=== PATIENT | male | born 1945 | race Caucasian/White ===

== ENCOUNTER 2017-01-27 12:48 | Observation (INO) | payer MEDICARE, OTHER ==
[~2017-01-27] VITALS: Ht 185.4 cm; Wt 115.1 kg
[~2017-01-27 12:48] MED LIST: AMLO10TA2 PO; ASP81TEC PO; CALC-899 PO; CARB1TAB19 PO; DUTA0.5C14 PO; FISH1CAP15 PO; FNST5T PO; GEMF600T3 PO; HYDR25TA4 PO; LEVO137T2 PO; LISI-552 PO; LVT.112T PO; OMEP20CA12 PO; OMG1KC PO; ONDAN4ODT PO; ORPH100T PO; PNT40TEC PO; POLY17PO23 PO; ROPI0.5T2 PO; SELE5CAP PO; TRM50T PO; ULTIMATE COLON CARE PO; [UNRECOGNIZED DRUG - CODE] PO; [UNRECOGNIZED DRUG - CODE] PO
--- NOTE | 2017-01-27 12:59 | ED Chest Pain ---
General Chief Complaint: Cardiac/General Problems Stated Complaint: ELEV BP/RAPID HEART RATE/CHEST TIGHTNESS Source: patient, RN notes reviewed, spouse Exam Limitations: no limitations History of Present Illness Time seen by provider: 12:50 Initial Comments As above and below. Timing/Duration: 4-6 hours Severity/Quality: mild, aching Location: substernal Radiation: jaw, neck Activities at Onset: none Modifying Factors: improves with other (none) ASA po HUMAN RESOURCE ASSISTANT: No NTG SL HUMAN RESOURCE ASSISTANT: No Associated Symptoms: dizziness, weakness Allergies and Home Medications Allergies Coded Allergies: No Known Drug Allergies (Unverified , 09/05/12) Home Medications Amiodarone HCl 200 Mg Tablet, 100 MG PO BID, #60 Ref 2 Prescribed by: MIRIAM NICOLE on 01/28/17 0748 Apixaban 5 Mg Tablet, 5 MG PO BID, #60 Ref 3 Prescribed by: MIRIAM NICOLE on 01/28/17 0748 Aspirin 81 Mg Tabec, 81 MG PO HS, (Reported) Calcium Carbonate/Simethicone 1 Each Tab.chew, 1 TAB.CHEW PO BID PRN for INDIGESTION, (Reported) Carbidopa/Levodopa 1 Each Tablet, 1 TAB PO 08,11,14,17,20, (Reported) Dutasteride 0.5 Mg Capsule, 0.5 MG PO HS, (Reported) Fish Oil/Dha/Epa 1 Each Capsule, 1,200 MG PO BID, (Reported) Gemfibrozil 600 Mg Tablet, 600 MG PO BID, (Reported) Hydrochlorothiazide 25 Mg Tablet, 25 MG PO DAILY PRN for BLOOD PRESSURE, ( Reported) TAKES WHEN BP DOES NOT COME DOWN WITH LISINOPRIL Levothyroxine Sodium 137 Mcg Tablet, 137 MCG PO DAILY, (Reported) Lisinopril 20 Mg Tablet, 5-10 MG PO DAILY PRN for BLOOD PRESSURE, (Reported) TAKES 1/4 TO 1/2 OF A (20 MG) TABLET Meclizine HCl 25 Mg Tablet, 25 MG PO TID PRN for DIZZINESS, (Reported) Omeprazole 20 Mg Capsule.dr, 20 MG PO DAILY, (Reported) Orphenadrine Citrate 100 Mg Tablet.er, 100 MG PO HS, (Reported) Polyethylene Glycol 17 Gm Pack, 17 GM PO DAILY, (Reported) Ropinirole HCl 0.5 Mg Tablet, 0.5 MG PO BID, (Reported) Selegiline HCl 5 Mg Tablet, 5 MG PO BID@1200,2100, (Reported) Review of Systems Constitutional: see HPI, dizziness Cardiovascular: See HPI, Chest Pain, Lightheadedness, Palpitations All Other Systems Reviewed Negative Unless Noted: Yes (Negative excepted noted.) Past Raywtyp-Yvkqhq-Rhrwrb Hx Patient Social History Recent Hopitalizations: No Immunizations Up To Date Date of Pneumonia Vaccine: Oct 05, 2008 Date of Influenza Vaccine: Jul 05, 2012 Seasonal Allergies Seasonal Allergies: No Surgeries HX Surgeries: Yes (shrapnel left arm) Surgeries: Appendectomy, Tonsillectomy Respiratory Hx Respiratory Disorders: No Cardiovascular Hx Cardiac Disorders: No Neurological Hx Neurological Disorders: Yes (PARKINSON'S) Reproductive System Hx Reproductive Disorders: No Genitourinary Hx Genitourinary Disorders: No Gastrointestinal Hx Gastrointestinal Disorders: No Musculoskeletal Hx Musculoskeletal Disorders: No Endocrine Hx Endocrine Disorders: No HEENT HX ENT Disorders: Yes (ONE BROKEN TEETH) Cancer Hx Cancer: No Psychosocial Hx Psychiatric Problems: No Integumentary HX Skin/Integumentary Disorder: No Blood Transfusions Hx Blood Disorders: No Family Medical History Significant Family History: No Pertinent Family Hx Family Medial History: Alcoholism G8 BROTHER Cervical cancer G8 SISTER Diabetes mellitus 19 FATHER 19 MOTHER G8 BROTHER FH: COPD (chronic obstructive pulmonary disease) 19 MOTHER FH: stroke 19 FATHER Physical Exam Vital Signs Vital Sign - Last 12Hours 01/27/17 12:58 Temp 98.2 Pulse 73 Resp 22 B/P (MAP) 141/98 Pulse Ox 18 Capillary Refill : General Appearance: No Apparent Distress, WD/WN Respiratory: Lungs Clear, No Respiratory Distress, Other ((+) ACW tenderness c / palpation) Cardiovascular: Irregularly Irregular Gastrointestinal: Non Tender Rectal: Deferred Neurologic/Psychiatric: Alert, Oriented x3, No Motor/Sensory Deficits, Normal Mood/Affect Skin: Warm/Dry Progress/Results/Core Measures Results/Orders Lab Results Laboratory Tests Test 01/27/17 13:05 Range/Units White Blood Count 5.0 4.3-11.0 10^3/uL Red Blood Count 4.89 4.35-5.85 10^6/uL Hemoglobin 15.0 13.3-17.7 G/DL Hematocrit 44 40-54 % Mean Corpuscular Volume 90 80-99 FL Mean Corpuscular Hemoglobin 31 25-34 PG Mean Corpuscular Hemoglobin Concent 34 32-36 G/DL Red Cell Distribution Width 13.5 10.0-14.5 % Platelet Count 134 130-400 10^3/uL Mean Platelet Volume 11.7 H 7.4-10.4 FL Neutrophils (%) (Auto) 47 42-75 % Lymphocytes (%) (Auto) 41 12-44 % Monocytes (%) (Auto) 11 0-12 % Eosinophils (%) (Auto) 1 0-10 % Basophils (%) (Auto) 1 0-10 % Neutrophils # (Auto) 2.3 1.8-7.8 X 10^3 Lymphocytes # (Auto) 2.1 1.0-4.0 X 10^3 Monocytes # (Auto) 0.5 0.0-1.0 X 10^3 Eosinophils # (Auto) 0.1 0.0-0.3 10^3/uL Basophils # (Auto) 0.0 0.0-0.1 10^3/uL Prothrombin Time 13.9 12.2-14.7 SEC INR Comment 1.1 0.8-1.4 Activated Partial Thromboplast Time 31 24-35 SEC Sodium Level 139 135-145 MMOL/L Potassium Level 4.2 3.6-5.0 MMOL/L Chloride Level 105 98-107 MMOL/L Carbon Dioxide Level 22 21-32 MMOL/L Anion Gap 12 5-14 MMOL/L Blood Urea Nitrogen 18 7-18 MG/DL Creatinine 1.01 0.60-1.30 MG/DL Estimat Glomerular Filtration Rate > 60 BUN/Creatinine Ratio 18 Glucose Level 107 H 70-105 MG/DL Calcium Level 9.3 8.5-10.1 MG/DL Magnesium Level 2.2 1.8-2.4 MG/DL Total Bilirubin 0.4 0.1-1.0 MG/DL Aspartate Amino Transf (AST/SGOT) 27 5-34 U/L Alanine Aminotransferase (ALT/SGPT) 34 0-55 U/L Alkaline Phosphatase 85 40-136 U/L Troponin I < 0.30 <0.30 NG/ML B-Type Natriuretic Peptide 154.3 H <100.0 PG/ML Total Protein 7.3 6.4-8.2 G/DL Albumin 4.1 3.2-4.5 G/DL Thyroid Stimulating Hormone (TSH) 2.79 0.35-4.94 UIU/ML My Orders Orders - EDDY SEXTON DO Saline Lock/Iv-Start (01/27/17 12:51) Ekg Tracing (01/27/17 12:51) BNP (01/27/17 12:56) Cbc With Automated Diff (01/27/17 12:56) Comprehensive Metabolic Panel (01/27/17 12:56) Magnesium (01/27/17 12:56) Protime With Inr (01/27/17 12:56) Partial Thromboplastin Time (01/27/17 12:56) Thyroid Stimulating Hormone (01/27/17 12:56) Troponin I (01/27/17 12:56) Chest 1 View, Ap/Pa Only (01/27/17 12:56) Vital Signs/I&O Vital Sign - Last 12Hours 01/27/17 12:58 Temp 98.2 Pulse 73 Resp 22 B/P (MAP) 141/98 Pulse Ox 18 ECG Initial ECG Impression Date: Jan 27, 2017 Initial ECG Impression Time: 12:58 Initial ECG Rate: 88 Initial ECG Rhythm: A Fib/Flutter Initial ECG Impression: Nonspecific Changes Diagnostic Imaging Diagonstic Imaging: Xray Plain Films/CT/US/NM/MRI: chest (nothing acute) Departure Communication Time/Spoke to Admitting Phy: 14:06 Impression Impression: Primary Impression: New onset atrial fibrillation Additional Impressions: Non-cardiac chest pain Labile hypertension Disposition: 09 ADMITTED INPATIENT Condition: Stable Decision to Admit Reason: Admit from ER (General) Decision to Admit/Date: Jan 27, 2017 Time/Decision to Admit Time: 14:06 Departure-Patient Inst. Referrals: EDDY ESPINO DO (PCP/Family) Primary Care Physician Scripts Amiodarone HCl (Amiodarone HCl) 200 Mg Tablet 100 MG PO BID, #60 TAB 2 Refills Prov: MIRIAM NICOLE MD 01/28/17 Apixaban (Eliquis) 5 Mg Tablet 5 MG PO BID, #60 TAB 3 Refills Prov: MIRIAM NICOLE MD 01/28/17 EDDY SEXTON DO Jan 27, 2017 12:59
[2017-01-27 13:19] LABS: BASOPHILS % (AUTO) 1 % (0-10); EOSINOPHILS # (AUTO) 0.1 10^3/uL (0.0-0.3); EOSINOPHILS % (AUTO) 1 % (0-10); LYMPHOCYTES # (AUTO) 2.1 X 10^3 (1.0-4.0); LYMPHOCYTES % (AUTO) 41 % (12-44); MEAN CORPUSCULAR HEMOGLOBIN 31 PG (25-34); MEAN CORPUSCULAR HGB CONC 34 G/DL (32-36); MEAN CORPUSCULAR VOLUME 90 FL (80-99); MEAN PLATELET VOLUME 11.7 FL (7.4-10.4); MONOCYTES # (AUTO) 0.5 X 10^3 (0.0-1.0); MONOCYTES % (AUTO) 11 % (0-12); NEUTROPHILS # (AUTO) 2.3 X 10^3 (1.8-7.8); NEUTROPHILS % (AUTO) 47 % (42-75); PLATELET COUNT 134 10^3/uL (130-400); RED BLOOD COUNT 4.89 10^6/uL (4.35-5.85); RED CELL DISTRIBUTION WIDTH 13.5 % (10.0-14.5)
[2017-01-27 13:30] LABS: INR 1.1 (0.8-1.4); PROTHROMBIN TIME PATIENT 13.9 SEC (12.2-14.7)
[2017-01-27 13:38] LABS: ALANINE AMINOTRANSFERASE 34 U/L (0-55); ALBUMIN 4.1 G/DL (3.2-4.5); ANION GAP 12 MMOL/L (5-14); ASPARTATE AMINO TRANSFERASE 27 U/L (5-34); BILIRUBIN,TOTAL 0.4 MG/DL (0.1-1.0); BLOOD UREA NITROGEN 18 MG/DL (7-18); BUN/CREATININE RATIO 18; CALCIUM 9.3 MG/DL (8.5-10.1); CARBON DIOXIDE 22 MMOL/L (21-32); CHLORIDE 105 MMOL/L (98-107); CREATININE SERUM 1.01 MG/DL (0.60-1.30); GFR ESTIMATED > 60; GLUCOSE 107 MG/DL (70-105); MAGNESIUM 2.2 MG/DL (1.8-2.4); SODIUM 139 MMOL/L (135-145); TOTAL PROTEIN 7.3 G/DL (6.4-8.2)
[2017-01-27 13:39] LABS: POTASSIUM 4.2 MMOL/L (3.6-5.0)
[2017-01-27 13:57] LABS: THYROID STIMULATING HORMONE 2.79 UIU/ML (0.35-4.94); TROPONIN I < 0.30 NG/ML (<0.30)
--- NOTE | 2017-01-27 13:57 | Diagnostic Imaging Report ---
Portable upright radiograph of the chest. INDICATION: Irregular heartbeat. FINDINGS: The lungs demonstrate no focal infiltrate. The heart size is normal. No effusion or pneumothorax. The mediastinum and ihsan appear unremarkable. IMPRESSION: Unremarkable exam. Dictated by: Dictated on workstation # [id number]
[2017-01-27 15:30] VITALS: BP 184/94
[2017-01-27] MEDS ORDERED: SELE5TAB2 PO (15:37)
[2017-01-27] MEDS ORDERED: LISI-552 PO (15:37)
[2017-01-27] MEDS ORDERED: MECL-106 PO (15:37)
[2017-01-27] MEDS ORDERED: HYDR25TA4 PO (15:37)
--- NOTE | 2017-01-27 15:45 | Consultation-Cardiology ---
HPI-Cardiology Cardiology Consultation Date of Consultation 01/27/17 Date of Admission Indication: atrial fibrillation, chest pain HPI 71 years old gentleman with history of hypertension, was having difficulties controlling his blood pressure but recently has been under better control, this morning he started having chest pain described it as dull achiness in his chest bilaterally radiating to his neck and jaw, checked his blood pressure and noted that his blood pressure is elevated and his heart rate is 150. Came into the emergency room and noted that his heart rate is under better control but he is in atrial fibrillation. His chest pain has resolved. No further episodes. Denied any previous history of atrial fibrillation or irregular heartbeat. No syncope or near syncopal episodes. Home Medications & Allergies Allergies: Coded Allergies: No Known Drug Allergies (Unverified , 09/05/12) Home Medication List Reviewed: Yes JYT-Aowsnw-Okxewr Hx Patient Social History Marital Status: Employed/Student: retired Alcohol Use: Past History Recreational Drug Use: No Smoking Status: Never a Smoker Type Used: Cigarettes Recent Foreign Travel: No Recent Infectious Disease Expo: No Recent Hopitalizations: No Immunizations Up To Date Date of Pneumonia Vaccine: Oct 05, 2008 Date of Influenza Vaccine: Jul 05, 2012 Past Medical History discussed below Family Medical History Significant Family History: No Pertinent Family Hx Family History: Alcoholism G8 BROTHER Cervical cancer G8 SISTER Diabetes mellitus 19 FATHER 19 MOTHER G8 BROTHER FH: COPD (chronic obstructive pulmonary disease) 19 MOTHER FH: stroke 19 FATHER Constitutional: see HPI, malaise, weakness EENTM: no symptoms reported, see HPI Respiratory: see HPI, No cough, dyspnea on exertion, No hemoptysis, No orthopnea, No phlegm, No short of breath, No stridor, No wheezing, No other Cardiovascular: see HPI, chest pain, No edema, No Hx of Intervention, palpitations, No syncope, No vascular heart diseas, No other Gastrointestinal: no symptoms reported, see HPI Genitourinary: no symptoms reported, see HPI Musculoskeletal: no symptoms reported, see HPI Skin: no symptoms reported, see HPI Psychiatric/Neurological: No Symptoms Reported, See HPI Reviewed Test Results Reviewed Test Results Lab Laboratory Tests Test 01/27/17 13:05 Range/Units White Blood Count 5.0 4.3-11.0 10^3/uL Red Blood Count 4.89 4.35-5.85 10^6/uL Hemoglobin 15.0 13.3-17.7 G/DL Hematocrit 44 40-54 % Mean Corpuscular Volume 90 80-99 FL Mean Corpuscular Hemoglobin 31 25-34 PG Mean Corpuscular Hemoglobin Concent 34 32-36 G/DL Red Cell Distribution Width 13.5 10.0-14.5 % Platelet Count 134 130-400 10^3/uL Mean Platelet Volume 11.7 H 7.4-10.4 FL Neutrophils (%) (Auto) 47 42-75 % Lymphocytes (%) (Auto) 41 12-44 % Monocytes (%) (Auto) 11 0-12 % Eosinophils (%) (Auto) 1 0-10 % Basophils (%) (Auto) 1 0-10 % Neutrophils # (Auto) 2.3 1.8-7.8 X 10^3 Lymphocytes # (Auto) 2.1 1.0-4.0 X 10^3 Monocytes # (Auto) 0.5 0.0-1.0 X 10^3 Eosinophils # (Auto) 0.1 0.0-0.3 10^3/uL Basophils # (Auto) 0.0 0.0-0.1 10^3/uL Prothrombin Time 13.9 12.2-14.7 SEC INR Comment 1.1 0.8-1.4 Activated Partial Thromboplast Time 31 24-35 SEC Sodium Level 139 135-145 MMOL/L Potassium Level 4.2 3.6-5.0 MMOL/L Chloride Level 105 98-107 MMOL/L Carbon Dioxide Level 22 21-32 MMOL/L Anion Gap 12 5-14 MMOL/L Blood Urea Nitrogen 18 7-18 MG/DL Creatinine 1.01 0.60-1.30 MG/DL Estimat Glomerular Filtration Rate > 60 BUN/Creatinine Ratio 18 Glucose Level 107 H 70-105 MG/DL Calcium Level 9.3 8.5-10.1 MG/DL Magnesium Level 2.2 1.8-2.4 MG/DL Total Bilirubin 0.4 0.1-1.0 MG/DL Aspartate Amino Transf (AST/SGOT) 27 5-34 U/L Alanine Aminotransferase (ALT/SGPT) 34 0-55 U/L Alkaline Phosphatase 85 40-136 U/L Troponin I < 0.30 <0.30 NG/ML B-Type Natriuretic Peptide 154.3 H <100.0 PG/ML Total Protein 7.3 6.4-8.2 G/DL Albumin 4.1 3.2-4.5 G/DL Thyroid Stimulating Hormone (TSH) 2.79 0.35-4.94 UIU/ML Physical Exam Vital Signs Vital Sign - Last 12Hours 01/27/17 12:58 Temp 98.2 Pulse 73 Resp 22 B/P (MAP) 141/98 Pulse Ox 18 Capillary Refill : Less Than 3 Seconds General Appearance: No Apparent Distress, WD/WN Eyes: Bilateral Eye EOMI, Bilateral Eye Normal Inspection, Bilateral Eye PERRL HEENT: PERRL/EOMI, TMs Normal, Normal ENT Inspection, Pharynx Normal Neck: Full Range of Motion, Normal Inspection, Non Tender, Supple, Carotid Bruit Respiratory: Chest Non Tender, Lungs Clear, Normal Breath Sounds, No Accessory Muscle Use, No Respiratory Distress Cardiovascular: No Edema, No JVD, No Murmur, Normal Peripheral Pulses, Gallop/ S3, Irregularly Irregular Gastrointestinal: Normal Bowel Sounds, No Organomegaly, No Pulsatile Mass, Non Tender, Soft Back: Normal Inspection, No CVA Tenderness, No Vertebral Tenderness Extremity: Normal Capillary Refill, Normal Inspection, Normal Range of Motion, Non Tender, No Calf Tenderness, No Pedal Edema Neurologic/Psychiatric: Alert, Oriented x3, No Motor/Sensory Deficits, Normal Mood/Affect Skin: Normal Color, Warm/Dry Lymphatic: No Adenopathy A/P-Cardiology Admission Diagnosis anterior chest wall pain Atrial fibrillation Malignant hypertension Hyperlipidemia Assessment/Plan Anterior chest wall pain, no acute EKG changes, cardiac enzymes were normal, questionable chest pain secondary to new-onset atrial fibrillation and tachycardia. Heart rate is better control at this time and his chest pain is better. I will continue monitoring, evaluate echocardiogram, probably stress test as an outpatient if his cardiac enzymes were negative. Atrial fibrillation, new onset, no previous history of atrial fibrillation. I will start him on beta blockers, monitor heart rate and blood pressure closely. [id number] score of 2, yearly risk of stroke without oral anticoagulation is 2.2 percent, patient will be started on Eliquis to reduce the risk of stroke. Malignant hypertension, history of hypertensive encephalopathy with hallucination during episode of elevated blood pressure. currently blood pressure is poorly controlled. Continue to monitor History of borderline bradycardia while at rest. Monitor while on telemetry. Dizziness and lightheadedness, reporting improvement at this time. Continue to monitor. Hypothyroidism, maintained on thyroid replacement, TSH is normal. Managed by primary care physician. Continue to monitor Nausea and vomiting, improved. Continue to monitor Parkinson disease, followed and managed by primary care physician Hyperlipidemia, maintained on fenofibrate, good control, triglyceride 188. Continue on current medications and monitor MIRIAM NICOLE MD Jan 27, 2017 15:45
[2017-01-27] MEDS ORDERED: HYDROCHLOROTHIAZIDE 25 MG (HCTZ) TAB PO PRN (16:00)
[2017-01-27] MEDS ORDERED: RT-ALBUTEROL SULF 2.5 MG/3 ML PRE-MIX VIAL IH PRN (16:45)
[2017-01-27 17:00] VITALS: BP 104/65
[2017-01-27] MEDS: SINEMET 25/100 (CARBIDOPA/LEVODOPA) TAB PO SCH ×2 (17:40→21:56)
[2017-01-27] MEDS ORDERED: PATIENT MAY USE OWN MEDS, ALL MC SCH (17:45)
[2017-01-27 19:56] VITALS: BP 127/77
[2017-01-27] MEDS ORDERED: ASPIRIN E.C. 81 MG (ECOTRIN) TAB PO SCH (21:00)
[2017-01-27] MEDS ORDERED: ORPHENADRINE CITRATE 100 MG PO SCH (21:00)
[2017-01-27] MEDS ORDERED: SELEGILINE 5 MG PO SCH (21:00)
[2017-01-27] MEDS: APIXABAN 5 MG (ELIQUIS) TABLET PO SCH (21:55)
[2017-01-27] MEDS: GEMFIBROZIL 600 MG (LOPID) TAB PO SCH (21:55)
[2017-01-27] MEDS: rOPINIRole 0.25 MG (REQUIP) TAB PO SCH (21:55)
[2017-01-27] MEDS: OMEGA 3 (FISH OIL) 1000 MG CAP PO SCH (21:55)
[2017-01-28] VITALS: BP 111/71
[2017-01-28 03:55] VITALS: BP 137/82
[2017-01-28 04:51] LABS: MEAN PLATELET VOLUME 11.4 FL (7.4-10.4); RED BLOOD COUNT 4.66 10^6/uL (4.35-5.85); RED CELL DISTRIBUTION WIDTH 13.7 % (10.0-14.5); WHITE BLOOD COUNT 5.2 10^3/uL (4.3-11.0)
[2017-01-28 05:13] LABS: ANION GAP 13 MMOL/L (5-14); BLOOD UREA NITROGEN 24 MG/DL (7-18); BUN/CREATININE RATIO 20; CALCIUM 9.1 MG/DL (8.5-10.1); CARBON DIOXIDE 25 MMOL/L (21-32); CHLORIDE 105 MMOL/L (98-107); CHOLESTEROL 137 MG/DL (< 200); DIRECT LDL 84 MG/DL (1-129); GFR ESTIMATED 60; GLUCOSE 102 MG/DL (70-105); POTASSIUM 4.2 MMOL/L (3.6-5.0); SODIUM 143 MMOL/L (135-145)
[2017-01-28 05:21] LABS: TROPONIN I < 0.30 NG/ML (<0.30)
[2017-01-28 05:27] LABS: TRIGLYCERIDES 197 MG/DL (<150); VLDL CHOLESTEROL 39 MG/DL (5-40)
[2017-01-28] MEDS ORDERED: LEVOTHYROXINE 25 MCG (LEVOTHROID) TAB PO SCH (06:30)
[2017-01-28] MEDS ORDERED: LEVOTHYROXINE 112 MCG (LEVOTHROID) TAB PO SCH (06:30)
[2017-01-28 07:00] VITALS: BP 138/83
[2017-01-28] MEDS ORDERED: PANTOPRAZOLE 20 MG TABLET (PROTONIX) PO SCH (07:00)
--- NOTE | 2017-01-28 07:46 | Cardiology Progress Note ---
Subjective Subjective/Events-last exam patient is laying down in bed, feeling better, converted back to sinus rhythm, heart rate is controlled. Review of Systems General: No Chills, No Night Sweats, No Fatigue, No Malaise, No Appetite, No Other HEENT: No Head Aches, No Visual Changes, No Eye Pain, No Ear Pain, No Dysphasia , No Sinus Congestion, No Post Nasal Drip, No Sore Throat, No Other Pulmonary: No Dyspnea, No Cough, No Pleuritic Chest Pain, No Other Cardiovascular: No: Chest Pain, Edema, Lt Headedness, Orthopnea, Other, Palpitations, Paroxysmal Noc. Dyspnea Objective-Cardiology Exam Last Set of Vital Signs Vital Signs 01/28/17 06:53 Pulse Ox 98 Capillary Refill : Less Than 3 Seconds I&O Bad tableGeneral: Alert, Oriented X3, Cooperative HEENT: Atraumatic, PERRLA Neck: Supple, No JVD, No Thyromegaly Lungs: Clear to Auscultation, Normal Air Movement Heart: Regular Rate, Normal S1, Normal S2, No Murmurs Abdomen: Normal Bowel Sounds, Soft, No Tenderness, No Hepatosplenomegaly, No Masses Extremities: No Clubbing, No Cyanosis, No Edema, Normal Pulses, No Tenderness/ Swelling Skin: No Rashes, No Breakdown, No Significant Lesion Neuro: Normal Gait, Normal Speech, Strength at 5/5 X4 Ext, Normal Tone, Sensation Intact Psych/Mental Status: Mental Status NL, Mood NL Results Lab Laboratory Tests 01/27/17 13:05 01/28/17 04:35 A/P-Cardiology Admission Diagnosis anterior chest wall pain Atrial fibrillation Malignant hypertension Hyperlipidemia Assessment/Plan Anterior chest wall pain, no acute EKG changes, cardiac enzymes were normal, better at this time, planning to have a stress test done as an outpatient. Atrial fibrillation, back to sinus rhythm, currently in sinus bradycardia, will be unable to tolerate beta blockers, I will use low-dose amiodarone and evaluate tolerance and response [id number] score of 2, yearly risk of stroke without oral anticoagulation is 2.2 percent, patient will be started on Eliquis to reduce the risk of stroke. Malignant hypertension, history of hypertensive encephalopathy with hallucination during episode of elevated blood pressure, blood pressure is better controlled. Continue to monitor Sick sinus syndrome, bradycardia at this time, continue to monitor heart rate Dizziness and lightheadedness, reporting improvement at this time. Continue to monitor. Hypothyroidism, maintained on thyroid replacement, TSH is normal. Managed by primary care physician. Continue to monitor Nausea and vomiting, improved. Continue to monitor Parkinson disease, followed and managed by primary care physician Hyperlipidemia, maintained on fenofibrate, good control, triglyceride 188. Continue on current medications and monitor Clinical Quality Measures DVT/VTE Risk/Contraindication: Risk Factor Score Per Nursin RFS Level Per Nursing on Admit: 3=High MIRIAM NICOLE MD Jan 28, 2017 07:46
--- NOTE | 2017-01-28 07:47 | Clinic Account Progress/Dx ---
Clinic Account Progress/Dx DIAGNOSIS: Diagnosis Chest pain nonspecific etiology Paroxysmal atrial fibrillation Sick sinus syndrome Malignant hypertension MIRIAM NICOLE MD Jan 28, 2017 07:47
[2017-01-28] MEDS ORDERED: APIX5TAB PO (07:48)
[2017-01-28] MEDS ORDERED: AMIO200T2 PO (07:48)
[2017-01-28] MEDS: OMEGA 3 (FISH OIL) 1000 MG CAP PO SCH (07:52)
[2017-01-28] MEDS: GEMFIBROZIL 600 MG (LOPID) TAB PO SCH (07:52)
[2017-01-28] MEDS: rOPINIRole 0.25 MG (REQUIP) TAB PO SCH (07:52)
[2017-01-28] MEDS: APIXABAN 5 MG (ELIQUIS) TABLET PO SCH (07:53)
[2017-01-28] MEDS ORDERED: SINEMET 25/100 (CARBIDOPA/LEVODOPA) TAB PO SCH (08:00)
[2017-01-28] MEDS ORDERED: FINASTERIDE (PROSCAR) 5 MG TAB PO SCH (09:00)
[2017-01-28] MEDS ORDERED: POLYETHYLENE GLYCOL 17 GM (MIRALAX) PACK PO SCH (09:00)
[2017-01-28] MEDS ORDERED: AMIODARONE 200 MG (CORDARONE) TAB PO SCH (09:00)
--- NOTE | 2017-01-29 13:19 | ECHOCARDIOGRAPHY REPORT ---
DATE OF SERVICE: 01/27/2017 PROCEDURE: 2D Echocardiogram MEASUREMENT: LVID end diastolic 4.3, IVS thickness 1.2, LVPW thickness 1.2, left atrial diameter 5.4, ejection fraction 60%. FINDINGS: 1. Technically difficult study. 2. The left ventricle is normal in size with moderate left ventricular hypertrophy noted diffusely. Systolic function appeared to be normal. Estimated ejection fraction 60%. 3. The left atrium is dilated. No clot or thrombus were seen within the left atrium. 4. The right atrium and right ventricle are normal in size. No clot or thrombus were seen within the right side. 5. 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 No mitral valve prolapse. No mitral valve stenosis. 6. Aortic valve is calcified. There is no significant aortic valve stenosis that was noted. Mild aortic regurgitation noted by color Doppler flow. 7. Tricuspid valve is normal in morphology with mild tricuspid regurgitation by color Doppler flow. Doppler across the tricuspid valve estimated pulmonary artery pressure of 19 plus right atrial pressure. 8. Pulmonic valve is functioning normally. 9. No pericardial effusion. IN CONCLUSION: 1. Moderate left ventricular hypertrophy noted diffusely, endocardium was not well visualized in all segments. Estimated ejection fraction is 60%. 2. Left atrial enlargement. 3. 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 4. Aortic valve sclerosis, no aortic stenosis. Mild aortic regurgitation. 5. Estimated pulmonary artery pressure of 25 mmHg. Job ID: [id number] DocumentID: [id number] Dictated Date: 01/28/2017 07:09:54 Structural Biologist Date: 01/28/2017 13:22:35 Dictated By: MIRIAM NICOLE MD
== END 2017-01-28 07:47 | disposition home or self-care (01) ==
LOC: EDUNIT# 12:48 → ER 12:50 → UNDOADMIN 14:12 → ICU 14:12 → INTOOBSV 15:47 → ICU 18:41 → UNDODISIN 01-28 08:50
PROVIDERS: ADMIT Internal Medicine Cardiovascular Disease; ATTEND Internal Medicine Cardiovascular Disease
DX: I48.0 Paroxysmal atrial fibrillation (principal); I49.5 Sick sinus syndrome; R07.89 Other chest pain; I10 Essential (primary) hypertension; R42 Dizziness and giddiness; E03.9 Hypothyroidism, unspecified; R11.2 Nausea with vomiting, unspecified; G20 Parkinson's disease; E78.5 Hyperlipidemia, unspecified
CPT/HCPCS: 36415; 71010; 80048; 80053; 80061; 83735; 83880; 84443; 84484; 85025; 85027; 85610; 85730; 93005; 93306; 94760; G0378

== ENCOUNTER → 2017-02-23 | Outpatient (CLI) | payer MEDICARE, OTHER ==
[~2017-02-23] VITALS: Ht 185.4 cm; Wt 118.4 kg
[~2017-02-23] MED LIST changes: +AMIO200T2 PO; +APIX5TAB PO; +CATHETER FLUSH 10 ML SYR IV PRN; +MECL-106 PO; +REGADENOSON 0.4 MG/5 ML SYR (LEXISCAN) IV ONE; +SELE5TAB2 PO
[2017-02-23 09:01] VITALS: BP 208/89
--- NOTE | 2017-02-24 07:37 | STRESS TEST ---
DATE OF SERVICE: 02/23/2017 PROCEDURE: Lexiscan Myoview stress test report. REFERRING PHYSICIAN: Dr. Lopez. FINDINGS: Baseline heart rate is 54 baseline blood pressure 109/65. Baseline EKG is sinus rhythm with no ischemic changes SUMMARY: The patient was scheduled for an exercise stress test initially. He received 10.16 mCi of technetium-99 Myoview and the resting images were obtained. Then, he started exercising on a Neto protocol. At minute 4 and 50 seconds he was unable to perform any further. He had nondiagnostic EKG changes. Test was terminated and converted to Lexiscan Myoview stress test. The patient received 0.4 mg of Lexiscan followed by 30.2 mCi of technetium 99 Myoview. Throughout the test, there were no EKG changes. The resting and stress images were reviewed and compared in the short axis, horizontal long axis, and vertical long axis views. Review of the images showed good radiotracer uptake with no ischemia or infarction. SSS is zero, TID value 0.95. On the gated images, the left ventricle appeared to be normal size with normal contractility. Calculated ejection fraction 66%. CONCLUSION: The patient was unable to exercise on Neto protocol; he finished only 4 minutes and 50 seconds achieving 77% of maximum expected heart rate. Test was converted to Lexiscan. The patient tolerated Lexiscan well. 1. No ischemia or infarction on SPECT images. 2. Normal left ventricular size with normal contractility. Calculated ejection fraction 66%. Job ID: [id number] DocumentID: [id number] Dictated Date: 02/23/2017 11:59:10 Senior Computer Specialist Date: 02/24/2017 01:06:26 Dictated By: MIRIAM NICOLE MD
== END ==
LOC: CARD 07:19
PROVIDERS: ATTEND Physician Assistant
DX: I48.0 Paroxysmal atrial fibrillation (principal); R07.89 Other chest pain; I10 Essential (primary) hypertension; G47.33 Obstructive sleep apnea (adult) (pediatric)
CPT/HCPCS: 78452; 93017

== ENCOUNTER 2017-05-12 09:16 | Outpatient (CLI) | payer MEDICARE, OTHER ==
[~2017-05-12] VITALS: Ht 185.4 cm; Wt 118.4 kg
[~2017-05-12 09:16] MED LIST changes: -CATHETER FLUSH 10 ML SYR IV PRN; -REGADENOSON 0.4 MG/5 ML SYR (LEXISCAN) IV ONE
[2017-05-12] MEDS ORDERED: AMIO200T2 PO (14:02)
[2017-05-12] MEDS ORDERED: LISI-556 PO (14:02)
== END 2017-05-12 14:12 ==
LOC: PREOP 09:16
PROVIDERS: ATTEND Surgery
DX: Z01.818 Encounter for other preprocedural examination (principal); Z12.11 Encounter for screening for malignant neoplasm of colon; K21.9 Gastro-esophageal reflux disease without esophagitis

== ENCOUNTER 2017-05-18 09:45 | Day surgery (SDC) | payer MEDICARE, OTHER ==
[~2017-05-18] VITALS: Ht 185.4 cm; Wt 118.4 kg
[~2017-05-18 09:45] MED LIST changes: +LISI-556 PO
--- OUTSIDE RECORDS SUMMARY | 2017-05-18 09:49 | XMS REPORT | Encounter Summary ---
Author Author [facility] Organization [facility] Address Unknown Phone Unavailable Care Team Providers Care Director Voice Name Role Phone PCP Unavailable Reason for Visit * Reason Comments Parkinson's Disease w/ Encounter Details Date Type Department Care Team Description 04/15/2017 [facility] Visit [facility] Bowman MD Parkinson disease (HCC) - Neurology [address] (Primary Dx);Excessive [address] [place] [address] sleepiness;[place] [address] insomnia;[place] [address] depression;Restless legs [phone] syndrome (RLS) Social History Tobacco Use Types Packs/Day Years Used Date Never Smoker Smokeless Tobacco: Never Used Comments: 06.22.12 Alcohol Use Drinks/Week oz/Week Comments No 0 Standard 0.0 drinks or equivalent Sex Assigned at Date Recorded Not on file as of this encounter Last Filed Vital Signs Vital Sign Reading Time Taken Blood Pressure 157/84 04/15/2017 11:31 AM CDT Pulse 50 04/15/2017 11:31 AM CDT Temperature - - Respiratory Rate - - Oxygen Saturation - - Inhaled Oxygen - - Concentration Weight 116.4 kg (256 lb 9.9 oz) 04/15/2017 11:31 AM CDT Height 180.5 cm (5' 11.06") 04/15/2017 11:31 AM CDT Body Mass Index 35.73 04/15/2017 11:31 AM CDT in this encounter Instructions * Patient Instructions - Erlin Bowman MD - 04/15/2017 11:48 AM CDT Increase Sinemet (carbidopa/levodopa) 25/100 2 tab at 8a, 11a, 1 tab at 2p, 5p, 8p Common Side Effects As with all medications, there are potential side effects that may occur. Common side effects include dizziness, nausea, confusion, seeing things and objects that are not there (hallucinations), constipation, and involuntary movements (dyskinesias). Call [phone] if you have any questions or side effects. in this encounter Progress Notes * Erlin Bowman MD - 04/15/2017 11:45 AM CDT Formatting of this note may be different from the original. Subjective: Brooks Gan is a 71 y.o. male. History of Present Illness Parkinson's Disease Follow-Up Visit Since my last visit I am: Slighly worse Symptoms Scale: Memory problems: Mild, bothersome Hallucinations/delusions: Mild, illusions Depression: Slight, not bothersome Anxiety: Mild, can be bothersome Apathy: Slight, some loss of interest Impulsive behavior: None Nighttime sleep: Moderate, wake up multiple times Daytime sleepiness: Moderate, difficulty staying awake Vivid dreams: Mild, frequently not bothersome REM sleep behavior disorder: Mild, frequently talk but not disturbing Restless leg syndrome: Marked, frequently affects sleeping Pain or muscle cramps: Mild, muscle or joint pain need medications Urination: Moderate, occasional accidents Constipation: Moderate, need OTC medication Dizziness or lightheadedness: Mild, often on standing Tiredness/Fatigue: Marked, cannot do majority of activities Falling: I have not fallen Personal care assistance: Moderate, I have some difficulty and need some help daily Total Score: Total Score: 39 Assistive Devices: Assistive devices for getting around: None OFF Time: OFF time: Yes Hours/day of OFF time: 2 Number of episodes/day: 1 OFF time is bothersome: All of the time Muscles spasms or strange posturing: No OFF disability: They are annoying to me Dyskinesia: Dyskinesia while awake: No Employment Status: Employment: Retired - not due to PD Review of Systems HENT: Positive for drooling. Gastrointestinal: Positive for abdominal pain, constipation and abdominal distention. Negative for nausea, vomiting, diarrhea, blood in stool, anal bleeding and rectal pain. Genitourinary: Positive for urgency. Negative for dysuria, frequency, hematuria , flank pain, decreased urine volume, discharge, penile swelling, scrotal swelling, enuresis, difficulty urinating, genital sores, penile pain and testicular pain. Neurological: Positive for speech difficulty. Objective: amiodarone (CORDARONE) 200 mg tablet Take 100 mg by mouth twice daily. Take with food. apixaban (ELIQUIS) 5 mg tablet Take 5 mg by mouth twice daily. carbidopa/levodopa (SINEMET) 25/100 mg tablet 2 tab 8a, 11a, 1 tab at 2p, 5p , 8p dutasteride (AVODART) 0.5 mg capsule TAKE 1 CAPSULE DAILY gemfibrozil (LOPID) 600 mg tablet Take 600 mg by mouth twice daily. Incontinence Pad, Liner, Disp pads Use urinary incontinence pads prn. levothyroxine (SYNTHROID) 112 mcg tablet Take 150 mcg by mouth daily. lisinopril (PRINIVIL; ZESTRIL) 5 mg tablet Take 5 mg by mouth daily. meclizine (ANTIVERT) 25 mg tablet Take 25 mg by mouth as Needed. omeprazole DR(+) (PRILOSEC) 20 mg capsule Take 20 mg by mouth daily. orphenadrine ER(+) (NORFLEX) 100 mg tablet Take 1 Tab by mouth at bedtime daily. rOPINIRole (REQUIP) 1 mg tablet Take 0.5 Tabs by mouth twice daily. selegiline(+) 5 mg tablet Take 1 Tab by mouth twice daily. Filed Vitals: 04/15/17 1131 BP: 157/84 Pulse: 50 Height: 180.5 cm (71.06") Weight: 116.4 kg (256 lb 9.9 oz) Body mass index is 35.73 kg/(m^2). Physical Exam EXAMINATION: ORIENTATION: Alert and Oriented. Cranial Nerves: II-XII Unremarkable Right Left Bradkinesia None Mild Tremor Hands Resting None Mild Postural None None Kinetic None None Tremor Other: None Dyskinesia: None Muscle Strength: Unremarkable Gait: Independent with minor impairment PDQ39 suggest that the symptoms impact the Quality of Life as: PDQ 39 IMPACT Mobility Percent: 57.5 % ADL Percent: 58.33 % Emotional Percent: 20.83 % Social Stigma Percent: 6.25 % Social Support Percent: 0 % Cognition Percent: 50 % Communication Percent: 25 % Body Discomfort Percent: 25 % PDQ Total Percent: 36.54 % Assessment and Plan: Problem Parkinson disease (HCC) Symptoms began in 2010, initial symptoms was left hand tremor. Diagnosed with Parkinson's disease in 2010. Atypical PD Features: None. Symptoms improve with Sinemet (carbidopa/levodopa) 25/100 and has motor fluctuation. 07/23/2015 PDQ8 Total %: 34 03/05/2016 PDQ8 Total %: 50 04/16/2017 PDQ Total Percent: 36.54 % Restless Legs Syndrome (Rls) On Requip (ropinirole) Excessive Sleepiness [place] Sleepiness Scale: 11 09/08/2013 [place] Sleepiness Scale: 11 04/15/2017 H/O of sleep apnea Insomnia 09/08/2013 Tried Remeron (mirtazepine), gives him a "hangover" Depression GDS Score (Calculated: max 30): 11 Did not tolerate Remeron (mirtazepine) On Zoloft (sertraline) 07/23/2015 Geriatric Depression Scale: 11 03/05/2016 Geriatric Depression Scale: 14 04/16/2017 Zoloft (sertraline) discontinued due to ? reason Parkinson disease (HCC) Symptoms are worse since the last visit. I recommended increasing Sinemet ( carbidopa/levodopa) 25/100 2 tab at 8a, 11a, 1 tab at 2p, 5p, 8p. Side effects were discussed with the patient and he was given a list of common side effects. Excessive sleepiness His symptoms are stable. No medication changes were recommended during the current visit. Insomnia His symptoms are stable. No medication changes were recommended during the current visit. Depression His symptoms are stable. No medication changes were recommended during the current visit. Restless legs syndrome (RLS) His symptoms are stable. No medication changes were recommended during the current visit. Patient will follow up in approximately 6 months. in this encounter Plan of Treatment Not on fileas of this encounter Visit Diagnoses Diagnosis Parkinson disease (HCC) - Primary Paralysis agitans Excessive sleepiness Hypersomnia, unspecified Other insomnia Other depression Restless legs syndrome (RLS) in this encounter
--- OUTSIDE RECORDS SUMMARY | 2017-05-18 09:49 | XMS REPORT | Clinical Summary ---
Author Author [facility] Organization [facility] Address Unknown Phone Unavailable Care Team Providers Care Internet Marketer Name Role Phone PCP Unavailable Source Comments Some departments are not documenting in the electronic medical record. If you do not see the information that you expected, contact Release of Information in the Health Information Management department at [phone] for further assistance in locating additional records.[facility] Allergies No Known Allergies Current Medications Prescription Sig. Disp. Refills Start End Date Status Date levothyroxine (SYNTHROID) Take 150 mcg by mouth Active 112 mcg tablet daily. gemfibrozil (LOPID) 600 Take 600 mg by mouth Active mg tablet twice daily. Incontinence Pad, Liner, Use urinary incontinence 60 Each 11 03/28/20 Active Disp padsIndications: pads prn. 14 Urinary incontinence, post-void dribbling dutasteride (AVODART) 0.5 TAKE 1 CAPSULE DAILY 90 Cap 3 03/05/20 Active mg capsule 16 rOPINIRole (REQUIP) 1 mg Take 0.5 Tabs by mouth 180 Tab 3 08/13/20 Active tabletIndications: twice daily. 16 Parkinson disease (HCC) orphenadrine ER(+) Take 1 Tab by mouth at 90 Tab 3 11/26/19 Active (NORFLEX) 100 mg tablet bedtime daily. 17 selegiline(+) 5 mg tablet Take 1 Tab by mouth twice 180 Tab 3 Active daily. 17 apixaban (ELIQUIS) 5 mg Take 5 mg by mouth twice Active tablet daily. amiodarone (CORDARONE) Take 100 mg by mouth Active 200 mg tablet twice daily. Take with food. omeprazole DR(+) Take 20 mg by mouth Active (PRILOSEC) 20 mg capsule daily. meclizine (ANTIVERT) 25 Take 25 mg by mouth as Active mg tablet Needed. lisinopril (PRINIVIL; Take 5 mg by mouth daily. Active ZESTRIL) 5 mg tablet carbidopa/levodopa 2 tab 8a, 11a, 1 tab at 630 Tab 3 04/16/20 Active (SINEMET) 25/100 mg 2p, 5p, 8p 17 tabletIndications: Parkinson disease (HCC) Active Problems Problem Noted Date Light headedness 08/13/2016 Last Assessment & Plan: He has a drop in BP on standing and I recommended reducing lisiniopril to 0.5 tab daily and to follow up with Primary Care Physician. Restless legs syndrome (RLS) 09/07/2013 Overview: On Requip (ropinirole) L ast Assessment & Plan: His symptoms are stable. No medication changes were recommended during the current visit. Erectile dysfunction 03/29/2013 Overview: Mild ED since starting Avodart. L ast Assessment & Plan: 1. Start Viagra 50mg PRN. Script provided. Discussed proper use of medication. Parkinson disease (HCC) 06/22/2012 Overview: Symptoms began in 2010, initial symptoms was left hand tremor. Diagnosed with Parkinson's disease in 2010. Atypical PD Features: None. Symptoms improve with Sinemet (carbidopa/levodopa) 25/100 and has motor fluctuation. 07/23/2015 PDQ8 Total %: 34 03/05/2016 PDQ8 Total %: 50 04/16/2017 PDQ Total Percent: 36.54 % L ast Assessment & Plan: Symptoms are worse since the last visit. I recommended increasing Sinemet (carbidopa/levodopa) 25/100 2 tab at 8a, 11a, 1 tab at 2p, 5p, 8p. Side effects were discussed with the patient and he was given a list of common side effects. Excessive sleepiness 06/22/2012 Overview: [place] Sleepiness Scale: 11 09/08/2013 [place] Sleepiness Scale: 11 04/15/2017 H/O of sleep apnea L ast Assessment & Plan: His symptoms are stable. No medication changes were recommended during the current visit. Insomnia 06/22/2012 Overview: 09/08/2013 Tried Remeron (mirtazepine), gives him a "hangover" L ast Assessment & Plan: His symptoms are stable. No medication changes were recommended during the current visit. Depression 06/22/2012 Overview: GDS Score (Calculated: max 30): 11 Did not tolerate Remeron (mirtazepine) On Zoloft (sertraline) 07/23/2015 Geriatric Depression Scale: 11 03/05/2016 Geriatric Depression Scale: 14 04/16/2017 Zoloft (sertraline) discontinued due to ? reason L ast Assessment & Plan: His symptoms are stable. No medication changes were recommended during the current visit. BPH with obstruction/lower urinary tract symptoms Overview: Prostate TRUS Vol (08/23/2012)=125 mL Currently on Avodart. Failed Flomax due to light headedness. L ast Assessment & Plan: Continue avodart - well managed. Report of rust colored urine - will send UA today. History of hematuria with negative workup in 2011. Elevated PSA Overview: PNBx (06/10/2011) -- Negative for malignancy; Dr. Toth PNBx (08/23/2012) -- Negative for malignancy; Efrain Tinoco PA-C Currently on Avodart. L ast Assessment & Plan: Repeat PSA in 1 year - continue avodart. Urinary incontinence, post-void dribbling Last Assessment & Plan: Urinary incontinence pads prn. Prostate cancer screening Last Assessment & Plan: PSA mildly increased - RTC 1 year with PSA prior. Encounters Date Type Specialty Care Team Description 04/15/2017 Office Visit Neurology Erlin Bowman MD Parkinson disease (HCC) (Primary Dx);Excessive sleepiness;Other insomnia;Other depression;Restless legs syndrome (RLS) 04/06/2017 Refill Neurology Erlin Bowman MD from Last 3 Months Family History Medical History Relation Name Comments Stroke Father Tremor Father Relation Name Status Comments Father Social History Tobacco Use Types Packs/Day Years Used Date Never Smoker Smokeless Tobacco: Never Used Tobacco Cessation: Counseling Given: No Comments: 06.22.12 Alcohol Use Drinks/Week oz/Week Comments No 0 Standard 0.0 drinks or equivalent Sex Assigned at Date Recorded Not on file Last Filed Vital Signs Vital Sign Reading [...] Mass Index 35.73 04/15/2017 11:31 AM CDT Plan of Treatment Health Maintenance Due Date Last Done Comments HEPATITIS C SCREENING 1945 PHYSICAL (COMPREHENSIVE) 1953 EXAM PERTUSSIS VACCINE 1957 TETANUS VACCINE 1963 COLORECTAL CANCER 1996 SCREENING SHINGLES VACCINE 2006 PREVNAR/PNEUMOVAX (#1) 2011 INFLUENZA VACCINE 06/05/2017 Results Not on filefrom Last 3 Months
--- OUTSIDE RECORDS SUMMARY | 2017-05-18 09:49 | XMS REPORT | Encounter Summary ---
Author Author [facility] Organization [facility] Address Unknown Phone Unavailable Care Team Providers Care County Program Technician Name Role Phone PCP Unavailable Reason for Visit * Reason Comments Medication Refill Encounter Details Date Type Department Care Team Description 04/06/2017 Refill [facility] MD - Neurology [address] [place] [address] [place] [address] [place] [address] [phone] Social History Tobacco Use Types Packs/Day Years Used Date Never Smoker Smokeless Tobacco: Never Used Comments: 06.22. Alcohol Use Drinks/Week oz/Week Comments Yes occ Sex Assigned at Date Recorded Not on file as of this encounter Plan of Treatment Not on fileas of this encounter Visit Diagnoses Not on filein this encounter
[2017-05-18] MEDS ORDERED: NS IV 500 ML 500 ML IV PRN (10:00)
[2017-05-18] MEDS ORDERED: HURRICAINE EXT TUBE (BENZOCAINE) XX PRN (10:00)
[2017-05-18 10:20] VITALS: BP 183/95
--- NOTE | 2017-05-18 10:38 | Conscious Sedation/ASA ---
Conscious Sedation Pre-Proced Time Reviewed: 10:38 ASA Class: 2 Airway Mallampati Classification: (ruby appropriate class) I. II. III, IV Lungs Heart ASA score ASA 1: a normal healthy patient ASA 2: a patient with a mild systemic disease (mid diabetes, controlled hypertension, obesity ASA 3: a patient with a severe systemic disease that limits activity (angina , COPD, prior Myocardial infarction) ASA 4: a patient with an incapacitating disease that is a constant threat to life (CHF, renal failure) ASA 5: a moribund patient not expected to survive 24 hrs. (ruptured aneurysm) ASA 6: a declared brain patient whose organs are being harvested. For emergent operations, add the letter E after the classification Grade 1 Sedation Plan: Discussed options with patient/fam Note The patient is an appropriate candidate to undergo the planned procedure, sedation, and anesthesia. The patient immediately re-assessed prior to indication. JORY BACA MD May 18, 2017 10:38 am
--- NOTE | 2017-05-18 10:38 | History & Physicial ---
History of Present Illness History of Present Illness Reason for visit/HPI to undergo an endoscopic assessment of symptoms of reflux and concomitant screening colonoscopy. No family history of colon cancer. Date of Admission Date Seen by Provider: May 18, 2017 Time Seen by Provider: 10:36 I consulted on this patient on 05/18/17 10:35 Attending Physician Jory Baca MD Admitting Physician Jan Lopez DO Consult Allergies and Home Medications Allergies Coded Allergies: No Known Drug Allergies (Unverified , 05/12/17) Home Medications Amiodarone HCl 200 Mg Tablet, 100 MG PO BID, #60 Ref 2 Prescribed by: MIRIAM NICOLE on 01/28/17 0748 Amiodarone HCl 200 Mg Tablet, 100 MG PO 1700, (Reported) Apixaban 5 Mg Tablet, 5 MG PO BID, #60 Ref 3 Prescribed by: MIRIAM NICOLE on 01/28/17 0748 Carbidopa/Levodopa 1 Each Tablet, 1 TAB PO 08,11,14,17,20, (Reported) Dutasteride 0.5 Mg Capsule, 0.5 MG PO HS, (Reported) Gemfibrozil 600 Mg Tablet, 600 MG PO BID, (Reported) Levothyroxine Sodium 137 Mcg Tablet, 137 MCG PO DAILY, (Reported) Lisinopril 5 Mg Tablet, 5 MG PO HS, (Reported) Orphenadrine Citrate 100 Mg Tablet.er, 100 MG PO HS, (Reported) Polyethylene Glycol 17 Gm Pack, 17 GM PO DAILY, (Reported) Ropinirole HCl 0.5 Mg Tablet, 0.5 MG PO BID, (Reported) Selegiline HCl 5 Mg Tablet, 5 MG PO BID@1200,2100, (Reported) Past [id number]-[id number] Hx Patient Social History Marrital Status: Employed/Student: retired Type Used: Cigarettes Recent Foreign Travel: No Contact w/other who traveled: No Recent Hopitalizations: No (MARCH 2017-) Immunizations Up To Date Date of Pneumonia Vaccine: Oct 05, 2008 Date of Influenza Vaccine: Jul 14, 2016 Seasonal Allergies Seasonal Allergies: No Surgeries HX Surgeries: Yes (shrapnel left arm) Surgeries: Appendectomy, Gallbladder, Tonsillectomy Respiratory Hx Respiratory Disorders: No Cardiovascular Hx Cardiovascular Disorders: Yes Cardiac Disorders: Atrial Fibrillation, Hypertension Neurological Hx Neurological Disorders: Yes Neurological Disorders: Parkinson's Disease Reproductive System Hx Reproductive Disorders: No Sexually Transmitted Disease: No HIV/AIDS: No Genitourinary Hx Genitourinary Disorders: Yes Genitourinary Disorders: Prostate Problems Gastrointestinal Hx Gastrointestinal Disorders: Yes Gastrointestinal Disorders: Gastroesophageal Reflux, Chronic Constipation Musculoskeletal Hx Musculoskeletal Disorders: Yes (OSTEOARTHRITIS) Musculoskeletal Disorders: Arthritis, Chronic Back Pain Endocrine Hx Endocrine Disorders: Yes HEENT HX ENT Disorders: No Loss of Vision: Denies Hearing Impairment: Denies Cancer Hx 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 Psychosocial Hx Psychiatric Problems: Yes ([place] VET) Behavioral Health Disorders: PTSD Integumentary HX Skin/Integumentary Disorder: No Blood Transfusions Hx Blood Disorders: No Adverse Reaction to a Blood Tr: No (N/A) Family Medical History Significant Family History: No Pertinent Family Hx Family Hx: Alcoholism G8 BROTHER Cervical cancer G8 SISTER Diabetes mellitus 19 FATHER 19 MOTHER G8 BROTHER FH: COPD (chronic obstructive pulmonary disease) 19 MOTHER FH: stroke 19 FATHER Constitutional: no symptoms reported EENTM: no symptoms reported Respiratory: no symptoms reported Cardiovascular: no symptoms reported Gastrointestinal: abdominal pain (RLQ) Genitourinary: no symptoms reported Musculoskeletal: joint pain Skin: no symptoms reported Psychiatric/Neurological: No Symptoms Reported Physical Exam Vital Signs Capillary Refill : General Appearance: No Apparent Distress HEENT: Normal ENT Inspection Neck: Normal Inspection Respiratory: Lungs Clear Cardiovascular: Regular Rate, Rhythm Gastrointestinal: Non Tender, Soft Rectal: Deferred Back: Normal Inspection Extremity: Normal Inspection Neurologic/Psychiatric: Alert, Oriented x3 Skin: Warm/Dry Comments lower right paramedian scar from an open appendectomy. No incisional or inguinal hernia Assessment/Plan Assessment and Plan gentleman with symptoms of reflux disease. Need for colon cancer screening. Details of the procedure reviewed and he is in agreement to proceed Problems: JORY BACA MD May 18, 2017 10:38 am
[2017-05-18] MEDS ORDERED: MIDAZOLAM 2 MG/2 ML (VERSED) VIAL ONE ×4 (10:49)
[2017-05-18] MEDS ORDERED: fentaNYL INJECTION 100 MCG/2 ML AMP ONE ×2 (10:49)
[2017-05-18] MEDS ORDERED: HURRICAINE EXT TUBE (BENZOCAINE) ONE (10:49)
[2017-05-18] MEDS: fentaNYL INJECTION 100 MCG/2 ML AMP IVP PRN ×2 (11:02→11:12)
[2017-05-18] MEDS: MIDAZOLAM 2 MG/2 ML (VERSED) VIAL IVP PRN ×2 (11:04→11:13)
[2017-05-18 11:55] VITALS: BP 128/81
--- NOTE | 2017-05-18 12:08 | Endo Procedure Record ---
Endo Procedure Report Date of Procedure May 18, 2017 Surgeon (s) JORY BACA MD Post Procedure/Op Diagnosis EGD: Grade 3 esophagitis and hiatal hernia. Distal gastritis Colonoscopy: Poor bowel prep.sigmoid diverticulosis Procedure Performed EGD with antral and GE junction biopsy Colonoscopy to cecum Description of Procedure Anesthesia Type: Conscious Sedation Specimen(s) collected/removed antral mucosa. Mucosa of GE junction Description of the Procedure Indication for the procedures; This gentleman came in for an endoscopic assessment of symptoms of reflux disease and for screening colonoscopy at the same time. He denied any family history of colon cancer. Informed consent was obtained after reviewing the procedures in detail. Description of the procedures; EGD/biopsy: He was placed in left lateral decubitus position and his vital signs were monitored. Conscious sedation was achieved using Versed and fentanyl. The flexible gastroscope was then introduced down the esophagus, past the stomach, into the proximal duodenum. Findings: Esophagus: Grade 3 esophagitis with linear ulcers extending up the esophagus up to 30 cm from the gastroesophageal junction. Photo documentation and biopsy for Lyon's changes were obtained. Stomach: Mild distal gastritis. Biopsy for H. pylori was obtained. Duodenum: Normal He tolerated the procedure well and was turned around in preparation for colonoscopy. Impression: Symptoms several friends disease. Grade 3 esophagitis. Helicobacter status pending. Colonoscopy: Digital rectal examination was unremarkable. The colonoscope was then introduced into the rectum and advanced all the way up to the cecum. The quality of bowel preparation was rather poor. The scope was withdrawn slowly and the mucosa examined in a systematic fashion. Findings:Very few sigmoid diverticula. He tolerated the procedures well and was taken back to the nursing area in a stable condition. Impression: Screening colonoscopy. No polyps. Recommend repeating in 10 years. Copies To: EDDY ESPINO XAVIER M MD May 18, 2017 12:08 pm
[2017-05-18] MEDS ORDERED: PANT40TA2 PO (12:12)
--- NOTE | 2017-05-18 12:12 | Discharge Inst-Simple/Standard ---
Discharge Inst-Standard Discharge Medications New, Converted or Re-Newed RX: RX on Chart Patient Instructions/Follow Up Plan of Care/Instructions/FU: follow up with his primary doctor Activity as Tolerated: Yes Discharge Diet: No Restrictions JORY BACA MD May 18, 2017 12:12 pm
[2017-05-18 12:25] VITALS: BP 149/83
[2017-05-18 13:25] VITALS: BP 149/83
== END 2017-05-18 13:25 | disposition home or self-care (01) ==
LOC: ENDO 09:45
PROVIDERS: ATTEND Surgery
DX: Z12.11 Encounter for screening for malignant neoplasm of colon (principal); K57.30 Diverticulosis of large intestine without perforation or abscess without bleeding; K21.9 Gastro-esophageal reflux disease without esophagitis; K22.10 Ulcer of esophagus without bleeding; K29.70 Gastritis, unspecified, without bleeding; F17.210 Nicotine dependence, cigarettes, uncomplicated; I48.91 Unspecified atrial fibrillation; I10 Essential (primary) hypertension; G20 Parkinson's disease; K59.09 Other constipation; F43.10 Post-traumatic stress disorder, unspecified; M19.91 Primary osteoarthritis, unspecified site; Z79.899 Other long term (current) drug therapy
CPT/HCPCS: 43239; G0121; 88305

== ENCOUNTER → 2018-01-13 | Outpatient (CLI) | payer MEDICARE, OTHER ==
[~2018-01-13] MED LIST changes: +PANT40TA2 PO
--- NOTE | 2018-01-13 11:43 | Diagnostic Imaging Report ---
INDICATION: Low-back pain. TIME OF EXAMINATION: 11:45 a.m. FINDINGS: Curvature and alignment of the lumbar spine is identified. The vertebral body heights are maintained. There is severe multilevel degenerative disc disease. Significant disc space narrowing is seen at all levels. There are large marginal osteophytes at all levels. Flowing anterior osteophytes in the lower thoracic and upper lumbar spine are seen. No spondylolisthesis is seen. Multilevel lumbar facet arthropathy is noted. IMPRESSION: Severe multilevel lumbar spondylosis. No acute fracture is identified. Dictated by: Dictated on workstation # [id number]
== END ==
LOC: RAD 11:13
PROVIDERS: ATTEND Internal Medicine
DX: M47.816 Spondylosis without myelopathy or radiculopathy, lumbar region (principal)
CPT/HCPCS: 72100

== ENCOUNTER 2018-04-12 15:05 | Inpatient (IN) | payer MEDICARE, OTHER ==
[~2018-04-12] VITALS: Ht 185.4 cm; Wt 120.7 kg
[~2018-04-12 15:05] MED LIST changes: -AMIO200T2 PO; +AMIO200T4 PO; -DUTA0.5C14 PO; +DUTA0.5C16 PO
--- OUTSIDE RECORDS SUMMARY | 2018-04-12 15:11 | XMS REPORT | Clinical Summary ---
Author Author [facility] Organization [facility] Address Unknown Phone Unavailable Care Team Providers Care Proposal Lead Writer Name Role Phone Erlin Bowman MD Unavailable Michael Tinoco PA-C Unavailable Alek Toth MD Unavailable Yamilex Patel MD Unavailable Kennedi Garcia MD Unavailable Lexie Broussard MD Unavailable Unavailable Casie Neil MD Unavailable Jan Lopez PCP Unavailable Marita Silva MD Unavailable Jay Hardy MD Unavailable Le White MD Unavailable Unavailable Source Comments Some departments are not documenting in the electronic medical record. If you do not see the information that you expected, contact Release of Information in the Health Information Management department at [phone] for further assistance in locating additional records.[facility] Allergies No Known Allergies Current Medications Prescription Sig. Disp. Refills Start End Date Status Date levothyroxine (SYNTHROID) Take 150 mcg by mouth Active 112 mcg tablet daily. gemfibrozil (LOPID) 600 Take 600 mg by mouth Active mg tablet twice daily. Incontinence Pad, Liner, Use urinary incontinence 60 Each 11 03/28/20 Active Disp padsIndications: pads prn. 14 Urinary incontinence, post-void dribbling selegiline(+) 5 mg tablet Take 1 Tab by mouth twice 180 Tab 3 Active daily. 17 apixaban (ELIQUIS) 5 mg Take 5 mg by mouth twice Active tablet daily. amiodarone (CORDARONE) Take 100 mg by mouth Active 200 mg tablet twice daily. Take with food. meclizine (ANTIVERT) 25 Take 25 mg by mouth as Active mg tablet Needed. lisinopril (PRINIVIL; Take 5 mg by mouth daily. Active ZESTRIL) [address] Take 40 mg by mouth Active (PROTONIX) 40 mg tablet daily. MULTAQ 400 mg tablet 11/23/19 Active 18 rOPINIRole (REQUIP) 1 mg Take 0.5 tablets by mouth 12/01/19 Active tabletIndications: at bedtime daily. 18 Parkinson disease ([facility]) carbidopa/levodopa Take 1 tablet by mouth 450 tablet 3 12/01/19 Active (SINEMET) 25/100 mg five times daily. 18 tabletIndications: Parkinson disease ([facility]) carbidopa/levodopa CR Take 1 tablet by mouth at 90 tablet 3 12/01/19 Active (SINEMET CR) 50/200 mg bedtime daily. 18 tabletIndications: Parkinson disease ([facility]) buPROPion XL (WELLBUTRIN Take 1 tablet by mouth 90 tablet 3 12/01/19 Active XL) 150 mg every morning. Do not 18 tabletIndications: Other crush or chew. depression orphenadrine ER(+) Take 1 tablet by mouth at 90 tablet 3 12/11/19 Active (NORFLEX) 100 mg tablet bedtime daily. 18 dutasteride (AVODART) 0.5 TAKE 1 CAPSULE DAILY 30 capsule 0 03/12/20 Active mg capsule 18 Active Problems Problem Noted Date Light headedness [...] Discussed proper use of medication. Parkinson disease ([facility]) 06/22/2012 Overview: Symptoms began in 2010, initial symptoms was left hand tremor. Diagnosed with Parkinson's disease in 2010. Atypical PD Features: None. Symptoms improve with Sinemet (carbidopa/levodopa) 25/100 and has motor fluctuation. 07/23/2015 PDQ8 Total %: 34 03/05/2016 PDQ8 Total %: 50 04/16/2017 PDQ Total Percent: 36.54 % 12/03/2017 PDQ Total Percent: 55.13 % Hand Breakfast Host Strength: RIGHT: 41.8 KG LEFT: 34.1 KG L ast Assessment & Plan: Symptoms are worse since the last visit. Sinemet (carbidopa/levodopa) CR 50/200 was added at bedtime. Side effects were discussed with the patient and he was given a list of common side effects. Excessive sleepiness 06/22/2012 Overview: [place] Sleepiness Scale: 11 09/08/2013 [place] Sleepiness Scale: 11 04/15/2017 H/O of sleep apnea 12/03/2017 [place] Sleepiness Scale: 13 L ast Assessment & Plan: His symptoms [...] 04/16/2017 Zoloft (sertraline) discontinued due to ? Reason 12/03/2017 Geriatric Depression Scale: 16 L ast Assessment & Plan: Symptoms are worse since the last visit. Patient was started on Wellbutrin XL 150 mg for depression. Side effects of the medication were discussed with the patient and they were given a list of common side effects. I recommended evaluation and treatment by our psychologist, Dr Crane. BPH with obstruction/lower urinary tract symptoms Overview: [...] Encounters Date Type Specialty Care Team Description 03/12/2018 Telephone Urology Alek Toth MD Medication Follow-up 03/12/2018 Refill Urology Alek Toth MD 02/11/2018 Office Visit Psychiatry Aurora Crane, PhD Posttraumatic stress disorder (Primary Dx) from Last 3 Months Family History Medical History Relation Name Comments Stroke Father Tremor Father Dementia Neg Hx Melanoma Neg Hx Parkinson's Neg Hx Relation Name Status Comments Father Social History Tobacco Use Types Packs/Day Years Used Date Never Smoker Smokeless Tobacco: Never Used Tobacco Cessation: Counseling Given: No Comments: 06.22.12 Alcohol Use Drinks/Week oz/Week Comments No 0 Standard 0.0 drinks or equivalent Sex Assigned at Date Recorded Not on file Last Filed Vital Signs Vital Sign Reading Time Taken Blood Pressure 150/87 12/01/2017 11:01 AM [employer] Pulse 53 12/01/2017 11:01 AM [employer] Temperature - - Respiratory Rate - - Oxygen Saturation - - Inhaled Oxygen - - Concentration Weight 118 kg (260 lb 2.3 oz) 12/01/2017 11:01 AM [employer] Height 181.6 cm (5' 11.5") 12/01/2017 11:01 AM [employer] Body Mass Index 35.78 12/01/2017 11:01 AM [employer] Plan of Treatment Health Maintenance Due Date Last Done Comments HEPATITIS C SCREENING 1945 PHYSICAL (COMPREHENSIVE) 1953 EXAM PERTUSSIS VACCINE 1957 TETANUS VACCINE 1963 COLORECTAL CANCER 1996 SCREENING SHINGLES RECOMBINANT 1996 VACCINE (1 of 2) PNEUMONIA (PCV13/PPSV23) 2011 VACCINES (1 of 2 - PCV13) INFLUENZA VACCINE 07/05/2018 08/01/2016, 07/18/2013, 07/23/2010, Additional history exists Results Not on filefrom Last 3 Months
--- OUTSIDE RECORDS SUMMARY | 2018-04-12 15:11 | XMS REPORT | Encounter Summary ---
Author Author [facility] Organization [facility] Address Unknown Phone Unavailable Care Team Providers Care Carbon Cleaner Name Role Phone Erlin Bowman MD Unavailable Michael Tinoco PA-C Unavailable Alek Toth MD Unavailable Yamilex Patel MD Unavailable Kennedi Garcia MD Unavailable Lexie Broussard MD Unavailable Unavailable Casie Neil MD Unavailable Jan Lopez PCP Unavailable Marita Silva MD Unavailable Jay Hardy MD Unavailable Le White MD Unavailable Unavailable Reason for Visit * Reason Comments Medication Follow-up Encounter Details Date Type Department Care Team Description 03/12/2018 Telephone [facility] Alek Toth MD Medication Follow-up Physicians - Urology [address] [facility] [address] FLO[address] [place] [address] [facility] [place] [address] OFFICE BLDG [phone] [place] [address] Social History Tobacco Use Types Packs/Day Years Used Date Never Smoker Smokeless Tobacco: Never Used Comments: 06.22.12 Alcohol Use Drinks/Week oz/Week Comments No 0 Standard 0.0 drinks or equivalent Sex Assigned at Date Recorded Not on file as of this encounter Miscellaneous Notes * Telephone Encounter - Paige Giraldo - 03/12/2018 9:28 AM CDT Pt notified to schedule appointment to continue refills for Dutasteride 0.5mg capsule. Pt not seen in clinic 11/05/16. Last note indicated pt to rtc 1yr for f/u. Approved 30 day supply to allow pt time to schedule. in this encounter Plan of Treatment Not on fileas of this encounter Visit Diagnoses Not on filein this encounter
--- OUTSIDE RECORDS SUMMARY | 2018-04-12 15:11 | XMS REPORT | Encounter Summary ---
Author Author [facility] Organization [facility] Address Unknown Phone Unavailable Care Team Providers Care Steel Floor Pan Placing Supervisor Name Role Phone Erlin Bowman MD Unavailable [...] Date Type Department Care Team Description 03/12/2018 Refill [facility] Alek Toth MD Physicians - Urology [address] [facility] [address] FLO[address]OD [address] [place] [address] [facility] [place] [address] OFFICE BLDG [phone] [place] [address] Social History Tobacco Use Types [...]
--- OUTSIDE RECORDS SUMMARY | 2018-04-12 15:11 | XMS REPORT | Encounter Summary ---
Author Author [facility] Organization [facility] Address Unknown Phone Unavailable Care Team Providers Care Radioisotope Technologist Name Role Phone Erlin Bowman MD Unavailable Michael Tinoco PA-C Unavailable Alek Toth MD Unavailable Yamilex Patel MD Unavailable Kennedi Garcia MD Unavailable Lexie Broussard MD Unavailable Unavailable Casie Neil MD Unavailable Jan Lopez PCP Unavailable Marita Silva MD Unavailable Jay Hardy MD Unavailable Le White MD Unavailable Unavailable Reason for Visit * Reason Comments Mental Health Problem * Consult, Test & Treat Status Reason Specialty Diagnoses / Referred By Referred To Procedures Contact Contact No Auth Needed Specialty Psychology / Diagnoses Erlin Bowman Sewell, Kelsey K, Services Psychiatry Parkinson PhD Required disease (HCC) [address] [place], [place] [address] [address] [place], [place] Phone: [phone] Phone: Encounter Details Date Type Department Care Team Description 02/11/2018 Office Visit [facility] Aurora Crane, PhD Posttraumatic stress Physicians-Psych [address] disorder (Primary Dx) [facility] [address] [place], [place] [id number] [phone] [place] [address] Social History Tobacco Use Types Packs/Day Years Used Date Never Smoker Smokeless Tobacco: Never Used Comments: 06.22.12 Alcohol Use Drinks/Week oz/Week Comments No 0 Standard 0.0 drinks or equivalent Sex Assigned at Date Recorded Not on file as of this encounter Progress Notes * Aurora Crane, PhD - 02/11/2018 9:30 AM CDT [facility] Psychology Initial [facility]ation[facility] PATIENT: Brooks Gan : 1945 DOS: 02/11/2018 TIME: 9:30-10:30am CHIEF COMPLAINT/REFERRAL: Patient referred by Dr. Bowman for evaluation of possible depression. SUMMARY: Patient is a 72 y.o. male diagnosed with Parkinson's Disease. He is under the care of Dr. Bowman and treatment team at [facility], where he was seen for initial consultation. His was present for the session at his request. Pt reported that he was diagnosed with Parkinson's Disease 9 years ago. He is currently treated with oral medications. SOCIAL HISTORY: Educational history includes high school. Patient was in he [employer] [id number], deployed to [place], combat experienced. He currently lives near [place], [place] with his . He has two children and three grandchildren, whom he sees regularly. 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 PSYCHOLOGICAL HISTORY/SYMPTOMS: Patient reported that [facility] 4-5 years ago, but was lost to follow up. He continues to experience symptoms, including hypervigilance, vivid nightmares, anxiety and panic when in crowds, intrusive worry, and low mood. He is prescribed Wellbutrin 150mg since the end of December 2017 and was recommended to increase it by Dr. Bowman, but does not want to at this time due to concerns of being over-medicated in general. He reported that his most distressing symptom is the vivid nightmares about his combat experience. Otherwise, sleep has improved since Dr. Bowman swithced him to extended release Sinemet, and he typically receives 6.5-7 hours of total sleep time. He endorsed illusions that do not cause distress, but no hallucinations. He attends a boxing class three times per week for two hours. He continues to experience low energy, and complains of loss of ability for enjoyable activities due to PD. During the day, he boxes, watches tv, runs errands with his , and spends time with friends and family. He denied current or recent symptoms of AH/VH/HI/SI, plan, or intent. MSE/ASSESSMENT: Pt was alert and Ox3. Appropriately dressed and groomed. Speech fluid. Thoughts lucid and without evidence of psychoses. Memory grossly intact. Patient cooperative and with adequate eye contact. Mood slightly dysphoric with tearful affect. Insight, judgment, and impulse control sufficient. No SI/HI, plans, or intent endorsed at this time. Symptoms include hypervigilance, vivid nightmares, anxiety and panic when in crowds, intrusive worry, low mood, sleep disruption, and low energy. IMPRESSIONS (Based on DSM V) Posttraumatic Stress Disorder Medical Diagnosis: Parkinson's Disease PLAN: Patient encouraged to return to [place] for evidence-based treatment of PTSD and to inquire with his PCP about the appropriateness of prazosin for PTSD- related nightmares. Pt scheduled for follow-up to address coping skills related to PD, and he is aware that this does not replace treatment for PTSD. Patient was provided with a description of Health Psychology services and the limits of confidentiality. Aurora Crane, Ph.D. Licensed Psychologist Clinical Banjo Repairer Department of Psychiatry and Behavioral Sciences Page [phone] in this encounter Plan of Treatment Not on fileas of this encounter Visit Diagnoses Diagnosis Posttraumatic stress disorder - Primary
--- NOTE | 2018-04-12 15:25 | ED Fever ---
History of Present Illness General Stated Complaint: FEVER, BP RISING AND FALLING Source: patient Exam Limitations: no limitations History of Present Illness Date Seen by Provider: Apr 12, 2018 Time Seen by Provider: 15:21 Initial Comments to ER with reports of fever up to a maximum of 100.4 earlier today. he reports chronic trouble urinating. He reports right flank pain. No cough, no chest pain , no constipation or diarrhea. He denies shortness of breath. He does have Parkinson's and recently started CBD oil tegu-ure-ffydyrt to help with this. He was also started on Ultram last week for spinal stenosis prescribed by his pain management physician Dr. Kirkland. Primary care is Dr. Lopez.[facility] blood pressure has been varying at home, yesterday as low as 90/52 today 170/80 with a heart rate variance from 55-70s. these numbers are very concerning to his .he took a Tylenol prior to arrival to ER Timing/Duration: yesterday Fever Quality: low grade Associated Symptoms: abdominal pain (right flank pain); No chest pain, No confusion, No cough, No diaphoresis, No muscle aches, No nausea/vomiting, No rash, No shortness of breath, No sore throat, No stiff neck, No syncope, No weakness Allergies and Home Medications Allergies Coded Allergies: No Known Drug Allergies (Unverified , 05/12/17) Home Medications Amiodarone HCl 200 Mg Tablet, 100 MG PO BID Prescribed by: MIRIAM NICOLE on 01/28/17 0748 Amiodarone HCl 200 Mg Tablet, 100 MG PO 1700, (Reported) Apixaban 5 Mg Tablet, 5 MG PO BID Prescribed by: MIRIAM NICOLE on 01/28/17 0748 Carbidopa/Levodopa 1 Each Tablet, 1 TAB PO 08,11,14,17,20, (Reported) Dutasteride 0.5 Mg Capsule, 0.5 MG PO HS, (Reported) Gemfibrozil 600 Mg Tablet, 600 MG PO BID, (Reported) Levothyroxine Sodium 137 Mcg Tablet, 137 MCG PO DAILY, (Reported) Lisinopril 5 Mg Tablet, 5 MG PO HS, (Reported) Orphenadrine Citrate 100 Mg Tablet.er, 100 MG PO HS, (Reported) Pantoprazole Sodium 40 Mg Tablet.dr, 40 MG PO DAILY Prescribed by: JORY BACA on 05/18/17 1212 Polyethylene Glycol 17 Gm Pack, 17 GM PO DAILY, (Reported) Ropinirole HCl 0.5 Mg Tablet, 0.5 MG PO BID, (Reported) Selegiline HCl 5 Mg Tablet, 5 MG PO BID@1200,2100, (Reported) Patient Home Medication List Home Medication List Reviewed: Yes Review of Systems Constitutional: see HPI, chills, fever EENTM: see HPI Respiratory: no symptoms reported Cardiovascular: no symptoms reported Gastrointestinal: abdominal pain Genitourinary: see HPI, dysuria, pain Musculoskeletal: see HPI Skin: no symptoms reported Psychiatric/Neurological: No Symptoms Reported Hematologic/Lymphatic: No Symptoms Reported Immunological/Allergic: no symptoms reported Past [place]-Zefvrb-Gcadiq Hx Patient Social History Alcohol Beverage of Choice: Beer Type Used: Cigarettes Recent Foreign Travel: No Contact w/Someone Who Travel: No Recent Hopitalizations: No (MARCH 2017-) Immunizations Up To Date Date of Pneumonia Vaccine: Oct 05, 2008 Date of Influenza Vaccine: Jul 14, 2016 Seasonal Allergies Seasonal Allergies: No Past Medical History Surgeries: Yes (shrapnel left arm) Appendectomy, Gallbladder, Tonsillectomy Respiratory: No Sleep Apnea Currently Using CPAP: Yes Currently Using BIPAP: No Cardiac: No Atrial Fibrillation, Hypertension Neurological: Yes (PARKINSON'S) Parkinson's Disease Reproductive Disorders: No Sexually Transmitted Disease: No HIV/AIDS: No Genitourinary: Yes Prostate Problems Gastrointestinal: Yes (CONSTIPATION) Gastroesophageal Reflux, Chronic Constipation Musculoskeletal: No (TREMORS HANDS) Arthritis, Chronic Back Pain Endocrine: No Loss of Vision: Denies Hearing Impairment: Denies Cancer: No Skin Psychosocial: No PTSD Integumentary: No Blood Disorders: No Adverse Reaction/Blood Tranf: No (N/A) Family Medical History Alcoholism G8 BROTHER Cervical cancer G8 SISTER Diabetes mellitus 19 FATHER 19 MOTHER G8 BROTHER FH: COPD (chronic obstructive pulmonary disease) 19 MOTHER FH: stroke 19 FATHER No Pertinent Family Hx Physical Exam Vital Signs Vital Signs - First Documented 04/12/18 15:09 Temp 99.4 Pulse 68 Resp 16 B/P (MAP) 173/87 (115) Pulse Ox 96 O2 Delivery Room Air Capillary Refill : General Appearance: WD/WN, no apparent distress, other (cchronic tremor of the hands noted) Eyes: Bilateral Eye Normal Inspection, Bilateral Eye PERRL, Bilateral Eye EOMI HEENT: PERRL/EOMI, normal ENT inspection Neck: non-tender, full range of motion Respiratory: normal breath sounds, no respiratory distress, no accessory muscle use Cardiovascular: regular rate, rhythm (69 sinus without ectopy), no murmur Gastrointestinal: normal bowel sounds, soft, other (right lateral lower abdominal tenderness to palpation) Extremities: normal range of motion, non-tender Neurologic/Psychiatric: alert, normal mood/affect, oriented x 3 Skin: normal color, warm/dry Focused Exam Lactate Level 04/12/18 15:20: Lactic Acid Level 2.50*H Lactic Acid Level Laboratory Tests Test 04/12/18 15:20 Lactic Acid Level 2.50 MMOL/L (0.50-2.00) *H Progress/Results/Core Measures Suspected Sepsis SIRS Temperature: Pulse: Respiratory Rate: Laboratory Tests 04/12/18 15:20: White Blood Count 11.1H Blood Pressure / Mean: 04/12/18 15:20: Lactic Acid Level 2.50*H Laboratory Tests 04/12/18 15:20: Creatinine 1.36H, Platelet Count 128L, Total Bilirubin 0.7 Results/Orders Lab Results Laboratory Tests Test 04/12/18 15:20 04/12/18 16:04 Range/Units White Blood Count 11.1 H 4.3-11.0 10^3/uL Red Blood Count 4.18 L 4.35-5.85 10^6/uL Hemoglobin 13.2 L 13.3-17.7 G/DL Hematocrit 38 L 40-54 % Mean Corpuscular Volume 90 80-99 FL Mean Corpuscular Hemoglobin 32 25-34 PG Mean Corpuscular Hemoglobin Concent 35 32-36 G/DL Red Cell Distribution Width 13.6 10.0-14.5 % Platelet Count 128 L 130-400 10^3/uL Mean Platelet Volume 11.5 H 7.4-10.4 FL Neutrophils (%) (Auto) 85 H 42-75 % Lymphocytes (%) (Auto) 8 L 12-44 % Monocytes (%) (Auto) 7 0-12 % Eosinophils (%) (Auto) 0 0-10 % Basophils (%) (Auto) 0 0-10 % Neutrophils # (Auto) 9.4 H 1.8-7.8 X 10^3 Lymphocytes # (Auto) 0.9 L 1.0-4.0 X 10^3 Monocytes # (Auto) 0.7 0.0-1.0 X 10^3 Eosinophils # (Auto) 0.0 0.0-0.3 10^3/uL Basophils # (Auto) 0.0 0.0-0.1 10^3/uL Neutrophils % (Manual) 88 % Lymphocytes % (Manual) 6 % Monocytes % (Manual) 6 % Blood Morphology Comment NORMAL Sodium Level 136 135-145 MMOL/L Potassium Level 4.4 3.6-5.0 MMOL/L Chloride Level 103 98-107 MMOL/L Carbon Dioxide Level 21 21-32 MMOL/L Anion Gap 12 5-14 MMOL/L Blood Urea Nitrogen 22 H 7-18 MG/DL Creatinine 1.36 H 0.60-1.30 MG/DL Estimat Glomerular Filtration Rate 52 BUN/Creatinine Ratio 16 Glucose Level 132 H 70-105 MG/DL Lactic Acid Level 2.50 *H 0.50-2.00 MMOL/L Calcium Level 9.4 8.5-10.1 MG/DL Total Bilirubin 0.7 0.1-1.0 MG/DL Aspartate Amino Transf (AST/SGOT) 42 H 5-34 U/L Alanine Aminotransferase (ALT/SGPT) 17 0-55 U/L Alkaline Phosphatase 71 40-136 U/L Total Protein 7.2 6.4-8.2 GM/DL Albumin 4.2 3.2-4.5 GM/DL Urine Color YELLOW Urine Clarity VERY CLOUDY H Urine pH 6.5 5-9 Urine Specific [place] 1.010 L 1.016-1.022 Urine Protein 3+ H NEGATIVE Urine Glucose (UA) NEGATIVE NEGATIVE Urine Ketones NEGATIVE NEGATIVE Urine Nitrite POSITIVE H NEGATIVE Urine Bilirubin NEGATIVE NEGATIVE Urine Urobilinogen 1 NORMAL MG/DL Urine Leukocyte Esterase 3+ H NEGATIVE Urine RBC (Auto) 5+ H NEGATIVE Urine RBC 10-25 H /HPF Urine WBC >100 H /HPF Urine Squamous Epithelial Cells 0-2 /HPF Urine Crystals NONE /LPF Urine Bacteria MODERATE H /HPF Urine Casts NONE /LPF Urine Mucus NEGATIVE /LPF Urine Culture Indicated YES My Orders Orders - NATI BRYANT APRN Iv Heplock-Insert (Order) (04/12/18 15:20) Cbc With Automated Diff (04/12/18 15:20) Comprehensive Metabolic Panel (04/12/18 15:20) Ua Culture If Indicated (04/12/18 15:20) Ct Abd/Pelvis Wo(Kidney Stone) (04/12/18 15:20) Blood Culture (04/12/18 15:20) Lactic Acid Analyzer (04/12/18 15:20) Manual Differential (04/12/18 15:20) Urine Culture (04/12/18 16:04) Ceftriaxone Injection (Rocephin Injectio (04/12/18 16:30) Vital Signs/I&O 04/12/18 15:09 Temp 99.4 Pulse 68 Resp 16 B/P (MAP) 173/87 (115) Pulse Ox 96 O2 Delivery Room Air Capillary Refill : Diagnostic Imaging Diagonstic Imaging: CT Comments NAME: ALLIE SILVA [facility] REC#: [id number] PT STATUS: REG ER : 1945 PHYSICIAN: NATI BRYANT APRN ADMIT DATE: 04/12/18/ER Draft Date of Exam:04/12/18 CT ABD/PELVIS WO(KIDNEY STONE) PROCEDURE: CT urinary tract, rule out kidney stone. TECHNIQUE: Multiple contiguous axial images were obtained through the abdomen and pelvis without the use of intravenous contrast. INDICATION: Right lower quadrant pain. COMPARISON: CTA abdomen and pelvis 07/31/2016. FINDINGS: 0.3 cm pulmonary nodule in the left lung base has been stable since the prior exam and should be benign. Mitral annulus calcifications. Cholecystectomy. Reported appendectomy. The liver, pancreas, spleen, adrenals and collecting systems are negative on this noncontrast exam. Partial fusion of the inferior pole of the kidneys. There are a few punctate 0.2-0.3 cm nonobstructing calyceal tip renal stones in both kidneys. There are a of couple of additional calcifications in the posterior bladder wall near the right ureteropelvic junction. These are in a different location than was seen on the prior exam. No evidence of hydronephrosis. Moderate atherosclerotic calcifications. Markedly enlarged prostate. No free intraperitoneal air or fluid. No evidence of bowel obstruction. No lymphadenopathy. Advanced spondylotic changes in the visualized spine. No acute osseous findings. IMPRESSION: 1. There are a few nonobstructing calyceal tip renal stones in both kidneys. There is also a couple of punctate renal stones layering in the right dependent bladder, near the right ureterovesicular junction. These have changed in location and decreased in number since the prior exam. No hydronephrosis. 2. Markedly enlarged prostate. Dictated on workstation # [id number] Dict: 04/12/18 1606 Trans: 04/12/18 1620 ROSA [id number] Interpreted by: ANURADHA PALACIOS MD Electronically signed by: Departure Communication (Admissions) Time/Spoke to Admitting Phy: 16:[address] Arteaga. We will admit, observation status, Rocephin. ddiscussed the plan with he and his . He states he is a DO NOT RESUSCITATE status. He states "I'm 72 and Mica got Parkinsons". discussed the large prostate with him. He and his state that they've seen Dr. Ang from urology at the [facility]. He monitored the prostate for years and told the patient that something else would kill him before the prostate did so there was no concern unless another issue arose or he developed some symptoms. Impression Primary Impression: Urinary tract infection Additional Impression: Bladder calculi Disposition: ADMITTED INPATIENT Condition: Stable Admissions Decision to Admit Reason: Admit from ER (General) Decision to Admit/Date: Apr 12, 2018 Time/Decision to Admit Time: 16:40 Departure-Patient Inst. Referrals: EDDY LOPEZ DO (PCP/Family) Primary Care Physician NATI BRYANT APRN Apr 12, 2018 15:24
[2018-04-12 15:35] LABS: BASOPHILS % (AUTO) 0 % (0-10); EOSINOPHILS % (AUTO) 0 % (0-10); HEMATOCRIT 38 % (40-54); HEMOGLOBIN 13.2 G/DL (13.3-17.7); LYMPHOCYTES # (AUTO) 0.9 X 10^3 (1.0-4.0); LYMPHOCYTES % (AUTO) 8 % (12-44); MEAN CORPUSCULAR HEMOGLOBIN 32 PG (25-34); MEAN CORPUSCULAR HGB CONC 35 G/DL (32-36); MEAN CORPUSCULAR VOLUME 90 FL (80-99); MEAN PLATELET VOLUME 11.5 FL (7.4-10.4); MONOCYTES # (AUTO) 0.7 X 10^3 (0.0-1.0); MONOCYTES % (AUTO) 7 % (0-12); NEUTROPHILS # (AUTO) 9.4 X 10^3 (1.8-7.8); NEUTROPHILS % (AUTO) 85 % (42-75); PLATELET COUNT 128 10^3/uL (130-400); RED BLOOD COUNT 4.18 10^6/uL (4.35-5.85); RED CELL DISTRIBUTION WIDTH 13.6 % (10.0-14.5); WHITE BLOOD COUNT 11.1 10^3/uL (4.3-11.0)
[2018-04-12 15:54] LABS: ALBUMIN 4.2 GM/DL (3.2-4.5); BILIRUBIN,TOTAL 0.7 MG/DL (0.1-1.0); CALCIUM 9.4 MG/DL (8.5-10.1); CREATININE SERUM 1.36 MG/DL (0.60-1.30); POTASSIUM 4.4 MMOL/L (3.6-5.0); TOTAL PROTEIN 7.2 GM/DL (6.4-8.2)
[2018-04-12 16:17] LABS: BILIRUBIN,URINE NEGATIVE (NEGATIVE); CLARITY,URINE VERY CLOUDY; COLOR,URINE YELLOW; GLUCOSE, URINE (UA) NEGATIVE (NEGATIVE); KETONES,URINE NEGATIVE (NEGATIVE); LEUKOCYTE ESTERASE ,URINE 3+ (NEGATIVE); NITRITE,URINE POSITIVE (NEGATIVE); PH,URINE 6.5 (5-9); PROTEIN,URINE 3+ (NEGATIVE); UROBILINOGEN,URINE 1 MG/DL (NORMAL)
--- NOTE | 2018-04-12 16:20 | Diagnostic Imaging Report ---
PROCEDURE: CT urinary tract, rule out kidney stone. TECHNIQUE: Multiple contiguous axial images were obtained through the abdomen and pelvis without the use of intravenous contrast. INDICATION: Right lower quadrant pain. COMPARISON: CTA abdomen and pelvis 07/31/2016. FINDINGS: 0.3 cm pulmonary nodule in the left lung base has been stable since the prior exam and should be benign. Mitral annulus calcifications. Cholecystectomy. Reported appendectomy. The liver, pancreas, spleen, adrenals and collecting systems are negative on this noncontrast exam. Partial fusion of the inferior pole of the kidneys. There are a few punctate 0.2-0.3 cm nonobstructing calyceal tip renal stones in both kidneys. There are a of couple of additional calcifications in the posterior bladder wall near the right ureteropelvic junction. These are in a different location than was seen on the prior exam. No evidence of hydronephrosis. Moderate atherosclerotic calcifications. Markedly enlarged prostate. No free intraperitoneal air or fluid. No evidence of bowel obstruction. No lymphadenopathy. Advanced spondylotic changes in the visualized spine. No acute osseous findings. IMPRESSION: 1. There are a few nonobstructing calyceal tip renal stones in both kidneys. There is also a couple of punctate renal stones layering in the right dependent bladder, near the right ureterovesicular junction. These have changed in location and decreased in number since the prior exam. No hydronephrosis. 2. Markedly enlarged prostate. Dictated by: Dictated on workstation # [id number]
[2018-04-12 16:24] LABS: BACTERIA,URINE MODERATE /HPF; SQUAMOUS EPITHELIAL CELL,UR 0-2 /HPF; WBC,URINE >100 /HPF
[2018-04-12 16:28] LABS: LYMPHOCYTES % (MANUAL) 6 %; MONOCYTES % (MANUAL) 6 %; NEUTROPHILS % (MANUAL) 88 %; RBC MORPH NORMAL
[2018-04-12] MEDS ORDERED: cefTRIAXone INJECTION 1,000 MG in NS (IVPB) 50 ML IV ONE (16:30)
[2018-04-12] MEDS ORDERED: NS IV 500 ML 500 ML IV SCH (17:30)
--- OUTSIDE RECORDS SUMMARY | 2018-04-12 17:31 | XMS REPORT | Clinical Summary ---
Author Author [facility] Organization [facility] Address Unknown Phone Unavailable Care Team Providers Care Ict Quality Assurance Engineer Name Role Phone Erlin Bowman MD Unavailable [...] in the Health Information Management department at [phone] for further assistance in locating additional records.[facility] Allergies No Known Allergies Current Medications [...] tabletIndications: at bedtime daily. 18 Parkinson disease ([facility]) carbidopa/levodopa Take 1 tablet by mouth 450 tablet 3 12/01/19 Active (SINEMET) 25/100 mg five times daily. 18 tabletIndications: Parkinson disease ([facility]) carbidopa/levodopa CR Take 1 tablet by mouth at 90 tablet 3 12/01/19 Active (SINEMET CR) 50/200 mg bedtime daily. 18 tabletIndications: Parkinson disease ([facility]) buPROPion XL (WELLBUTRIN Take 1 tablet by [...] Discussed proper use of medication. Parkinson disease ([facility]) 06/22/2012 Overview: Symptoms began in 2010, initial symptoms was left hand tremor. Diagnosed with Parkinson's disease in 2010. Atypical PD Features: None. Symptoms improve with Sinemet (carbidopa/levodopa) 25/100 and has motor fluctuation. 07/23/2015 PDQ8 Total %: 34 03/05/2016 PDQ8 Total %: 50 04/16/2017 PDQ Total Percent: 36.54 % 12/03/2017 PDQ Total Percent: 55.13 % Hand Steel Buffer Strength: RIGHT: 41.8 KG LEFT: 34.1 KG L ast Assessment & Plan: Symptoms are worse since the last visit. Sinemet (carbidopa/levodopa) CR 50/200 was added at bedtime. Side effects were discussed with the patient and he was given a list of common side effects. Excessive sleepiness 06/22/2012 Overview: [place] Sleepiness Scale: 11 09/08/2013 [place] Sleepiness Scale: 11 04/15/2017 H/O of sleep apnea 12/03/2017 [place] Sleepiness Scale: 13 L ast Assessment & [...] Taken Blood Pressure 150/87 12/01/2017 11:01 AM BAKERY CHEF Pulse 53 12/01/2017 11:01 AM [facility]AK[facility] CHEF Temperature - - Respiratory Rate - - Oxygen Saturation - - Inhaled Oxygen - - Concentration Weight 118 kg (260 lb 2.3 oz) 12/01/2017 11:01 AM BAKERY CHEF Height 181.6 cm (5' 11.5") 12/01/2017 11:01 AM BAKERY CHEF Body Mass Index 35.78 12/01/2017 11:01 AM BAKERY CHEF Plan of Treatment Health Maintenance Due Date [...]
--- OUTSIDE RECORDS SUMMARY | 2018-04-12 17:31 | XMS REPORT | Encounter Summary ---
Author Author [facility] Organization [facility] Address Unknown Phone Unavailable Care Team Providers Care Consumer Loan Officer Name Role Phone Erlin Bowman MD Unavailable [...] Type Department Care Team Description 03/12/[address] [facility] Alek Toth MD Medication Follow-up Physicians - Urology [address] [facility] 2ND FLOOR POD [place] [address] [facility] [place] [address] OFFICE BLDG [phone] [place] [address] Social History Tobacco Use Types [...]
--- OUTSIDE RECORDS SUMMARY | 2018-04-12 17:32 | XMS REPORT | Encounter Summary ---
Author Author [facility] Organization [facility] Address Unknown Phone Unavailable Care Team Providers Care Assembler And Tester Electronics Name Role Phone Erlin Bowman MD Unavailable [...] PhD Required disease (HCC) [address] [place], [place] [address] [address] [place], [place] Phone: [phone] Phone: Encounter Details Date Type Department Care Team Description 02/11/2018 Office Visit [facility] Aurora Crane, PhD Posttraumatic stress Physicians-Psych [address] disorder (Primary Dx) [facility] [address] [place], [place] [phone] [address] [phone] [place] [address] Social History Tobacco Use Types [...] high school. 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 He currently lives near [place], [place] with his . He has two [...] Disease PLAN: Patient encouraged to return to [place] for evidence-based treatment of PTSD and to [...] confidentiality. Aurora Crane, Ph.D. Licensed Psychologist Clinical Kidney Puller Department of Psychiatry and Behavioral Sciences Page [phone] in this encounter Plan of Treatment Not on fileas of this encounter Visit Diagnoses Diagnosis Posttraumatic stress disorder - Primary
--- OUTSIDE RECORDS SUMMARY | 2018-04-12 17:32 | XMS REPORT | Encounter Summary ---
Author Author [facility] Organization [facility] Address Unknown Phone Unavailable Care Team Providers Care Furniture Restorer Name Role Phone Erlin Bowman MD Unavailable [...] Type Department Care Team Description 03/12/2018 Refill [facility] Alek Toth MD Physicians - Urology [address] [facility] 2ND FLOOR POD [address] [place] [address] [facility] [place] [address] OFFICE BLDG [phone] [place] [address] Social History Tobacco Use Types [...]
[2018-04-12] MEDS ORDERED: KETOROLAC 30 MG/ML VIAL ONE (17:35)
[2018-04-12] MEDS ORDERED: KETOROLAC 30 MG/ML VIAL IVP ONE (17:45)
[2018-04-12 19:30] VITALS: BP 182/74
[2018-04-12] MEDS ORDERED: BUPR150T20 PO (20:09)
[2018-04-12] MEDS ORDERED: CARB1TAB41 PO (20:11)
[2018-04-12] MEDS ORDERED: DRON400T2 PO (20:12)
[2018-04-12] MEDS ORDERED: ONDANSETRON 4 MG/2 ML (SDV) Z0FRAN IV PRN (20:15)
[2018-04-12] MEDS ORDERED: ACETAMINOPHEN 325 MG TABLET PO PRN (20:15)
[2018-04-12] MEDS ORDERED: HYDROcodone/APAP 5 MG/325 MG (LORTAB) TAB PO PRN (20:15)
[2018-04-12] MEDS: NS IV 1000 ML 1,000 ML IV SCH (20:58)
[2018-04-13] MEDS ORDERED: PATIENT MAY USE OWN MEDS, ALL MC SCH
[2018-04-13 00:08] VITALS: BP 142/69
[2018-04-13 04:30] VITALS: BP 147/74
[2018-04-13 06:00] LABS: BASOPHILS % (AUTO) 0 % (0-10); EOSINOPHILS % (AUTO) 0 % (0-10); HEMATOCRIT 36 % (40-54); HEMOGLOBIN 12.7 G/DL (13.3-17.7); LYMPHOCYTES # (AUTO) 1.1 X 10^3 (1.0-4.0); LYMPHOCYTES % (AUTO) 11 % (12-44); MEAN CORPUSCULAR HEMOGLOBIN 32 PG (25-34); MEAN CORPUSCULAR HGB CONC 35 G/DL (32-36); MEAN CORPUSCULAR VOLUME 92 FL (80-99); MEAN PLATELET VOLUME 11.2 FL (7.4-10.4); MONOCYTES # (AUTO) 0.7 X 10^3 (0.0-1.0); MONOCYTES % (AUTO) 7 % (0-12); NEUTROPHILS # (AUTO) 8.3 X 10^3 (1.8-7.8); NEUTROPHILS % (AUTO) 82 % (42-75); PLATELET COUNT 114 10^3/uL (130-400); RED BLOOD COUNT 3.92 10^6/uL (4.35-5.85); RED CELL DISTRIBUTION WIDTH 13.8 % (10.0-14.5); WHITE BLOOD COUNT 10.2 10^3/uL (4.3-11.0)
[2018-04-13] MEDS: NS IV 1000 ML 1,000 ML IV SCH ×2 (06:14→17:02)
[2018-04-13 06:20] LABS: CALCIUM 8.8 MG/DL (8.5-10.1); CREATININE SERUM 1.26 MG/DL (0.60-1.30)
[2018-04-13 08:00] VITALS: BP 186/93
[2018-04-13] MEDS: cefTRIAXone 1 GM/NS 50 ML IVPB IV SCH ×2 (08:21)
--- NOTE | 2018-04-13 08:27 | History & Physical-Hospitalist ---
History of Present Illness HPI/Chief Complaint Pt is a 72yoCM with a PMH of Parkinson's disease, hypothyroidism, A fib, and HTN who presented to the ER with CC of fever. He is unable to give some of his history though. His states that two days ago his symptoms started with him not feeling well and she thought his blood pressure was low. He told me he felt very light headed and laid around most of 04/11 and continued to worsen on 04/12. His wanted to take him to the ER multiple times but he declined. She check his temperature and it read 100.4 so she gave him Tylenol. Despite the Tylenol he still felt poorly and finally agreed to seek evaluation in the ER. He states he still feels confused but that he no longer has dysuria and the color of his urine is improving. He complained of right side flank pain as well. Source: patient Exam Limitations: no limitations Date Seen 04/13/18 Time Seen by Provider: 08:00 Attending Physician James Arteaga MD PCP Jan Lopez DO Referring Physician Date of Admission Apr 12, 2018 at 16:36 Home Medications & Allergies Home Medications Reviewed patient Home Medication Reconciliation performed by pharmacy medication reconciliations pipeline technician and/or nursing. Patients Allergies have been reviewed. Allergies Allergies Coded Allergies No Known Drug Allergies (Unverified05/12/17) Past Pygqkbi-Fvxyux-Ltrxtd Hx Past Med/Social Hx: Reviewed Nursing Past Med/Soc Hx Patient Social History Marrital Status: Alcohol Use: Rarely Uses Number of Drinks Today: 0 Alcohol Beverage of Choice: Beer Recreational Drug Use: No Smoking Status: Never a Smoker Type Used: Cigarettes Physical Abuse Screen: No Sexual Abuse: No Recent Foreign Travel: No Contact w/other who traveled: No Recent Hopitalizations: No (MARCH 2017-) Recent Infectious Disease Expo: No Immunizations Up To Date Date of Pneumonia Vaccine: Oct 05, 2008 Date of Influenza Vaccine: Jul 14, 2016 Seasonal Allergies Seasonal Allergies: No Past Medical History Surgeries: Appendectomy, Gallbladder, Orthopedic, Tonsillectomy Currently Using CPAP: Yes Currently Using BIPAP: No Cardiac: Atrial Fibrillation, Hypertension Neurological: Parkinson's Disease Reproductive: No Sexually Transmitted Disease: No HIV/AIDS: No Genitourinary: Benign Prostatic Hyperpl, Prostate Problems Gastrointestinal: Gastroesophageal Reflux, Chronic Constipation Musculoskeletal: Arthritis, Chronic Back Pain Endocrine: Hypothyroidsim Loss of Vision: Denies Hearing Impairment: Denies Cancer: Skin Psychosocial: PTSD History of Blood Disorders: No Adverse Reaction to Blood Person: No (N/A) Family History Reviewed Nursing Family Hx Alcoholism G8 BROTHER Cervical cancer G8 SISTER Diabetes mellitus 19 FATHER 19 MOTHER G8 BROTHER FH: COPD (chronic obstructive pulmonary disease) 19 MOTHER FH: stroke 19 FATHER No Pertinent Family Hx Review of Systems Constitutional: dizziness, fever EENTM: no symptoms reported Respiratory: No cough, No short of breath Cardiovascular: No chest pain, No palpitations Gastrointestinal: see HPI, constipation; No diarrhea, No melena, No nausea, No vomiting Genitourinary: dysuria, frequency, hematuria Musculoskeletal: no symptoms reported Skin: no symptoms reported Psychiatric/Neurological: No Symptoms Reported Physical Exam Physical Exam Vital Signs Vital Signs - First Documented 04/12/18 04/12/18 15:09 18:14 Temp 99.4 Pulse 68 Resp 16 B/P (MAP) 173/87 (115) Pulse Ox 96 O2 Delivery Room Air O2 Flow Rate 0 Capillary Refill : Less Than 3 Seconds Height, Weight, BMI Height: 6', 1.00" Weight: 266lbs 0.0oz, 120.288987bp Method:Stated ,35.1BMI General Appearance: No Apparent Distress, WD/WN Neck: Normal Inspection, Supple Respiratory: Lungs Clear, No Respiratory Distress Cardiovascular: Regular Rate, Rhythm, No JVD, No Murmur Gastrointestinal: Normal Bowel Sounds, Non Tender, Soft Neurologic/Psychiatric: Alert, Oriented x3 Skin: Normal Color, Warm/Dry Results Results/Procedures Labs Laboratory Tests 04/12/18 15:20 04/13/18 05:32 Patient resulted labs reviewed. Imaging: Reviewed Imaging Films, Reviewed Imaging Report Assessment/Plan Admission Diagnosis UTI with severe sepsis Admission Status: Inpatient Order (span 2 midnights) Reason for Inpatient Admission: IV abx Diagnosis/Problems Diagnosis/Problems (1) Severe sepsis Status: Acute Assessment & Plan: Severe sepsis on admission now resolved BP normal no need for 30cc/kg bolus Continue on Rocephin Blood cultures pending Urine culture pending (2) UTI (urinary tract infection) Assessment & Plan: Continue on Rocephin Await culture Qualifiers: Urinary tract infection type: acute cystitis Hematuria presence: with hematuria Qualified Codes: N30.01 - Acute cystitis with hematuria (3) Parkinson disease Status: Chronic Assessment & Plan: Continue home meds (4) Hypothyroidism Status: Chronic Assessment & Plan: Continue supplement Qualifiers: Hypothyroidism type: acquired Qualified Codes: E03.9 - Hypothyroidism, unspecified (5) Atrial fibrillation Status: Chronic Assessment & Plan: On Eliquis Follows with Dr Avila Qualifiers: Atrial fibrillation type: paroxysmal Qualified Codes: I48.0 - Paroxysmal atrial fibrillation (6) BPH (benign prostatic hyperplasia) Status: Chronic Assessment & Plan: Follows with Dr Toth at [facility] Qualifiers: Lower urinary tract symptom presence: unspecified whether lower urinary tract symptoms present Qualified Codes: N40.0 - Benign prostatic hyperplasia without lower urinary tract symptoms (7) Bladder calculi Status: Acute Assessment & Plan: Follows with urology as above Advised to follow up with them (8) Prophylactic measure Assessment & Plan: Eliquis NS @100ml/hr Reg Diet Clinical Quality Measures DVT/VTE Risk/Contraindication: Risk Factor Score Per Nursin RFS Level Per Nursing on Admit: 3=High JAMES ARTEAGA MD Apr 13, 2018 08:27
[2018-04-13] MEDS ORDERED: LEVOTHYROXINE 112 MCG (LEVOTHROID) TAB PO SCH (08:45)
[2018-04-13] MEDS ORDERED: LEVOTHYROXINE 25 MCG (LEVOTHROID) TAB PO SCH (08:46)
[2018-04-13] MEDS: IBUPROFEN TABLET 200 MG TAB PO PRN ×2 (09:19→20:15)
[2018-04-13] MEDS: SINEMET 25/100 (CARBIDOPA/LEVODOPA) TAB PO SCH ×5 (09:21→20:16)
[2018-04-13] MEDS: GEMFIBROZIL 600 MG (LOPID) TAB PO SCH ×2 (09:21→20:18)
[2018-04-13] MEDS: DRONEDARONE TABLET 400 MG TABLET PO SCH ×2 (09:24→20:20)
[2018-04-13] MEDS: ROPINIROLE 0.5 MG PO SCH ×2 (09:24→20:19)
[2018-04-13] MEDS: buPROPion SR 150 MG (WELLBUTRIN SR) TAB PO SCH (09:25)
[2018-04-13] MEDS: lisINopril 5 MG (PRINIVIL) TABLET PO SCH ×2 (09:26→20:19)
[2018-04-13] MEDS: APIXABAN 5 MG (ELIQUIS) TABLET PO SCH ×2 (09:27→20:22)
[2018-04-13] MEDS: PANTOPRAZOLE 40 MG (PROTONIX) TAB PO SCH (09:27)
[2018-04-13] MEDS ORDERED: CBD OIL SL (11:45)
[2018-04-13] MEDS ORDERED: LEVO150T6 PO (11:45)
[2018-04-13] MEDS ORDERED: PANT40TA3 PO (11:45)
[2018-04-13] MEDS ORDERED: APIX5TAB PO (11:45)
[2018-04-13 12:00] VITALS: BP 117/59
[2018-04-13] MEDS: SELEGILINE 5 MG PO SCH ×2 (13:54→20:17)
[2018-04-13 16:00] VITALS: BP 117/56
[2018-04-13] MEDS ORDERED: TAMSULOSIN 0.4 MG (FLOMAX) CAP PO SCH (18:00)
[2018-04-13 20:00] VITALS: BP 147/68
[2018-04-13] MEDS ORDERED: DUTASTERIDE 0.5 MG PO SCH (21:00)
[2018-04-13] MEDS ORDERED: SINEMET CR 50/200 (CARBIDOPA/LEVODOPA SA) TAB PO SCH (21:00)
[2018-04-13] MEDS ORDERED: ORPHENADRINE 100 MG PO SCH (21:00)
[2018-04-14 00:11] VITALS: BP 130/64
[2018-04-14] MEDS: NS IV 1000 ML 1,000 ML IV SCH (03:16)
[2018-04-14 04:17] VITALS: BP 126/70
[2018-04-14 06:12] LABS: BASOPHILS % (AUTO) 0 % (0-10); EOSINOPHILS % (AUTO) 0 % (0-10); HEMATOCRIT 32 % (40-54); HEMOGLOBIN 10.8 G/DL (13.3-17.7); LYMPHOCYTES # (AUTO) 0.9 X 10^3 (1.0-4.0); LYMPHOCYTES % (AUTO) 11 % (12-44); MEAN CORPUSCULAR HEMOGLOBIN 32 PG (25-34); MEAN CORPUSCULAR HGB CONC 34 G/DL (32-36); MEAN CORPUSCULAR VOLUME 93 FL (80-99); MEAN PLATELET VOLUME 11.2 FL (7.4-10.4); MONOCYTES # (AUTO) 0.6 X 10^3 (0.0-1.0); MONOCYTES % (AUTO) 6 % (0-12); NEUTROPHILS # (AUTO) 7.2 X 10^3 (1.8-7.8); NEUTROPHILS % (AUTO) 83 % (42-75); PLATELET COUNT 101 10^3/uL (130-400); RED BLOOD COUNT 3.38 10^6/uL (4.35-5.85); RED CELL DISTRIBUTION WIDTH 14.3 % (10.0-14.5); WHITE BLOOD COUNT 8.7 10^3/uL (4.3-11.0)
[2018-04-14] MEDS ORDERED: LEVOTHYROXINE 150 MCG (LEVOTHROID) TAB PO SCH (06:30)
[2018-04-14 06:37] LABS: CALCIUM 8.7 MG/DL (8.5-10.1); CREATININE SERUM 1.2 MG/DL (0.60-1.30); POTASSIUM 3.9 MMOL/L (3.6-5.0)
[2018-04-14 08:00] VITALS: BP 91/52
[2018-04-14] MEDS: SINEMET 25/100 (CARBIDOPA/LEVODOPA) TAB PO SCH ×2 (08:19→12:05)
[2018-04-14] MEDS: APIXABAN 5 MG (ELIQUIS) TABLET PO SCH (08:19)
[2018-04-14] MEDS: GEMFIBROZIL 600 MG (LOPID) TAB PO SCH (08:20)
[2018-04-14] MEDS: DRONEDARONE TABLET 400 MG TABLET PO SCH (08:21)
[2018-04-14] MEDS: ROPINIROLE 0.5 MG PO SCH (08:21)
[2018-04-14] MEDS: PANTOPRAZOLE 40 MG (PROTONIX) TAB PO SCH (08:22)
[2018-04-14] MEDS: buPROPion SR 150 MG (WELLBUTRIN SR) TAB PO SCH (08:23)
[2018-04-14] MEDS: lisINopril 5 MG (PRINIVIL) TABLET PO SCH (08:23)
[2018-04-14] MEDS: cefTRIAXone 1 GM/NS 50 ML IVPB IV SCH ×2 (08:24)
[2018-04-14] MEDS ORDERED: CEFD300C3 PO (11:05)
--- NOTE | 2018-04-14 11:06 | Discharge Inst-Simple/Standard ---
Discharge Inst-Standard Discharge Medications New, Converted or Re-Newed RX: Transmitted to Pharmacy Patient Instructions/Follow Up Plan of Care/Instructions/FU: Please continue to take your medications as written. Please keep your apointment with Dr Lopez and schedule with your Urologist. Activity as Tolerated: Yes Discharge Diet: No Restrictions Return to The Hospital For: Worsening pain, fever unresponsive to tylenol, inability to urinate, if you feel you are getting worse. Planned Outpatient Orders/Ref. Pneu Vac Indicated: Yes JAMES SANDERS MD Apr 14, 2018 11:06
--- NOTE | 2018-04-14 11:08 | Discharge Summary-Hospitalist ---
Diagnosis/Chief Complaint Date of Admission Apr 13, 2018 at 8:10 am Date of Discharge Discharge Date: Apr 14, 2018 Admission Diagnosis UTI with severe sepsis Discharge Diagnosis (1) Severe sepsis Status: Acute Assessment & Plan: Severe sepsis on admission now resolved BP normal no need for 30cc/kg bolus Continue on Rocephin Blood cultures pending Urine culture pending (2) UTI (urinary tract infection) Assessment & Plan: Continue on Rocephin Await culture (3) Parkinson disease Status: Chronic Assessment & Plan: Continue home meds (4) Hypothyroidism Status: Chronic Assessment & Plan: Continue supplement (5) Atrial fibrillation Status: Chronic Assessment & Plan: On Eliquis Follows with Dr Avila (6) BPH (benign prostatic hyperplasia) Status: Chronic Assessment & Plan: Follows with Dr Toth at [facility] (7) Bladder calculi Status: Acute Assessment & Plan: Follows with urology as above Advised to follow up with them (8) Prophylactic measure Assessment & Plan: Eliquis NS @100ml/hr Reg Diet Discharge Summary Discharge Physical Exam Allergies: Coded Allergies: No Known Drug Allergies (Unverified , 05/12/17) Vitals & I&Os Vital Signs Date Time Temp Pulse Resp B/P (MAP) Pulse Ox O2 Delivery O2 Flow Rate FiO2 04/14/18 12:20 62 18 91/52 93 Room Air 0.00 04/14/18 08:00 97.7 General Appearance: Alert, Oriented X3 Respiratory: Clear to Auscultation Cardiovascular: Regular Rate Abdominal: Normal Bowel Sounds, Soft Hospital Course Pt was admitted for severe sepsis due to a UTI. He responded well to antibiotics and recovered quickly and was able to DC home in stable condition. He is to follow up with his PCP Dr Lopez in the next week to follow up this hospital stay. He is to complete Amoxil at home. I called and discussed this stay with Dr Lopez in regards to his hematuria and bladder stones and his need for urology evaluation to ensure hematuria resolves. Labs (last 24 hrs) Microbiology 04/12/18 Blood Culture - Preliminary, Resulted No growth 04/12/18 Urine Culture - Final, Complete Escherichia coli Patient resulted labs reviewed. Pending Labs Imaging: Reviewed Imaging Films, Reviewed Imaging Report Discussion & Recommendations Discharge Planning: >30 minutes discharge planning Discharge Home Medications: Active Scripts Active Amoxicillin 500 Mg Tablet 500 Mg PO BID Reported Levothyroxine Sodium 150 Mcg Tablet 150 Mcg PO DAILY [Cbd Oil] SL HS Eliquis (Apixaban) 5 Mg Tablet 5 Mg PO BID Pantoprazole Sodium 40 Mg Tablet.dr 40 Mg PO 1200 Multaq (Dronedarone HCl) 400 Mg Tablet 400 Mg PO 0800,1730 Carbidopa-Levo ER 50-200 Tab (Carbidopa/Levodopa) 1 Each Tablet.er 1 Tab PO HS Bupropion HCl Sr (Bupropion HCl) 150 Mg Tablet.er 150 Mg PO DAILY Lisinopril 5 Mg Tablet 5 Mg PO BID Selegiline HCl 5 Mg Tablet 5 Mg PO 1200,1930 Carbidopa-Levodopa 25-100 Tab (Carbidopa/Levodopa) 1 Each Tablet 1 Tab PO 0800, 1200,1700,1830 Gemfibrozil 600 Mg Tablet 600 Mg PO 0800,1700 Orphenadrine Citrate 100 Mg Tablet.er 100 Mg PO HS Ropinirole HCl 0.5 Mg Tablet 0.5 Mg PO BID Dutasteride 0.5 Mg Capsule 0.5 Mg PO HS Instructions to patient/family Please see electronic discharge instructions given to patient. Clinical Quality Measures DVT/VTE Risk/Contraindication: Risk Factor Score Per Nursin RFS Level Per Nursing on Admit: 3=High Copy Copies To 1: EDDY LOPEZ DO Problem Qualifiers (1) UTI (urinary tract infection): Urinary tract infection type: acute cystitis Hematuria presence: with hematuria Qualified Codes: N30.01 - Acute cystitis with hematuria (2) Hypothyroidism: Hypothyroidism type: acquired Qualified Codes: E03.9 - Hypothyroidism, unspecified (3) Atrial fibrillation: Atrial fibrillation type: paroxysmal Qualified Codes: I48.0 - Paroxysmal atrial fibrillation (4) BPH (benign prostatic hyperplasia): Lower urinary tract symptom presence: unspecified whether lower urinary tract symptoms present Qualified Codes: N40.0 - Benign prostatic hyperplasia without lower urinary tract symptoms JAMES SANDERS MD Apr 14, 2018 11:08
[2018-04-14] MEDS ORDERED: AMOX500T2 PO (11:28)
[2018-04-14] MEDS: SELEGILINE 5 MG PO SCH (12:07)
[2018-04-14 12:20] VITALS: BP 91/52
--- NOTE | 2018-04-16 11:11 | Physician Query Clarification ---
PQ-Intro New Diagnosis Admission/Discharge Admission Date: Apr 13, 2018 at 08:10 Discharge Date: Apr 14, 2018 at 12:22 The medical record reflects the following clinical scenario: History/Risk Factors: Acute cystitis with hematuria Calculus of bladder Clinical Findings: T 99.4, Pulse 68, Resp 16, BP 173/87, Blood culture-no growth, WBC 11.1. Urine culture > 100 CFU/ML Escherichia coli Treatment: IV Ceftriaxone Sodium Question: What condition best reflects the above clinical scenario? Please document below. After study, what final diagnosis was indicated? 1. Acute cystitis with hematuria due to Esch coli. 2. Sepsis with acute cystitis due to Esch coli. 3. Severe sepsis with acute cystitis due to Esch coli. 4. Other, with explanation of the clinical findings. 5. Clinically undetermined, no explanation for the clinical findings. PHYSICIAN RESPONSE What condition reflects above: Other, explanation/clinical finding Explanation of clincal finding Option 3 In responding to this query, please exercise your independent professional judgment. The purpose of this communication is to more accurately reflect the complexity of your patients condition. The fact that a question is asked does not imply that any particular answer is desired or expected. Thank you for your timely response to this clarification. Requestors name: Viviane Leigh [facility] Phone # ext [phone] or [phone] THIS PHYSICIAN QUERY FORM IS A PERMANENT PART OF THE MEDICAL RECORD VIVIANE LEIGH Apr 16, 2018 11:11 JAMES SANDERS MD Apr 16, 2018 15:18
== END 2018-04-14 12:22 | disposition home or self-care (01) | DRG 872 ==
LOC: EDUNIT# 15:05 → ER 15:07 → 4TH 16:36 → UNDOADMOB 16:36 → 4TH 19:45 → INTOOBSV 04-13 08:10 → OBSVTOIN 04-13 08:10 → UNDODISIN 04-14 12:20
PROVIDERS: ADMIT Family Medicine; ATTEND Family Medicine
DX: A41.51 Sepsis due to Escherichia coli [E. coli] (principal); R65.20 Severe sepsis without septic shock; N30.01 Acute cystitis with hematuria; N21.0 Calculus in bladder; G20 Parkinson's disease; F17.210 Nicotine dependence, cigarettes, uncomplicated; I48.0 Paroxysmal atrial fibrillation; E03.9 Hypothyroidism, unspecified; Z66 Do not resuscitate; I10 Essential (primary) hypertension; G47.30 Sleep apnea, unspecified; N40.0 Benign prostatic hyperplasia without lower urinary tract symptoms; K21.9 Gastro-esophageal reflux disease without esophagitis; K59.09 Other constipation; F43.10 Post-traumatic stress disorder, unspecified; M48.00 Spinal stenosis, site unspecified; M19.91 Primary osteoarthritis, unspecified site; C44.90 Unspecified malignant neoplasm of skin, unspecified; M54.9 Dorsalgia, unspecified; Z79.01 Long term (current) use of anticoagulants
CPT/HCPCS: 36415; 74176; 80048; 80053; 81000; 83605; 85007; 85025; 85027; 87040; 87088; 87186; 96361; 96365; 96375; G0378

== ENCOUNTER 2018-09-27 22:10 | Emergency (ER) | payer MEDICARE, OTHER ==
[~2018-09-27] VITALS: Ht 185.4 cm; Wt 113.4 kg
[~2018-09-27 22:10] MED LIST changes: -AMLO10TA2 PO; +AMLO10TA6 PO; +AMOX500T2 PO; +BUPR150T20 PO; +CARB1TAB41 PO; +CBD OIL SL; +CEFD300C3 PO; +DRON400T2 PO; -GEMF600T3 PO; +GEMF600T4 PO; +LEVO150T6 PO; +PANT40TA3 PO
[2018-09-27] MEDS ORDERED: ORPHENADRINE 60 MG/2 ML (NORFLEX) AMP IM STA (22:39)
[2018-09-27] MEDS ORDERED: KETOROLAC 60 MG/2 ML VIAL IM STA (22:39)
[2018-09-27 22:46] LABS: BILIRUBIN,URINE NEGATIVE (NEGATIVE); CLARITY,URINE SLIGHTLY CLOUDY; COLOR,URINE YELLOW; GLUCOSE, URINE (UA) NEGATIVE (NEGATIVE); KETONES,URINE 1+ (NEGATIVE); LEUKOCYTE ESTERASE ,URINE 1+ (NEGATIVE); NITRITE,URINE NEGATIVE (NEGATIVE); PH,URINE 5 (5-9); PROTEIN,URINE 1+ (NEGATIVE); UROBILINOGEN,URINE 1 MG/DL (NORMAL)
[2018-09-28] MEDS ORDERED: RX-NITROFURANTOIN 100 MG (MACROBID) CAP PPK#2 PO STA (00:43)
[2018-09-28] MEDS ORDERED: RX-CYCLOBENZAPRINE 10 MG (FLEXERIL) TAB PPK#3 PO STA (00:43)
[2018-09-28] MEDS ORDERED: NITROFURANTOIN 100 MG (MACROBID) CAPSULE PO ONE (00:45)
[2018-09-28] MEDS ORDERED: HYDROcodone/APAP 7.5 MG/325 MG (LORTAB, LORCET PLUS) TABLET PO ONE (00:45)
[2018-09-28] MEDS ORDERED: RX-HYDROCODONE/APAP 5/325 MG #4 TAB PK PO PRN (00:45)
[2018-09-28] MEDS ORDERED: CYCL10TA9 PO (00:48)
[2018-09-28] MEDS ORDERED: ACHD5005 PO (00:48)
[2018-09-28] MEDS ORDERED: NITR-65 PO (00:48)
--- NOTE | 2018-09-28 00:48 | ED Back Pain ---
General Chief Complaint: Back Problems Stated Complaint: BACK PAIN Nursing Triage Note: left lower back pain x2 hrs, no known injury Nursing Sepsis Screen: No Definite Risk Allergies and Home Medications Allergies Coded Allergies: No Known Drug Allergies (Unverified , 05/12/17) Home Medications Apixaban 5 Mg Tablet, 5 MG PO BID, (Reported) Bupropion HCl 150 Mg Tablet.er, 150 MG PO DAILY, (Reported) Carbidopa/Levodopa 1 Each Tablet, 1 TAB PO 0800,1200,1700,1830, (Reported) Carbidopa/Levodopa 1 Each Tablet.er, 1 TAB PO HS, (Reported) Dronedarone HCl 400 Mg Tablet, 400 MG PO 0800,1730, (Reported) Dutasteride 0.5 Mg Capsule, 0.5 MG PO HS, (Reported) Gemfibrozil 600 Mg Tablet, 600 MG PO 0800,1700, (Reported) Levothyroxine Sodium 150 Mcg Tablet, 150 MCG PO DAILY, (Reported) Orphenadrine Citrate 100 Mg Tablet.er, 100 MG PO HS, (Reported) Pantoprazole Sodium 40 Mg Tablet.dr, 40 MG PO 1200, (Reported) Ropinirole HCl 0.5 Mg Tablet, 0.5 MG PO BID, (Reported) Selegiline HCl 5 Mg Tablet, 5 MG PO 1200,1930, (Reported) [Cbd Oil] , SL HS, (Reported) Past Hzizabr-Ubrelz-Ysolyx Hx Patient Social History Alcohol Use: Rarely Uses Number of Drinks Today: AA Alcohol Beverage of Choice: Beer Recreational Drug Use: No Smoking Status: Former Smoker Type Used: Cigarettes 2nd Hand Smoke Exposure: No Recent Foreign Travel: No Contact w/Someone Who Travel: No Recent Infectious Disease Expo: No Recent Hopitalizations: No Immunizations Up To Date Date of Pneumonia Vaccine: Oct 05, 2008 Date of Influenza Vaccine: Jul 14, 2016 Seasonal Allergies Seasonal Allergies: No Past Medical History Surgeries: Yes (shrapnel left arm) Appendectomy, Gallbladder, Orthopedic, Tonsillectomy Respiratory: No Sleep Apnea Currently Using CPAP: Yes Currently Using BIPAP: No Cardiac: Yes Atrial Fibrillation, Hypertension Neurological: Yes Parkinson's Disease Reproductive Disorders: No Sexually Transmitted Disease: No HIV/AIDS: No Genitourinary: Yes Benign Prostatic Hyperpl, Prostate Problems Gastrointestinal: Yes Gastroesophageal Reflux, Chronic Constipation Musculoskeletal: Yes Arthritis, Chronic Back Pain Endocrine: Yes Hypothyroidsim HEENT: No Loss of Vision: Denies Hearing Impairment: Denies Cancer: Yes (SQUAMOUS CELL-EAR) Skin Psychosocial: Yes PTSD Integumentary: No Blood Disorders: No Adverse Reaction/Blood Tranf: No (N/A) Family Medical History Alcoholism G8 BROTHER Cervical cancer G8 SISTER Diabetes mellitus 19 FATHER 19 MOTHER G8 BROTHER FH: COPD (chronic obstructive pulmonary disease) 19 MOTHER FH: stroke 19 FATHER No Pertinent Family Hx Physical Exam Vital Signs Vital Signs - First Documented 09/27/18 22:25 Temp 97.9 Pulse 59 Resp 16 B/P (MAP) 128/69 (88) Pulse Ox 98 O2 Delivery Room Air Capillary Refill : Less Than 3 Seconds Height, Weight, BMI Height: 6'1.00" Weight: 250lbs. 0.0oz. 113.057266br; 35.1 BMI Method:Stated Progress/Results/Core Measures Results/Orders Lab Results Laboratory Tests Test 09/27/18 22:40 Range/Units Urine Color YELLOW Urine Clarity SLIGHTLY CLOUDY Urine pH 5 5-9 Urine Specific [place] 1.020 1.016-1.022 Urine Protein 1+ H NEGATIVE Urine Glucose (UA) NEGATIVE NEGATIVE Urine Ketones 1+ H NEGATIVE Urine Nitrite NEGATIVE NEGATIVE Urine Bilirubin NEGATIVE NEGATIVE Urine Urobilinogen 1 NORMAL MG/DL Urine Leukocyte Esterase 1+ H NEGATIVE Urine RBC (Auto) NEGATIVE NEGATIVE Urine RBC NONE /HPF Urine WBC 2-5 /HPF Urine Crystals NONE /LPF Urine Bacteria NONE /HPF Urine Casts NONE /LPF Urine Mucus SMALL H /LPF Urine Culture Indicated NO My Orders Orders - ASPEN MAYNARD DO Ua Culture If Indicated (09/27/18 22:29) Ketorolac Injection (Toradol Injection) (09/27/18 22:39) Orphenadrine Injection (Norflex Injectio (09/27/18 22:39) Ct Abd/Pelvis Wo(Kidney Stone) (09/27/18 23:33) Abdomen/Kub 1view (09/28/18 00:01) Rx-Cyclobenzaprine Tablet (Rx-Flexeril T (09/28/18 00:43) Rx-Hydrocodone/Apap 5-325 Mg (Rx-Vicodin (09/28/18 00:45) Rx-Nitrofurantoin [place] (Rx-Macrobid) (09/28/18 00:43) Hydrocodone/Apap 7.5/325 Tab (Lortab 7. (09/28/18 00:45) Nitrofurantoin Capsule,Macro (Macrobid C (09/28/18 00:45) Vital Signs/I&O 09/27/18 09/27/18 09/27/18 22:25 22:48 22:48 Temp 97.9 97.9 97.9 Pulse 59 Resp 16 B/P (MAP) 128/69 (88) Pulse Ox 98 O2 Delivery Room Air Blood Pressure Mean: 88 Departure Impression Primary Impression: Back pain Additional Impression: Right ureteral calculus Disposition: HOME, SELF-CARE Condition: Improved Departure-Patient Inst. Referrals: EDDY ESPINO DO (PCP/Family) Primary Care Physician Patient Instructions: Kidney Stones (DC), Low Back Pain (DC) Add. Discharge Instructions: LOTS OF CLEAR LIQUIDS STRAIN ALL URINE--RETURN ANY STONES TO YOUR DR'S OFFICE CONTINUE YOUR REGULAR MEDICATIONS PRESCRIBED KEEP YOUR APPOINTMENT WITH DR. ESPINO ON THURSDAY RETURN TO ER IF WORSE All discharge instructions reviewed with patient and/or family. Voiced understanding. Scripts Hydrocodone Bit/Acetaminophen (Hydrocodone/Acetaminophen 5/325mg Tablet) 1 Tab Tab 1-2 EACH PO Q6H PRN for PAIN-MODERATE MDD 10, #20 TAB Prov: ASPEN MAYNARD DO 09/28/18 Cyclobenzaprine HCl (Cyclobenzaprine HCl) 10 Mg Tablet 10 MG PO Q8H, #15 TAB Prov: ASPEN MAYNARD DO 09/28/18 Nitrofurantoin Monohyd/M-Cryst (Macrobid 100 mg Capsule) 100 Mg Capsule 100 MG PO BID, #20 CAP Prov: ASPEN MAYNARD DO 09/28/18 ASPEN MAYNARD DO Sep 28, 2018 00:48
[2018-09-28 01:10] VITALS: BP 154/75
--- NOTE | 2018-09-28 06:43 | Diagnostic Imaging Report ---
CLINICAL INDICATION: Patient with left flank pain x2 hours. Patient has history of cholecystectomy and appendectomy and kidney stones. EXAM: KUB x-ray. COMPARISON: X-ray of the chest and abdomen dated 09/05/2012. FINDINGS: There are no focal calcifications overlying the expected regions/ pathways of both kidneys, ureters, and bladder regions. There is a nonobstructed bowel gas pattern. There is no evidence of abdominal free air. There is a small to moderate amount of stool seen throughout the colon. There are hypertrophic spurs seen throughout the thoracolumbar spine. IMPRESSION: There is no radiographic evidence for acute abdominal/ pelvic process or urinary tract stones. Dictated by: Dictated on workstation # [id number]
--- NOTE | 2018-09-28 07:19 | Diagnostic Imaging Report ---
CLINICAL INDICATION: Patient with left flank pain x2 hours. Patient has history of cholecystectomy and appendectomy and stones. EXAM: CT scan of the abdomen and pelvis performed without IV or enteric contrast. Coronal and sagittal reformatted images were created. COMPARISON: CT scan of the abdomen and pelvis performed without IV contrast or enteric contrast dated 04/12/2018. FINDINGS: There is stable mild scarring involving the posterior left lung base is suspected minimal right lung base atelectasis. There are degenerative spurs involving the visualized portion of the lower thoracic spine and lumbar spine. The liver, spleen, pancreas, and adrenal glands are unremarkable. The gallbladder is surgically resected. Small hiatal hernia seen. There is debris within the mildly distended stomach. The small bowel and large bowel show no evidence of intestinal obstruction or acute finding. There is a [id number] amount of stool seen throughout the colon. The appendix is surgically resected. There is a roughly 2 mm stone within the right UVJ region. There is no hydronephrosis. There are other punctate nonobstructing calcifications within both kidneys seen. Partial horseshoe kidney noted. Both kidneys show no evidence of hydronephrosis or renal mass. There is no intra-abdominal lymphadenopathy, free fluid, or free air. The prostate gland is enlarged measuring 6.2 cm in transverse dimension. There is exophytic protrusion into the base of the bladder. Otherwise, the bladder is partially fluid-filled with no other gross abnormality. Extra-abdominal and extra-pelvic soft tissue structures are unremarkable. IMPRESSION: 1: Interval development of a 2 mm nonobstructive stone within the right UVJ region. There is no hydronephrosis. 2: Again seen partial horseshoe kidney other nonobstructive renal stones. 3: Enlarged prostate gland. 4: The remainder of this exam shows no significant interval change compared to the prior study of comparison. I agree with [employer] report. Dictated by: Dictated on workstation # [id number]
== END 2018-09-28 01:09 | disposition home or self-care (01) ==
LOC: EDUNIT# 22:10 → ER 22:12
DX: N20.2 Calculus of kidney with calculus of ureter (principal); M54.5 Low back pain; G47.30 Sleep apnea, unspecified; I48.91 Unspecified atrial fibrillation; I10 Essential (primary) hypertension; G20 Parkinson's disease; K21.9 Gastro-esophageal reflux disease without esophagitis; E03.9 Hypothyroidism, unspecified; F43.10 Post-traumatic stress disorder, unspecified; Z80.49 Family history of malignant neoplasm of other genital organs; Z85.828 Personal history of other malignant neoplasm of skin; Z87.19 Personal history of other diseases of the digestive system; Z87.448 Personal history of other diseases of urinary system; Z79.01 Long term (current) use of anticoagulants; Z87.891 Personal history of nicotine dependence; Z90.89 Acquired absence of other organs; Z90.49 Acquired absence of other specified parts of digestive tract
CPT/HCPCS: 74018; 74176; 81000

== ENCOUNTER → 2018-10-07 | Outpatient (CLI) | payer MEDICARE, OTHER ==
[~2018-10-07] MED LIST changes: +ACHD5005 PO; +CYCL10TA9 PO; +NITR-65 PO
--- NOTE | 2018-10-07 13:10 | Diagnostic Imaging Report ---
PROCEDURE: MRI lumbar spine. TECHNIQUE: Multiplanar, multisequence MRI of the lumbar spine was performed without contrast. INDICATION: Groin pain. FINDINGS: There are no prior MRI examinations available for comparison. The recent CT abdomen/pelvis exam performed on 09/27/2018 noted a 2 mm nonobstructive calculus within the uterovesical junction on the right. In reviewing the CT exam, there did appear to be severe degenerative disc and bony disease involving the lumbar spine, particularly at the L1-2 level. On this study, there is abnormal signal along the opposing endplates of L1 and L2, and there is slight irregularity of the opposing endplates of these vertebral bodies. There is no clear evidence for a soft tissue mass to suggest osteomyelitis/discitis. However, if clinical concern regarding osteomyelitis/discitis persists, then a followup MRI exam with intravenous contrast would be recommended. There is a focal disc protrusion eccentric to the left at this level. The disc indents the ventral aspect of the thecal sac and narrows the AP diameter to 5 mm. There is also narrowing of the neural foramen bilaterally at this level, particularly on the left. At the L2-3 level, there is a broad-based disc bulge which flattens the ventral aspect of the thecal sac and narrows the AP diameter to 7.6 mm. There is also narrowing of the neural foramen bilaterally at this level. At the L3-4 level, there is also severe spinal stenosis due to degenerative disc, ligamentous, and bony disease. The AP diameter of the thecal sac is narrowed to 5.4 mm, and there is narrowing of the neural foramen bilaterally, again more so on the left. At L4-5, there is trefoil stenosis with narrowing of the AP diameter of the thecal sac to 9.5 mm. There is also neural foraminal narrowing bilaterally at this level, particularly on the right. At the L5-S1 level, there is a disc bulge centrally. The AP diameter of the thecal sac is narrowed to approximately 12.3 mm. There is mild narrowing of the neural foramen bilaterally at this level. There is no abnormal signal arising from the vertebral bodies other than the abnormal signal along the opposing endplates of L1 and L2. There is no signal abnormality arising from the cord. There is no paraspinal mass visualized. IMPRESSION: 1. There is degenerative disc, ligamentous, and bony disease throughout the lumbar spine with spinal stenosis at multiple levels. The L1-2 and L3-4 levels appear to be the most significantly involved. There is also neural foraminal narrowing at every level. 2. The altered signal within the vertebral bodies of L1 and L2 could be related to degenerative disease alone. The possibility that there is an indolent inflammatory process such as discitis/osteomyelitis should also be considered. Recommendations as above. 3. There is no acute bony abnormality noted otherwise. Dictated by: Dictated on workstation # [id number]
== END ==
LOC: RAD 10:16
PROVIDERS: ATTEND Internal Medicine
DX: M51.27 Other intervertebral disc displacement, lumbosacral region (principal); M48.07 Spinal stenosis, lumbosacral region; M89.9 Disorder of bone, unspecified; M51.36 Other intervertebral disc degeneration, lumbar region
CPT/HCPCS: 72148

== ENCOUNTER 2019-01-31 04:52 | Emergency (ER) | payer MEDICARE, OTHER ==
[~2019-01-31] VITALS: Ht 182.9 cm; Wt 117.9 kg
[~2019-01-31 04:52] MED LIST changes: -AMLO10TA6 PO; +AMLO10TA7 PO; -GEMF600T4 PO; +GEMF600T8 PO
[2019-01-31 05:55] LABS: BASOPHILS % (AUTO) 0 % (0-10); EOSINOPHILS # (AUTO) 0.1 10^3/uL (0.0-0.3); EOSINOPHILS % (AUTO) 2 % (0-10); HEMATOCRIT 38 % (40-54); HEMOGLOBIN 12.8 G/DL (13.3-17.7); LYMPHOCYTES # (AUTO) 1.3 X 10^3 (1.0-4.0); LYMPHOCYTES % (AUTO) 23 % (12-44); MEAN CORPUSCULAR HEMOGLOBIN 31 PG (25-34); MEAN CORPUSCULAR HGB CONC 34 G/DL (32-36); MEAN CORPUSCULAR VOLUME 93 FL (80-99); MEAN PLATELET VOLUME 10.7 FL (7.4-10.4); MONOCYTES # (AUTO) 0.7 X 10^3 (0.0-1.0); MONOCYTES % (AUTO) 11 % (0-12); NEUTROPHILS # (AUTO) 3.7 X 10^3 (1.8-7.8); NEUTROPHILS % (AUTO) 64 % (42-75); PLATELET COUNT 142 10^3/uL (130-400); RED CELL DISTRIBUTION WIDTH 13.7 % (10.0-14.5); WHITE BLOOD COUNT 5.9 10^3/uL (4.3-11.0)
[2019-01-31 06:15] LABS: ALBUMIN 4.1 GM/DL (3.2-4.5); BILIRUBIN,TOTAL 0.4 MG/DL (0.1-1.0); CALCIUM 9.8 MG/DL (8.5-10.1); CREATININE SERUM 1.23 MG/DL (0.60-1.30); ERYTHROCYTE SEDIMENTATION RATE 31 MM/HR (0-30); POTASSIUM 4.4 MMOL/L (3.6-5.0); TOTAL PROTEIN 7.2 GM/DL (6.4-8.2); URIC ACID 7.7 MG/DL (2.6-7.2)
[2019-01-31] MEDS ORDERED: cefTRIAXone FOR IV USE 1,000 MG in WATER (STERILE) FOR INJECTION 10 ML IV ONE (06:15)
[2019-01-31] MEDS ORDERED: KETOROLAC 30 MG/ML VIAL IVP ONE (06:15)
[2019-01-31] MEDS ORDERED: hydrALAZINE (APESOLINE) 20 MG/ML VIAL IV ONE ×2 (06:15→07:00)
--- NOTE | 2019-01-31 06:36 | ED Lower Extremity ---
General Chief Complaint: Lower Extremity Stated Complaint: LEFT FOOT PAIN Nursing Triage Note: PATIENT C/O LEFT FOOT PAIN Nursing Sepsis Screen: No Definite Risk Allergies and Home Medications Allergies Coded Allergies: No Known Drug Allergies (Unverified , 05/12/17) Home Medications Apixaban 5 Mg Tablet, 5 MG PO BID, (Reported) Bupropion HCl 150 Mg Tablet.er, 150 MG PO DAILY, (Reported) Carbidopa/Levodopa 1 Each Tablet, 1 TAB PO 0800,1200,1700,1830, (Reported) Carbidopa/Levodopa 1 Each Tablet.er, 1 TAB PO HS, (Reported) Colchicine 0.6 Mg Capsule, 0.6 MG PO UD Prescribed by: ASPEN MAYNARD on 01/31/19637 Cyclobenzaprine HCl 10 Mg Tablet, 10 MG PO Q8H Prescribed by: ASPEN MAYNARD on 09/28/1847 Dronedarone HCl 400 Mg Tablet, 400 MG PO 0800,1730, (Reported) Dutasteride 0.5 Mg Capsule, 0.5 MG PO HS, (Reported) Gemfibrozil 600 Mg Tablet, 600 MG PO 0800,1700, (Reported) Hydrocodone Bit/Acetaminophen 1 Tab Tab, 1-2 EACH PO Q6H PRN for PAIN-MODERATE Prescribed by: ASPEN MAYNARD on 09/28/1847 Ketoconazole 15 Gm Cream..g., 15 GM TP BID Prescribed by: ASPEN MAYNARD on 01/31/19637 Levothyroxine Sodium 150 Mcg Tablet, 150 MCG PO DAILY, (Reported) Nitrofurantoin Monohyd/M-Cryst 100 Mg Capsule, 100 MG PO BID Prescribed by: ASPEN MAYNARD on 09/28/1847 Orphenadrine Citrate 100 Mg Tablet.er, 100 MG PO HS, (Reported) Pantoprazole Sodium 40 Mg Tablet.dr, 40 MG PO 1200, (Reported) Prednisone 10 Mg Tab, 40 MG PO DAILY Prescribed by: ASPEN MAYNARD on 01/31/19637 Ropinirole HCl 0.5 Mg Tablet, 0.5 MG PO BID, (Reported) Selegiline HCl 5 Mg Tablet, 5 MG PO 1200,1930, (Reported) Sulfamethoxazole/Trimethoprim 1 Each Tablet, 1 EACH PO BID Prescribed by: ASPEN MAYNARD on 01/31/19637 [Cbd Oil] , SL HS, (Reported) Past Gwwpkri-Erjnrn-Yavolv Hx Patient Social History Alcohol Use: Denies Use Alcohol Beverage of Choice: Beer Recreational Drug Use: No Smoking Status: Never a Smoker Type Used: Cigarettes 2nd Hand Smoke Exposure: No Recent Foreign Travel: No Contact w/Someone Who Travel: No Recent Infectious Disease Expo: No Recent Hopitalizations: No Physical Abuse: No Sexual Abuse: No Mistreated: No Fear: No Immunizations Up To Date Date of Pneumonia Vaccine: Jan 03, 2017 Date of Influenza Vaccine: Jul 05, 2018 Seasonal Allergies Seasonal Allergies: No Past Medical History Surgeries: Yes (SCHRAPNEL REMOVED FROM LEFT ARM; LEFT LEG I&D CHILD FOR OSTEOMYELITIS; ) Appendectomy, Gallbladder, Orthopedic, Tonsillectomy Respiratory: No Sleep Apnea Currently Using CPAP: Yes Currently Using BIPAP: No Cardiac: Yes Atrial Fibrillation, Hypertension Neurological: Yes Parkinson's Disease Reproductive Disorders: No Sexually Transmitted Disease: No HIV/AIDS: No Genitourinary: Yes Benign Prostatic Hyperpl, Prostate Problems, Kidney Stones Gastrointestinal: Yes Gastroesophageal Reflux, Chronic Constipation Musculoskeletal: Yes (LEFT LEG SCIATICA; OSTEOMYELITIS CHILD IN LEFT LEG- CAUSED BY INJECTION AND NEEDLE BROKE OFF--HAD I&D AND WOUND LEFT OPEN AND TREATED FOR LONG PERIOD OF TIME; SCHRAPNEL IN LEFT SHOULDER) Arthritis, Chronic Back Pain Endocrine: Yes Hypothyroidsim HEENT: No Loss of Vision: Denies Hearing Impairment: Denies Cancer: Yes (SQUAMOUS CELL-EAR) Skin Psychosocial: Yes PTSD Integumentary: No Blood Disorders: No Adverse Reaction/Blood Tranf: No (N/A) Family Medical History Alcoholism G8 BROTHER Cervical cancer G8 SISTER Diabetes mellitus 19 FATHER 19 MOTHER G8 BROTHER FH: COPD (chronic obstructive pulmonary disease) 19 MOTHER FH: stroke 19 FATHER No Pertinent Family Hx Physical Exam Vital Signs Vital Signs - First Documented 01/31/19 01/31/19 05:02 07:26 Temp 97.5 Pulse 55 Resp 16 B/P (MAP) 180/98 (125) Pulse Ox 99 O2 Delivery Room Air Capillary Refill : Less Than 3 Seconds Height, Weight, BMI Height: 6'0" Weight: 260lbs. 0.0oz. 117.889001xm; 35.1 BMI Method:Stated Progress/Results/Core Measures Results/Orders Lab Results Laboratory Tests Test 01/31/19 05:48 Range/Units White Blood Count 5.9 4.3-11.0 10^3/uL Red Blood Count 4.08 L 4.35-5.85 10^6/uL Hemoglobin 12.8 L 13.3-17.7 G/DL Hematocrit 38 L 40-54 % Mean Corpuscular Volume 93 80-99 FL Mean Corpuscular Hemoglobin 31 25-34 PG Mean Corpuscular Hemoglobin Concent 34 32-36 G/DL Red Cell Distribution Width 13.7 10.0-14.5 % Platelet Count 142 130-400 10^3/uL Mean Platelet Volume 10.7 H 7.4-10.4 FL Neutrophils (%) (Auto) 64 42-75 % Lymphocytes (%) (Auto) 23 12-44 % Monocytes (%) (Auto) 11 0-12 % Eosinophils (%) (Auto) 2 0-10 % Basophils (%) (Auto) 0 0-10 % Neutrophils # (Auto) 3.7 1.8-7.8 X 10^3 Lymphocytes # (Auto) 1.3 1.0-4.0 X 10^3 Monocytes # (Auto) 0.7 0.0-1.0 X 10^3 Eosinophils # (Auto) 0.1 0.0-0.3 10^3/uL Basophils # (Auto) 0.0 0.0-0.1 10^3/uL Erythrocyte Sedimentation Rate 31 H 0-30 MM/HR Sodium Level 140 135-145 MMOL/L Potassium Level 4.4 3.6-5.0 MMOL/L Chloride Level 105 98-107 MMOL/L Carbon Dioxide Level 24 21-32 MMOL/L Anion Gap 11 5-14 MMOL/L Blood Urea Nitrogen 20 H 7-18 MG/DL Creatinine 1.23 0.60-1.30 MG/DL Estimat Glomerular Filtration Rate 58 BUN/Creatinine Ratio 16 Glucose Level 117 H 70-105 MG/DL Uric Acid 7.7 H 2.6-7.2 MG/DL Calcium Level 9.8 8.5-10.1 MG/DL Corrected Calcium 9.7 8.5-10.1 MG/DL Magnesium Level 2.0 1.8-2.4 MG/DL Total Bilirubin 0.4 0.1-1.0 MG/DL Aspartate Amino Transf (AST/SGOT) 15 5-34 U/L Alanine Aminotransferase (ALT/SGPT) 6 0-55 U/L Alkaline Phosphatase 95 40-136 U/L C-Reactive Protein High Sensitivity 1.03 H 0.00-0.50 MG/DL Total Protein 7.2 6.4-8.2 GM/DL Albumin 4.1 3.2-4.5 GM/DL My Orders Orders - ASPEN MAYNARD DO Ed Iv/Invasive Line Start (01/31/19 05:14) Foot, Left, 3 Views (01/31/19 05:14) Cbc With Automated Diff (01/31/19 05:14) Comprehensive Metabolic Panel (01/31/19 05:14) Hs C Reactive Protein (01/31/19 05:14) Erythrocyte Sedimentation Rate (01/31/19 05:14) Magnesium (01/31/19 05:14) Uric Acid (01/31/19 05:14) Ketorolac Injection (Toradol Injection) (01/31/19 06:15) Hydralazine Injection (Apresoline Inject (01/31/19 06:15) Ceftriaxone For Iv Use (Rocephin For I (01/31/19 06:15) Hydralazine Injection (Apresoline Inject (01/31/19 07:00) Medications Given in ED Current Medications Medications Dose Ordered Sig/Mariah Route Start Time Stop Time Status Last Admin Dose Admin Ceftriaxone Sodium 1000 mg/ Sterile Water 10 ml @ 200 mls/hr ONCE ONCE IV 01/31/19 06:15 01/31/19 06:17 DC 01/31/19 06:23 200 MLS/HR Hydralazine HCl 10 mg ONCE ONCE IV 01/31/19 06:15 01/31/19 06:16 DC 01/31/19 06:23 10 MG Hydralazine HCl 10 mg ONCE ONCE IV 01/31/19 07:00 01/31/19 07:01 DC 01/31/19 07:09 10 MG Ketorolac Tromethamine 30 mg ONCE ONCE IVP 01/31/19 06:15 01/31/19 06:16 DC 01/31/19 06:24 30 MG Vital Signs/I&O 01/31/19 01/31/19 05:02 07:26 Temp 97.5 97.2 Pulse 55 64 Resp 16 18 B/P (MAP) 180/98 (125) 150/72 (98) Pulse Ox 99 O2 Delivery Room Air Blood Pressure Mean: 125 Progress Progress Note : Progress Note PAIN IMPROVED AND REDNESS AND SWELLING MILDLY IMPROVED WITH MEDICATIONS BP DOWN WITH MEDICATIONS--PT ADMITS TO NOT TAKING BP MEDICATION ON REGULAR BASIS --THINKS IT MAKES HIS BP GO TOO LOW SOMETIMES, SO HE DOESN'T ALWAYS TAKE IT. BP DOWN TO 150/72 AT DISMISSAL PT FEELS MUCH BETTER PT STATES HE HAS A VERY NICE WALKER FROM THE [place]--SEATED WALKER WITH BASKET, BRAKES, ETC. --HE DOESN'T LIKE TO USE IT DUE TO "STIGMA" OF "OLD PEOPLE" LENGTHY DISCUSSION WITH PT ABOUT MULTIPLE ISSUES, INCLUDING RISKS OF FALLS AND POTENTIAL INJURIES DUE TO UNSTEADY NATURE OF CRUTCHES, WITH HIS UNDERLYING PARKINSON'S, HE IS UNSTEADY ON HIS FEET FROM THAT. ADDITIONAL RISK DUE TO CHRONIC LOWER BACK PAIN AND CHRONIC LEFT LEG PAIN/SCIATICA, AND NEW ISSUE OF VERY PAINFUL LEFT FOOT. ALSO LENGTHY DISCUSSION ABOUT GOUT, CAUSES, TREATMENTS, ETC. ALSO DISCUSSED POSSIBILITY OF CELLULITIS, AND UNDERLYING TINEA PEDIS AND TREATMENTS Diagnostic Imaging Comments XRAYS LEFT FOOT--NO ACUTE PROCESS, CHRONIC APPEARING CHANGES TO FIRST MTP JOINT AREA. PENDING RADIOLOGIST REVIEW Reviewed: Reviewed by Me Departure Impression Primary Impression: SUSPECTED GOUT LEFT FIRST MTP JOINT (VS CELLULITIS) Additional Impressions: Hyperuricemia Uncontrolled hypertension Tinea pedis Disposition: 01 HOME, SELF-CARE Condition: Improved Departure-Patient Inst. Referrals: EDDY ESPINO DO (PCP/Family) Primary Care Physician Patient Instructions: Cellulitis (Skin Infection), Adult (DC), Controlling Your Blood Pressure Through Lifestyle, DASH Diet, Gout (DC), High Blood Pressure (DC), Low Purine Diet, Athlete's Foot (DC) Add. Discharge Instructions: LOTS OF WATER ELEVATE LEFT FOOT MUCH POSSIBLE TAKE YOUR HOME HYDROCODONE NEEDED FOR PAIN CONTINUE YOUR HOME MEDICATIONS PRESCRIBED USE YOUR WALKER AT ALL TIMES FOLLOW UP WITH DR. ESPINO THIS WEEK FOR FOLLOW UP All discharge instructions reviewed with patient and/or family. Voiced understanding. Scripts Sulfamethoxazole/Trimethoprim (Bactrim Ds Tablet) 1 Each Tablet 1 EACH PO BID, #20 TAB Prov: ASPEN MAYNARD DO 01/31/19 Colchicine (Colchicine) 0.6 Mg Capsule 0.6 MG PO UD, #10 CAP Prov: ASPEN MAYNARD DO 01/31/19 Prednisone (Prednisone) 10 Mg Tab 40 MG PO DAILY, #12 TAB Prov: ASPEN MAYNARD DO 01/31/19 Ketoconazole (Ketoconazole) 15 Gm Cream..g. 15 GM TP BID, #1 TUBE Prov: ASPEN MAYNARD DO 01/31/19 ASPEN MAYNARD DO Jan 31, 2019 06:35
[2019-01-31] MEDS ORDERED: COLC0.6C3 PO (06:38)
[2019-01-31] MEDS ORDERED: SULF1TAB35 PO (06:38)
[2019-01-31] MEDS ORDERED: KETO15CR2 TP (06:38)
[2019-01-31] MEDS ORDERED: PRD10T PO (06:38)
--- NOTE | 2019-01-31 07:18 | Diagnostic Imaging Report ---
INDICATION: Left foot pain. COMPARISON: None available. TECHNIQUE: 3 nonweightbearing views of the left foot were obtained. FINDINGS: No acute fracture or traumatic malalignment. Moderate degenerative changes are present at the first MTP. Broadening of the first metatarsal head may relate to old healed fracture. Tiny plantar calcaneal spur. Calcification are present within the Achilles. IMPRESSION: 1. No acute fracture. 2. Old fracture of the first metatarsal head with secondary osteoarthritis of the first MTP. Dictated by: Dictated on workstation # [id number]
[2019-01-31 07:26] VITALS: BP 150/72
== END 2019-01-31 07:24 | disposition home or self-care (01) ==
LOC: EDUNIT# 04:52 → ER 04:55
DX: E79.0 Hyperuricemia without signs of inflammatory arthritis and tophaceous disease (principal); I10 Essential (primary) hypertension; B35.3 Tinea pedis; G47.30 Sleep apnea, unspecified; I48.91 Unspecified atrial fibrillation; G20 Parkinson's disease; K21.9 Gastro-esophageal reflux disease without esophagitis; E03.9 Hypothyroidism, unspecified; F43.10 Post-traumatic stress disorder, unspecified; Z85.828 Personal history of other malignant neoplasm of skin; Z87.19 Personal history of other diseases of the digestive system; Z87.442 Personal history of urinary calculi; Z87.448 Personal history of other diseases of urinary system; Z79.01 Long term (current) use of anticoagulants; Z79.52 Long term (current) use of systemic steroids; Z90.49 Acquired absence of other specified parts of digestive tract; Z98.890 Other specified postprocedural states; Z90.89 Acquired absence of other organs
CPT/HCPCS: 36415; 73630; 80053; 83735; 84550; 85025; 85652; 86141; 96374; 96375; 96376

== ENCOUNTER 2019-05-25 09:52 | Day surgery (SDC) | payer MEDICARE, OTHER ==
[~2019-05-25] VITALS: Ht 182.9 cm; Wt 117.9 kg
[~2019-05-25 09:52] MED LIST changes: +COLC0.6C3 PO; +KETO15CR2 TP; -OMEP20CA12 PO; +OMEP20CA13 PO; +PRD10T PO; +SULF1TAB35 PO
[2019-05-25] MEDS ORDERED: LIDOCAINE 1% INJ 20 ML 20 ML VIAL ONE (09:53)
[2019-05-25 10:59] VITALS: BP 134/86
--- NOTE | 2019-05-25 12:33 | Implantation of Loop Monitor ---
Implant of Loop Monitior IMPLANTATION OF LOOP MONITOR REPORT DATE OF PROCEDURE: 05/25/19 PREOP DIAGNOSIS: paroxysmal atrial fibrillation POSTOP DIAGNOSIS: paroxysmal atrial fibrillation PROCEDURE DETAILS: The patient is a 73 male with history of paroxysmal atrial fibrillation requiring long-term surveillance. Therefore implantable loop recorder was discussed and agreed with the patient. Informed consent was taken. All risks and complications were discussed at length. The patient was draped and prepped in the usual sterile fashion. Local anesthesia was lidocaine, which was given in the substernal area close to the 4th intercostal space. Loop monitor [employer] with serial number [id number] implanted according to the protocol. Steri- Strips were placed at the end of the procedure. There were no complications and the patient tolerated the procedure well. The device was interrogated with a voltage of. ANESTHESIA: Local anesthesia with lidocaine. COMPLICATIONS: None CONTRAST/FLUOROSCOPY: None CONCLUSION: successful implantation of loop recorder with no complications FINAL DIAGNOSIS: paroxysmal atrial fibrillation Hypertension Palpitation Hyperlipidemia MIRIAM NICOLE MD May 25, 2019 12:33
[2019-05-25] MEDS ORDERED: LIDOCAINE 1% INJ 20 ML 20 ML VIAL INJ ONE (15:15)
== END 2019-05-25 12:08 | disposition home or self-care (01) ==
LOC: CATH 09:52
PROVIDERS: ATTEND Internal Medicine Cardiovascular Disease
DX: I48.0 Paroxysmal atrial fibrillation (principal); I11.9 Hypertensive heart disease without heart failure; I08.3 Combined rheumatic disorders of mitral, aortic and tricuspid valves; I65.23 Occlusion and stenosis of bilateral carotid arteries; E03.9 Hypothyroidism, unspecified; G20 Parkinson's disease; E78.5 Hyperlipidemia, unspecified; Z79.01 Long term (current) use of anticoagulants; Z79.899 Other long term (current) drug therapy; Z83.3 Family history of diabetes mellitus; Z83.6 Family history of other diseases of the respiratory system; Z82.3 Family history of stroke
CPT/HCPCS: 33285

== ENCOUNTER → 2019-06-09 | Day surgery (SDC) | payer MEDICARE, OTHER ==
[~2019-06-09] VITALS: Ht 182.9 cm; Wt 117.9 kg
[~2019-06-09] MED LIST changes: +LORA-404 PO; +NS IV 1000 ML 1,000 ML ONE; +proPOfol 200 MG/20 ML (DIPRIVAN) VIAL IV ONE
[2019-06-09 10:38] VITALS: BP 151/88
[2019-06-09 10:52] VITALS: BP 151/88
--- NOTE | 2019-06-09 11:30 | Anesthesia-Procedure Note ---
Procedures/Interventions Procedure Start/Stop/Diagnosis Date of Procedure: Jun 09, 2019 Start Time: 11:13 Stop Time: 11:17 CHETAN/Cardioversion Anesthesia Type: MAC ASA Class: 3 Medications Propofol 50mg Monitors and Equipment: BP Cuff - Right, Continuous EKG, End Tidal CO2, IV, Pulse Oximeter READING,AVTAR Truong CRNA Jun 09, 2019 11:30
[2019-06-09 11:49] VITALS: BP 142/83
[2019-06-09 11:51] VITALS: BP 133/79
--- NOTE | 2019-06-09 15:01 | NUR ---
Anesthesia gave 50 of Diprivan.
--- NOTE | 2019-06-09 15:05 | Cardioversion ---
Cardioversion PROCEDURE PHYSICIAN: Olu Hightower MD DATE OF PROCEDURE: 06/09/19 DIRECT EXTERNAL ELECTRICAL CARDIOVERSION: Indications: Atrial Fibrillation Preoperative diagnoses: Atrial Fibrillation Postoperative diagnosis: Sinus rhythm, Successful Electrical Cardioversion History: Persistent AF Anesthesia: By Anesthesia services Complications: None Specimen: None Contrast: 0 Flouroscopy: none Procedure Details: The patient was brought the slab polisher after informed consent was taken, all the risks and complications were explained including the risk of stroke. Electrical cardioversion was carried out with anesthesia support with propofol. 200 joules of synchronized shock was delivered through external patches which promptly restored sinus rhythm. The patient tolerated the procedure well. Conclusions: 1.Successful Cardioversion. 2.Continue oral anticoagulation and rate controlling agent. 3.Follow up in office in 7 days for EKG. Olu Hightower MD, RS, CCDS Cardiac Electrophysiology Douglas HIGHTOWER MD Jun 09, 2019 15:05
== END ==
LOC: CATH 09:49
PROVIDERS: ATTEND Internal Medicine Interventional Cardiology
DX: I48.91 Unspecified atrial fibrillation (principal); I10 Essential (primary) hypertension; G47.30 Sleep apnea, unspecified; I49.5 Sick sinus syndrome; Z79.01 Long term (current) use of anticoagulants; Z79.899 Other long term (current) drug therapy
CPT/HCPCS: 92960; 93005

== ENCOUNTER → 2019-06-27 | Outpatient (CLI) | payer MEDICARE, OTHER ==
[~2019-06-27] MED LIST changes: -NS IV 1000 ML 1,000 ML ONE; -proPOfol 200 MG/20 ML (DIPRIVAN) VIAL IV ONE
== END ==
LOC: CARD 13:38
PROVIDERS: ATTEND Internal Medicine Interventional Cardiology
DX: I35.1 Nonrheumatic aortic (valve) insufficiency (principal); I51.7 Cardiomegaly; I48.1 Persistent atrial fibrillation
CPT/HCPCS: 93306

== ENCOUNTER 2019-08-15 12:34 | Outpatient (CLI) | payer MEDICARE, OTHER | END 2019-08-15 13:30 | disposition home or self-care (01) | LOC: SLEEP 12:34 | PROVIDERS: ATTEND Nurse Practitioner | DX: G47.33 Obstructive sleep apnea (adult) (pediatric) (principal); G20 Parkinson's disease; F40.240 Claustrophobia; I48.91 Unspecified atrial fibrillation; F43.10 Post-traumatic stress disorder, unspecified ==

== ENCOUNTER → 2020-08-16 | Outpatient (CLI) | payer MEDICARE, OTHER ==
[~2020-08-16] MED LIST changes: -AMIO200T4 PO; +AMIO200T6 PO; +AMLO-251 PO; -AMLO10TA7 PO; -BUPR150T20 PO; +BUPR150T28 PO; -DUTA0.5C16 PO; +DUTA0.5C17 PO; -MECL-106 PO; +MECL-149 PO; -OMEP20CA13 PO; +OMEP20CA18 PO; -PANT40TA3 PO; +PANT40TA52 PO; -ROPI0.5T2 PO; +ROPI0.5T4 PO; -SELE5CAP PO; +SELE5CAP7 PO; -SELE5TAB2 PO; +SELE5TAB4 PO
== END ==
LOC: LABNPT 09:46
PROVIDERS: ATTEND Nurse Practitioner Family
DX: Z20.828 Contact with and (suspected) exposure to other viral communicable diseases (principal)
CPT/HCPCS: 87635

== ENCOUNTER 2020-12-29 08:58 | Inpatient (IN) | payer MEDICARE, OTHER ==
[~2020-12-29] VITALS: Ht 182 cm; Wt 121.7 kg
[~2020-12-29 08:58] MED LIST changes: -DUTA0.5C17 PO; +DUTA0.5C36 PO; -GEMF600T8 PO; +GEMF600T88 PO; -LISI-552 PO; -LISI-556 PO; +LISI-729 PO; +LISI20TA26 PO
[2020-12-29 09:27] VITALS: BP_SYST 107; BP_SYST 133; BP_SYST 160; BP_DIAS 57; BP_DIAS 74; BP_DIAS 95
--- NOTE | 2020-12-29 09:29 | ED Syncope ---
General Chief Complaint: Dizziness/Syncope Stated Complaint: PARKINSON History of Present Illness Date Seen by Provider: Dec 29, 2020 Time Seen by Provider: 09:25 Initial Comments Mr. Silva is a 75-year-old male who presented to the [facility] ED via EMS for syncopal events. Today, he was walking from the bathroom to the living room and had "tunnel vision". Once he sat down, states his "eyes rolled back" and he lost consciousness. When he awoke, he told his he feels like he is going to pass out. Patient had a previous episode of syncope yesterday as well. Denied hitting his head. He recently started cefdinir 300mg BID for otitis media on 12/28. He denies any blurred vision, difficulty swallowing, chest pain, shortness of breath, nausea/vomiting, difficulty urinating. He does admit to a dry mouth. On arrival, patient had IV fluids started by EMS. He has a history of Parkinson's and a fib. Timing/Prior Episodes: Recent History Symptoms Prior to Episode: Blurred Vision Precipitating Factors: Activity Loss of Consciousness: No Loss of Consciousness, Prolonged (Minutes) Current Symptoms: Back to Normal (HANG WARREN,) Allergies and Home Medications Allergies Coded Allergies: No Known Drug Allergies (Unverified , 05/12/17) Home Medications Apixaban 5 Mg Tablet, 5 MG PO BID, (Reported) Bupropion HCl 150 Mg Tablet.er, 150 MG PO DAILY, (Reported) Carbidopa/Levodopa 1 Each Tablet, 1 TAB PO 0800,1200,1700,1830, (Reported) Carbidopa/Levodopa 1 Each Tablet.er, 1 TAB PO HS, (Reported) Colchicine 0.6 Mg Capsule, 0.6 MG PO UD Prescribed by: ASPEN MAYNARD on 01/31/19637 Dronedarone HCl 400 Mg Tablet, 400 MG PO 0800,1730, (Reported) Dutasteride 0.5 Mg Capsule, 0.5 MG PO HS, (Reported) Gemfibrozil 600 Mg Tablet, 600 MG PO 0800,1700, (Reported) Ketoconazole 15 Gm Cream..g., 15 GM TP BID Prescribed by: ASPEN MAYNARD on 01/31/19637 Levothyroxine Sodium 150 Mcg Tablet, 150 MCG PO DAILY, (Reported) Lisinopril 5 Mg Tablet, 5 MG PO BID, (Reported) Lorazepam 0.5 Mg Tablet, 0.5 MG PO TID PRN for ANXIETY, (Reported) Pantoprazole Sodium 40 Mg Tablet.dr, 40 MG PO 1200, (Reported) Patient Home Medication List Home Medication List Reviewed: Yes (HANG WARREN,) Home Medication List Reviewed: Yes (MARIEL TAN MD) Review of Systems Constitutional: No chills, No fever EENTM: ear pain, blurred vision (prior to syncopal event, resolved now), nose congestion Respiratory: No cough, No short of breath Cardiovascular: No chest pain, No palpitations Gastrointestinal: No nausea, No vomiting Genitourinary: No dysuria, No hesitancy Musculoskeletal: No joint swelling, No muscle pain Skin: No lesions, No rash Psychiatric/Neurological: Denies Headache (HANG WARREN,) EENTM: ear pain, nose congestion Respiratory: No cough, No short of breath Cardiovascular: No palpitations; syncope Gastrointestinal: No abdominal pain, No nausea, No vomiting Skin: No change in color, No lesions Psychiatric/Neurological: Denies Headache; Pre-Existing Deficit, Weakness (MARIEL TAN MD) All Other Systems Reviewed Negative Unless Noted: Yes (MARIEL TAN MD) Past Uebktxm-Vqbknj-Hzpndp Hx Past Med/Social Hx: Reviewed Nursing Past Med/Soc Hx (MARIEL TAN MD) Patient Social History Alcohol Use: Denies Use Number of Drinks Today: AA Smoking Status: Former Smoker Type Used: Cigarettes 2nd Hand Smoke Exposure: No Recent Hopitalizations: No (HANG WARREN,) Immunizations Up To Date Date of Pneumonia Vaccine: Jan 03, 2017 Date of Influenza Vaccine: Jul 05, 2018 (HANG WARREN,) Seasonal Allergies Seasonal Allergies: No (HANG WARREN,) Past Medical History Surgeries: Yes (SCHRAPNEL REMOVED FROM LEFT ARM; LEFT LEG I&D CHILD FOR OSTEOMYELITIS; ) Appendectomy, Gallbladder, Orthopedic, Tonsillectomy Respiratory: Yes Sleep Apnea Currently Using CPAP: Yes Currently Using BIPAP: No Cardiac: Yes Atrial Fibrillation, Hypertension Neurological: Yes Dementia, Parkinson's Disease Reproductive Disorders: No Sexually Transmitted Disease: No HIV/AIDS: No Genitourinary: Yes (HORSESHOE KIDNEY; KIDNEY STONES NOTED ON CT SCAN 09/27/18) Benign Prostatic Hyperpl, Prostate Problems, Kidney Stones Gastrointestinal: Yes Gastroesophageal Reflux, Chronic Constipation Musculoskeletal: Yes Arthritis, Chronic Back Pain Endocrine: Yes Hypothyroidsim HEENT: No Loss of Vision: Denies Hearing Impairment: Denies Cancer: Yes (SQUAMOUS CELL-EAR) Skin Did You Recieve Any Treatments: Yes What Type of Treatment Did You: Surgical Intervention Psychosocial: Yes PTSD Integumentary: No Blood Disorders: No Adverse Reaction/Blood Tranf: No (N/A) (HANG WARREN,) Family Medical History Reviewed Nursing Family Hx (MARIEL TAN MD) Alcoholism G8 BROTHER Cervical cancer G8 SISTER Diabetes mellitus 19 FATHER 19 MOTHER G8 BROTHER FH: COPD (chronic obstructive pulmonary disease) 19 MOTHER FH: stroke 19 FATHER No Pertinent Family Hx (HANG WARREN,) Physical Exam Vital Signs Vital Signs - First Documented 12/29/20 09:00 Temp 35.9 Pulse 53 Resp 20 B/P (MAP) 15/79 (58) Pulse Ox 98 (MARIEL TAN MD) Vital Signs Capillary Refill : (HANG WARREN,) Height, Weight, BMI Height: 6'0.00" Weight: 260lbs. 0.0oz. 117.629107bi; 35.3 BMI Method:Stated General Appearance: No Apparent Distress, WD/WN HEENT: PERRL/EOMI; No Moist Mucous Membranes Neck: Non Tender, Supple Cardiovascular: No Murmur, Irregularly Irregular Respiratory: Lungs Clear, Normal Breath Sounds Gastrointestinal: Normal Bowel Sounds, Soft Extremities: Normal Capillary Refill, No Pedal Edema Neurologic/Psychiatric: Alert, Normal Mood/Affect Cranial Nerves: Normal Hearing, Normal Speech, PERRL Skin: Normal Color, Warm/Dry (HANG WARREN,) General Appearance: No Apparent Distress, WD/WN HEENT: PERRL/EOMI; No TM Abnormal (L); TM Abnormal (R) (Mild bulging but no significant erythema, drainage or loss of landmarks.) Neck: Normal Inspection, Non Tender, Supple; No Carotid Bruit Cardiovascular: No Murmur, Irregularly Irregular Respiratory: No Accessory Muscle Use, No Respiratory Distress, Crackles (Left face) Gastrointestinal: Normal Bowel Sounds, Non Tender, Soft Back: Normal Inspection, No CVA Tenderness, No Vertebral Tenderness Extremities: Non Tender, No Calf Tenderness, No Pedal Edema Neurologic/Psychiatric: Alert, Oriented x3, Normal Mood/Affect Cranial Nerves: Normal Hearing, Normal Speech, PERRL Motor/Sensory: No Sensory Deficit, Other (Globally weak but able to move all 4 extremities) Skin: Normal Color, Warm/Dry (MARIEL TAN MD) Focused Exam Lactate Level 12/29/20 09:45: Lactic Acid Level 1.77 (MARIEL TAN MD) Lactic Acid Level Laboratory Tests Test 12/29/20 09:45 Lactic Acid Level 1.77 MMOL/L (0.50-2.00) (MARIEL TAN MD) Progress/Results/Core Measures Results/Orders Lab Results Laboratory Tests Test 12/29/20 09:01 12/29/20 09:45 12/29/20 11:12 Range/Units White Blood Count 3.7 L 4.3-11.0 10^3/uL Red Blood Count 4.26 L 4.30-5.52 10^6/uL Hemoglobin 13.5 13.3-17.7 g/dL Hematocrit 41 40-54 % Mean Corpuscular Volume 96 80-99 fL Mean Corpuscular Hemoglobin 32 25-34 pg Mean Corpuscular Hemoglobin Concent 33 32-36 g/dL Red Cell Distribution Width 14.4 10.0-14.5 % Platelet Count 116 L 130-400 10^3/uL Mean Platelet Volume 12.0 9.0-12.2 fL Immature Granulocyte % (Auto) 1 % Neutrophils (%) (Auto) 52 42-75 % Lymphocytes (%) (Auto) 33 12-44 % Monocytes (%) (Auto) 10 0-12 % Eosinophils (%) (Auto) 4 0-10 % Basophils (%) (Auto) 0 0-10 % Neutrophils # (Auto) 1.9 1.8-7.8 10^3/uL Lymphocytes # (Auto) 1.3 1.0-4.0 10^3/uL Monocytes # (Auto) 0.4 0.0-1.0 10^3/uL Eosinophils # (Auto) 0.2 0.0-0.3 10^3/uL Basophils # (Auto) 0.0 0.0-0.1 10^3/uL Immature Granulocyte # (Auto) 0.0 0.0-0.1 10^3/uL D-Dimer 0.56 H 0.00-0.49 UG/ML Sodium Level 139 135-145 MMOL/L Potassium Level 4.6 3.6-5.0 MMOL/L Chloride Level 108 H 98-107 MMOL/L Carbon Dioxide Level 22 21-32 MMOL/L Anion Gap 9 5-14 MMOL/L Blood Urea Nitrogen 17 7-18 MG/DL Creatinine 0.91 0.60-1.30 MG/DL Estimat Glomerular Filtration Rate > 60 BUN/Creatinine Ratio 19 Glucose Level 118 H 70-105 MG/DL Calcium Level 8.8 8.5-10.1 MG/DL Corrected Calcium 9.0 8.5-10.1 MG/DL Magnesium Level 1.8 1.6-2.4 MG/DL Total Bilirubin 0.4 0.1-1.0 MG/DL Aspartate Amino Transf (AST/SGOT) 42 H 5-34 U/L Alanine Aminotransferase (ALT/SGPT) 20 0-55 U/L Alkaline Phosphatase 99 40-136 U/L Troponin I < 0.028 <0.028 NG/ML C-Reactive Protein High Sensitivity 6.56 H 0.00-0.50 MG/DL Total Protein 6.9 6.4-8.2 GM/DL Albumin 3.7 3.2-4.5 GM/DL TSH [place] Testing 3.90 0.35-4.94 UIU/ML Lactic Acid Level 1.77 0.50-2.00 MMOL/L Urine Color YELLOW Urine Clarity CLEAR Urine pH 6.5 5-9 Urine Specific [place] 1.020 1.016-1.022 Urine Protein NEGATIVE NEGATIVE Urine Glucose (UA) NEGATIVE NEGATIVE Urine Ketones TRACE H NEGATIVE Urine Nitrite NEGATIVE NEGATIVE Urine Bilirubin NEGATIVE NEGATIVE Urine Urobilinogen 4.0 < = 1.0 MG/DL Urine Leukocyte Esterase NEGATIVE NEGATIVE Urine RBC (Auto) NEGATIVE NEGATIVE Urine RBC NONE /HPF Urine WBC NONE /HPF Urine Crystals NONE /LPF Urine Bacteria TRACE /HPF Urine Casts NONE /LPF Urine Mucus NEGATIVE /LPF Urine Culture Indicated NO (MARIEL TAN MD) My Orders Orders - MARIEL TAN MD Cbc With Automated Diff (12/29/20 09:16) Comprehensive Metabolic Panel (12/29/20 09:16) Hs C Reactive Protein (12/29/20 09:16) Fibrin Degradation Products (12/29/20 09:16) Magnesium (12/29/20 09:16) Troponin I (12/29/20 09:16) Ua Culture If Indicated (12/29/20 09:16) Ekg Tracing (12/29/20 09:16) Orthostatic Vital Signs (Adult (12/29/20 09:25) Ct Head Wo (12/29/20 09:45) Chest 1 View, Ap/Pa Only (12/29/20 09:45) Ns Iv 500 Ml (Sodium Chloride 0.9%) (12/29/20 09:45) Lactic Acid Analyzer (12/29/20 09:45) Thyroid Analyzer (12/29/20 09:45) Blood Culture (12/29/20 09:45) (MARIEL TAN MD) Medications Given in ED Current Medications Medications Dose Ordered Sig/Mariah Route Start Time Stop Time Status Last Admin Dose Admin Sodium Chloride 500 ml @ 0 mls/hr Q0M ONCE IV 12/29/20 09:45 12/29/20 09:48 DC 12/29/20 10:01 500 MLS/HR (MARIEL TAN MD) Vital Signs/I&O 12/29/20 12/29/20 09:00 09:27 Temp 35.9 Pulse 53 60 63 60 Resp 20 B/P (MAP) 15/79 (58) 160/95 (116) 133/74 (93) 107/57 (74) Pulse Ox 98 (MARIEL TAN MD) Progress Progress Note : Time: 09:31 Progress Note On arrival, EMS started IVF. Glucose 121. Orthostats obtained: supine 160/95, HR 60; sitting 133/74, HR 63; standing 107/57, HR 60. Will order CBC, CMP, troponin, d-dimer, UA for further work up. EKG revealed rate-controlled atrial fibrillation with overall low voltage. (HANG WARREN,) Progress Note : Progress Note I have seen and evaluated the patient and agree with above except as indicated. I have directed the plan of care. Patient is here with syncopal episode yesterday and today. This occurs after standing or walking. No injury as both occurred after sitting down. Denies chest pain. reports he has not been drinking well and did have quite concentrated urine over the last few days although a little better this morning after drinking a little bit more last night. He has not had to get up to use the urinal during the night though when this is not common for him. No reported fever. Currently on antibiotic for an ear infection possibly. He is vaccinated for COVID-19 and has had both doses greater than 2 weeks ago[address] Follow[address] with Dr. Lopez. Has been taking medications as directed including Eliquis twice daily. He has not had his Eliquis this morning. Evaluation as above. Plan as above but we will add CT of the head as well as chest x-ray. Repeat bolus of fluid with normal saline 500 mL bolus. We will check blood cultures and lactic acid. All of this was discussed with the patient and family who agree with plan. Monitor patient. 1150: I discussed the case with Dr. Arteaga. Patient still is quite orthostatic with blood pressure dropping to 80s over 50s when standing. Takes several minutes to recover in the sitting position. This may be sequela of his Parkinson's disease and or persistent dehydration. She accepts patient for admission, observation status. We will continue gentle hydration. Patient would benefit from inpatient rehab and this was discussed with the patient and family and he believes he could do the therapy timeframe if he met the appropriate criteria and would be interested in pursuing that if possible. This was discussed with Dr. Arteaga as well and she will add that to consideration. CODE STATUS discussed with patient and family and he requests and has paperwork for DO NOT RESUSCITATE. (MARIEL TAN MD) Initial ECG Impression Date: Dec 29, 2020 Initial ECG Impression Time: 09:11 Initial ECG Rate: 54 Initial ECG Rhythm: A Fib/Flutter Initial ECG Impression: Atrial Fibrillation Comment Atrial fibrillation with leftward axis. PVC noted. Low voltage throughout. No evidence of ST elevation MT. Similar to previous of 06/09/2019. Interpreted by me. (MARIEL TAN MD) Diagnostic Imaging Diagonstic Imaging: CT Plain Films/CT/US/NM/MRI: head Comments NAME: ALLIE SILVA [facility] REC#: [id number] PT STATUS: REG ER : 1945 PHYSICIAN: MARIEL TAN MD ADMIT DATE: 12/29/20/ER Draft Date of Exam:12/29/20 CT HEAD WO Clinical indication: Patient feels lightheaded x2 days. Exam: Axial CT scan of the brain without IV contrast with coronal and sagittal reformatted images. Auto Exposure Controls were utilized during the CT exam to meet ALARA standards for radiation dose reduction. Comparison: Head CT without contrast dated 08/21/2011.. Findings: There is no evidence of acute cerebral infarct, intracranial hemorrhage, or gross mass effect. The brain parenchymal volume appears appropriate for patient's age. There is normal jones-white matter distinction. There is no significant midline shift or herniation. There is no evidence of hydrocephalus. The basal cisterns are unremarkable. The skull, extracranial soft tissue, and orbits are unremarkable. The paranasal sinuses are unremarkable. Temporal bones show no significant abnormality. Impression: Unremarkable CT scan of the brain for age. Dictated on workstation # [id number] Dict: 12/29/20 1126 Trans: 12/29/20 1136 [facility] [id number] Interpreted by: TERRA AZAR MD Electronically signed by: [facility]: Xray Plain Films/CT/US/NM/MRI: chest Comments NAME: ALLIE SILVA [facility] REC#: [id number] PT STATUS: REG ER : 1945 PHYSICIAN: MARIEL TAN MD ADMIT DATE: 12/29/20/ER Draft Date of Exam:12/29/20 CHEST 1 VIEW, AP/PA ONLY Clinical indications: Patient with syncope. Exam: Portable chest x-ray upright view. Comparisons: Chest x-ray dated 01/27/2017. Findings: Lungs/pleura: There is no significant change to the slight increased lung markings of both lung bases which may represent atelectasis versus scarring. There is no interval lung infiltrate. There is no pneumothorax. There is no pleural effusion. Mediastinum: Unremarkable. Pulmonary vasculature: Unremarkable. Heart: Cardiac silhouette is within normal limits for portable projection. Interval placement loop recorder overlying left chest.. Bones/extrathoracic soft tissue: There are degenerative spurs involving the thoracic spine.. Impression: There is again noted mild bibasilar atelectasis and/or scarring. There is no definite interval lung infiltrate. Dictated on workstation # [id number] Dict: 12/29/20 1146 Trans: 12/29/20 1157 [facility] [id number] Interpreted by: TERRA AZAR MD Electronically signed by: (HANG WARREN,) Reviewed: Reviewed by Me Reviewed: Reviewed by Me (MARIEL TAN MD) Departure Communication (Admissions) Time/Spoke to Admitting Phy: 11:50 (MARIEL TAN MD) Impression Primary Impression: Orthostatic hypotension Additional Impression: Parkinsons disease Disposition: ADMITTED INPATIENT Condition: Stable Admissions Decision to Admit Reason: Admit from ER (General) Decision to Admit/Date: Dec 29, 2020 Time/Decision to Admit Time: 11:50 (MARIEL TAN MD) Departure-Patient Inst. Referrals: EDDY LOPEZ DO (PCP/Family) Primary Care Physician HANG WARREN, Dec 29, 2020 09:29 MARIEL TAN MD Dec 29, 2020 10:01
[2020-12-29 09:35] LABS: ALBUMIN 3.7 GM/DL (3.2-4.5); CHLORIDE 108 MMOL/L (98-107); POTASSIUM 4.6 MMOL/L (3.6-5.0); SODIUM 139 MMOL/L (135-145)
[2020-12-29 09:36] LABS: CALCIUM 8.8 MG/DL (8.5-10.1)
[2020-12-29 09:37] LABS: GLUCOSE 118 MG/DL (70-105); TOTAL PROTEIN 6.9 GM/DL (6.4-8.2)
[2020-12-29 09:38] LABS: CARBON DIOXIDE 22 MMOL/L (21-32)
[2020-12-29 09:39] LABS: BASOPHILS % (AUTO) 0 % (0-10); BILIRUBIN,TOTAL 0.4 MG/DL (0.1-1.0); EOSINOPHILS # (AUTO) 0.2 10^3/uL (0.0-0.3); EOSINOPHILS % (AUTO) 4 % (0-10); HEMATOCRIT 41 % (40-54); HEMOGLOBIN 13.5 g/dL (13.3-17.7); LYMPHOCYTES # (AUTO) 1.3 10^3/uL (1.0-4.0); LYMPHOCYTES % (AUTO) 33 % (12-44); MEAN CORPUSCULAR HEMOGLOBIN 32 pg (25-34); MEAN CORPUSCULAR HGB CONC 33 g/dL (32-36); MEAN CORPUSCULAR VOLUME 96 fL (80-99); MONOCYTES # (AUTO) 0.4 10^3/uL (0.0-1.0); MONOCYTES % (AUTO) 10 % (0-12); NEUTROPHILS # (AUTO) 1.9 10^3/uL (1.8-7.8); NEUTROPHILS % (AUTO) 52 % (42-75); WHITE BLOOD COUNT 3.7 10^3/uL (4.3-11.0)
[2020-12-29 09:41] LABS: ALKALINE PHOSPHATASE 99 U/L (40-136); CREATININE SERUM 0.91 MG/DL (0.60-1.30); GFR ESTIMATED > 60
[2020-12-29 09:42] LABS: BUN/CREATININE RATIO 19
[2020-12-29 09:44] LABS: ALANINE AMINOTRANSFERASE 20 U/L (0-55)
[2020-12-29 09:45] LABS: MAGNESIUM 1.8 MG/DL (1.6-2.4)
[2020-12-29] MEDS ORDERED: NS IV 500 ML 500 ML IV ONE (09:45)
[2020-12-29 09:54] LABS: PLATELET COUNT 116 10^3/uL (130-400)
[2020-12-29 11:19] LABS: BILIRUBIN,URINE NEGATIVE (NEGATIVE); CLARITY,URINE CLEAR; COLOR,URINE YELLOW; GLUCOSE, URINE (UA) NEGATIVE (NEGATIVE); KETONES,URINE TRACE (NEGATIVE); LEUKOCYTE ESTERASE ,URINE NEGATIVE (NEGATIVE); NITRITE,URINE NEGATIVE (NEGATIVE); PH,URINE 6.5 (5-9); PROTEIN,URINE NEGATIVE (NEGATIVE)
[2020-12-29 11:30] LABS: BACTERIA,URINE TRACE /HPF
--- NOTE | 2020-12-29 11:37 | Diagnostic Imaging Report ---
Clinical indication: Patient feels lightheaded x2 days. Exam: Axial CT scan of the brain without IV contrast with coronal and sagittal reformatted images. Auto Exposure Controls were utilized during the CT exam to meet ALARA standards for radiation dose reduction. Comparison: Head CT without contrast dated 08/21/2011.. Findings: There is no evidence of acute cerebral infarct, intracranial hemorrhage, or gross mass effect. The brain parenchymal volume appears appropriate for patient's age. There is normal jones-white matter distinction. There is no significant midline shift or herniation. There is no evidence of hydrocephalus. The basal cisterns are unremarkable. The skull, extracranial soft tissue, and orbits are unremarkable. The paranasal sinuses are unremarkable. Temporal bones show no significant abnormality. Impression: Unremarkable CT scan of the brain for age. Dictated by: Dictated on workstation # [id number]
--- NOTE | 2020-12-29 11:58 | Diagnostic Imaging Report ---
Clinical indications: Patient with syncope. Exam: Portable chest x-ray upright view. Comparisons: Chest x-ray dated 01/27/2017. Findings: Lungs/pleura: There is no significant change to the slight increased lung markings of both lung bases which may represent atelectasis versus scarring. There is no interval lung infiltrate. There is no pneumothorax. There is no pleural effusion. Mediastinum: Unremarkable. Pulmonary vasculature: Unremarkable. Heart: Cardiac silhouette is within normal limits for portable projection. Interval placement loop recorder overlying left chest.. Bones/extrathoracic soft tissue: There are degenerative spurs involving the thoracic spine.. Impression: There is again noted mild bibasilar atelectasis and/or scarring. There is no definite interval lung infiltrate. Dictated by: Dictated on workstation # [id number]
[2020-12-29] MEDS: NS IV 1000 ML 1,000 ML IV SCH (14:49)
--- NOTE | 2020-12-29 15:01 | History & Physical-Hospitalist ---
History of Present Illness HPI/Chief Complaint Pt is a 75yoCM with a PMH of HTN, parkinson's disease, HLD who presented to the Er due to syncope. states he hasn't felt well for a few days abut he normally has good days and bad days with his parkinson's. his blood pressure had been very high a couple of weeks ago and he wwent to see his primary care doctor but by then his BP was low. His PCP thought that it was due to his parkinson's. His continued to monitor his blood pressure at home and noticed it had been erractic dropping in to the 90s and up to the 170s. He was prescribed an antibiotic for an ear infection by his PCP this week as well. He had a syncopal episode yesterday and his called 911 but patient refused their services. He passed out again this morning and his called 911 again for evaluation. Source: patient Date Seen 12/29/20 Time Seen by a Provider: 14:57 Attending Physician James Arteaga MD PCP Jan Lopez DO Referring Physician Date of Admission Dec 29, 2020 at 12:10 Home Medications & Allergies Home Medications Reviewed patient Home Medication Reconciliation performed by pharmacy medication reconciliations highway traffic control technician and/or nursing. Patients Allergies have been reviewed. Allergies Allergies Coded Allergies No Known Drug Allergies (Unverified05/12/17) Past Ssplebv-Bmlacr-Zxcrqi Hx Past Med/Social Hx: Reviewed Nursing Past Med/Soc Hx Patient Social History Alcohol Use: Denies Use Recreational Drug Use: No Smoking Status: Never a Smoker Type Used: Cigarettes 2nd Hand Smoke Exposure: No Recent Foreign Travel: No Contact w/other who traveled: No Recent Hopitalizations: No Recent Infectious Disease Expo: No Immunizations Up To Date Date of Pneumonia Vaccine: Jan 03, 2017 Date of Influenza Vaccine: Jul 05, 2018 Seasonal Allergies Seasonal Allergies: No Past Medical History Surgeries: Appendectomy, Gallbladder, Orthopedic, Tonsillectomy Currently Using CPAP: Yes Currently Using BIPAP: No Cardiac: Atrial Fibrillation, Hypertension Neurological: Dementia, Parkinson's Disease Reproductive: No Sexually Transmitted Disease: No HIV/AIDS: No Genitourinary: Benign Prostatic Hyperpl, Prostate Problems, Kidney Stones Gastrointestinal: Gastroesophageal Reflux, Chronic Constipation Musculoskeletal: Arthritis, Chronic Back Pain Endocrine: Hypothyroidsim Loss of Vision: Denies Hearing Impairment: Denies Cancer: Skin Did You Recieve Any Treatments: Yes What Type of Treatment Did You: Surgical Intervention Psychosocial: PTSD History of Blood Disorders: No Adverse Reaction to Blood Person: No (N/A) Family History Reviewed Nursing Family Hx Alcoholism G8 BROTHER Cervical cancer G8 SISTER Diabetes mellitus 19 FATHER 19 MOTHER G8 BROTHER FH: COPD (chronic obstructive pulmonary disease) 19 MOTHER FH: stroke 19 FATHER No Pertinent Family Hx Review of Systems Constitutional: No chills, No fever EENTM: no symptoms reported Respiratory: No cough, No short of breath Cardiovascular: see HPI; No edema; syncope Gastrointestinal: No abdominal pain, No constipation, No diarrhea, No nausea, No vomiting Genitourinary: no symptoms reported Musculoskeletal: no symptoms reported Skin: no symptoms reported Psychiatric/Neurological: No Symptoms Reported Physical Exam Physical Exam Vital Signs Vital Signs - First Documented 12/29/20 12/29/20 09:00 14:05 Temp 35.9 Pulse 53 Resp 20 B/P (MAP) 15/79 (58) Pulse Ox 98 O2 Delivery Room Air Capillary Refill : Less Than 3 Seconds Height, Weight, BMI Height: 6'0.00" Weight: 260lbs. 0.0oz. 117.026159mf; 35.92 BMI Method:Stated General Appearance: No Apparent Distress, WD/WN HEENT: PERRL/EOMI, Moist Mucous Membranes; No Scleral Icterus (L), No Scleral Icterus (R) Neck: Normal Inspection, Supple Respiratory: Lungs Clear, No Accessory Muscle Use, No Respiratory Distress Cardiovascular: Regular Rate, Rhythm, No Murmur Gastrointestinal: Normal Bowel Sounds, Non Tender, Soft Extremity: No Calf Tenderness, No Pedal Edema Neurologic/Psychiatric: Alert, Oriented x3, Normal Mood/Affect Skin: Normal Color, Warm/Dry Results Results/Procedures Labs Laboratory Tests 12/29/20 09:01 12/30/20 04:52 Patient resulted labs reviewed. Imaging: Reviewed Imaging Report Assessment/Plan Admission Diagnosis Orthostatic hypotension Admission Status: Observation Assessment and Plan Orthostatic hypotension HTN Likely due to progressing Parkinson's Hold home BP meds Add telemetry Regular diet (has been on salt restricted diet) Consider florinef if needed Parkinson's Dementia Weakness PT/OT IRU consult Consider Bridge program for palliative care given progressive disease Continue home Sinemet HLD Atrial fibrillation Continue home meds Continue OAC DVT ppx: Already on Eliquis MARILYN,JAMES M MD Dec 29, 2020 15:01
[2020-12-29] MEDS ORDERED: BENZONATATE 100 MG (TESSALON) CAPSULE PO PRN (15:15)
[2020-12-29] MEDS ORDERED: MILK OF MAGNESIA 400 MG/5 ML 30 ML UDC PO PRN (15:15)
[2020-12-29] MEDS ORDERED: ONDANSETRON 4 MG/2 ML (SDV) Z0FRAN IV PRN (15:15)
[2020-12-29] MEDS ORDERED: MELATONIN 3 MG TABLET PO PRN (15:15)
[2020-12-29] MEDS ORDERED: ANTACID SUSP 30 ML UDC (MYLANTA) PO PRN (15:15)
[2020-12-29 16:00] VITALS: BP 143/91
[2020-12-29] MEDS: SINEMET 25/100 (CARBIDOPA/LEVODOPA) TAB PO SCH ×2 (17:36→19:51)
[2020-12-29] MEDS: APIXABAN 5 MG (ELIQUIS) TABLET PO SCH (19:52)
[2020-12-29 20:19] VITALS: BP 144/85
[2020-12-29 23:22] VITALS: BP 111/68
[2020-12-30] VITALS (8 sets, daily range): BP systolic 104–195; BP diastolic 61–103
[2020-12-30] MEDS: NS IV 1000 ML 1,000 ML IV SCH ×2 (02:56→17:03)
[2020-12-30 05:12] LABS: MEAN PLATELET VOLUME 11.6 fL (9.0-12.2)
[2020-12-30 05:14] LABS: BASOPHILS % (AUTO) 1 % (0-10); EOSINOPHILS # (AUTO) 0.2 10^3/uL (0.0-0.3); EOSINOPHILS % (AUTO) 5 % (0-10); HEMATOCRIT 39 % (40-54); HEMOGLOBIN 12.8 g/dL (13.3-17.7); LYMPHOCYTES # (AUTO) 1.2 10^3/uL (1.0-4.0); LYMPHOCYTES % (AUTO) 30 % (12-44); MEAN CORPUSCULAR HEMOGLOBIN 32 pg (25-34); MEAN CORPUSCULAR HGB CONC 33 g/dL (32-36); MEAN CORPUSCULAR VOLUME 97 fL (80-99); MONOCYTES # (AUTO) 0.4 10^3/uL (0.0-1.0); MONOCYTES % (AUTO) 9 % (0-12); NEUTROPHILS # (AUTO) 2.3 10^3/uL (1.8-7.8); NEUTROPHILS % (AUTO) 56 % (42-75); PLATELET COUNT 115 10^3/uL (130-400); WHITE BLOOD COUNT 4.1 10^3/uL (4.3-11.0)
[2020-12-30 05:21] LABS: CHLORIDE 109 MMOL/L (98-107); POTASSIUM 3.8 MMOL/L (3.6-5.0); SODIUM 140 MMOL/L (135-145)
[2020-12-30 05:22] LABS: CALCIUM 8.6 MG/DL (8.5-10.1)
[2020-12-30 05:23] LABS: GLUCOSE 100 MG/DL (70-105)
[2020-12-30 05:24] LABS: CARBON DIOXIDE 21 MMOL/L (21-32)
[2020-12-30 05:27] LABS: CREATININE SERUM 0.79 MG/DL (0.60-1.30); GFR ESTIMATED > 60
[2020-12-30 05:28] LABS: BUN/CREATININE RATIO 22
[2020-12-30] MEDS: APIXABAN 5 MG (ELIQUIS) TABLET PO SCH ×2 (08:41→20:20)
[2020-12-30] MEDS: SINEMET 25/100 (CARBIDOPA/LEVODOPA) TAB PO SCH ×3 (08:41→17:43)
--- NOTE | 2020-12-30 12:11 | Progress Note - Hospitalist ---
Subjective HPI/CC On Admission Date Seen by Provider: Dec 30, 2020 Time Seen by Provider: 12:08 Pt is a 75yoCM with a PMH of HTN, parkinson's disease, HLD who presented to the Er due to syncope. states he hasn't felt well for a few days abut he normally has good days and bad days with his parkinson's. his blood pressure had been very high a couple of weeks ago and he wwent to see his primary care doctor but by then his BP was low. His PCP thought that it was due to his parkinson's. His continued to monitor his blood pressure at home and noticed it had been erractic dropping in to the 90s and up to the 170s. He was prescribed an antibiotic for an ear infection by his PCP this week as well. He had a syncopal episode yesterday and his called 911 but patient refused their services. He passed out again this morning and his called 911 again for evaluation. Subjective/Events-last exam Pt reports feeling better. No complaints. orthostatics done today and still positive but he was asymptomatic. Focused Exam Lactate Level 12/29/20 09:45: Lactic Acid Level 1.77 Objective Exam Vital Signs Vital Signs Date Time Temp Pulse Resp B/P (MAP) Pulse Ox O2 Delivery O2 Flow Rate FiO2 12/30/20 11:29 36.5 67 8 149/72 (97) 95 Room Air Capillary Refill : Less Than 3 Seconds General Appearance: No Apparent Distress, WD/WN Respiratory: Lungs Clear, No Respiratory Distress Cardiovascular: Regular Rate, Rhythm, No Murmur Neurologic/Psychiatric: Alert, Oriented x3 Results/Procedures Lab Laboratory Tests 12/30/20 04:52 Patient resulted labs reviewed. Assessment/Plan Assessment and Plan Assess & Plan/Chief Complaint Orthostatic hypotension HTN Likely due to progressing Parkinson's Hold home BP meds, BP elevated this AM but no longer orthostatic and now asymptomatic so will tolerate higher BPs to prevent recurrent syncopal episodes Regular diet (has been on salt restricted diet) Consider florinef if needed Parkinson's Dementia Weakness Pt/OT IRU consult [facility] program for palliative care given progressive disease Continue home Sinemet Atrial fibrillation, chronic HTN HLD Continue home meds, minsu BP meds Continue OAC DVT ppx: JAMES Lucero MD Dec 30, 2020 12:11
[2020-12-30] MEDS ORDERED: LACTULOSE SYRUP 10GM/15ML (ENULOSE) 30ML UDC PO PRN (12:15)
[2020-12-30] MEDS ORDERED: LACT10SO64 PO (13:00)
[2020-12-30] MEDS ORDERED: CARB1TAB40 PO (13:00)
[2020-12-30] MEDS ORDERED: PIMA34CA PO (13:12)
[2020-12-30] MEDS ORDERED: CEFD300C3 PO (13:12)
[2020-12-30] MEDS ORDERED: LEVO150T6 PO (13:12)
[2020-12-30] MEDS ORDERED: ALLO300T2 PO (13:12)
[2020-12-30] MEDS ORDERED: VENL75CA93 PO (13:12)
[2020-12-30] MEDS ORDERED: QUET25TA34 PO (13:12)
[2020-12-30] MEDS ORDERED: PATIENT MAY USE OWN MED,SINGLE MED PO SCH ×3 (13:30→21:00)
[2020-12-30] MEDS ORDERED: GEMFIBROZIL 600 MG (LOPID) TAB PO SCH ×2 (16:00→17:00)
[2020-12-30] MEDS ORDERED: QUEtiapine 25 MG (SEROquel) TAB IMMEDIATE RELEASE PO SCH ×3 (16:00→21:00)
[2020-12-30] MEDS ORDERED: ALLOPURINOL 300 MG (ZYLOPRIM) TAB PO SCH (17:00)
[2020-12-30] MEDS: QUEtiapine 25 MG (SEROquel) TAB IMMEDIATE RELEASE PO SCH ×2 (17:38→20:21)
[2020-12-30] MEDS: [UNRECOGNIZED DRUG - REMARK] PO SCH (17:40)
[2020-12-30] MEDS: ALLOPURINOL 300 MG (ZYLOPRIM) TAB PO SCH (17:40)
[2020-12-30] MEDS: GEMFIBROZIL 600 MG (LOPID) TAB PO SCH (17:41)
[2020-12-30] MEDS: [UNRECOGNIZED DRUG - REMARK] PO SCH (20:20)
[2020-12-31] VITALS (7 sets, daily range): BP systolic 143–211; BP diastolic 76–118
[2020-12-31] MEDS ORDERED: lisINopril 5 MG (PRINIVIL) TABLET PO ONE (01:00)
[2020-12-31] MEDS: GEMFIBROZIL 600 MG (LOPID) TAB PO SCH ×2 (05:35→16:52)
[2020-12-31] MEDS: NS IV 1000 ML 1,000 ML IV SCH ×2 (05:38→20:18)
[2020-12-31] MEDS ORDERED: LEVOTHYROXINE 25 MCG (LEVOTHROID) TAB PO SCH (06:30)
[2020-12-31] MEDS ORDERED: LEVOTHYROXINE 150 MCG (LEVOTHROID) TAB PO SCH (06:30)
[2020-12-31] MEDS ORDERED: VENlafaxine XR 75 MG (EFFEXOR XR) CAP PO SCH (07:00)
[2020-12-31] MEDS: SINEMET 25/100 (CARBIDOPA/LEVODOPA) TAB PO SCH ×4 (07:50→20:20)
[2020-12-31] MEDS: APIXABAN 5 MG (ELIQUIS) TABLET PO SCH (07:51)
[2020-12-31] MEDS ORDERED: ALLOPURINOL 300 MG (ZYLOPRIM) TAB PO SCH (09:00)
[2020-12-31] MEDS ORDERED: PANTOPRAZOLE 40 MG (PROTONIX) TAB PO SCH (09:00)
[2020-12-31] MEDS ORDERED: hydrALAZINE (APESOLINE) 20 MG/ML VIAL IV PRN ×2 (09:45→14:30)
[2020-12-31] MEDS: hydrALAZINE (APRESOLINE) 25 MG TAB PO SCH ×2 (09:59→20:18)
[2020-12-31] MEDS ORDERED: PATIENT MAY USE OWN MEDS, ALL MC SCH (10:45)
--- NOTE | 2020-12-31 11:00 | Consultation-Cardiology ---
HPI-Cardiology Cardiology Consultation Date of Consultation 12/31/20 Date of Admission Time Seen by Provider: 12:08 Indication: Syncope HPI Patient is a 75 y/o male with history of atrial fibrillation, labile HTN, HELEN, Parkinson's. Presented to the ER with complaints of syncope. Reports syncopal episode on 12/28/20 and 12/29/20, reports was walking across room and began to feel dizzy lightheaded. quickly put patient in wheelchair and reports had syncopal episode while sitting. Denies any chest pain or dyspnea. Reports occasional episode of dizziness at home. Home Medications & Allergies Allergies: Coded Allergies: No Known Drug Allergies (Unverified , 05/12/17) Home Medication List Reviewed: Yes KVG-Xdlner-Uormoo Hx Patient Social History Marital Status: Employed/Student: retired Recreational Drug Use: No Smoking Status: Never a Smoker Type Used: Cigarettes 2nd Hand Smoke Exposure: No Recent Hopitalizations: No Have you traveled recently?: No Alcohol Use?: No Immunizations Up To Date Date of Pneumonia Vaccine: Jan 03, 2017 Date of Influenza Vaccine: Jul 05, 2018 Family Medical History Significant Family History: No Pertinent Family Hx Family History: Alcoholism G8 BROTHER Cervical cancer G8 SISTER Diabetes mellitus 19 FATHER 19 MOTHER G8 BROTHER FH: COPD (chronic obstructive pulmonary disease) 19 MOTHER FH: stroke 19 FATHER Review of Systems-General Review of Systems Constitutional: No chills, No fever EENTM: no symptoms reported Respiratory: No cough, No short of breath Cardiovascular: see HPI; No edema; syncope Gastrointestinal: No abdominal pain, No constipation, No diarrhea, No nausea, No vomiting Genitourinary: no symptoms reported Musculoskeletal: no symptoms reported Skin: no symptoms reported Psychiatric/Neurological: No Symptoms Reported All Other Systems Reviewed Negative Unless Noted: Yes Reviewed Test Results Reviewed Test Results Lab Microbiology 12/29/20 Blood Culture - Preliminary, Resulted No growth ECG Impression ECG Initial ECG Impression: Atrial Fibrillation Physical Exam Physical Exam Vital Signs Vital Signs - First Documented 12/29/20 12/29/20 09:00 14:05 Temp 35.9 Pulse 53 Resp 20 B/P (MAP) 15/79 (58) Pulse Ox 98 O2 Delivery Room Air Capillary Refill : Less Than 3 Seconds Height, Weight, BMI Height: 6'0.00" Weight: 260lbs. 0.0oz. 117.594917cm; 35.92 BMI Method:Stated General Appearance: No Apparent Distress, WD/WN HEENT: PERRL/EOMI, Moist Mucous Membranes; No Scleral Icterus (L), No Scleral Icterus (R) Neck: Normal Inspection, Supple Respiratory: Lungs Clear, No Accessory Muscle Use, No Respiratory Distress Cardiovascular: Regular Rate, Rhythm, No Murmur Gastrointestinal: Normal Bowel Sounds, Non Tender, Soft Back: Normal Inspection, No CVA Tenderness, No Vertebral Tenderness Extremity: No Calf Tenderness, No Pedal Edema Neurologic/Psychiatric: Alert, Oriented x3, Normal Mood/Affect Skin: Normal Color, Warm/Dry A/P-Cardiology Admission Diagnosis Syncope Persistent atrial fibrillation Bradycardia Hypertension Assessment/Plan Syncope- had syncopal episode x 2. LINq interrogation showing persistent A Fib, had episode of severe bradycardia on 12/29/20 at approx 8 am, lasting 50 secs, which correlates with timing of syncopal episode. Also noted to have multiple pauses mainly while asleep. Chest pain, nonspecific etiology, improved. could be secondary to his new onset A. fib and tachycardia, Denies any recent chest pain. Stress test done February 2017 was negative for ischemia or infarct. Continue to monitor. Persistent atrial fibrillation-unable to tolerate beta enoc secondary to underlying bradycardia, unable to tolerate amiodarone due to dizziness, s/p LINq implanation. [id number] score of 2, yearly risk of stroke without oral anticoagulation is 2.2 percent. Maintained on Eliquis. Malignant hypertension, history of hypertensive encephalopathy with hallucinations during episode of elevated blood pressure. Has been having labile hypertension recently. HELEN, intolerant to CPAP Hypothyroidism, managed by primary care physician Parkinson's disease, followed by primary care physician Hyperlipidemia, maintained on fenofibrate, good control. Continue on current medications and continue to monitor. Next Mild bilateral carotid stenosis, ultrasound was done May 2019, continue to monitor. Patient was seen and evaluated with [place], examination performed, management plan was discussed, agree with the current scribed note, I made few changes to the note using Italic font Patient was seen at bedside, laying down comfortably, complaining of fatigue loss of energy, noted to have persistent severe bradycardia, discussed the management plan I recommended single-chamber pacemaker due to the persistent atrial fibrillation. Currently maintained on oral anticoagulation and he received oral Eliquis this morning, I will hold Eliquis and planning to proceed with pacemaker implantation tomorrow ALMA DEE Dec 31, 2020 11:00 MIRIAM NICOLE MD Dec 31, 2020 14:25
[2020-12-31] MEDS ORDERED: LACTULOSE SYRUP 10GM/15ML (ENULOSE) 30ML UDC PO PRN (11:30)
--- NOTE | 2020-12-31 11:45 | Physical Therapy Evaluation ---
PT Evaluation-General Medical Diagnosis Admission Date Dec 29, 2020 at 12:10 Medical Diagnosis: orthostatic hypotension/Parkinson's Onset Date: Dec 29, 2020 Therapy Diagnosis Therapy Diagnosis: debility/weakness Height/Weight Height (Feet): 6 Height (Inches): 0.00 Weight (Pounds): 260 Weight (Ounces): 0.0 Precautions Precautions/Isolations: Fall Prevention, Standard Precautions Referral Physician: Jenni Reason for Referral: Evaluation/Treatment Medical History Pertinent Medical History: Atrial Fib, Dementia, HTN, Parkinson's Current History EMS secondary to syncope/LOC Reviewed History: Yes Social History Home: Single Level Current Living Status: Spouse Entry Into Home: Ramp Prior Prior Level of Function SCALE: Activities may be completed with or without assistive devices. 3-Kvsgsujuyj-nmujkef completes the activity by him/herself with no assistance from a helper. 5-Set-up or Clean-up Assistance-helper sets up or cleans up; patient completes activity. [place] assists only prior to or following the activity. 4-Supervision or Touching Assistance-helper provides verbal cues and/or touching/steadying and/or contact guard assistance as patient completes activity. Assistance may be provided throughout the activity or intermittently. 3-Partial/Moderate Assistance-helper does LESS THAN HALF the effort. [place] lifts, holds or supports trunk or limbs, but provides less than half the effort. 2-Substantial/Maximal Assistance-helper does MORE THAN HALF the effort. [place] lifts or holds trunk or limbs and provides more than half the effort. 9-Igeocuwlf-adgmfp does ALL the effort. Patient does none of the effort to complete the activity. Or, the assistance of 2 or more helpers is required for the patient to complete the activity. If activity was not attempted, code reason: 7-Patient Refused. 9-Not Applicable-not attempted and the patient did not perform the activity before the current illness, exacerbation or injury. 10-Not Attempted due to Environmental Limitations-(lack of equipment, weather restraints, etc.). 88-Not Attempted due to Medical Conditions or Safety Concerns. Bed Mobility: 3 Transfers (B,C,W/C): 3 Gait: 3 Stairs: 9 Indoor Mobility (Ambulation): Needed Some Help Stairs: Not Applicalbe Prior Devices Use: Walker Per spouse, patient requires minimal to mod assist PLOF with all mobility. Spouse assist with bed mobility and sit to stand transfers and with ambulation FWW. Per spouse, they have paid help in mornings 5-7/wk to assist patient with all ADL' (bathing, dressing, etc) Patient does assist with paid help is unavailable. PT Evaluation-Current Subjective Patient and spouse agree to PT. Objective Patient Orientation: Person, Time, Situation Attachments: IV ROM/Strength ROM Lower Extremities bilateral LE WFL Strength Lower Extremities 4-/5 grossly bilateral LE Integumentary/Posture Integumentary refer to nursing notes Bowel Incontinence: No Bladder Incontinence: Yes Posture trunk and bilateral knee flexed posture Neuromuscular (Tone, Coordination, Reflexes) Parkinson's gait Sensory Vision: Functional Hearing: Impaired Transfers Roll Left to Right (QC): 3 Sit to Lying (QC): 3 Lying to Sitting/Side of Bed(Q: 3 Sit to Stand (QC): 3 Chair/Kax-eb-Cxjae Xfer(QC): 3 Gait Does the Patient Walk?: Yes Mode of Locomotion: Walk Anticipated Mode of Locomotion: Walk Walk 10 feet (QC): 3 Walk 50 ft with 2 Turns(QC): 3 Walk 150 ft (QC): 3 Distance: 275' Gait Assistive Device: FWW Comments/Gait Description Parkinson's gait with VC's for body placement in FWW and for gait sequence Balance Sitting Static: Normal Sitting Dynamic: Normal Standing Static: Fair Standing Dynamic: Fair Picking up an Object (QC): 9 Assessment/Needs 75 y.o. male, will benefit from skilled PT to address functional strength and mobility to improve current LOF. Per spouse, patient requires minimal to moderate assist PLOF with all mobility and ADL's. Rehab Potential: Fair PT Alf Goals Crutch Maker Goals PT Alf Goals Time Frame: Jan 12, 2021 Roll Left & Right (QC): 4 Sit to Lying (QC): 4 Lying-Sitting on Side/Bed(QC): 4 Sit to Stand (QC): 3 Chair/Dag-yp-Beqqs Xfer(QC): 3 Toilet Transfer (QC): 3 Does the Patient Walk: Yes Walk 10 feet (QC): 3 Walk 50ft with 2 Turns (QC): 3 Walk 150 ft (QC): 3 PT Plan Problem List Problem List: Activity Tolerance, Safety, Balance, Gait, Transfer, Bed Mobility Treatment/Plan Treatment Plan: Continue Plan of Care Treatment Plan: Bed Mobility, Education, Functional Activity [place], Functional Strength, Gait, Safety, Therapeutic Exercise, Transfers Treatment Duration: Jan 12, 2021 Frequency: 6 times per week Estimated Hrs Per Day: .25 hour per day Patient and/or Family Agrees t: Yes Time/GCodes Time In: 1040 Time Out: 1057 Total Billed Treatment Time: 17 Total Billed Treatment 1 visit EVModC 17 min CRISPIN LOCO PT Dec 31, 2020 11:45
--- NOTE | 2020-12-31 12:33 | Progress Note - Hospitalist ---
Subjective HPI/CC On Admission Date Seen by Provider: Dec 31, 2020 Time Seen by Provider: 09:45 Pt is a 75yoCM with a PMH of HTN, parkinson's disease, HLD who presented to the Er due to syncope. states he hasn't felt well for a few days abut he normally has good days and bad days with his parkinson's. his blood pressure had been very high a couple of weeks ago and he wwent to see his primary care doctor but by then his BP was low. His PCP thought that it was due to his parkinson's. His continued to monitor his blood pressure at home and noticed it had been erractic dropping in to the 90s and up to the 170s. He was prescribed an antibiotic for an ear infection by his PCP this week as well. He had a syncopal episode yesterday and his called 911 but patient refused their services. He passed out again this morning and his called 911 again for evaluation. Subjective/Events-last exam He is not having any lightheadedness or dizziness. He has been eating and drinking well. He has no other complaints or concerns. Focused Exam Lactate Level 12/29/20 09:45: Lactic Acid Level 1.77 Objective Exam Vital Signs Vital Signs Date Time Temp Pulse Resp B/P (MAP) Pulse Ox O2 Delivery O2 Flow Rate FiO2 12/31/20 08:19 35.7 61 20 211/118 (149) 97 Room Air Capillary Refill : Less Than 3 Seconds General Appearance: No Apparent Distress, Obese Respiratory: Lungs Clear, Normal Breath Sounds, No Respiratory Distress Cardiovascular: Regular Rate, Rhythm, No Edema, No Murmur Gastrointestinal: Normal Bowel Sounds, Non Tender, Soft Extremity: Normal Inspection, Non Tender, No Pedal Edema Neurologic/Psychiatric: Alert, Oriented x3, Other (Masklike facies) Skin: Normal Color, Warm/Dry Results/Procedures Lab Patient resulted labs reviewed. Imaging: Reviewed Imaging Report Assessment/Plan Assessment and Plan Assess & Plan/Chief Complaint Orthostatic hypotension HTN Likely due to progressing Parkinson's Hold Lisinopril Begin Hydralazine with hold parameters IV Hydralazine as needed Parkinson's Dementia Weakness PT/OT IRU consult [facility] program for palliative care given progressive disease Continue home Sinemet Atrial fibrillation, chronic HLD Continue home meds Continue OAC DVT prophylaxis: already receiving therapeutic anticoagulation Diagnosis/Problems Diagnosis/Problems (1) Orthostatic hypotension Status: Acute (2) Parkinsons disease Status: Acute ERIBERTO BOWMAN MD Dec 31, 2020 12:32
[2020-12-31] MEDS ORDERED: ceFAZolin INJECTION 1,000 MG VIAL IV ONE (14:00)
[2020-12-31] MEDS ORDERED: BACITRACIN INJECTION 50,000 UNIT, SODIUM CHLORIDE 0.9% IRRIGATIO 500 ML IR ONE ×2 (14:00)
[2020-12-31] MEDS ORDERED: QUET25TA34 PO (14:28)
[2020-12-31] MEDS ORDERED: MULT-1136 PO (14:28)
[2020-12-31] MEDS ORDERED: CARB1TAB19 PO (14:28)
[2020-12-31] MEDS ORDERED: APIX5TAB PO (14:28)
[2020-12-31] MEDS ORDERED: ACET-2267 PO (14:28)
[2020-12-31] MEDS ORDERED: THERAWORX TOP (14:28)
[2020-12-31] MEDS ORDERED: CYAN250010 PO (14:28)
[2020-12-31] MEDS ORDERED: LEVO175T5 PO (14:28)
[2020-12-31] MEDS ORDERED: CALC-823 PO (14:28)
[2020-12-31] MEDS ORDERED: CALC-250 PO (14:28)
[2020-12-31] MEDS ORDERED: SODI1TAB48 PO (14:28)
--- NOTE | 2020-12-31 14:30 | Occupational Therapy Eval ---
OT Evaluation-General/PLF Medical Diagnosis Admission Date Dec 29, 2020 at 12:10 Medical Diagnosis: orthostatic hypotension/Parkinson's Onset Date: Dec 29, 2020 Therapy Diagnosis Therapy Diagnosis: Decreased ADL status Height/Weight Height (Feet): 6 Height (Inches): 0.00 Weight (Pounds): 260 Weight (Ounces): 0.0 Precautions Precautions/Isolations: Fall Prevention, Standard Precautions Referral Physician: Jenni Referral Reason: Activity Tolerance, Self Care, Evaluation/Treatment, Strengthening/ROM Medical History Pertinent Medical History: Atrial Fib, Dementia, HTN, Parkinson's Additional Medical History HTN, Parkinson's Disease, a fib, arthritis, CBP, PTSD, skin Ca. Current History Brought to ER by EMS due to syncope (2 episodes, though pt denied tx 1st e pisode). Reviewed History: Yes Social History Home: Single Level Current Living Status: Spouse Entry Into Home: Ramp ADL-Prior Level of Function SCALE: Activities may be completed with or without assistive devices. 1-Jezpyrvfzj-atmqcju completes the activity by him/herself with no assistance from a helper. 5-Set-up or Clean-up Assistance-helper sets up or cleans up; patient completes activity. [place] assists only prior to or following the activity. 4-Supervision or Touching Assistance-helper provides verbal cues and/or touching/steadying and/or contact guard assistance as patient completes activity. Assistance may be provided throughout the activity or intermittently. 3-Partial/Moderate Assistance-helper does LESS THAN HALF the effort. [place] lifts, holds or supports trunk or limbs, but provides less than half the effort. 2-Substantial/Maximal Assistance-helper does MORE THAN HALF the effort. [place] lifts or holds trunk or limbs and provides more than half the effort. 6-Kiaspzotw-ffymcw does ALL the effort. Patient does none of the effort to complete the activity. Or, the assistance of 2 or more helpers is required for the patient to complete the activity. If activity was not attempted, code reason: 7-Patient Refused. 9-Not Applicable-not attempted and the patient did not perform the activity before the current illness, exacerbation or injury. 10-Not Attempted due to Environmental Limitations-(lack of equipment, weather restraints, etc.). 88-Not Attempted due to Medical Conditions or Safety Concerns. ADL PLOF Comments Pt expresses he has 3 hours a day/ 5 days a week assist from caregiver. On weekends, assists with these tasks. Pt's CG assists with "all ADLs" per pt, though with increased conversation, CG assists with showering/ dressing, assists to bathroom. Pt is able to eat with s/u and built up handles. Self Care: Needed Some Help Functional Cognition: Needed Some Help DME/Equipment Comments walker Occupation: retired. Drive Self: No OT Current Status Subjective Pt AxO, upright in chair. Denies pain. present through session, agrees to tx. Mental Status/Objective Patient Orientation: Person, Place, Situation Attachments: IV Current Glasses/Contacts: No Hearing Aids: No Dentures/Partials: Yes Hand Dominance: Left Upper Extremity ROM WFL BUE Upper Extremity Coordination WFL BUE, noted tremors L>R Upper Extremity Sensation WFL BUE Upper Extremity Strength WFL BUE (4+/5) ADL-Treatment Eating (QC): 5 ( assists with cutting/ prepping food.) Oral Hygiene (QC): 5 (per clinical judgment, likely requires s/u for this task ) Shower/Bathe Self (QC): 2 (Pt's caregivers assist with this task. Will not work towards increasing this goal. ) Upper Body Dressing (QC): 2 (Pt's caregivers assist with this task. Will not work towards increasing this goal. ) Lower Body Dressing (QC): 2 (Pt's caregivers assist with this task. Will not work towards increasing this goal. ) On/Off Footwear (QC): 2 (Pt's caregivers assist with this task. Will not work towards increasing this goal. ) Other Treatments Pt and provide hx. Pt is educated on use of [facility] program/ online videos due to ceasing OP therapy services during COVID pandemic. Pt expresses he has gone through this program and an additional kick boxing program which he enjoyed very well. When discussing ALDs, pt expresses his adaptive utensils "Don't work that well." OT educates pt on weighted/ curved utensils, will bring to pt post- evaluation to educate on differences. Pt does not desire to go to bathroom at this time, will not address any showering/ dressing tasks during treatment as these are completed by caregivers at home. Pt stands with mod A to complete functional balance/ standing endurance task. pt completes ~4 minutes of stance with BUE alternating shoulder flexion/ abduction/ adduction. Pt requires rest. Returns to sit with moderate control. Pt to continue skilled OT services while in acute care to address functional activity tolerance needed for assist in care skills at home and use of adaptive tools/ techniques. Pt left in recliner with all needs met, call light in reach, present. Based on clinical findings, pt is at PLOF with ADLs. Though, pt will benefit from skilled OT for reasons outlined above within the acute care setting. Education OT Patient Education: Correct positioning, Exercise program, Home exercise program, Purpose of tx/functional activities, Safety issues, Use of adapted equipment Teaching Recipient: Patient Teaching Methods: Demonstration, Discussion Response to Teaching: Verbalize Understanding, Return Demonstration OT Supervisor Detasseling Crew Goals Supervisor Detasseling Crew Goals Time Frame: Jan 07, 2021 Eating (QC): 6 Oral Hygiene (QC): 6 showering/ toileting/ dressing tasks will not be addressed due to at PLOF and receives assist with these tasks at home. Additional Goals: 1-Demonstrate ADL Tasks, 2-Verbalize Understanding, 3- ImproveStrength/[place] 1=Demonstrate adherence to instructed precautions during ADL tasks. 2=Patient will verbalize/demonstrate understanding of assistive devices/modifications for ADL. 3=Patient will improve strength/tolerance for activity to enable patient to perform ADL's. OT Education/Plan Problem List/Assessment Assessment: Decreased Activ Tolerance, Dependent Transfers, Impaired Bed Mobility, Impaired Coordination, Impaired Funct Balance, Impaired I ADL's, Impaired Self-Care Skills Discharge Recommendations Plan/Recommendations: Continue POC Therapy Discharge Recommendati: Scheduled Assistance, Bath Aide, Home & Family Treatment Plan/Plan of Care Treatment,Training & Education: Yes Patient would benefit from OT for education, treatment and training to promote independence in ADL's, mobility, safety and/or upper extremity function for ADL's. Plan of Care: ADL Retraining, Caregiver Training, Functional Mobility, UE Funct Exercise/Act, OTHER (adaptive tool training) Treatment Duration: Jan 07, 2021 Frequency: 5 times per week Estimated Hrs Per Day: .25 hour per day Agreement: Yes Rehab Potential: Fair Time/GCodes Start Time: 13:11 Stop Time: 13:34 Total Time Billed (hr/min): 23 Billed Treatment Time 1, EVM, EX (23) ARIANNA ACEVEDO OTR Dec 31, 2020 14:30
[2020-12-31] MEDS: QUEtiapine 25 MG (SEROquel) TAB IMMEDIATE RELEASE PO SCH ×2 (16:54→20:19)
[2020-12-31] MEDS: ALLOPURINOL 300 MG (ZYLOPRIM) TAB PO SCH (16:55)
[2020-12-31] MEDS: [UNRECOGNIZED DRUG - REMARK] PO SCH (20:21)
[2020-12-31] MEDS: [UNRECOGNIZED DRUG - REMARK] PO SCH (20:22)
[2020-12-31] MEDS: ACETAMINOPHEN 325 MG TABLET PO PRN (23:27)
[2021-01-01] VITALS (13 sets, daily range): BP systolic 108–214; BP diastolic 66–104
[2021-01-01] MEDS: VENlafaxine XR 75 MG (EFFEXOR XR) CAP PO SCH (05:14)
[2021-01-01] MEDS: LEVOTHYROXINE 175 MG PO SCH (05:14)
[2021-01-01] MEDS: GEMFIBROZIL 600 MG (LOPID) TAB PO SCH ×2 (05:15→16:15)
[2021-01-01] MEDS ORDERED: HEParin (CATH LAB) 1,000 ML IV ONE (07:49)
[2021-01-01] MEDS ORDERED: NS (IVPB) 0 ML ONE (07:49)
[2021-01-01] MEDS ORDERED: ceFAZolin INJECTION 1,000 MG ONE (07:49)
[2021-01-01] MEDS ORDERED: LIDOCAINE 1% INJ 20 ML 20 ML VIAL ONE (07:49)
[2021-01-01] MEDS ORDERED: BACITRACIN INJECTION 50,000 UNIT, SODIUM CHLORIDE 0.9% IRRIGATIO 500 ML IR ONE ×2 (08:00)
[2021-01-01] MEDS ORDERED: ceFAZolin INJECTION 1,000 MG VIAL IV ONE (08:00)
[2021-01-01] MEDS: SINEMET 25/100 (CARBIDOPA/LEVODOPA) TAB PO SCH ×4 (08:29→20:39)
[2021-01-01] MEDS: PANTOPRAZOLE 40 MG (PROTONIX) TAB PO SCH (08:30)
[2021-01-01] MEDS: hydrALAZINE (APRESOLINE) 25 MG TAB PO SCH ×3 (08:31→20:39)
[2021-01-01] MEDS: NS IV 1000 ML 1,000 ML IV SCH ×2 (09:37→22:04)
--- NOTE | 2021-01-01 10:53 | Cardiology Progress Note ---
Subjective Date Seen by Provider: Jan 01, 2021 Time Seen by Provider: 10:52 Subjective/Events-last exam Patient was seen at bedside, sitting comfortably, denies any active chest pain or shortness of breath. No dizziness Review of Systems General: No Chills, No Night Sweats; Fatigue; No Malaise, No Appetite, No Other HEENT: No Head Aches, No Visual Changes, No Eye Pain, No Ear Pain, No Dysphasia, No Sinus Congestion, No Post Nasal Drip, No Sore Throat, No Other Pulmonary: No Dyspnea, No Cough, No Pleuritic Chest Pain, No Other Cardiovascular: No: Chest Pain, Palpitations, Orthopnea, Paroxysmal Noc. Dyspnea, Edema, Lt Headedness, Other Objective-Cardiology Exam Last Set of Vital Signs Vital Signs 01/01/21 01/01/21 07:59 08:00 Temp 36.7 Pulse 45 Resp 16 B/P (MAP) 117/75 (89) Pulse Ox 98 O2 Delivery Room Air Capillary Refill : Less Than 3 Seconds I&O Intake and Output 01/01/21 00:00 Intake Total 2320 ml Balance 2320 ml Intake Oral 1920 ml IV Total 400 ml # Voids 9 General: Alert, Oriented X3, Cooperative HEENT: Atraumatic, PERRLA Neck: Supple, No JVD, No Thyromegaly Lungs: Clear to Auscultation, Normal Air Movement Heart: Normal S1, Normal S2, No Murmurs, Other (Atrial fibrillation) Abdomen: Normal Bowel Sounds, Soft, No Tenderness, No Hepatosplenomegaly, No Masses Extremities: No Clubbing, No Cyanosis, No Edema, Normal Pulses, No Tenderness/Swelling Skin: No Rashes, No Breakdown, No Significant Lesion Neuro: Normal Gait, Normal Speech, Strength at 5/5 X4 Ext, Normal Tone, Sensation Intact Psych/Mental Status: Mental Status NL, Mood NL A/P-Cardiology Admission Diagnosis Syncope Persistent atrial fibrillation Bradycardia Hypertension Assessment/Plan Syncope- had syncopal episode x 2. LINq interrogation showing persistent A Fib, had episode of severe bradycardia on 12/29/20 at approx 8 am, lasting 50 secs, which correlates with timing of syncopal episode. Also noted to have multiple pauses mainly while asleep. Discussed the management plan recommended cardiac pacemaker implant Chest pain, nonspecific etiology, improved. could be secondary to his new onset A. fib and tachycardia, Denies any recent chest pain. Stress test done February 2017 was negative for ischemia or infarct. Continue to monitor. Persistent atrial fibrillation-unable to tolerate beta enoc secondary to underlying bradycardia, unable to tolerate amiodarone due to dizziness, s/p LINq implanation. [id number] score of 2, yearly risk of stroke without oral anticoagulation is 2.2 percent. Maintained on Eliquis. Malignant hypertension, history of hypertensive encephalopathy with hallucinations during episode of elevated blood pressure. Has been having labile hypertension recently. HELEN, intolerant to CPAP Hypothyroidism, managed by primary care physician Parkinson's disease, followed by primary care physician Hyperlipidemia, maintained on fenofibrate, good control. Continue on current medications and continue to monitor. Next Mild bilateral carotid stenosis, ultrasound was done May 2019, continue to monitor. MIRIAM NICOLE MD Jan 01, 2021 10:53
--- NOTE | 2021-01-01 11:47 | Physical Therapy Daily Note ---
PT Daily Note-Current Subjective Patient agrees to PT. Mental Status Patient Orientation: Normal For Age Attachments: IV Transfers SCALE: Activities may be completed with or without assistive devices. 1-Loynmgnrnp-vdzucci completes the activity by him/herself with no assistance from a helper. 5-Set-up or Clean-up Assistance-helper sets up or cleans up; patient completes activity. [place] assists only prior to or following the activity. 4-Supervision or Touching Assistance-helper provides verbal cues and/or touching/steadying and/or contact guard assistance as patient completes activity. Assistance may be provided throughout the activity or intermittently. 3-Partial/Moderate Assistance-helper does LESS THAN HALF the effort. [place] lifts, holds or supports trunk or limbs, but provides less than half the effort. 2-Substantial/Maximal Assistance-helper does MORE THAN HALF the effort. [place] lifts or holds trunk or limbs and provides more than half the effort. 7-Fnzfywtwd-dzdqmq does ALL the effort. Patient does none of the effort to complete the activity. Or, the assistance of 2 or more helpers is required for the patient to complete the activity. If activity was not attempted, code reason: 7-Patient Refused. 9-Not Applicable-not attempted and the patient did not perform the activity before the current illness, exacerbation or injury. 10-Not Attempted due to Environmental Limitations-(lack of equipment, weather restraints, etc.). 88-Not Attempted due to Medical Conditions or Safety Concerns. Roll Left & Right (QC): 4 Lying to Sitting/Side of Bed(Q: 4 Sit to Stand (QC): 3 Chair/Mff-dw-Pnasq Xfer(QC): 4 Gait Training Does the Patient Walk?: Yes Distance: 225' Walk 10 feet (QC): 4 Walk 50 ft with 2 Turns(QC): 4 Walk 150 ft (QC): 4 Gait Assistive Device: FWW CGA for safety/Parkinson's gait Exercises Seated Therapy Exercises: Ankle pumps, Long arc quads Seated Reps: 15 Assessment Patient is up in recliner with needs met. Patient requires minimal VC's for body placement in FWW due to Parkinson's gait sequence. Patient to have pacemaker placement on this date per RN report. PT Director Motion Picture Goals Shelter Goals PT Shelter Goals Time Frame: Jan 12, 2021 Roll Left & Right (QC): 4 Sit to Lying (QC): 4 Lying-Sitting on Side/Bed(QC): 4 Sit to Stand (QC): 3 Chair/Ljy-gt-Prueb Xfer(QC): 3 Toilet Transfer (QC): 3 Does the Patient Walk: Yes Walk 10 feet (QC): 3 Walk 50ft with 2 Turns (QC): 3 Walk 150 ft (QC): 3 PT Plan Treatment/Plan Treatment Plan: Continue Plan of Care Treatment Plan: Bed Mobility, Education, Functional Activity [place], Functional Strength, Gait, Safety, Therapeutic Exercise, Transfers Treatment Duration: Jan 12, 2021 Frequency: 6 times per week Estimated Hrs Per Day: .25 hour per day Patient and/or Family Agrees t: Yes Time/GCodes Time In: 1120 Time Out: 1130 Total Billed Treatment Time: 10 Total Billed Treatment 1 visit GT 10 min CRISPIN LOCO PT Jan 01, 2021 11:47
--- NOTE | 2021-01-01 14:26 | Occupational Ther Daily Note ---
OT Current Status-Daily Note Subjective No pain reported. Mental Status/Objective Patient Orientation: Person, Place Attachments: IV ADL-Treatment Therapy Code Descriptions/Definitions Functional [place] Measure: 0=Not Assessed/NA 4=Minimal Assistance 1=Total Assistance 5=Supervision or Setup 2=Maximal Assistance 6=Modified [place] 3=Moderate Assistance 7=Complete IndependenceSCALE: Activities may be completed with or without assistive devices. 4-Drrkrqdvyw-iebance completes the activity by him/herself with no assistance from a helper. 5-Set-up or Clean-up Assistance-helper sets up or cleans up; patient completes activity. [place] assists only prior to or following the activity. 4-Supervision or Touching Assistance-helper provides verbal cues and/or touching/steadying and/or contact guard assistance as patient completes activity. Assistance may be provided throughout the activity or intermittently. 3-Partial/Moderate Assistance-helper does LESS THAN HALF the effort. [place] lifts, holds or supports trunk or limbs, but provides less than half the effort. 2-Substantial/Maximal Assistance-helper does MORE THAN HALF the effort. [place] lifts or holds trunk or limbs and provides more than half the effort. 4-Fkflcmndb-zumdoe does ALL the effort. Patient does none of the effort to complete the activity. Or, the assistance of 2 or more helpers is required for the patient to complete the activity. If activity was not attempted, code reason: 7-Patient Refused. 9-Not Applicable-not attempted and the patient did not perform the activity before the current illness, exacerbation or injury. 10-Not Attempted due to Environmental Limitations-(lack of equipment, weather restraints, etc.). 88-Not Attempted due to Medical Conditions or Safety Concerns. On/Off Footwear: 2 Toileting Hygiene (QC): 2 Other Treatment Pt's spouse assisting pt. with urination, (placing urinal and cleansing), when OT walks in room. OT talks with pt. and spouse about adaptive equipment for feeding that was issued yesterday. Pt. was given weighted utensils to try, as well as curved spoon to use. Pt. verbalizes that he really likes his curved spo on, and that this worked well for him. Spouse reports that if she knows the exact name of the spoon and fork, that the [place] will likely pay for some for pt. OT looked up this and gave information to spouse. PT came in room at this time and assisted with co-treatment due to need of skilled assistance x 2. Pt. transferred supine-sit with min assist. Noted that pt. had difficulty sitting upright for duration, and required min assist from OT for positioning and balance. PT assisted with sit-stand, and OT reminded pt. of hand placement on walker. OT also assisted with facilitation of using foot marker/visual marker to initiate steps taken. Please see PT note for distance ambulated. Pt. ambulated with walker with min assist from PT. Pt. transferred to chair in room at end of session. All needs met. Education OT Patient Education: Correct positioning, Modified ADL techniques, Progress toward Goal/Update tx plan, Purpose of tx/functional activities, Reviewed precautions, Rehab process, Transfer techniques Teaching Recipient: Patient, Family Teaching Methods: Demonstration, Discussion Response to Teaching: Verbalize Understanding, Return Demonstration OT Rack Puncher Goals Detention Goals Time Frame: Jan 07, 2021 Eating (QC): 6 Oral Hygiene (QC): 6 showering/ toileting/ dressing tasks will not be addressed due to at PLOF and receives assist with these tasks at home. Additional Goals: 1-Demonstrate ADL Tasks, 2-Verbalize Understanding, 3- ImproveStrength/[place] 1=Demonstrate adherence to instructed precautions during ADL tasks. 2=Patient will verbalize/demonstrate understanding of assistive devices/modifications for ADL. 3=Patient will improve strength/tolerance for activity to enable patient to perform ADL's. OT Education/Plan Problem List/Assessment Assessment: Decreased Activ Tolerance, Decreased UE Strength, Dependent Transfers, Impaired Bed Mobility, Impaired Funct Balance, Impaired I ADL's, Impaired Self-Care Skills Discharge Recommendations Plan/Recommendations: Continue POC Therapy Discharge Recommendati: 24 Hour Supervision Treatment Plan/Plan of Care Treatment,Training & Education: Yes Patient would benefit from OT for education, treatment and training to promote independence in ADL's, mobility, safety and/or upper extremity function for ADL's. Plan of Care: ADL Retraining, Caregiver Training, Functional Mobility, UE Funct Exercise/Act, OTHER (adaptive tool training) Treatment Duration: Jan 07, 2021 Frequency: 5 times per week Estimated Hrs Per Day: .25 hour per day Agreement: Yes Rehab Potential: Fair Time/GCodes Start Time: 11:15 Stop Time: 11:30 Total Time Billed (hr/min): 15 Billed Treatment Time 1, FA x 15minutes PT in room from [id number] for co-treatment. Please see above note for designated roles. JEAN CORREIA OT Jan 01, 2021 14:26
--- NOTE | 2021-01-01 15:00 | Progress Note - Hospitalist ---
Subjective HPI/CC On Admission Date Seen by Provider: Jan 01, 2021 Time Seen by Provider: 10:50 Pt is a 75yoCM with a PMH of HTN, parkinson's disease, HLD who presented to the Er due to syncope. states he hasn't felt well for a few days abut he normally has good days and bad days with his parkinson's. his blood pressure had been very high a couple of weeks ago and he wwent to see his primary care doctor but by then his BP was low. His PCP thought that it was due to his parkinson's. His continued to monitor his blood pressure at home and noticed it had been erractic dropping in to the 90s and up to the 170s. He was prescribed an antibiotic for an ear infection by his PCP this week as well. He had a syncopal episode yesterday and his called 911 but patient refused their services. He passed out again this morning and his called 911 again for evaluation. Subjective/Events-last exam He didn't sleep well last night. He is taking a nap now. He denies lightheadedness and dizziness. Objective Exam Vital Signs Vital Signs Date Time Temp Pulse Resp B/P (MAP) Pulse Ox O2 Delivery O2 Flow Rate FiO2 01/01/21 12:40 47 01/01/21 11:36 36.0 16 182/89 (120) 98 Room Air Capillary Refill : Less Than 3 Seconds General Appearance: No Apparent Distress, Obese Respiratory: Lungs Clear, Normal Breath Sounds, No Respiratory Distress Cardiovascular: Regular Rate, Rhythm, No Edema, No Murmur Gastrointestinal: Normal Bowel Sounds, Non Tender, Soft Extremity: Normal Inspection, Non Tender, No Pedal Edema Neurologic/Psychiatric: Alert, Oriented x3, No Motor/Sensory Deficits, Normal Mood/Affect Skin: Normal Color, Warm/Dry Results/Procedures Lab Patient resulted labs reviewed. Imaging: Reviewed Imaging Report Assessment/Plan Assessment and Plan Assess & Plan/Chief Complaint Bradycardia Syncope Cardology planning for pacemaker placement today Orthostatic hypotension HTN Likely due to progressing Parkinson's Lisinopril stopped Continue Hydralazine with hold parameters IV Hydralazine as needed Parkinson's Dementia Weakness Continue home Sinemet PT/OT Likely HH on discharge Atrial fibrillation, chronic HLD Continue home meds Eliquis held DVT prophylaxis: already receiving therapeutic anticoagulation Diagnosis/Problems Diagnosis/Problems (1) Orthostatic hypotension Status: Acute (2) Parkinsons disease Status: Acute (3) Syncope Status: Acute (4) Bradycardia Status: Acute ERIBERTO BOWMAN MD Jan 01, 2021 15:00
[2021-01-01] MEDS ORDERED: fentaNYL INJ 100 MCG/2 ML AMP ONE (16:14)
[2021-01-01] MEDS ORDERED: MIDAZOLAM 5 MG/5 ML (VERSED) VIAL ONE ×2 (16:14→17:24)
[2021-01-01] MEDS: QUEtiapine 25 MG (SEROquel) TAB IMMEDIATE RELEASE PO SCH ×2 (16:15→20:39)
[2021-01-01] MEDS ORDERED: NS (IVPB) 50 ML ONE (16:15)
[2021-01-01] MEDS ORDERED: NS IV 1000 ML 1,000 ML ONE (16:30)
[2021-01-01] MEDS: ALLOPURINOL 300 MG (ZYLOPRIM) TAB PO SCH (17:00)
--- NOTE | 2021-01-01 17:10 | Cardiac Procedure Note-CS/ASA ---
Pre-Procedure Note Pre-Op Procedure Note H&P Reviewed The H&P was reviewed, patient examined and no changes noted. Date H&P Reviewed: Jan 01, 2021 Time H&P Reviewed: 17:10 Conscious Sedation Pre-Proced Time 17:10 ASA Score 3 For ASA 3 and 4: Consider anesthesia and medical clearance. Also, for patients with a history of failed moderate sedation consider anesthesia. Airway Lungs Heart ASA score ASA 1: a normal healthy patient ASA 2: a patient with a mild systemic disease (mid diabetes, controlled hypertension, obesity x ASA 3: a patient with a severe systemic disease that limits activity (angina, COPD, prior Myocardial infarction) ASA 4: a patient with an incapacitating disease that is a constant threat to life (CHF, renal failure) ASA 5: a moribund patient not expected to survive 24 hrs. (ruptured aneurysm) ASA 6: a declared brain- patient whose organs are being harvested. For emergent operations, add the letter E after the classification Mallampati Classification Grade 3 Sedation Plan Analgesia, Amnesia, Plan communicated to team members, Discussed options with patient/fam, Discussed risks with patient/fam The patient is an appropriate candidate to undergo the planned procedure, sedation, and anesthesia. The patient immediately re-assessed prior to indication. MIRIAM NICOLE MD Jan 01, 2021 17:10
--- NOTE | 2021-01-01 18:11 | Permanent Pacemaker Implant ---
Dual Chamber Pacemaker Implant PROCEDURE PHYSICIAN: Miriam Avila DUAL CHAMBER PACEMAKER IMPLANTATION: DATE OF PROCEDURE: 01/01/21 INDICATION: Complete heart block PREOPERATIVE DIAGNOSIS: Complete heart block, severe bradycardia POSTOPERATIVE DIAGNOSIS: Complete heart block, severe bradycardia HISTORY: Dual-chamber permanent pacemaker was recommended. PROCEDURE PERFORMED: 1. Dual-chamber permanent pacemaker implantation. 2. Fluoroscopy. 3. Central venous access. ANESTHESIA: Local anesthesia, conscious sedation. COMPLICATIONS: None. ESTIMATED BLOOD LOSS:20 mL. SPECIMENS: None. ORAL ANTICOAGULATION: None. FLUOROSCOPY TIME: FLUOROSCOPY DOSE: CONTRAST DOSE: PROCEDURE DETAILS: The patient is a 75 male with history of persistent atrial fibrillation, having multiple episode of severe bradycardia alternating with tachycardia, episode of long pauses and heart rate in the 50s, symptomatic. Decided to proceed with single-chamber pacemaker implantation. And after all of the patients questions were answered, the patient was brought to the EP Lab. The patient's left chest was prepped and draped in sterile fashion. A 2 inch horizontal incision was made 1 cm below the clavicle and dissection carried down to the pectoralis fascia. Using the modified Seldinger technique and under fluoroscopy guidance, the anterior aspect of the left axillary vein was accessed . The J wires were secured to the drapes with a mosquito clamp. A 7-[place] sheath was introduced o miguel one of the J-wires. The RV lead was then inserted. The RV lead was directed across the tricuspid valve to the apical septal portion of the right ventricle. The position was checked in ROMANIAN and AL[place]A views. The screw was deployed and the lead connected to the as400 programmer analyst. Close sensing and pacing thresholds were obtained. Diaphragmatic pacing was ruled out. The lead was secured with 2-0 silk ties to the underlying muscle and fascia. The lead was connected to the device in a hermetic fashion. The device and leads were placed in the pocket. Aggressive irrigation with saline solution was done. The device was secured to the underlying muscle and fascia with a 2-0 silk tie. interrogation of the device revealed good integrity of all the leads and good connections. The wound was then closed using 2 layers. The first layer was interrupted 2-0 absorbable Vicryl suture. The last layer was a single subcuticular layer with 4- 0 Vicryl suture. Half inch Steri-Strips and a small dressing were then applied to the wound. The patient tolerated the procedure well and was returned to the recovery room in stable condition with stable vital signs. DEVICE INFORMATION: Medtronic TYRESE XT SR MRI Serial number [id number] RV LEAD: [id number] IMMEDIATE POSTOPERATIVE DEVICE INTERROGATION: Bipolar lead pulse width 0.4 ms and 0.5 V threshold. Impedance 418, R wave measured at 10.1 mV PLAN: The patient transferred to the ICU. We will continue with two more doses of IV antibiotics. We will check a chest x-ray and interrogate the device in the morning. The patient will continue on oral antibiotics for 5 days. CONCLUSION: Successful implantation of single-chamber pacemaker with good sensing and capture activity with no complication MIRIAM AVILA MD Jan 01, 2021 6:11 pm
[2021-01-01] MEDS ORDERED: NS IV 1000 ML 1,000 ML IV SCH (18:15)
[2021-01-01] MEDS ORDERED: PATIENT MAY USE OWN MEDS, ALL PO SCH (18:15)
--- NOTE | 2021-01-01 18:30 | Diagnostic Imaging Report ---
EXAMINATION: Chest 1 view HISTORY: Pacemaker placement. COMPARISON: Chest radiograph 12/29/2020. FINDINGS: Stable enlargement of the cardiac silhouette. Slightly increased prominence of the pulmonary vasculature which can be seen with pulmonary vascular congestion. There has been interval placement of a left-sided pacemaker with a single intracardiac lead. A loop recorder overlies the left chest. There is decreased lung volumes with increased bibasilar and bilateral upper lobe airspace opacities. No pneumothorax. The osseous structures are intact. IMPRESSION: 1. Surgical changes from pacemaker placement. No pneumothorax. 2. Decreased lung volumes with increased bibasilar and bilateral upper lobe airspace opacities, likely atelectasis. Dictated by: Dictated on workstation # [id number]
[2021-01-01] MEDS: [UNRECOGNIZED DRUG - REMARK] PO SCH (20:40)
[2021-01-01] MEDS: [UNRECOGNIZED DRUG - REMARK] PO SCH (20:40)
[2021-01-01] MEDS: ceFAZolin INJECTION 1,000 MG in WATER (STERILE) FOR INJECTION 10 ML IV SCH (20:51)
[2021-01-01] MEDS: ACETAMINOPHEN 325 MG TABLET PO PRN (23:07)
[2021-01-02] VITALS (7 sets, daily range): BP systolic 137–183; BP diastolic 67–107
[2021-01-02] MEDS: NS IV 1000 ML 1,000 ML IV SCH ×2 (02:29→14:55)
[2021-01-02] MEDS: ceFAZolin INJECTION 1,000 MG in WATER (STERILE) FOR INJECTION 10 ML IV SCH ×2 (05:21→13:44)
[2021-01-02] MEDS: VENlafaxine XR 75 MG (EFFEXOR XR) CAP PO SCH (05:22)
[2021-01-02] MEDS: LEVOTHYROXINE 175 MG PO SCH (05:22)
[2021-01-02] MEDS: GEMFIBROZIL 600 MG (LOPID) TAB PO SCH ×2 (05:23→17:12)
--- NOTE | 2021-01-02 09:44 | Physical Therapy Daily Note ---
PT Daily Note-Current Subjective Patient seated EOB pre tx, with OT. Patient consented to PT, and noted no pain but needed help adjusting to using walker while L arm in sling and decreased balance due to Parkinson's. Appearance Patient was seated upright in chair, with call button nearby and in room. Mental Status Patient Orientation: Person, Place, Time, Normal For Age Attachments: Other-See Comments, IV L arm sling Transfers SCALE: Activities may be completed with or without assistive devices. 1-Xavdgyqfrh-zaalbxp completes the activity by him/herself with no assistance from a helper. 5-Set-up or Clean-up Assistance-helper sets up or cleans up; patient completes activity. [place] assists only prior to or following the activity. 4-Supervision or Touching Assistance-helper provides verbal cues and/or touching/steadying and/or contact guard assistance as patient completes activity. Assistance may be provided throughout the activity or intermittently. 3-Partial/Moderate Assistance-helper does LESS THAN HALF the effort. [place] lifts, holds or supports trunk or limbs, but provides less than half the effort. 2-Substantial/Maximal Assistance-helper does MORE THAN HALF the effort. [place] lifts or holds trunk or limbs and provides more than half the effort. 8-Vtrtblbhz-spmyfw does ALL the effort. Patient does none of the effort to complete the activity. Or, the assistance of 2 or more helpers is required for the patient to complete the activity. If activity was not attempted, code reason: 7-Patient Refused. 9-Not Applicable-not attempted and the patient did not perform the activity before the current illness, exacerbation or injury. 10-Not Attempted due to Environmental Limitations-(lack of equipment, weather restraints, etc.). 88-Not Attempted due to Medical Conditions or Safety Concerns. Sit to Stand (QC): 3 Chair/Cdg-hx-Ratfs Xfer(QC): 3 Gait Training Does the Patient Walk?: Yes Distance: 150' Walk 10 feet (QC): 3 Walk 50 ft with 2 Turns(QC): 3 Walk 150 ft (QC): 3 Gait Persons Needed: 1 Gait Assistive Device: FWW Patient required increased assistance with managing walker and maintaining balance, and required increased cueing to take large steps and to stand upright with ambulation. Exercises Seated Therapy Exercises: Ankle pumps, Long arc quads Seated Reps: 15 Treatments ambulation, transfers, LE exercise Assessment Current Status: Fair Progress Patient will benefit from increased repetitions with walking while navigating FWW with current diagnosis of parkinsons and L UE in sling, to promote safety with return home with . PT Machine Tool Technician Instructor Goals Senior Care Goals PT Senior Care Goals Time Frame: Jan 12, 2021 Roll Left & Right (QC): 4 Sit to Lying (QC): 4 Lying-Sitting on Side/Bed(QC): 4 Sit to Stand (QC): 3 Chair/Bwm-sf-Lzays Xfer(QC): 3 Toilet Transfer (QC): 3 Does the Patient Walk: Yes Walk 10 feet (QC): 3 Walk 50ft with 2 Turns (QC): 3 Walk 150 ft (QC): 3 PT Plan Problem List Problem List: Activity Tolerance, Functional Strength, Safety, Balance, Gait, Transfer, Bed Mobility, ROM Treatment/Plan Treatment Plan: Continue Plan of Care Treatment Plan: Bed Mobility, Education, Functional Activity [place], Functional Strength, Gait, Safety, Therapeutic Exercise, Transfers Treatment Duration: Jan 12, 2021 Frequency: 6 times per week Estimated Hrs Per Day: .25 hour per day Patient and/or Family Agrees t: Yes Safety Risks/Education Patient Education: Gait Training, Transfer Techniques, Correct Positioning, Safety Issues Teaching Recipient: Patient Teaching Methods: Demonstration, Discussion Response to Teaching: Verbalize Understanding, Return Demonstration Time/GCodes Time In: 909 Time Out: 926 Total Billed Treatment Time: 17 Total Billed Treatment 1 visit: FA: LESLYE MCGOWAN PT Jan 02, 2021 09:44
--- NOTE | 2021-01-02 09:55 | Cardiology Progress Note ---
Subjective Date Seen by Provider: Jan 02, 2021 Time Seen by Provider: 08:40 Subjective/Events-last exam Sitting up in chair, denies any dizziness or lightheadedness. Review of Systems General: No Chills, No Night Sweats; Fatigue, Malaise; No Appetite, No Other HEENT: No Head Aches, No Visual Changes, No Eye Pain, No Ear Pain, No Dysphasia, No Sinus Congestion, No Post Nasal Drip, No Sore Throat, No Other Pulmonary: No Dyspnea, No Cough, No Pleuritic Chest Pain, No Other Cardiovascular: No: Chest Pain, Palpitations, Orthopnea, Paroxysmal Noc. Dyspnea, Edema, Lt Headedness, Other Objective-Cardiology Exam Last Set of Vital Signs Vital Signs 01/02/21 07:04 Temp 35.8 Pulse 65 Resp 20 B/P (MAP) 178/84 (115) Pulse Ox 97 O2 Delivery Room Air Capillary Refill : Less Than 3 Seconds I&O Intake and Output 01/02/21 00:00 Intake Total 2165 ml Balance 2165 ml Intake Oral 1565 ml IV Total 600 ml # Voids 8 # Bowel Movements 2 General: Alert, Oriented X3, Cooperative HEENT: Atraumatic, PERRLA Neck: Supple, No JVD, No Thyromegaly Lungs: Clear to Auscultation, Normal Air Movement Heart: Normal S1, Normal S2, No Murmurs, Other (Atrial fibrillation) Abdomen: Normal Bowel Sounds, Soft, No Tenderness, No Hepatosplenomegaly, No Masses Extremities: No Clubbing, No Cyanosis, No Edema, Normal Pulses, No Tenderness/Swelling Skin: No Rashes, No Breakdown, No Significant Lesion Neuro: Normal Gait, Normal Speech, Strength at 5/5 X4 Ext, Normal Tone, Sensation Intact Psych/Mental Status: Mental Status NL, Mood NL A/P-Cardiology Admission Diagnosis Syncope Persistent atrial fibrillation Bradycardia Hypertension Assessment/Plan Syncope- had syncopal episode x 2. Sinus node dysfunction alternating with paroxysmal atrial fibrillation with severe bradycardia, status post single- chamber pacemaker implantation with no complication. Site is healing well. Continue to monitor Debility, patient is unable to take care of himself, after the pacemaker implant was concerned that she will not be able to support him to get up and get out of bed due to the fact that he cannot use his left arm. We had a long discussion about the management plan, starting physical therapy, will consider a cute rehab. History of loop monitor implanted, I am planning to extracted. Chest pain, nonspecific etiology, improved. Denies any recent chest pain. Stress test done February 2017 was negative for ischemia or infarct. Continue to monitor. Persistent atrial fibrillation-unable to tolerate beta enoc secondary to underlying bradycardia, unable to tolerate amiodarone due to dizziness, rate well controlled. S/p LINq implantation, planning for extraction. [id number] score of 2, yearly risk of stroke without oral anticoagulation is 2.2 percent. Maintained on Eliquis. Malignant hypertension, history of hypertensive encephalopathy with hallucinations during episode of elevated blood pressure. Has been having labile hypertension recently. HELEN, intolerant to CPAP Hypothyroidism, managed by primary care physician Parkinson's disease, followed by primary care physician Hyperlipidemia, maintained on fenofibrate, good control. Continue on current medications and continue to monitor. Next Mild bilateral carotid stenosis, ultrasound was done May 2019, continue to monitor. Supervisory-Addendum Brief Supervisory Addendum Participated in pt care: history, MDM, physical Personally performed: exam, history, MDM Care discussed with: STEW Notes: Patient was seen and evaluated with Alma, examination performed, management plan was discussed, agree with the current scribed note, I made few changes to the note using Italic font Patient is laying down in bed, seen and evaluated, comfortable Having generalized weakness, unable to get out of bed, concern about his situation after the pacemaker implant during the recovery. We will start physical therapy, discussed the management plan with the and had a long discussion about long-term planning. ALMA DEE Jan 02, 2021 09:55 MIRIAM NICOLE MD Jan 02, 2021 12:25
[2021-01-02] MEDS: SINEMET 25/100 (CARBIDOPA/LEVODOPA) TAB PO SCH ×4 (10:11→20:07)
[2021-01-02] MEDS: PANTOPRAZOLE 40 MG (PROTONIX) TAB PO SCH (10:11)
[2021-01-02] MEDS: hydrALAZINE (APRESOLINE) 25 MG TAB PO SCH ×3 (10:12→20:06)
--- NOTE | 2021-01-02 14:12 | Occupational Ther Daily Note ---
OT Current Status-Daily Note Subjective No pain reported. Mental Status/Objective Patient Orientation: Person, Place ADL-Treatment Therapy Code Descriptions/Definitions Functional [place] Measure: 0=Not Assessed/NA 4=Minimal Assistance 1=Total Assistance 5=Supervision or Setup 2=Maximal Assistance 6=Modified [place] 3=Moderate Assistance 7=Complete IndependenceSCALE: Activities may be completed with or without assistive devices. 1-Yfosfxmmox-llgeurt completes the activity by him/herself with no assistance from a helper. 5-Set-up or Clean-up Assistance-helper sets up or cleans up; patient completes activity. [place] assists only prior to or following the activity. 4-Supervision or Touching Assistance-helper provides verbal cues and/or touching/steadying and/or contact guard assistance as patient completes activity. Assistance may be provided throughout the activity or intermittently. 3-Partial/Moderate Assistance-helper does LESS THAN HALF the effort. [place] lifts, holds or supports trunk or limbs, but provides less than half the effort. 2-Substantial/Maximal Assistance-helper does MORE THAN HALF the effort. [place] lifts or holds trunk or limbs and provides more than half the effort. 3-Mhprezdfr-hercqr does ALL the effort. Patient does none of the effort to complete the activity. Or, the assistance of 2 or more helpers is required for the patient to complete the activity. If activity was not attempted, code reason: 7-Patient Refused. 9-Not Applicable-not attempted and the patient did not perform the activity before the current illness, exacerbation or injury. 10-Not Attempted due to Environmental Limitations-(lack of equipment, weather restraints, etc.). 88-Not Attempted due to Medical Conditions or Safety Concerns. On/Off Footwear: 2 Toileting Hygiene (QC): 1 Other Treatment Pt. in bed. OT goes over new pacemaker precautions with pt. and spouse. Spouse concerned with pt's transfers, as she has to "pull" on his left arm to assist him out of bed, and assistance with using walker. Pt. transfers supine-sit with mod assistance. OT demonstrates ability to spouse on how to assist pt. by putting arm behind pt's back with transfer, and using pull sheet to assist him to side. Pt. is able to stand from higher surface using right arm on walker, and with min assist for sit-stand. Pt. and spouse educated about using walker with right UE only, with guidance from spouse. PT came in at this time and took over treatment to ambulate with walker and pt. Education OT Patient Education: Correct positioning, Modified ADL techniques, Progress toward Goal/Update tx plan, Purpose of tx/functional activities, Reviewed precautions, Rehab process, Transfer techniques Teaching Recipient: Patient Teaching Methods: Demonstration, Discussion Response to Teaching: Verbalize Understanding, Return Demonstration OT Legal Administrator Goals Detention Goals Time Frame: Jan 07, 2021 Eating (QC): 6 Oral Hygiene (QC): 6 showering/ toileting/ dressing tasks will not be addressed due to at PLOF and receives assist with these tasks at home. Additional Goals: 1-Demonstrate ADL Tasks, 2-Verbalize Understanding, 3- ImproveStrength/Darling 1=Demonstrate adherence to instructed precautions during ADL tasks. 2=Patient will verbalize/demonstrate understanding of assistive devices/modifications for ADL. 3=Patient will improve strength/tolerance for activity to enable patient to perform ADL's. OT Education/Plan Problem List/Assessment Assessment: Decreased Activ Tolerance, Decreased UE Strength, Dependent Transfers, Impaired Bed Mobility, Impaired Funct Balance, Impaired I ADL's, Impaired Self-Care Skills, Restricted Funct UE ROM Discharge Recommendations Plan/Recommendations: Continue POC Therapy Discharge Recommendati: 24 Hour Supervision Treatment Plan/Plan of Care Treatment,Training & Education: Yes Patient would benefit from OT for education, treatment and training to promote independence in ADL's, mobility, safety and/or upper extremity function for ADL's. Plan of Care: ADL Retraining, Caregiver Training, Functional Mobility, UE Funct Exercise/Act, OTHER (adaptive tool training) Treatment Duration: Jan 07, 2021 Frequency: 5 times per week Estimated Hrs Per Day: .25 hour per day Agreement: Yes Rehab Potential: Fair Time/GCodes Start Time: 08:50 Stop Time: 09:15 Total Time Billed (hr/min): 25 Billed Treatment Time 1, FA x 2 JEAN CORREIA OT Jan 02, 2021 14:12
[2021-01-02] MEDS: ACETAMINOPHEN 325 MG TABLET PO PRN (17:12)
[2021-01-02] MEDS: ALLOPURINOL 300 MG (ZYLOPRIM) TAB PO SCH (17:13)
[2021-01-02] MEDS: QUEtiapine 25 MG (SEROquel) TAB IMMEDIATE RELEASE PO SCH ×2 (17:13→20:09)
[2021-01-02] MEDS: [UNRECOGNIZED DRUG - REMARK] PO SCH (20:06)
[2021-01-02] MEDS: [UNRECOGNIZED DRUG - REMARK] PO SCH (20:06)
--- NOTE | 2021-01-02 21:32 | Progress Note - Hospitalist ---
Subjective HPI/CC On Admission Date Seen by Provider: Jan 02, 2021 Time Seen by Provider: 11:00 Pt is a 75yoCM with a PMH of HTN, parkinson's disease, HLD who presented to the Er due to syncope. states he hasn't felt well for a few days abut he normally has good days and bad days with his parkinson's. his blood pressure had been very high a couple of weeks ago and he wwent to see his primary care doctor but by then his BP was low. His PCP thought that it was due to his parkinson's. His continued to monitor his blood pressure at home and noticed it had been erractic dropping in to the 90s and up to the 170s. He was prescribed an antibiotic for an ear infection by his PCP this week as well. He had a syncopal episode yesterday and his called 911 but patient refused their services. He passed out again this morning and his called 911 again for evaluation. Subjective/Events-last exam He is feeling well. He is having a little discomfort where his pacemaker was placed. He is having some trouble doing activities since his dominant arm is in a sling now. Objective Exam Vital Signs Vital Signs Date Time Temp Pulse Resp B/P (MAP) Pulse Ox O2 Delivery O2 Flow Rate FiO2 01/02/21 19:43 36.0 62 20 183/107 (132) 98 Room Air Capillary Refill : Less Than 3 Seconds General Appearance: No Apparent Distress, Obese Respiratory: Lungs Clear, Normal Breath Sounds, No Respiratory Distress Cardiovascular: Regular Rate, Rhythm, No Murmur Gastrointestinal: Normal Bowel Sounds, Non Tender, Soft Extremity: Normal Inspection, Non Tender, Pedal Edema Neurologic/Psychiatric: Alert, Oriented x3, Normal Mood/Affect, Motor Weakness Skin: Normal Color, Warm/Dry Results/Procedures Lab Patient resulted labs reviewed. Imaging: Reviewed Imaging Report Assessment/Plan Assessment and Plan Assess & Plan/Chief Complaint Bradycardia Syncope s/p Pacemaker s/p pacemaker placement 01/01 Orthostatic hypotension HTN Likely due to progressing Parkinson's Continue Hydralazine with hold parameters Restart low dose Lisinopril IV Hydralazine as needed Parkinson's Dementia Weakness Acute on chronic debility Continue home Sinemet PT/OT Inpatient rehab denied Considering swing bed Atrial fibrillation, chronic HLD Continue home meds Eliquis held DVT prophylaxis: already receiving therapeutic anticoagulation Diagnosis/Problems Diagnosis/Problems (1) Orthostatic hypotension Status: Acute (2) Syncope Status: Acute (3) Bradycardia Status: Acute (4) Parkinson's disease (tremor, stiffness, slow motion, unstable posture) Status: Acute (5) HTN (hypertension) Status: Acute Qualifiers: Hypertension type: essential hypertension Qualified Codes: I10 - Essential (primary) hypertension ERIBERTO BOWMAN MD Jan 02, 2021 21:32
[2021-01-02] MEDS ORDERED: lisINopril 40 MG (PRINIVIL) TABLET PO ONE (21:47)
[2021-01-02] MEDS ORDERED: lisINopril 5 MG (PRINIVIL) TABLET PO ONE (22:03)
[2021-01-03] VITALS (10 sets, daily range): BP systolic 84–189; BP diastolic 49–99
[2021-01-03] MEDS: NS IV 1000 ML 1,000 ML IV SCH (06:18)
[2021-01-03] MEDS: VENlafaxine XR 75 MG (EFFEXOR XR) CAP PO SCH (06:19)
[2021-01-03] MEDS: GEMFIBROZIL 600 MG (LOPID) TAB PO SCH ×2 (06:19→17:01)
[2021-01-03] MEDS: LEVOTHYROXINE 175 MG PO SCH (06:21)
[2021-01-03] MEDS ORDERED: FUROSEMIDE 40 MG/4 ML INJ (LASIX) IVP ONE (06:30)
[2021-01-03] MEDS: SINEMET 25/100 (CARBIDOPA/LEVODOPA) TAB PO SCH ×4 (07:56→20:14)
[2021-01-03] MEDS: PANTOPRAZOLE 40 MG (PROTONIX) TAB PO SCH (07:57)
[2021-01-03] MEDS ORDERED: hydrALAZINE (APRESOLINE) 25 MG TAB PO SCH (09:00)
--- NOTE | 2021-01-03 10:36 | Physical Therapy Daily Note ---
PT Daily Note-Current Subjective Patient agrees to PT. Sling in place left UE due to pacemaker placement (NWB). Patient incontinent urine. Mental Status Patient Orientation: Normal For Age Attachments: IV Transfers SCALE: Activities may be completed with or without assistive devices. 5-Dnvkhanhul-jpqissg completes the activity by him/herself with no assistance from a helper. 5-Set-up or Clean-up Assistance-helper sets up or cleans up; patient completes activity. [place] assists only prior to or following the activity. 4-Supervision or Touching Assistance-helper provides verbal cues and/or touching/steadying and/or contact guard assistance as patient completes activity. Assistance may be provided throughout the activity or intermittently. 3-Partial/Moderate Assistance-helper does LESS THAN HALF the effort. [place] lifts, holds or supports trunk or limbs, but provides less than half the effort. 2-Substantial/Maximal Assistance-helper does MORE THAN HALF the effort. [place] lifts or holds trunk or limbs and provides more than half the effort. 4-Tekkrqled-plcddx does ALL the effort. Patient does none of the effort to complete the activity. Or, the assistance of 2 or more helpers is required for the patient to complete the activity. If activity was not attempted, code reason: 7-Patient Refused. 9-Not Applicable-not attempted and the patient did not perform the activity before the current illness, exacerbation or injury. 10-Not Attempted due to Environmental Limitations-(lack of equipment, weather restraints, etc.). 88-Not Attempted due to Medical Conditions or Safety Concerns. Sit to Lying (QC): 2 Lying to Sitting/Side of Bed(Q: 3 Sit to Stand (QC): 3 lift chair placed in room Gait Training Does the Patient Walk?: Yes Distance: 200' Walk 10 feet (QC): 3 Walk 50 ft with 2 Turns(QC): 3 Walk 150 ft (QC): 3 Gait Assistive Device: FWW PT assist to advance FWW due to left UE NWB. Parkinson's gait sequence. Exercises Seated Therapy Exercises: Ankle pumps, Long arc quads Seated Reps: 12 (AAROM) Treatments During gait training, patient began to "melt". Patient transferred to chair with BP taken reading 84/49. RN present. Patient transferred to bed with assist of PT. Assessment Patient had episode of low BP requiring assist to return to bed for safety. RN present to assess patient. Education with spouse on bed mobility and utilizing patient's rigidity to perform more efficiently. Spouse voices understanding. Patient to utilize lift chair in room and at home to assist with transfers due to NWB left UE (pacemaker). PT [facility] Goals Manager [employer] Goals PT Manager Consumer Insights Goals Time Frame: Jan 12, 2021 Roll Left & Right (QC): 4 Sit to Lying (QC): 4 Lying-Sitting on Side/Bed(QC): 4 Sit to Stand (QC): 3 Chair/Laq-yo-Wmdui Xfer(QC): 3 Toilet Transfer (QC): 3 Does the Patient Walk: Yes Walk 10 feet (QC): 3 Walk 50ft with 2 Turns (QC): 3 Walk 150 ft (QC): 3 PT Plan Treatment/Plan Treatment Plan: Continue Plan of Care Treatment Plan: Bed Mobility, Education, Functional Activity Darling, Functional Strength, Gait, Safety, Therapeutic Exercise, Transfers Treatment Duration: Jan 12, 2021 Frequency: 6 times per week Estimated Hrs Per Day: .25 hour per day Patient and/or Family Agrees t: Yes Time/GCodes Time In: 905 Time Out: 935 Total Billed Treatment Time: 30 Total Billed Treatment 1 visit GT 10 min FA 20 min CRISPIN LOCO PT Jan 03, 2021 10:36
--- NOTE | 2021-01-03 11:21 | Progress Note - Hospitalist ---
Subjective HPI/CC On Admission Date Seen by Provider: Jan 03, 2021 Time Seen by Provider: 09:55 Pt is a 75yoCM with a PMH of HTN, parkinson's disease, HLD who presented to the Er due to syncope. states he hasn't felt well for a few days abut he normally has good days and bad days with his parkinson's. his blood pressure had been very high a couple of weeks ago and he wwent to see his primary care doctor but by then his BP was low. His PCP thought that it was due to his parkinson's. His continued to monitor his blood pressure at home and noticed it had been erractic dropping in to the 90s and up to the 170s. He was prescribed an antibiotic for an ear infection by his PCP this week as well. He had a syncopal episode yesterday and his called 911 but patient refused their services. He passed out again this morning and his called 911 again for evaluation. Subjective/Events-last exam He is doing pretty well this morning. He got lightheaded while walking with PT and his blood pressure was found to be low. He is not having any pain. He is not having any other complaints or concerns other than his inability to use his left arm. Objective Exam Vital Signs Vital Signs Date Time Temp Pulse Resp B/P (MAP) Pulse Ox O2 Delivery O2 Flow Rate FiO2 01/03/21 09:41 60 84/49 (61) 01/03/21 07:18 35.8 20 95 Room Air Capillary Refill : Less Than 3 Seconds General Appearance: No Apparent Distress, Obese Respiratory: Lungs Clear, Normal Breath Sounds, No Respiratory Distress Cardiovascular: Regular Rate, Rhythm, No Edema, No Murmur Gastrointestinal: Normal Bowel Sounds, Non Tender, Soft Extremity: Normal Inspection, Non Tender, No Pedal Edema Neurologic/Psychiatric: Alert, Oriented x3 Skin: Normal Color, Warm/Dry Results/Procedures Lab Patient resulted labs reviewed. Imaging: Reviewed Imaging Report Assessment/Plan Assessment and Plan Assess & Plan/Chief Complaint Bradycardia Syncope s/p Pacemaker s/p pacemaker placement 01/01 Orthostatic hypotension HTN Likely due to progressing Parkinson's Continue Hydralazine with hold parameters Continue Lisinopril Started on Metoprolol IV Hydralazine as needed Parkinson's Dementia Weakness Acute on chronic debility Continue home Sinemet PT/OT Inpatient rehab denied Considering swing bed Atrial fibrillation, chronic HLD Continue home meds Eliquis held DVT prophylaxis: already receiving therapeutic anticoagulation Diagnosis/Problems Diagnosis/Problems (1) Orthostatic hypotension Status: Acute (2) Syncope Status: Acute (3) Bradycardia Status: Acute (4) Parkinson's disease (tremor, stiffness, slow motion, unstable posture) Status: Acute (5) HTN (hypertension) Status: Acute Qualifiers: Hypertension type: essential hypertension Qualified Codes: I10 - Essential (primary) hypertension ERIBERTO BOWMAN MD Jan 03, 2021 11:21
[2021-01-03] MEDS: hydrALAZINE (APRESOLINE) 25 MG TAB PO SCH ×2 (12:14→20:14)
--- NOTE | 2021-01-03 13:16 | Cardiology Progress Note ---
Subjective Date Seen by Provider: Jan 03, 2021 Time Seen by Provider: 13:15 Subjective/Events-last exam Patient was seen at bedside, feeling better. No new complaint, still having generalized weakness and peripheral edema Review of Systems General: No Chills, No Night Sweats; Fatigue, Malaise; No Appetite, No Other HEENT: No Head Aches, No Visual Changes, No Eye Pain, No Ear Pain, No Dysphasia, No Sinus Congestion, No Post Nasal Drip, No Sore Throat, No Other Pulmonary: No Dyspnea, No Cough, No Pleuritic Chest Pain, No Other Cardiovascular: Edema; No: Chest Pain, Palpitations, Orthopnea, Paroxysmal Noc. Dyspnea, Lt Headedness, Other Objective-Cardiology Exam Last Set of Vital Signs Vital Signs 01/03/21 01/03/21 10:35 12:31 Temp 36.0 Pulse 60 Resp 20 B/P (MAP) 116/68 (84) Pulse Ox 96 O2 Delivery Room Air Capillary Refill : Less Than 3 Seconds I&O Intake and Output 01/03/21 00:00 Intake Total 1470 ml Output Total 1200 ml Balance 270 ml Intake Oral 1460 ml IV Total 10 ml Output Urine Total 1200 ml # Voids 5 General: Alert, Oriented X3, Cooperative HEENT: Atraumatic, PERRLA Neck: Supple, No JVD, No Thyromegaly Lungs: Clear to Auscultation, Normal Air Movement Heart: Normal S1, Normal S2, No Murmurs, Other (Atrial fibrillation) Abdomen: Normal Bowel Sounds, Soft, No Tenderness, No Hepatosplenomegaly, No Masses Extremities: No Clubbing, No Cyanosis, No Edema, Normal Pulses, No Tenderness/Swelling Skin: No Rashes, No Breakdown, No Significant Lesion Neuro: Normal Gait, Normal Speech, Strength at 5/5 X4 Ext, Normal Tone, Sensation Intact Psych/Mental Status: Mental Status NL, Mood NL A/P-Cardiology Admission Diagnosis Syncope Persistent atrial fibrillation Bradycardia Hypertension Assessment/Plan Syncope- had syncopal episode x 2. Sinus node dysfunction alternating with paroxysmal atrial fibrillation with severe bradycardia, status post single- chamber pacemaker implantation with no complication. Site is healing well. Continue to monitor Debility, patient is unable to take care of himself, after the pacemaker implant was concerned that she will not be able to support him to get up and get out of bed due to the fact that he cannot use his left arm. We had a long discussion about the management plan, starting physical therapy, will consider acute rehab versus swing bed Peripheral edema, started on Lasix, monitor tolerance and response History of loop monitor implanted, I am planning to extracted. Chest pain, nonspecific etiology, improved. Denies any recent chest pain. Stress test done February 2017 was negative for ischemia or infarct. Continue to monitor. Persistent atrial fibrillation-unable to tolerate beta enoc secondary to underlying bradycardia, unable to tolerate amiodarone due to dizziness, rate well controlled. S/p LINq implantation, planning for extraction. [id number] score of 2, yearly risk of stroke without oral anticoagulation is 2.2 percent. Maintained on Eliquis. Malignant hypertension, history of hypertensive encephalopathy with hallucinations during episode of elevated blood pressure. Has been having labil e hypertension recently. HELEN, intolerant to CPAP Hypothyroidism, managed by primary care physician Parkinson's disease, followed by primary care physician Hyperlipidemia, maintained on fenofibrate, good control. Continue on current medications and continue to monitor. Next Mild bilateral carotid stenosis, ultrasound was done May 2019, continue to monitor. MIRIAM NICOLE MD Jan 03, 2021 13:16
--- NOTE | 2021-01-03 14:32 | Occupational Ther Daily Note ---
OT Current Status-Daily Note Subjective Pt agreeable to OT tx, at bedside. ADL-Treatment Therapy Code Descriptions/Definitions Functional [place] Measure: 0=Not Assessed/NA 4=Minimal Assistance 1=Total Assistance 5=Supervision or Setup 2=Maximal Assistance 6=Modified [place] 3=Moderate Assistance 7=Complete IndependenceSCALE: Activities may be completed with or without assistive devices. 7-Jbpvetmjta-fpgrcpw completes the activity by him/herself with no assistance from a helper. 5-Set-up or Clean-up Assistance-helper sets up or cleans up; patient completes activity. [place] assists only prior to or following the activity. 4-Supervision or Touching Assistance-helper provides verbal cues and/or touching/steadying and/or contact guard assistance as patient completes activity. Assistance may be provided throughout the activity or intermittently. 3-Partial/Moderate Assistance-helper does LESS THAN HALF the effort. [place] lifts, holds or supports trunk or limbs, but provides less than half the effort. 2-Substantial/Maximal Assistance-helper does MORE THAN HALF the effort. [place] lifts or holds trunk or limbs and provides more than half the effort. 0-Uyletejpz-gehpet does ALL the effort. Patient does none of the effort to c omplete the activity. Or, the assistance of 2 or more helpers is required for the patient to complete the activity. If activity was not attempted, code reason: 7-Patient Refused. 9-Not Applicable-not attempted and the patient did not perform the activity before the current illness, exacerbation or injury. 10-Not Attempted due to Environmental Limitations-(lack of equipment, weather restraints, etc.). 88-Not Attempted due to Medical Conditions or Safety Concerns. Other Treatment Pt laying in bed, aide present changing pt's brief. Assist x2 to roll side to side in bed to manage brief up. Assist x2 to boost towrads HOB. OT tx focused on increasing BUE strength and functional activity tolerance. Pt completed x15 reps RUE shoulder flexion, elbow flexion/extension, and BUE finger flexion/extension. OT encouraged pt to complete throughout the day, he verbalized understanding. Post tx, pt laying in bed, call light in reach and all needs met. Education OT Patient Education: Correct positioning, Modified ADL techniques, Progress toward Goal/Update tx plan, Purpose of tx/functional activities Teaching Recipient: Patient Teaching Methods: Discussion Response to Teaching: Verbalize Understanding OT Detention Goals Detention Goals Time Frame: Jan 07, 2021 Eating (QC): 6 Oral Hygiene (QC): 6 showering/ toileting/ dressing tasks will not be addressed due to at PLOF and receives assist with these tasks at home. Additional Goals: 1-Demonstrate ADL Tasks, 2-Verbalize Understanding, 3- ImproveStrength/Darling 1=Demonstrate adherence to instructed precautions during ADL tasks. 2=Patient will verbalize/demonstrate understanding of assistive devices/modifications for ADL. 3=Patient will improve strength/tolerance for activity to enable patient to perform ADL's. OT Education/Plan Problem List/Assessment Assessment: Decreased Activ Tolerance, Decreased UE Strength, Impaired Bed Mobility, Impaired I ADL's, Impaired Self-Care Skills Discharge Recommendations Plan/Recommendations: Continue POC Treatment Plan/Plan of Care Patient would benefit from OT for education, treatment and training to promote independence in ADL's, mobility, safety and/or upper extremity function for ADL's. Plan of Care: ADL Retraining, Caregiver Training, Functional Mobility, UE Funct Exercise/Act, OTHER (adaptive tool training) Treatment Duration: Jan 07, 2021 Frequency: 5 times per week Estimated Hrs Per Day: .25 hour per day Agreement: Yes Rehab Potential: Fair Time/GCodes Start Time: 14:00 Stop Time: 14:13 Total Time Billed (hr/min): 13 Billed Treatment Time 1, EX JENNIFER LLOYD OT Jan 03, 2021 14:32
[2021-01-03] MEDS: QUEtiapine 25 MG (SEROquel) TAB IMMEDIATE RELEASE PO SCH ×2 (17:02→20:16)
[2021-01-03] MEDS: ALLOPURINOL 300 MG (ZYLOPRIM) TAB PO SCH (17:02)
[2021-01-03] MEDS: lisINopril 5 MG (PRINIVIL) TABLET PO SCH (20:14)
[2021-01-03] MEDS: [UNRECOGNIZED DRUG - REMARK] PO SCH (20:15)
[2021-01-03] MEDS: [UNRECOGNIZED DRUG - REMARK] PO SCH (20:16)
[2021-01-04 03:17] VITALS: BP 157/79
[2021-01-04] MEDS: NS IV 1000 ML 1,000 ML IV SCH (04:53)
[2021-01-04] MEDS: VENlafaxine XR 75 MG (EFFEXOR XR) CAP PO SCH (06:05)
[2021-01-04] MEDS: LEVOTHYROXINE 175 MG PO SCH (06:06)
[2021-01-04] MEDS: GEMFIBROZIL 600 MG (LOPID) TAB PO SCH ×2 (06:07→17:01)
[2021-01-04 08:00] VITALS: BP 170/95
[2021-01-04] MEDS: SINEMET 25/100 (CARBIDOPA/LEVODOPA) TAB PO SCH ×4 (08:42→20:47)
[2021-01-04] MEDS: hydrALAZINE (APRESOLINE) 25 MG TAB PO SCH ×3 (08:42→20:48)
[2021-01-04] MEDS: PANTOPRAZOLE 40 MG (PROTONIX) TAB PO SCH (08:43)
--- NOTE | 2021-01-04 09:35 | Physical Therapy Daily Note ---
PT Daily Note-Current Subjective Patient reports fatigue on this date. Declined ambulation but agrees to exercises. Mental Status Patient Orientation: Normal For Age Attachments: IV Transfers SCALE: Activities may be completed with or without assistive devices. 5-Xmvvlzsyzh-ivgavup completes the activity by him/herself with no assistance from a helper. 5-Set-up or Clean-up Assistance-helper sets up or cleans up; patient completes activity. [place] assists only prior to or following the activity. 4-Supervision or Touching Assistance-helper provides verbal cues and/or touching/steadying and/or contact guard assistance as patient completes activity. Assistance may be provided throughout the activity or intermittently. 3-Partial/Moderate Assistance-helper does LESS THAN HALF the effort. [place] lifts, holds or supports trunk or limbs, but provides less than half the effort. 2-Substantial/Maximal Assistance-helper does MORE THAN HALF the effort. [place] lifts or holds trunk or limbs and provides more than half the effort. 8-Wmzjjaziq-wscqiz does ALL the effort. Patient does none of the effort to complete the activity. Or, the assistance of 2 or more helpers is required for the patient to complete the activity. If activity was not attempted, code reason: 7-Patient Refused. 9-Not Applicable-not attempted and the patient did not perform the activity before the current illness, exacerbation or injury. 10-Not Attempted due to Environmental Limitations-(lack of equipment, weather restraints, etc.). 88-Not Attempted due to Medical Conditions or Safety Concerns. Roll Left & Right (QC): 3 Lying to Sitting/Side of Bed(Q: 3 Sit to Stand (QC): 3 Chair/Kzd-qf-Ggtgy Xfer(QC): 3 Exercises Supine Ex: Ankle pumps, Heel Slides, Straight leg raise, Hip abd/add Supine Reps: 12 (AAROM (rigidity due to Parkinson's)) Seated Therapy Exercises: Ankle pumps, Long arc quads, Hip flexion Seated Reps: 15 Assessment Patient tolerates minimal activity on this date due to fatigue/lethargy. PT to increase activity as tolerated by patient. PT Fdc Goals Fdc Goals PT Statistical Machine Mechanic Goals Time Frame: Jan 12, 2021 Roll Left & Right (QC): 4 Sit to Lying (QC): 4 Lying-Sitting on Side/Bed(QC): 4 Sit to Stand (QC): 3 Chair/Epg-vz-Slfir Xfer(QC): 3 Toilet Transfer (QC): 3 Does the Patient Walk: Yes Walk 10 feet (QC): 3 Walk 50ft with 2 Turns (QC): 3 Walk 150 ft (QC): 3 PT Plan Treatment/Plan Treatment Plan: Continue Plan of Care Treatment Plan: Bed Mobility, Education, Functional Activity [place], Functional Strength, Gait, Safety, Therapeutic Exercise, Transfers Treatment Duration: Jan 12, 2021 Frequency: 6 times per week Estimated Hrs Per Day: .25 hour per day Patient and/or Family Agrees t: Yes Time/GCodes Time In: 901 Time Out: 913 Total Billed Treatment Time: 12 Total Billed Treatment 1 visit EX 12 min CRISPIN LOCO PT Jan 04, 2021 09:35
[2021-01-04 12:00] VITALS: BP_SYST 125; BP_SYST 151; BP_DIAS 65; BP_DIAS 68
--- NOTE | 2021-01-04 14:22 | Occupational Ther Daily Note ---
OT Current Status-Daily Note Subjective Pt AxO. present in room through session. Pt agrees to tx. States min pain in bottom and arthritic pain in L elbow due to decreased ROM/ sling placement. Mental Status/Objective Patient Orientation: Person, Place, Situation ADL-Treatment Therapy Code Descriptions/Definitions Functional [place] Measure: 0=Not Assessed/NA 4=Minimal Assistance 1=Total Assistance 5=Supervision or Setup 2=Maximal Assistance 6=Modified [place] 3=Moderate Assistance 7=Complete IndependenceSCALE: Activities may be completed with or without assistive devices. 5-Iuqxuqmsex-zbthikn completes the activity by him/herself with no assistance from a helper. 5-Set-up or Clean-up Assistance-helper sets up or cleans up; patient completes activity. [place] assists only prior to or following the activity. 4-Supervision or Touching Assistance-helper provides verbal cues and/or touching/steadying and/or contact guard assistance as patient completes activity. Assistance may be provided throughout the activity or intermittently. 3-Partial/Moderate Assistance-helper does LESS THAN HALF the effort. [place] lifts, holds or supports trunk or limbs, but provides less than half the effort. 2-Substantial/Maximal Assistance-helper does MORE THAN HALF the effort. [place] lifts or holds trunk or limbs and provides more than half the effort. 3-Olkvzzxgl-jhdaaf does ALL the effort. Patient does none of the effort to complete the activity. Or, the assistance of 2 or more helpers is required for the patient to complete the activity. If activity was not attempted, code reason: 7-Patient Refused. 9-Not Applicable-not attempted and the patient did not perform the activity before the current illness, exacerbation or injury. 10-Not Attempted due to Environmental Limitations-(lack of equipment, weather restraints, etc.). 88-Not Attempted due to Medical Conditions or Safety Concerns. Other Treatment Pt to swing tomorrow. Pt AxO. LUE precautions reviewed; with 's assist, pt able to state all precautions due to pacemaker placement. Agrees to tx. Back kyphotic due to hip placement near edge of chair. Pt is encouraged to reposition. Pt sit to stand 2x (mod A each time, min cues for R hand placement and no pressure through LUE). Pt stands for ~2 min each time. Cushion placed under top sheet in chair to decrease bottom pain/ wound risk. Pt returns to sit, pt c/o arthritic pain in L elbow. Pt is educated on ability to complete AROM of elbow/ hand/ wrist at this time. Pt's LUE propped under elbow to encourage soulder support and pt complete repetitions of elbow flexion/ partial extension to pillow (~45*). Pt is educated that during feeding tasks, as pt expresses DO has prescribed sling and pt "not to take it off", pt is able to utilize RUE to scoop food/ place in L and, when LUE propped, bring to mouth to increase LUE use and functional feeding with dominant L hand. Pt and nod in understanding. All needs met, call light in reach, pt in chair end of session. Education OT Patient Education: Correct positioning, Exercise program, Home exercise program, Modified ADL techniques, Reviewed precautions, Safety issues, Transfer techniques Teaching Recipient: Patient, Significant Other Teaching Methods: Demonstration, Discussion Response to Teaching: Verbalize Understanding, Return Demonstration OT Agricultural Equipment Test Engineer Goals Residential Goals Time Frame: Jan 07, 2021 Eating (QC): 6 Oral Hygiene (QC): 6 showering/ toileting/ dressing tasks will not be addressed due to at PLOF and receives assist with these tasks at home. Additional Goals: 1-Demonstrate ADL Tasks, 2-Verbalize Understanding, 3- ImproveStrength/Darling 1=Demonstrate adherence to instructed precautions during ADL tasks. 2=Patient will verbalize/demonstrate understanding of assistive devices/modifi cations for ADL. 3=Patient will improve strength/tolerance for activity to enable patient to perform ADL's. OT Education/Plan Problem List/Assessment Assessment: Decreased Activ Tolerance, Impaired Coordination, Impaired I ADL's, Impaired Self-Care Skills, Restricted Funct UE ROM Discharge Recommendations Plan/Recommendations: Continue POC Therapy Discharge Recommendati: Home & Family, Post Acute OT Treatment Plan/Plan of Care Treatment,Training & Education: Yes Patient would benefit from OT for education, treatment and training to promote independence in ADL's, mobility, safety and/or upper extremity function for ADL's. Plan of Care: ADL Retraining, Caregiver Training, Functional Mobility, UE Funct Exercise/Act, OTHER (adaptive tool training) Treatment Duration: Jan 07, 2021 Frequency: 5 times per week Estimated Hrs Per Day: .25 hour per day Agreement: Yes Rehab Potential: Fair Time/GCodes Start Time: 14:05 Stop Time: 14:20 Total Time Billed (hr/min): 15 Billed Treatment Time 1, EX (15) ARIANNA ACEVEDO OTR Jan 04, 2021 14:21
[2021-01-04] MEDS ORDERED: LACTULOSE SYRUP 10GM/15ML (ENULOSE) 30ML UDC PO PRN (15:00)
--- NOTE | 2021-01-04 15:26 | Cardiology Progress Note ---
Cardiology SOAP Progress Note Subjective: No cardiac complaints. Objective: I&O/Vital Signs 01/04/21 01/04/21 01/04/21 01/04/21 07:00 08:00 08:00 12:00 Temp 35.6 35.4 Pulse 60 59 61 Resp 18 18 B/P (MAP) 170/95 (120) 125/68 (87) Pulse Ox 95 95 O2 Delivery Room Air Room Air Room Air 01/04/21 12:42 Pulse 60 01/04/21 00:00 Intake Total 950 ml Output Total 1325 ml Balance -375 ml Weight (Pounds): 260 Weight (Ounces): 0.0 Weight (Calculated Kilograms): 117.515474 Constitutional: AAO x 3 Respiratory: chest is bilaterally symmetric, lungs clear to auscultation Cardiovascular: S1 and S2; No diastolic murmur, No systolic murmur Gastrointestional: soft, audible bowel sounds Extremities: no lower extremity edema bilateral Neurologic/Psychiatric: no motor/sensory deficits, alert, normal mood/affect, oriented x 3 Skin: normal color Results/Procedures: Labs Microbiology 12/29/20 Blood Culture - Final, Complete No growth A/P: Assessment/Dx: Syncope Persistent atrial fibrillation Bradycardia Hypertension Plan: Syncope- had syncopal episode x 2. Sinus node dysfunction alternating with paroxysmal atrial fibrillation with severe bradycardia, status post single- chamber pacemaker implantation with no complication. Site is healing well. Continue to monitor Debility, patient is unable to take care of himself, after the pacemaker implant was concerned that she will not be able to support him to get up and get out of bed due to the fact that he cannot use his left arm. We had a long discussion about the management plan, starting physical therapy, will consider acute rehab versus swing bed Peripheral edema, started on Lasix, monitor tolerance and response History of loop monitor implanted, I am planning to extracted. Chest pain, nonspecific etiology, improved. Denies any recent chest pain. Stress test done February 2017 was negative for ischemia or infarct. Continue to monitor. Persistent atrial fibrillation-unable to tolerate beta enoc secondary to un derlying bradycardia, unable to tolerate amiodarone due to dizziness, rate well controlled. S/p LINq implantation, planning for extraction. [id number] score of 2, yearly risk of stroke without oral anticoagulation is 2.2 percent. Maintained on Eliquis. Malignant hypertension, history of hypertensive encephalopathy with hallucinations during episode of elevated blood pressure. Has been having labile hypertension recently. HELEN, intolerant to CPAP Hypothyroidism, managed by primary care physician Parkinson's disease, followed by primary care physician Hyperlipidemia, maintained on fenofibrate, good control. Continue on current medications and continue to monitor. Next Mild bilateral carotid stenosis, ultrasound was done May 2019, continue to mo nitor. Thank you for your consultation. Please call me if you have any questions. Olu Hightower MD, FACP, FACC, FSCAI, FHRS, CCDS Interventional Cardiology Cardiac Electrophysiology Vascular Medicine and Endovascular Interventions Douglas HIGHTOWER MD Jan 04, 2021 15:26
[2021-01-04 15:30] VITALS: BP 169/90
[2021-01-04] MEDS ORDERED: QUEtiapine 25 MG (SEROquel) TAB IMMEDIATE RELEASE PO SCH ×2 (16:00→21:00)
[2021-01-04] MEDS ORDERED: ALLOPURINOL 300 MG (ZYLOPRIM) TAB PO SCH (17:00)
[2021-01-04 19:35] VITALS: BP 186/100
[2021-01-04] MEDS: lisINopril 5 MG (PRINIVIL) TABLET PO SCH (20:48)
[2021-01-04] MEDS: [UNRECOGNIZED DRUG - REMARK] PO SCH (20:48)
[2021-01-04] MEDS ORDERED: FINASTERIDE (PROSCAR) 5 MG TAB PO SCH (21:00)
[2021-01-04 23:53] VITALS: BP 165/98
[2021-01-05 04:00] VITALS: BP 143/84
[2021-01-05] MEDS ORDERED: LEVOTHYROXINE 100 MCG (LEVOTHROID) TAB PO SCH (06:30)
[2021-01-05] MEDS ORDERED: LEVOTHYROXINE 75 MCG (LEVOTHROID) TABLET PO SCH (06:30)
[2021-01-05] MEDS: GEMFIBROZIL 600 MG (LOPID) TAB PO SCH (06:39)
[2021-01-05] MEDS ORDERED: VENlafaxine XR 75 MG (EFFEXOR XR) CAP PO SCH (07:00)
[2021-01-05] MEDS: hydrALAZINE (APRESOLINE) 25 MG TAB PO SCH (08:42)
[2021-01-05] MEDS: SINEMET 25/100 (CARBIDOPA/LEVODOPA) TAB PO SCH (08:44)
[2021-01-05 08:47] VITALS: BP 129/77
[2021-01-05] MEDS ORDERED: PANTOPRAZOLE 40 MG (PROTONIX) TAB PO SCH (09:00)
[2021-01-05] MEDS ORDERED: KCL 10 MEQ TAB (MICRO K) PO SCH (09:00)
[2021-01-05] MEDS ORDERED: FUROSEMIDE 40 MG (LASIX) TAB PO SCH (09:00)
--- NOTE | 2021-01-05 10:34 | Progress Note - Hospitalist ---
Subjective HPI/CC On Admission Date Seen by Provider: Jan 04, 2021 Time Seen by Provider: 12:10 Pt is a 75yoCM with a PMH of HTN, parkinson's disease, HLD who presented to the Er due to syncope. states he hasn't felt well for a few days abut he normally has good days and bad days with his parkinson's. his blood pressure had been very high a couple of weeks ago and he wwent to see his primary care doctor but by then his BP was low. His PCP thought that it was due to his parkinson's. His continued to monitor his blood pressure at home and noticed it had been erractic dropping in to the 90s and up to the 170s. He was prescribed an antibiotic for an ear infection by his PCP this week as well. He had a syncopal episode yesterday and his called 911 but patient refused their services. He passed out again this morning and his called 911 again for evaluation. Subjective/Events-last exam He is feeling well this morning. He is not having any lightheadedness or dizziness at this time. He denies any pain. He has been working with therapy. Objective Exam Vital Signs Vital Signs Date Time Temp Pulse Resp B/P (MAP) Pulse Ox O2 Delivery O2 Flow Rate FiO2 01/05/21 08:47 36.1 61 18 129/77 (94) 95 Room Air Capillary Refill : Less Than 3 Seconds General Appearance: No Apparent Distress, Chronically ill, Obese Respiratory: Lungs Clear, Normal Breath Sounds, No Respiratory Distress Cardiovascular: Regular Rate, Rhythm, No Murmur Gastrointestinal: Normal Bowel Sounds, Non Tender, Soft Extremity: Normal Inspection, Non Tender, Pedal Edema Neurologic/Psychiatric: Alert, Oriented x3, Other (Flat affect) Skin: Normal Color, Warm/Dry Results/Procedures Lab Patient resulted labs reviewed. Imaging: Reviewed Imaging Report Assessment/Plan Assessment and Plan Assess & Plan/Chief Complaint Bradycardia Syncope s/p Pacemaker s/p pacemaker placement 01/01 Orthostatic hypotension HTN Likely due to progressing Parkinson's Continue Hydralazine with hold parameters Continue Lisinopril and Metoprolol IV Hydralazine as needed Parkinson's Dementia Weakness Acute on chronic debility Continue home Sinemet PT/OT Inpatient rehab denied Transition to swing bed tomorrow Atrial fibrillation, chronic HLD Continue home meds Eliquis held DVT prophylaxis: already receiving therapeutic anticoagulation Diagnosis/Problems Diagnosis/Problems (1) Orthostatic hypotension Status: Acute (2) Syncope Status: Acute (3) Bradycardia Status: Acute (4) Parkinson's disease (tremor, stiffness, slow motion, unstable posture) Status: Acute (5) HTN (hypertension) Status: Acute Qualifiers: Hypertension type: essential hypertension Qualified Codes: I10 - Essential (primary) hypertension ERIBERTO BOWMAN MD Jan 05, 2021 10:34
--- NOTE | 2021-01-05 10:40 | Discharge Summary ---
Discharge Summary Hospital Course Was the Problem List Reviewed?: Yes Problems/Dx: (1) Orthostatic hypotension Status: Acute (2) Syncope Status: Acute (3) Bradycardia Status: Acute (4) Parkinson's disease (tremor, stiffness, slow motion, unstable posture) Status: Acute (5) HTN (hypertension) Status: Acute Qualifiers: Qualified Codes: I10 - Essential (primary) hypertension Hospital Course Date of Admission: Jan 02, 2021 at 13:59 Admission Diagnosis : Syncope Family Physician/Provider: Jan Lopez DO Date of Discharge: 01/05/21 Discharge Diagnosis: Syncope due to orthostatic hypotension, symptomatic bradycardia s/p pacemaker placement Hospital Course: Brooks Gan is a 75-year-old male with past medical history of Parkinson's disease who presented with syncope. He had issues with orthostatic hypotension as well as bradycardia. Cardiology was consulted and assisted with his care. He underwent a pacemaker placement for his symptomatic bradycardia. His blood pressure medications were adjusted due to labile blood pressures. He had acute on chronic debility related to his Parkinson's disease and pacemaker placement. His left arm was placed in a sling following the procedure exacerbating his debility. He was evaluated by the inpatient rehabilitation unit but was denied admission because they believed he was at his baseline level of function. He was ultimately discharged to swing bed for ongoing therapy needs. Labs and Pending Lab Test: Laboratory Tests 01/04/21 19:41: Glucometer 106 Microbiology 12/29/20 Blood Culture - Final, Complete No growth Home Meds Active Reported Vitamin B12 (Cyanocobalamin (Vitamin B-12)) 2,500 Mcg Tablet 2,500 Mcg PO DAILY Vitamin D3 (Cholecalciferol (Vitamin D3)) 125 Mcg Tablet 125 Mcg PO DAILY Calcium (Calcium Carbonate) 500 Mg Tablet 500 Mg PO DAILY Multivitamin 1 Each Tablet 1 Each PO DAILY Jossie-Tifton Heartburn Tab Eff (Sodium Bicarbonate/Sodium Cit) 1 Each Tablet.eff 1 Each PO DAILY PRN [Theraworx] 1 Applic TOP DAILY PRN Tylenol Extra Strength (Acetaminophen) 500 Mg Tablet 1,000 Mg PO HS PRN TAKES 2 (500MG) TABLETS Levothyroxine Sodium 175 Mcg Tablet 175 Mcg PO DAILY Carbidopa-Levodopa 25-100 Tab (Carbidopa/Levodopa) 1 Each Tablet 1.5 Tab PO QIDACHS TAKES 1 TABLETS Quetiapine Fumarate 25 Mg Tablet 50 Mg PO 2030 TAKES 2 (25MG) TABLETS Cefdinir 300 Mg Capsule 300 Mg PO BID Nuplazid (Pimavanserin Tartrate) 34 Mg Capsule 34 Mg PO 1700 Venlafaxine HCl ER (Venlafaxine HCl) 75 Mg Cap.er.24h 75 Mg PO DAILY Allopurinol 300 Mg Tablet 300 Mg PO 1700 Quetiapine Fumarate 25 Mg Tablet 25 Mg PO 1400 Constulose (Lactulose) 10 Gm/15 Ml Solution 15 Ml PO Q48H Eliquis (Apixaban) 5 Mg Tablet 5 Mg PO BID Pantoprazole Sodium 40 Mg Tablet.dr 40 Mg PO 1200 Gemfibrozil 600 Mg Tablet 600 Mg PO BID Dutasteride 0.5 Mg Capsule 0.5 Mg PO HS Assessment/Pt Instructions Patient discharged to swing bed. Follow up with your primary care doctor. Return with worsening symptoms. Discharge Planning: >30 minutes discharge planning Discharge Instructions Discharge Diet: Low Sodium Diet Activity as Tolerated: Yes Discharge Physical Examination Vital Signs Vital Signs Date Time Temp Pulse Resp B/P (MAP) Pulse Ox O2 Delivery O2 Flow Rate FiO2 01/05/21 08:47 36.1 61 18 129/77 (94) 95 Room Air General Appearance: No Apparent Distress, Chronically ill Respiratory: Lungs Clear, Normal Breath Sounds, No Respiratory Distress Cardiovascular: Regular Rate, Rhythm, No Murmur Gastrointestinal: Normal Bowel Sounds, Non Tender, Soft Extremity: Normal Inspection, No Pedal Edema Skin: Normal Color, Warm/Dry Neurologic/Psychiatric: Alert, Oriented x3, Motor Weakness, Other (Flat affect) Allergies: Coded Allergies: No Known Drug Allergies (Unverified , 05/12/17) Copy Copies To 1: JAN LOPEZ DO Discharge Summary Date of Admission Jan 02, 2021 at 13:59 Date of Discharge Jan 05, 2021 at 09:09 Discharge Date: Jan 05, 2021 Discharge Time: 09:09 Admission Diagnosis Orthostatic hypotension Consults/Procedures Consulations Cardiology Discharge Diagnosis Bradycardia Syncope s/p Pacemaker Orthostatic hypotension HTN Parkinson's Dementia Acute on chronic debility (1) Orthostatic hypotension Status: Acute (2) Syncope Status: Acute (3) Bradycardia Status: Acute (4) Parkinson's disease (tremor, stiffness, slow motion, unstable posture) Status: Acute (5) HTN (hypertension) Status: Acute Qualifiers: Qualified Codes: I10 - Essential (primary) hypertension ERIBERTO BOWMAN MD Jan 05, 2021 10:40
== END 2021-01-05 09:09 | disposition swing bed (61) | DRG 243 ==
LOC: EDUNIT# 08:58 → ER 08:59 → 4TH 12:10 → OBSVTOIN 01-02 13:59
PROVIDERS: ADMIT Family Medicine; ATTEND Internal Medicine
PROC: 0JH606Z Insertion of Pacemaker, Dual Chamber into Chest Subcutaneous Tissue and Fascia, Open Approach (ICD-10-PCS; principal; 2021-01-01)
PROC: 02HK3JZ Insertion of Pacemaker Lead into Right Ventricle, Percutaneous Approach (ICD-10-PCS; 2021-01-01)
DX: I95.1 Orthostatic hypotension (principal); I44.2 Atrioventricular block, complete; I48.19 Other persistent atrial fibrillation; Z87.891 Personal history of nicotine dependence; Z90.49 Acquired absence of other specified parts of digestive tract; I10 Essential (primary) hypertension; G31.83 Neurocognitive disorder with Lewy bodies; F02.80 Dementia in other diseases classified elsewhere, unspecified severity, without behavioral disturbance, psychotic disturbance, mood disturbance, and anxiety; N40.0 Benign prostatic hyperplasia without lower urinary tract symptoms; K21.9 Gastro-esophageal reflux disease without esophagitis; G89.29 Other chronic pain; M54.9 Dorsalgia, unspecified; E03.9 Hypothyroidism, unspecified; F43.10 Post-traumatic stress disorder, unspecified; E78.5 Hyperlipidemia, unspecified; R00.1 Bradycardia, unspecified; R53.81 Other malaise; G47.33 Obstructive sleep apnea (adult) (pediatric); I65.23 Occlusion and stenosis of bilateral carotid arteries
CPT/HCPCS: 33207; 36415; 70450; 71045; 80048; 80053; 81000; 82962; 83605; 83735; 84443; 84484; 85025; 85379; 86141; 87040; 93005; G0378

== ENCOUNTER 2021-01-05 09:11 | Inpatient (IN) | payer MEDICARE, OTHER ==
[~2021-01-05] VITALS: Ht 182 cm; Wt 114.3 kg
[~2021-01-05 09:11] MED LIST changes: +ACET-2267 PO; +ALLO300T2 PO; +CALC-250 PO; +CALC-823 PO; +CARB1TAB40 PO; +CYAN250010 PO; +LACT10SO64 PO; +LEVO175T5 PO; +MULT-1136 PO; +PIMA34CA PO; +QUET25TA34 PO; +SODI1TAB48 PO; +THERAWORX TOP; +VENL75CA93 PO
[2021-01-05] MEDS ORDERED: MELATONIN 3 MG TABLET PO PRN (09:15)
[2021-01-05] MEDS ORDERED: ANTACID SUSP 30 ML UDC (MYLANTA) PO PRN (09:15)
[2021-01-05] MEDS ORDERED: BENZONATATE 100 MG (TESSALON) CAPSULE PO PRN (09:15)
[2021-01-05] MEDS ORDERED: PATIENT MAY USE OWN MED,SINGLE MED PO SCH (09:15)
[2021-01-05] MEDS ORDERED: ONDANSETRON 4 MG/2 ML (SDV) Z0FRAN IV PRN (09:15)
[2021-01-05] MEDS ORDERED: MILK OF MAGNESIA 400 MG/5 ML 30 ML UDC PO PRN (09:15)
[2021-01-05] MEDS ORDERED: hydrALAZINE (APESOLINE) 20 MG/ML VIAL IV PRN (09:15)
--- NOTE | 2021-01-05 10:33 | Occupational Therapy Eval ---
OT Evaluation-General/PLF Medical Diagnosis Admission Date Jan 05, 2021 at 09:11 Medical Diagnosis: Syncope with pacemaker placement Onset Date: Jan 01, 2021 Therapy Diagnosis Therapy Diagnosis: Weakness, Decreased ADL skills Height/Weight Height (Feet): 6 Height (Inches): 0.00 Weight (Pounds): 260 Weight (Ounces): 0.0 Weight Bear Status Pacemaker precautions left UE. No pushing/pulling or weightbearing until cleared by physician. Sling on for comfort and positioning. Referral Physician: Dr. Dias Referral Reason: Activity Tolerance, Self Care, Evaluation/Treatment, Strengthening/ROM Medical History Pertinent Medical History: Atrial Fib, Dementia, HTN, Parkinson's Additional Medical History PTSD Current History Pt. began "passing out" at home. Brought to ER by EMS. Found to be in a-fib. Pacemaker placed. Reviewed History: Yes Social History Home: Single Level Current Living Status: Spouse Entry Into Home: Ramp ADL-Prior Level of Function SCALE: Activities may be completed with or without assistive devices. 9-Tjbmvyysoi-xulniap completes the activity by him/herself with no assistance from a helper. 5-Set-up or Clean-up Assistance-helper sets up or cleans up; patient completes activity. [place] assists only prior to or following the activity. 4-Supervision or Touching Assistance-helper provides verbal cues and/or touching/steadying and/or contact guard assistance as patient completes activity. Assistance may be provided throughout the activity or intermittently. 3-Partial/Moderate Assistance-helper does LESS THAN HALF the effort. [place] lifts, holds or supports trunk or limbs, but provides less than half the effort. 2-Substantial/Maximal Assistance-helper does MORE THAN HALF the effort. [place] lifts or holds trunk or limbs and provides more than half the effort. 1-Bqhpbjzml-mtheod does ALL the effort. Patient does none of the effort to complete the activity. Or, the assistance of 2 or more helpers is required for the patient to complete the activity. If activity was not attempted, code reason: 7-Patient Refused. 9-Not Applicable-not attempted and the patient did not perform the activity before the current illness, exacerbation or injury. 10-Not Attempted due to Environmental Limitations-(lack of equipment, weather restraints, etc.). 88-Not Attempted due to Medical Conditions or Safety Concerns. ADL PLOF Comments Pt. has 3 hours/caregiving assistance per day, and spouse assists with all other times. Caregiver assists with showering and dressing, toileting, and all other ADLs. Pt. requires assistance for ambulation with walker, and has specific technique typically, in which someone stands in front of walker and slowly pulls it out. Once he is able to take a step, his momentum begins and he can ambulate with guidance of walker and someone saying, "big steps." Pt. is able to eat with set up, and with use of built up handles on utensils. Pt. only ambulates very short distances in home, and has increasingly become fatigued during ambulation. He states that his BP has dropped and he has passed out at home. That is what prompted him to come to ER via EMS. Pacemaker has been placed and now pt. has precautions with left UE. Pt. was receiving outpt PT services for gait, strengthening, and mobility right before COVID hit. Self Care: Dependent Functional Cognition: Unknown DME/Equipment: Bath Chair, Shower DME/Equipment Comments Lift chair, walker, wheelchair, built up utensils OT Current Status Subjective No pain reported. Appearance Pt. sitting on EOB with PT when OT entered room. Mental Status/Objective Patient Orientation: Person, Place Current Upper Extremity ROM Limited due to tremors and processing. Upper Extremity Coordination Pt. has difficulty holding regular utensils and uses built up ones at home. Pt. has been using a built up, curved spork in hospital, and states that he really likes it. Spouse has been given information on getting one purchased for home use. ADL-Treatment Eating (QC): 4 (Set up and SBA as needed.) Oral Hygiene (QC): 3 (Spouse assists with this per conversation.) Shower/Bathe Self (QC): 2 (Per pt./spouse report, and with clinical judgement, pt. requires max assist.) Upper Body Dressing (QC): 2 (Per clinical judgement, and with adjustment of arm brace.) Lower Body Dressing (QC): 2 (Pt. requires max assist for new brief to be donned over feet, and then over hips in stance.) On/Off Footwear (QC): 1 Toileting Hygiene (QC): 2 (Pt. incontinent of urine at times. Is able to indicate when he needs a urinal at times, but urinal has to be fully placed by someone else.) Other Treatments PT/OT completed co-treatment due to poor endurance, increased weakness, and need of skilled assistance x 2. Pt. stood from bed with bed elevated, min assist x 2, and technique of pulling walker out in front of him to draw him into upright posture. Pt. wearing sling on left UE, and uses walker with right. Pt. able to ambulate into [place] with walker, min x 2, and cues of "big steps." Pt. often "froze" in stance. Pt. also required guidance of walker during ambulation. Please see PT note for distance ambulated. During ambulation, pt. began to "melt" in which his knees began to bend and therapy held him up. A chair was retrieved immediately. BP taken and was 93/56. Nursing aware of BPs as spouse states that this has been happening. Pt. rested and then felt he could attempt again. This time pt. required max assist x 2 for sit-stand due to low chair. Pt. able to ambulate in same fashion to reclining chair. All needs met. Education OT Patient Education: Correct positioning, Modified ADL techniques, Progress toward Goal/Update tx plan, Purpose of tx/functional activities, Reviewed precautions, Rehab process, Transfer techniques Teaching Recipient: Patient, Family Teaching Methods: Demonstration, Discussion Response to Teaching: Verbalize Understanding, Return Demonstration, Reinforcement Needed OT Short Term Goals Short Term Goals Time Frame: Jan 12, 2021 Eatin Oral hygiene: 4 Toileting hygiene: 3 Upper body dressin Lower body dressin Putting on/taking off footwear: 3 OT Care Home Goals Care Home Goals Time Frame: Jan 26, 2021 Eating (QC): 5 Oral Hygiene (QC): 5 Toileting Hygiene (QC): 4 Shower/Bathe Self (QC): 3 Upper Body Dressing (QC): 4 Lower Body Dressing (QC): 3 On/Off Footwear (QC): 3 Additional Goals: 1-Demonstrate ADL Tasks, 2-Verbalize Understanding, 3- ImproveStrength/[place] 1=Demonstrate adherence to instructed precautions during ADL tasks. 2=Patient will verbalize/demonstrate understanding of assistive devices/modifications for ADL. 3=Patient will improve strength/tolerance for activity to enable patient to perform ADL's. OT Education/Plan Problem List/Assessment Assessment: Decreased Activ Tolerance, Decreased UE Strength, Dependent Transfers, Impaired Bed Mobility, Impaired Funct Balance, Impaired I ADL's, Impaired Self-Care Skills, Restricted Funct UE ROM Discharge Recommendations Plan/Recommendations: Continue POC Therapy Discharge Recommendati: 24 Hour Supervision, Post Acute OT Treatment Plan/Plan of Care Treatment,Training & Education: Yes Patient would benefit from OT for education, treatment and training to promote independence in ADL's, mobility, safety and/or upper extremity function for ADL's. Plan of Care: ADL Retraining, Functional Mobility, UE Funct Exercise/Act Treatment Duration: Jan 26, 2021 Frequency: At least 5 of 7 days/Wk (IRF) Estimated Hrs Per Day: 1.5 hours per day Agreement: Yes Rehab Potential: Fair Time/GCodes Start Time: 09:53 Stop Time: 10:18 Total Time Billed (hr/min): 25 Billed Treatment Time 5610-1001 1, EVH x 10minutes [id number] ADL x 20trejvos-Dp-tylqiukzm with PT. Please see above note for designated roles. JEAN CORREIA OT Jan 05, 2021 10:33
--- NOTE | 2021-01-05 10:50 | Physical Therapy Evaluation ---
PT Evaluation-General Medical Diagnosis Admission Date Jan 05, 2021 at 09:11 Medical Diagnosis: hypotension/low na Onset Date: Jan 05, 2021 Therapy Diagnosis Therapy Diagnosis: weakness; abn gait Height/Weight Height (Feet): 6 Height (Inches): 0.00 Weight (Pounds): 260 Weight (Ounces): 0.0 Precautions Precautions/Isolations: Standard Precautions Weight Bear Status R UE in sling post pacemaker; no wB through R UE Referral Physician: Arun Reason for Referral: Evaluation/Treatment Medical History Pertinent Medical History: Atrial Fib, Dementia, HTN, Parkinson's Current History Pt admitted to acute care originally with reports of progressive weakness at home and hypotension. Pacemaker placed during the course of the stay. Pt has transitioned to B status for continued medical management and skilled therapy services. Reviewed History: Yes Social History Home: Single Level Current Living Status: Spouse Entry Into Home: Level Entry single level home with level entry Prior Prior Level of Function SCALE: Activities may be completed with or without assistive devices. 6-Xegeasxfqp-xpdkaqi completes the activity by him/herself with no assistance from a helper. 5-Set-up or Clean-up Assistance-helper sets up or cleans up; patient completes activity. [place] assists only prior to or following the activity. 4-Supervision or Touching Assistance-helper provides verbal cues and/or touching/steadying and/or contact guard assistance as patient completes activity. Assistance may be provided throughout the activity or intermittently. 3-Partial/Moderate Assistance-helper does LESS THAN HALF the effort. [place] lifts, holds or supports trunk or limbs, but provides less than half the effort. 2-Substantial/Maximal Assistance-helper does MORE THAN HALF the effort. [place] lifts or holds trunk or limbs and provides more than half the effort. 5-Maxighvgc-plehxg does ALL the effort. Patient does none of the effort to complete the activity. Or, the assistance of 2 or more helpers is required for the patient to complete the activity. If activity was not attempted, code reason: 7-Patient Refused. 9-Not Applicable-not attempted and the patient did not perform the activity before the current illness, exacerbation or injury. 10-Not Attempted due to Environmental Limitations-(lack of equipment, weather restraints, etc.). 88-Not Attempted due to Medical Conditions or Safety Concerns. Bed Mobility: 3 (uses a bed rail and assists to get him up) Transfers (B,C,W/C): 3 ( assists with supporting the walker as the pt pulls himself up; occas assist to come to a stand; he has a lift recliner at home) Gait: 4 (CGA, assists with the walker to propel it forward; cues "big step") Stairs: 9 Indoor Mobility (Ambulation): Needed Some Help Stairs: Not Applicalbe Prior Devices Use: Walker Prior function is per pt and report; amount of assist varies day to day but generally min to CGA with all functional mobility. PT Evaluation-Current Subjective Pt agreeable to PT. present. During treatment session, pt reports not feeling well and reports feeling weak. Agrees to sit up in the chair post treatment. Pain Numeric Pain Scale: 0-No Pain Location: No Pain Reported Objective Patient Orientation: Person, Place, Time, Situation ROM/Strength ROM Lower Extremities WFL with AAROM. Slow to move through range. Strength Lower Extremities grossly 3/5 throughout Integumentary/Posture Integumentary refer to nursing notes for full assessment. Bowel Incontinence: No Bladder Incontinence: Yes Posture rounded shoulders and forward head; lacks full hip and knee extension in standing, likely due to PD as well as functional LE weakness. Neuromuscular (Tone, Coordination, Reflexes) Reflexes delayed but intact; coordination intact; no noted tone Sensory Vision: Functional Hearing: Functional Hand Dominance: Left Sensation Right Lower Extremit: Intact Sensation Left Lower Extremity: Intact Transfers Roll Left & Right (QC): 2 Sit to Lying (QC): 2 (assist to get legs in bed and assist to lower trunk) Lying to Sitting/Side of Bed(Q: 2 (assist to move legs and to raise trunk; pt uses bedrail) Sit to Stand (QC): 2 (mod assist from standard surface; min assist from elevated surface. ) Chair/Leh-pm-Jdiwz Xfer(QC): 3 (assist to propel walker) Toilet Transfer (QC): 3 Car Transfer (QC): 88 Gait Does the Patient Walk?: Yes Mode of Locomotion: Walk Anticipated Mode of Locomotion: Walk Walk 10 feet (QC): 3 Walk 50 ft with 2 Turns(QC): 3 Walk 150 ft (QC): 88 Walking 10ft/uneven surface-QC: 88 Gait Assistive Device: FWW Comments/Gait Description Pt walked out of room with FWW with min assist at gait belt and assist to propel the walker, Left UE in sling; pt needed to sit after 50 ft of gait. BP taken and found to be 93/56. Rested. Pt then walked an additional 50 ft with same assist. Pt up in chair post treatment with needs met. Wheelchair Training Wheel 50 ft with 2 turns (QC): 9 Wheel 150 ft (QC): 9 Stairs 1 Step (curb) (QC): 9 4 Steps (QC): 9 12 Steps (QC): 9 Balance Sitting Static: Fair Sitting Dynamic: Fair (tends to fall backward slowly) Standing Static: Fair Standing Dynamic: Normal Picking up an Object (QC): 9 Treatment PT eval complete with initiation of treatment; OT completed initial evaluation, then PT resumed treatment with co treat. Skill of 2 clinicians indicated as pt requires heavy verbal and tactile cues to complete tasks and requires assist with all mobility. OT address use of UE and placment of hands as PT addressed gross transfers and gait pattern. OT guided the protection of left UE. Assessment/Needs Pt presents with B LE funcitonal weakness, impaired functional balance and decreased functional activity tolerance that limits bed mobility, transfers and gait. He is requiring more assist than he required previously and would benefit from skilled PT services to address his mobility deficits to return to his PLOF. He takes extra time to complete all tasks. Gait is slow with impaired hip and knee extension with narrow ALEXIS and shortened step length. He does respond well to cuing and assist to propel his walker. Mobility today limited by low BP in standing. He does have potential to make functional gains. He is motivated and his is very supportive. Rehab Potential: Good PT Short Term Goals Short Term Goals Time Frame: Jan 11, 2021 Sit to lyin Lying to sitting on side of be: 4 Walk 150 feet: 3 PT Block Greaser Goals Block Greaser Goals PT Jail Goals Time Frame: Jan 19, 2021 Roll Left & Right (QC): 4 Sit to Lying (QC): 4 Lying-Sitting on Side/Bed(QC): 4 Sit to Stand (QC): 4 Chair/Hxq-ip-Suglt Xfer(QC): 4 Toilet Transfer (QC): 4 Car Transfer (QC): 4 Does the Patient Walk: Yes Walk 10 feet (QC): 4 Walk 50ft with 2 Turns (QC): 4 Walk 150 ft (QC): 4 Walking 10ft on Uneven Surface: 9 1 Step (curb) (QC): 9 4 Steps (QC): 9 12 Steps (QC): 9 Picking up an Object (QC): 9 Wheel 50 feet with 2 turns (QC: 9 Wheel 150 feet: 9 PT Plan Problem List Problem List: Activity Tolerance, Functional Strength, Safety, Balance, Gait, Transfer, Bed Mobility Treatment/Plan Treatment Plan: Continue Plan of Care Treatment Plan: Bed Mobility, Education, Functional Activity Darling, Functional Strength, Gait, Safety, Therapeutic Exercise, Transfers Treatment Duration: Jan 19, 2021 Frequency: 6 times per week Estimated Hrs Per Day: .5 hour per day Patient and/or Family Agrees t: Yes Safety Risks/Education Patient Education: Gait Training, Transfer Techniques, Safety Issues Teaching Recipient: Patient, Primary Caregiver Teaching Methods: Demonstration, Discussion Response to Teaching: Verbalize Understanding, Reinforcement Needed Discharge Recommendations Therapy Discharge Recommendati: Post Acute PT Time/GCodes Time In: 930 Time Out: 953 ([id number] (co treat)) Total Billed Treatment Time: 38 Total Billed Treatment visit EVM 13 FA 10 visit FA 15 (co treat with OT) LIYA GRANT PT Jan 05, 2021 10:50
[2021-01-05] MEDS: LACTULOSE SYRUP 10GM/15ML (ENULOSE) 30ML UDC PO PRN (13:02)
[2021-01-05] MEDS: SINEMET 25/100 (CARBIDOPA/LEVODOPA) TAB PO SCH ×3 (13:02→20:38)
[2021-01-05] MEDS: hydrALAZINE (APRESOLINE) 25 MG TAB PO SCH ×2 (14:00→20:36)
[2021-01-05] MEDS: QUEtiapine 25 MG (SEROquel) TAB IMMEDIATE RELEASE PO SCH ×2 (16:44→20:38)
[2021-01-05] MEDS: ALLOPURINOL 300 MG (ZYLOPRIM) TAB PO SCH (16:44)
[2021-01-05] MEDS: GEMFIBROZIL 600 MG (LOPID) TAB PO SCH (16:44)
[2021-01-05 18:01] VITALS: BP 114/76
[2021-01-05] MEDS: FINASTERIDE (PROSCAR) 5 MG TAB PO SCH (20:37)
[2021-01-05] MEDS: lisINopril 5 MG (PRINIVIL) TABLET PO SCH (20:37)
[2021-01-05] MEDS: PIMAVANSERIN PO SCH (20:40)
[2021-01-05] MEDS: DOCUSATE SODIUM 100 MG (COLACE) CAP PO SCH (20:41)
[2021-01-05] MEDS: SENNA W/DOCUSATE (SENOKOT S) TABLET PO SCH (20:42)
[2021-01-06 05:53] LABS: BUN/CREATININE RATIO 23; CALCIUM 8.8 MG/DL (8.5-10.1); CARBON DIOXIDE 24 MMOL/L (21-32); CHLORIDE 105 MMOL/L (98-107); CREATININE SERUM 0.91 MG/DL (0.60-1.30); GFR ESTIMATED > 60; GLUCOSE 119 MG/DL (70-105); POTASSIUM 3.9 MMOL/L (3.6-5.0); SODIUM 140 MMOL/L (135-145)
[2021-01-06 06:34] VITALS: BP 158/99
[2021-01-06] MEDS: GEMFIBROZIL 600 MG (LOPID) TAB PO SCH ×2 (06:39→16:22)
[2021-01-06] MEDS: LEVOTHYROXINE 75 MCG (LEVOTHROID) TABLET PO SCH (06:39)
[2021-01-06] MEDS: VENlafaxine XR 75 MG (EFFEXOR XR) CAP PO SCH (06:39)
[2021-01-06] MEDS: LEVOTHYROXINE 100 MCG (LEVOTHROID) TAB PO SCH (06:39)
[2021-01-06] MEDS: FUROSEMIDE 40 MG (LASIX) TAB PO SCH (08:51)
[2021-01-06] MEDS: SINEMET 25/100 (CARBIDOPA/LEVODOPA) TAB PO SCH ×4 (08:51→20:21)
[2021-01-06] MEDS: hydrALAZINE (APRESOLINE) 25 MG TAB PO SCH ×3 (08:52→20:23)
[2021-01-06] MEDS: KCL 10 MEQ TAB (MICRO K) PO SCH (08:52)
[2021-01-06] MEDS: DOCUSATE SODIUM 100 MG (COLACE) CAP PO SCH ×2 (08:52→20:22)
[2021-01-06] MEDS: SENNA W/DOCUSATE (SENOKOT S) TABLET PO SCH ×2 (08:52→20:22)
[2021-01-06] MEDS: PANTOPRAZOLE 40 MG (PROTONIX) TAB PO SCH (08:52)
[2021-01-06] MEDS: QUEtiapine 25 MG (SEROquel) TAB IMMEDIATE RELEASE PO SCH ×2 (16:22→20:22)
[2021-01-06] MEDS: ALLOPURINOL 300 MG (ZYLOPRIM) TAB PO SCH (16:22)
[2021-01-06 17:23] VITALS: BP 113/71
[2021-01-06 20:19] VITALS: BP 90/60
[2021-01-06] MEDS: FINASTERIDE (PROSCAR) 5 MG TAB PO SCH (20:22)
[2021-01-06] MEDS: lisINopril 5 MG (PRINIVIL) TABLET PO SCH ×2 (20:23→21:32)
[2021-01-06] MEDS: PIMAVANSERIN PO SCH (20:24)
[2021-01-07 05:33] VITALS: BP 139/85
[2021-01-07] MEDS: VENlafaxine XR 75 MG (EFFEXOR XR) CAP PO SCH (05:41)
[2021-01-07] MEDS: GEMFIBROZIL 600 MG (LOPID) TAB PO SCH ×2 (05:41→16:34)
[2021-01-07] MEDS: LEVOTHYROXINE 100 MCG (LEVOTHROID) TAB PO SCH (05:41)
[2021-01-07] MEDS: LEVOTHYROXINE 75 MCG (LEVOTHROID) TABLET PO SCH (05:41)
[2021-01-07] MEDS: hydrALAZINE (APRESOLINE) 25 MG TAB PO SCH ×3 (08:38→19:36)
[2021-01-07] MEDS: KCL 10 MEQ TAB (MICRO K) PO SCH (08:38)
[2021-01-07] MEDS: PANTOPRAZOLE 40 MG (PROTONIX) TAB PO SCH (08:38)
[2021-01-07] MEDS: DOCUSATE SODIUM 100 MG (COLACE) CAP PO SCH ×2 (08:38→19:37)
[2021-01-07] MEDS: FUROSEMIDE 40 MG (LASIX) TAB PO SCH (08:38)
[2021-01-07] MEDS: SENNA W/DOCUSATE (SENOKOT S) TABLET PO SCH ×2 (08:38→19:36)
[2021-01-07] MEDS: SINEMET 25/100 (CARBIDOPA/LEVODOPA) TAB PO SCH ×4 (08:38→19:37)
--- NOTE | 2021-01-07 09:51 | Occupational Ther Daily Note ---
OT Current Status-Daily Note Subjective Pt AxO. PT working with pt upon entry. See PT times for specific co-treat times. Pt agrees to showering post PT/ OT tx/activity. Mental Status/Objective Patient Orientation: Person, Place, Situation ADL-Treatment Therapy Code Descriptions/Definitions Functional Esmeralda Measure: 0=Not Assessed/NA 4=Minimal Assistance 1=Total Assistance 5=Supervision or Setup 2=Maximal Assistance 6=Modified Esmeralda 3=Moderate Assistance 7=Complete IndependenceSCALE: Activities may be completed with or without assistive devices. 8-Whpapengnm-becanzg completes the activity by him/herself with no assistance from a helper. 5-Set-up or Clean-up Assistance-helper sets up or cleans up; patient completes activity. [place] assists only prior to or following the activity. 4-Supervision or Touching Assistance-helper provides verbal cues and/or touching/steadying and/or contact guard assistance as patient completes activity. Assistance may be provided throughout the activity or intermittently. 3-Partial/Moderate Assistance-helper does LESS THAN HALF the effort. [place] lifts, holds or supports trunk or limbs, but provides less than half the effort. 2-Substantial/Maximal Assistance-helper does MORE THAN HALF the effort. [place] lifts or holds trunk or limbs and provides more than half the effort. 2-Ckzihvsiu-dhiiik does ALL the effort. Patient does none of the effort to complete the activity. Or, the assistance of 2 or more helpers is required for the patient to complete the activity. If activity was not attempted, code reason: 7-Patient Refused. 9-Not Applicable-not attempted and the patient did not perform the activity before the current illness, exacerbation or injury. 10-Not Attempted due to Environmental Limitations-(lack of equipment, weather restraints, etc.). 88-Not Attempted due to Medical Conditions or Safety Concerns. Bathing Location: L Arm, R Arm, L Upper Leg, R Upper Leg, Chest, Abdomen, Perineal Area Shower/Bathe Self (QC): 3 (mod A (BLE and bottom care), min A for hair thoroughness.) Upper Body Dressing (QC): 3 (Wendy doffing/ donning gown. ) Lower Body Dressing (QC): 2 (max A doffing, education on use of AE for doffing ease. Max A threading BLE, pt pulls from shins proximal to knees, then sit to stand mod A, pulls over hips with max A.) On/Off Footwear: 2 (Pt able to kick LEs out to knee extension (L requires mod A for this task) and max A footwear.) Toileting Hygiene (QC): 1 (Pt completes stance with mod A, TD bottom care.) Toilet Transfer (QC): 3 (mod A sit to stand, use of grab bar to R side. ) Other Treatment Pt sit to stand from raised lift chair with mod Ax2. Ambulates through [place] with PT/ OT assist. Denies dizziness. Pt ambulates to bathroom. Sits with control/ use of R UE for gb use. Pt completes BM. Hard BM, requires multiple flushes and continues to remain in toilet as a solid. Shower completed on toilet due to decreased coordination/ balance. Pt completes showering/ dressing as outlined above (cues for decreased active use of L shoulder flexion during tasks). Pt ambulates to chair with CGA, mod cues for "large steps" and continuing turning for safe position on chair. Sling re-donned with mod A to maintain precautions LUE. Pt is s/u with food tray in front of pt. Denies needs, call light in reach. Education OT Patient Education: Correct positioning, Modified ADL techniques, Purpose of tx/functional activities, Safety issues, Transfer techniques, Use of adapted equipment Teaching Recipient: Patient Teaching Methods: Demonstration, Discussion Response to Teaching: Verbalize Understanding, Return Demonstration OT Short Term Goals Short Term Goals Time Frame: Jan 12, 2021 Eatin Oral hygiene: 4 Toileting hygiene: 3 Upper body dressin Lower body dressin Putting on/taking off footwear: 3 OT Metal Tube Cutter Goals Care Home Goals Time Frame: Jan 26, 2021 Eating (QC): 5 Oral Hygiene (QC): 5 Toileting Hygiene (QC): 4 Shower/Bathe Self (QC): 3 Upper Body Dressing (QC): 4 Lower Body Dressing (QC): 3 On/Off Footwear (QC): 3 Additional Goals: 1-Demonstrate ADL Tasks, 2-Verbalize Understanding, 3-ImproveStrength/Darling 1=Demonstrate adherence to instructed precautions during ADL tasks. 2=Patient will verbalize/demonstrate understanding of assistive devices/modifications for ADL. 3=Patient will improve strength/tolerance for activity to enable patient to perform ADL's. OT Education/Plan Problem List/Assessment Assessment: Decreased Activ Tolerance, Decreased UE Strength, Dependent Transfers, Impaired Coordination, Impaired Funct Balance, Impaired I ADL's, Impaired Self-Care Skills Discharge Recommendations Plan/Recommendations: Continue POC Therapy Discharge Recommendati: Scheduled Assistance, Bath Aide, Home & Family, Post Acute OT Treatment Plan/Plan of Care Treatment,Training & Education: Yes Patient would benefit from OT for education, treatment and training to promote independence in ADL's, mobility, safety and/or upper extremity function for ADL's. Plan of Care: ADL Retraining, Functional Mobility, UE Funct Exercise/Act Treatment Duration: Jan 26, 2021 Frequency: At least 5 of 7 days/Wk (IRF) Estimated Hrs Per Day: 1.5 hours per day Agreement: Yes Rehab Potential: Good Time/GCodes Start Time: 08:40 Stop Time: 09:40 Total Time Billed (hr/min): 60 Billed Treatment Time 1, EX, ADL 3 (60) ARIANNA ACEVEDO OTR Jan 07, 2021 09:51
--- NOTE | 2021-01-07 10:07 | Physical Therapy Daily Note ---
PT Daily Note-Current Subjective Patient is more alert and agrees to PT. Mental Status Patient Orientation: Normal For Age Transfers SCALE: Activities may be completed with or without assistive devices. 2-Jeglcnbjce-ppmksxl completes the activity by him/herself with no assistance fr om a helper. 5-Set-up or Clean-up Assistance-helper sets up or cleans up; patient completes activity. [place] assists only prior to or following the activity. 4-Supervision or Touching Assistance-helper provides verbal cues and/or touching/steadying and/or contact guard assistance as patient completes activity. Assistance may be provided throughout the activity or intermittently. 3-Partial/Moderate Assistance-helper does LESS THAN HALF the effort. [place] lifts, holds or supports trunk or limbs, but provides less than half the effort. 2-Substantial/Maximal Assistance-helper does MORE THAN HALF the effort. [place] lifts or holds trunk or limbs and provides more than half the effort. 6-Bchofrhaj-pkcwtr does ALL the effort. Patient does none of the effort to complete the activity. Or, the assistance of 2 or more helpers is required for the patient to complete the activity. If activity was not attempted, code reason: 7-Patient Refused. 9-Not Applicable-not attempted and the patient did not perform the activity before the current illness, exacerbation or injury. 10-Not Attempted due to Environmental Limitations-(lack of equipment, weather restraints, etc.). 88-Not Attempted due to Medical Conditions or Safety Concerns. Sit to Stand (QC): 3 (with assist of lift chair) Weight Bearing R UE in sling post pacemaker; no wB through R UE Gait Training Does the Patient Walk?: Yes Distance: 200' Walk 10 feet (QC): 2 Walk 50 ft with 2 Turns(QC): 2 Walk 150 ft (QC): 2 Gait Assistive Device: FWW VC's for step length due to PD. Mod assist x 2 for gait training with cotreat with OT Exercises Supine Ex: Ankle pumps, Quad Set, Straight leg raise Supine Reps: 12 (in recliner with bilateral LE elevated) Seated Therapy Exercises: Long arc quads Seated Reps: 15 Assessment Patient requires time to complete all tasks due to Parkinson's. PT/OT cotreat due to complexity of patient's status. PT Short Term Goals Short Term Goals Time Frame: Jan 11, 2021 Sit to lyin Lying to sitting on side of be: 4 Walk 150 feet: 3 PT Half-Way Goals Mica Laminating Machine Feeder Goals PT Half-Way Goals Time Frame: Jan 19, 2021 Roll Left & Right (QC): 4 Sit to Lying (QC): 4 Lying-Sitting on Side/Bed(QC): 4 Sit to Stand (QC): 4 Chair/Zpl-gz-Gvhrk Xfer(QC): 4 Toilet Transfer (QC): 4 Car Transfer (QC): 4 Does the Patient Walk: Yes Walk 10 feet (QC): 4 Walk 50ft with 2 Turns (QC): 4 Walk 150 ft (QC): 4 Walking 10ft on Uneven Surface: 9 1 Step (curb) (QC): 9 4 Steps (QC): 9 12 Steps (QC): 9 Picking up an Object (QC): 9 Wheel 50 feet with 2 turns (QC: 9 Wheel 150 feet: 9 PT Plan Treatment/Plan Treatment Plan: Continue Plan of Care Treatment Plan: Bed Mobility, Education, Functional Activity Darling, Functional Strength, Gait, Safety, Therapeutic Exercise, Transfers Treatment Duration: Jan 19, 2021 Frequency: 6 times per week Estimated Hrs Per Day: .5 hour per day Patient and/or Family Agrees t: Yes Time/GCodes Time In: 830 Time Out: 855 Total Billed Treatment Time: 25 Total Billed Treatment 1 visit EX 10 min GT 15 min (cotreat with OT) CRISPIN LOCO PT Jan 07, 2021 10:07
--- NOTE | 2021-01-07 11:44 | Progress Note - Hospitalist ---
Subjective HPI/CC On Admission Date Seen by Provider: Jan 07, 2021 Time Seen by Provider: 11:40 Subjective/Events-last exam Pt reports doing well. Was up walking with PT today and doing well. Complains of some mild pain at his incision site still. Objective Exam Vital Signs Vital Signs Date Time Temp Pulse Resp B/P (MAP) Pulse Ox O2 Delivery O2 Flow Rate FiO2 01/07/21 05:33 36.0 60 18 139/85 (103) 96 Room Air Capillary Refill : General Appearance: No Apparent Distress, Chronically ill Respiratory: Lungs Clear, No Respiratory Distress Cardiovascular: Regular Rate, Rhythm, No Murmur Gastrointestinal: Normal Bowel Sounds, Soft Neurologic/Psychiatric: Alert, Oriented x3 Results/Procedures Lab Patient resulted labs reviewed. Assessment/Plan Assessment and Plan Assess & Plan/Chief Complaint Bradycardia Syncope s/p Pacemaker s/p pacemaker placement 01/01 Cardiology consulted, appreciate recs Orthostatic hypotension HTN Likely due to progressing Parkinson's Continue Hydralazine with hold parameters Continue Lisinopril and Metoprolol IV Hydralazine as needed Parkinson's Dementia Weakness Acute on chronic debility Continue home Sinemet PT/OT Inpatient rehab denied May need NH placement upon discharge Atrial fibrillation, chronic HLD Continue home meds Eliquis DVT prophylaxis: already receiving therapeutic anticoagulation JAMES SANDERS MD Jan 07, 2021 11:44
--- NOTE | 2021-01-07 14:57 | ST Cognitive Linguistic Eval ---
Speech Evaluation-General Medical Diagnosis hypotension/low na Onset Date: Jan 05, 2021 Therapy Diagnosis Therapy Diagnosis: Cognitive-communication Referral Referring Physician: Dr. Dias Medical History Pertinent Medical History: Atrial Fib, Dementia, HTN, Parkinson's Reviewed History: Yes Social History Current Living Status: Spouse Speech PLF-Current Status Prior Level of Function Patient lives in the home with his where he received assistance as needed. Subjective Patient was pleasant and cooperative with the speech assessment. Patient also completed current dysphagia information. was present with education provided for safety of oral intake. Follow up with [facility] may be necessary as his Parkinson's progresses. Language Eval: Auditory Comprehends Simple Yes/No Ques: Functional Indent/Objects [place]: Functional Ident/Pics in [place]: Functional Follows 1-Step Commands: Functional Follows Complex Directions: Functional Follows General Conversations: Functional Language Eval: Verbal Language Completes Spontaneous Greeting: Functional Produces Auto, Serial Info: Functional Imitates Simple Words/Phrases: Functional Word Finding: Functional Requests Basic Needs: Functional States Basic Personal Info: Functional Expresses Complex Ideas: Functional Objective Cognitive Domain Attention: WNL Memory: WNL Problem Solving: Functional Executive Functions: WNL Visuospatial Skills: WNL Composite Severity Rating: WNL Objective Formal/Standardized Tests Informal speech tasks, review of medical history Results Patient's speech is currently within normal limits for effective communication. Swallow function is reported to be within normal limits with regular texture. reports she does chop his meats and sets his meals up for easier intake. Oral Motor/Speech Production Within normal limits Impression Patient is a pleasant 75 y/o male who was admitted to the hospital due to weakness from Parkinson's. Patient reports he has previously participated in [facility] for [facility] and [facility]. Patient also states he has participated in a local boxing program specifically for Parkinson's patients. Patient was referred for an ST evaluation which was completed with informal ST tasks as well as patient interview. Patient's vocal output at this time is considered within normal range of function and does not indicate further need for skilled ST services. Speech Patient Assess Expression of Ideas/Wants: Expression (4) Understanding Verbal Content: Understands (4) Brief Interview-Mental Status: Yes Repetition of Three Words: Three (3) Temporal Orientation: Year: Correct (3) Temporal Orientation: Month: Accurate within 5 days(2) Temporal Orientation: Day: Correct (1) Recall : Wear to say "Sock": Yes, no cue required (2) Recall : Color: Yes, after cueing (1) Recall : Bed: Yes,after cueing (1) Memory/Recall Ability: Current season, Location of own room, That he or she is in a hsp/hsp unit Speech-Plan Patient/Family Goals Patient/Family Goals: Patient plans on returning to his home where he lives with his . Treatment Plan Speech Therapy Treatment Plan: Discontinue ST Treatment Duration: Jan 07, 2021 Frequency: 1 time per week Estimated Hrs Per Day: .25 hour per day Rehab Potential: Good Barriers to Learning: None identified Pt/Family Agrees to Plan: Yes Safety Risks/Education Teaching Recipient: Patient, Significant Other Teaching Methods: Discussion Response to Teaching: Verbalize Understanding Education Topics Provided: Safety within his room, communication of wants/needs, safety of oral intake Time Speech Therapy Time In: 13:00 Speech Therapy Time Out: 13:20 Total Billed Time: 20 Billed Treatment Time 1, FERDINAND JOSHUA BETHAN[facility] ST Jan 07, 2021 14:57
[2021-01-07] MEDS: QUEtiapine 25 MG (SEROquel) TAB IMMEDIATE RELEASE PO SCH ×2 (16:33→19:38)
[2021-01-07] MEDS: ALLOPURINOL 300 MG (ZYLOPRIM) TAB PO SCH (16:34)
[2021-01-07 17:47] VITALS: BP 105/64
[2021-01-07] MEDS: PIMAVANSERIN PO SCH (19:36)
[2021-01-07] MEDS: FINASTERIDE (PROSCAR) 5 MG TAB PO SCH (19:37)
[2021-01-07] MEDS: lisINopril 5 MG (PRINIVIL) TABLET PO SCH (19:37)
[2021-01-07] MEDS: APIXABAN 5 MG (ELIQUIS) TABLET PO SCH (19:37)
[2021-01-07 20:58] VITALS: BP 137/74
[2021-01-08 05:18] VITALS: BP 138/75
[2021-01-08] MEDS: GEMFIBROZIL 600 MG (LOPID) TAB PO SCH ×2 (05:35→18:04)
[2021-01-08] MEDS: VENlafaxine XR 75 MG (EFFEXOR XR) CAP PO SCH (05:35)
[2021-01-08] MEDS: LEVOTHYROXINE 100 MCG (LEVOTHROID) TAB PO SCH (05:35)
[2021-01-08] MEDS: LEVOTHYROXINE 75 MCG (LEVOTHROID) TABLET PO SCH (05:35)
[2021-01-08] MEDS: hydrALAZINE (APRESOLINE) 25 MG TAB PO SCH ×3 (08:00→20:02)
[2021-01-08] MEDS: FUROSEMIDE 40 MG (LASIX) TAB PO SCH (09:10)
[2021-01-08] MEDS: SENNA W/DOCUSATE (SENOKOT S) TABLET PO SCH ×2 (09:11→20:02)
[2021-01-08] MEDS: KCL 10 MEQ TAB (MICRO K) PO SCH (09:11)
[2021-01-08] MEDS: DOCUSATE SODIUM 100 MG (COLACE) CAP PO SCH ×2 (09:11→20:02)
[2021-01-08] MEDS: SINEMET 25/100 (CARBIDOPA/LEVODOPA) TAB PO SCH ×4 (09:12→20:02)
[2021-01-08] MEDS: PANTOPRAZOLE 40 MG (PROTONIX) TAB PO SCH (09:13)
[2021-01-08] MEDS: APIXABAN 5 MG (ELIQUIS) TABLET PO SCH ×2 (09:14→20:01)
--- NOTE | 2021-01-08 10:18 | Physical Therapy Daily Note ---
PT Daily Note-Current Subjective Patient and spouse agree to PT. Mental Status Patient Orientation: Normal For Age Transfers SCALE: Activities may be completed with or without assistive devices. 4-Durfvgmlwx-ameirpv completes the activity by him/herself with no assistance from a helper. 5-Set-up or Clean-up Assistance-helper sets up or cleans up; patient completes activity. [place] assists only prior to or following the activity. 4-Supervision or Touching Assistance-helper provides verbal cues and/or touching/steadying and/or contact guard assistance as patient completes activity. Assistance may be provided throughout the activity or intermittently. 3-Partial/Moderate Assistance-helper does LESS THAN HALF the effort. [place] lifts, holds or supports trunk or limbs, but provides less than half the effort. 2-Substantial/Maximal Assistance-helper does MORE THAN HALF the effort. [place] lifts or holds trunk or limbs and provides more than half the effort. 7-Stmbltcyn-srytdk does ALL the effort. Patient does none of the effort to complete the activity. Or, the assistance of 2 or more helpers is required for the patient to complete the activity. If activity was not attempted, code reason: 7-Patient Refused. 9-Not Applicable-not attempted and the patient did not perform the activity before the current illness, exacerbation or injury. 10-Not Attempted due to Environmental Limitations-(lack of equipment, weather restraints, etc.). 88-Not Attempted due to Medical Conditions or Safety Concerns. Sit to Stand (QC): 4 (CGA from lift chair use) Weight Bearing R UE in sling post pacemaker; no wB through R UE Gait Training Does the Patient Walk?: Yes Distance: 225' Walk 10 feet (QC): 2 Walk 50 ft with 2 Turns(QC): 2 Walk 150 ft (QC): 2 Gait Persons Needed: 2 Gait Assistive Device: FWW PT advanced left side of FWW due to NWB left UE. Noted severe Parkinson's gait sequence with flexed knees and trunk flexed posture. (Parkinson's meds had not been issued prior to PT) Exercises Supine Ex: Ankle pumps, Quad Set Supine Reps: 15 (in recliner with bilaterl LE elevated) Seated Therapy Exercises: Ankle pumps, Long arc quads Seated Reps: 15 Assessment Patient tolerated treatment and remains up in recliner. Will try to sequence Parkinson's meds and therapy. PT Short Term Goals Short Term Goals Time Frame: Jan 11, 2021 Sit to lyin Lying to sitting on side of be: 4 Walk 150 feet: 3 PT Half-Way Goals Half-Way Goals PT Musical String Maker Goals Time Frame: Jan 19, 2021 Roll Left & Right (QC): 4 Sit to Lying (QC): 4 Lying-Sitting on Side/Bed(QC): 4 Sit to Stand (QC): 4 Chair/Uix-cn-Mmfka Xfer(QC): 4 Toilet Transfer (QC): 4 Car Transfer (QC): 4 Does the Patient Walk: Yes Walk 10 feet (QC): 4 Walk 50ft with 2 Turns (QC): 4 Walk 150 ft (QC): 4 Walking 10ft on Uneven Surface: 9 1 Step (curb) (QC): 9 4 Steps (QC): 9 12 Steps (QC): 9 Picking up an Object (QC): 9 Wheel 50 feet with 2 turns (QC: 9 Wheel 150 feet: 9 PT Plan Treatment/Plan Treatment Plan: Continue Plan of Care Treatment Plan: Bed Mobility, Education, Functional Activity [place], Functional Strength, Gait, Safety, Therapeutic Exercise, Transfers Treatment Duration: Jan 19, 2021 Frequency: 6 times per week Estimated Hrs Per Day: .5 hour per day Patient and/or Family Agrees t: Yes Time/GCodes Time In: 854 Time Out: 926 Total Billed Treatment Time: 32 Total Billed Treatment 1 visit GT 20 min EX 12 min CRISPIN LOCO PT Jan 08, 2021 10:18
--- NOTE | 2021-01-08 11:49 | Occupational Ther Daily Note ---
OT Current Status-Daily Note Subjective Pt AxO, upright in chair. Pt finished with breakfast, agrees to tx. Denies pain. Pt denies ADLs at this time, agrees to UE ex. Mental Status/Objective Patient Orientation: Normal For Age ADL-Treatment Therapy Code Descriptions/Definitions Functional [place] Measure: 0=Not Assessed/NA 4=Minimal Assistance 1=Total Assistance 5=Supervision or Setup 2=Maximal Assistance 6=Modified [place] 3=Moderate Assistance 7=Complete IndependenceSCALE: Activities may be completed with or without assistive devices. 3-Jmgxrzpzkp-wskqeif completes the activity by him/herself with no assistance from a helper. 5-Set-up or Clean-up Assistance-helper sets up or cleans up; patient completes activity. [place] assists only prior to or following the activity. 4-Supervision or Touching Assistance-helper provides verbal cues and/or touching/steadying and/or contact guard assistance as patient completes activity. Assistance may be provided throughout the activity or intermittently. 3-Partial/Moderate Assistance-helper does LESS THAN HALF the effort. [place] lifts, holds or supports trunk or limbs, but provides less than half the effort. 2-Substantial/Maximal Assistance-helper does MORE THAN HALF the effort. [place] lifts or holds trunk or limbs and provides more than half the effort. 7-Zbkueasxg-zfhxao does ALL the effort. Patient does none of the effort to complete the activity. Or, the assistance of 2 or more helpers is required for the patient to complete the activity. If activity was not attempted, code reason: 7-Patient Refused. 9-Not Applicable-not attempted and the patient did not perform the activity before the current illness, exacerbation or injury. 10-Not Attempted due to Environmental Limitations-(lack of equipment, weather restraints, etc.). 88-Not Attempted due to Medical Conditions or Safety Concerns. Eating (QC): 6 Oral Hygiene (QC): 7 Shower/Bathe Self (QC): 7 Upper Body Dressing (QC): 2 (sling donning.) Toileting Hygiene (QC): 7 Toilet Transfer (QC): 7 Other Treatment Denies ADLs. Moderate resistance theraband gathered for pt. Pt completes 20 reps of the following exercises with education/ cues for positioning to RUE only: shoulder flexion, internal shoulder rotation, horizontal adduction, horizontal abduction, bicep curls. Pt completes AROM to the LUE with sling doffed (distal shoulder only): elbow flexion/ extension, pro/ supination, wrist flexion/ extension. Pt's sling donned with max A post activity. Pt is educated on therapy sponge use for hand strengthening. Pt return demonstrates. Left in chair with all needs met, call light in reach, LEs elevated. Education OT Patient Education: Correct positioning, Exercise program, Home exercise program, Progress toward Goal/Update tx plan, Purpose of tx/functional activities, Reviewed precautions, Safety issues Teaching Recipient: Patient Teaching Methods: Demonstration, Discussion Response to Teaching: Verbalize Understanding, Return Demonstration OT Short Term Goals Short Term Goals Time Frame: Jan 12, 2021 Eatin Oral hygiene: 4 Toileting hygiene: 3 Upper body dressin Lower body dressin Putting on/taking off footwear: 3 OT Longterm Goals Plaster Helper Goals Time Frame: Jan 26, 2021 Eating (QC): 5 Oral Hygiene (QC): 5 Toileting Hygiene (QC): 4 Shower/Bathe Self (QC): 3 Upper Body Dressing (QC): 4 Lower Body Dressing (QC): 3 On/Off Footwear (QC): 3 Additional Goals: 1-Demonstrate ADL Tasks, 2-Verbalize Understanding, 3- ImproveStrength/Darling 1=Demonstrate adherence to instructed precautions during ADL tasks. 2=Patient will verbalize/demonstrate understanding of assistive devic es/modifications for ADL. 3=Patient will improve strength/tolerance for activity to enable patient to perform ADL's. OT Education/Plan Problem List/Assessment Assessment: Decreased Activ Tolerance, Decreased UE Strength, Dependent Transfers, Impaired Coordination, Impaired Funct Balance, Impaired I ADL's, Impaired Self-Care Skills Discharge Recommendations Plan/Recommendations: Continue POC Therapy Discharge Recommendati: Scheduled Assistance, Bath Aide, Home & Family, Post Acute OT Treatment Plan/Plan of Care Treatment,Training & Education: Yes Patient would benefit from OT for education, treatment and training to promote i ndependence in ADL's, mobility, safety and/or upper extremity function for ADL's. Plan of Care: ADL Retraining, Functional Mobility, UE Funct Exercise/Act Treatment Duration: Jan 26, 2021 Frequency: At least 5 of 7 days/Wk (IRF) Estimated Hrs Per Day: 1.5 hours per day Agreement: Yes Rehab Potential: Good Time/GCodes Start Time: 10:23 Stop Time: 10:48 Total Time Billed (hr/min): 25 Billed Treatment Time 1, EX 2 (25) ARIANNA ACEVEDO OTR Jan 08, 2021 11:48
[2021-01-08] MEDS: ACETAMINOPHEN 325 MG TABLET PO PRN (14:19)
[2021-01-08 15:25] VITALS: BP 119/60
[2021-01-08] MEDS: ALLOPURINOL 300 MG (ZYLOPRIM) TAB PO SCH (18:04)
[2021-01-08] MEDS: QUEtiapine 25 MG (SEROquel) TAB IMMEDIATE RELEASE PO SCH ×2 (18:04→20:02)
[2021-01-08 19:00] VITALS: BP 116/71
[2021-01-08 19:59] VITALS: BP 120/79
[2021-01-08] MEDS: FINASTERIDE (PROSCAR) 5 MG TAB PO SCH (20:01)
[2021-01-08] MEDS: lisINopril 5 MG (PRINIVIL) TABLET PO SCH (20:02)
[2021-01-08] MEDS: NUPLAZID 34 MG PO SCH (20:02)
[2021-01-09 05:03] VITALS: BP 132/84
[2021-01-09] MEDS: LEVOTHYROXINE 100 MCG (LEVOTHROID) TAB PO SCH (06:12)
[2021-01-09] MEDS: VENlafaxine XR 75 MG (EFFEXOR XR) CAP PO SCH (06:12)
[2021-01-09] MEDS: LEVOTHYROXINE 75 MCG (LEVOTHROID) TABLET PO SCH (06:12)
[2021-01-09] MEDS: GEMFIBROZIL 600 MG (LOPID) TAB PO SCH ×2 (06:12→16:59)
[2021-01-09] MEDS: SINEMET 25/100 (CARBIDOPA/LEVODOPA) TAB PO SCH ×4 (07:38→20:19)
--- NOTE | 2021-01-09 09:37 | Progress Note - Hospitalist ---
Subjective HPI/CC On Admission Date Seen by Provider: Jan 09, 2021 Time Seen by Provider: 09:37 Subjective/Events-last exam pt reports feeling well. No complaints. at bedside. Objective Exam Vital Signs Vital Signs Date Time Temp Pulse Resp B/P (MAP) Pulse Ox O2 Delivery O2 Flow Rate FiO2 01/09/21 08:21 97 Room Air 01/09/21 05:03 36.0 60 18 132/84 (100) Capillary Refill : General Appearance: No Apparent Distress, WD/WN Respiratory: Lungs Clear, No Respiratory Distress Cardiovascular: Regular Rate, Rhythm, No Murmur Neurologic/Psychiatric: Alert, Oriented x3 Results/Procedures Lab Patient resulted labs reviewed. Assessment/Plan Assessment and Plan Assess & Plan/Chief Complaint Bradycardia Syncope s/p Pacemaker s/p pacemaker placement 01/01 Cardiology consulted, appreciate recs Orthostatic hypotension HTN Likely due to progressing Parkinson's Continue Hydralazine with hold parameters Continue Lisinopril and Metoprolol IV Hydralazine as needed Parkinson's Dementia Weakness Acute on chronic debility Continue home Sinemet PT/OT Inpatient rehab denied Discussed plan to continue strengthening with PT and plan for DC home mid next week after sling removed Atrial fibrillation, chronic HLD Continue home meds Eliquis DVT prophylaxis: already receiving therapeutic anticoagulation JAMES SANDERS MD Jan 09, 2021 09:37
--- NOTE | 2021-01-09 10:03 | Physical Therapy Daily Note ---
PT Daily Note-Current Subjective Patient supine in bed pre tx, agrees to therapy. Reports no pain. Appearance Patient seated upright in chair, with call button within reach, in room and all needs met. Mental Status Patient Orientation: Person, Place, Time, Normal For Age L UE sling Transfers SCALE: Activities may be completed with or without assistive devices. 6-Jbjnloltdx-tynyykz completes the activity by him/herself with no assistance from a helper. 5-Set-up or Clean-up Assistance-helper sets up or cleans up; patient completes activity. [place] assists only prior to or following the activity. 4-Supervision or Touching Assistance-helper provides verbal cues and/or touching/steadying and/or contact guard assistance as patient completes activity. Assistance may be provided throughout the activity or intermittently. 3-Partial/Moderate Assistance-helper does LESS THAN HALF the effort. [place] lifts, holds or supports trunk or limbs, but provides less than half the effort. 2-Substantial/Maximal Assistance-helper does MORE THAN HALF the effort. [place] lifts or holds trunk or limbs and provides more than half the effort. 5-Frhtkpswc-zppujy does ALL the effort. Patient does none of the effort to complete the activity. Or, the assistance of 2 or more helpers is required for the patient to complete the activity. If activity was not attempted, code reason: 7-Patient Refused. 9-Not Applicable-not attempted and the patient did not perform the activity before the current illness, exacerbation or injury. 10-Not Attempted due to Environmental Limitations-(lack of equipment, weather restraints, etc.). 88-Not Attempted due to Medical Conditions or Safety Concerns. Lying to Sitting/Side of Bed(Q: 3 (min) Sit to Stand (QC): 3 (mod) Chair/Fom-ko-Cdhtk Xfer(QC): 3 (mod) Weight Bearing L UE in sling post pacemaker; no wB through L UE Gait Training Does the Patient Walk?: Yes Distance: 100', 10' Walk 10 feet (QC): 2 Walk 50 ft with 2 Turns(QC): 2 Gait Persons Needed: 2 Gait Assistive Device: FWW Patient requires max assist to aid in walker navigation, cueing to take "big steps" with gait pattern, and cueing to stand up straight as patient has consistent tendency to demonstrate moderate "crouched" position during ambulation. Patient noted he felt more stable when one PT stood at head of walker and provided stability. Exercises Seated Therapy Exercises: Ankle pumps, Long arc quads Seated Reps: 20 Treatments LE strengthening, Gait training, endurance, transfers Assessment Current Status: Fair Progress Patient will benefit from continued gait training and LE strengthening for optimal safety for patient with return home with spouse. PT Short Term Goals Short Term Goals Time Frame: Jan 11, 2021 Sit to lyin Lying to sitting on side of be: 4 Walk 150 feet: 3 PT Physician Office Secretary Goals Physician Office Secretary Goals PT Physician Office Secretary Goals Time Frame: Jan 19, 2021 Roll Left & Right (QC): 4 Sit to Lying (QC): 4 Lying-Sitting on Side/Bed(QC): 4 Sit to Stand (QC): 4 Chair/Rlx-bf-Ojldb Xfer(QC): 4 Toilet Transfer (QC): 4 Car Transfer (QC): 4 Does the Patient Walk: Yes Walk 10 feet (QC): 4 Walk 50ft with 2 Turns (QC): 4 Walk 150 ft (QC): 4 Walking 10ft on Uneven Surface: 9 1 Step (curb) (QC): 9 4 Steps (QC): 9 12 Steps (QC): 9 Picking up an Object (QC): 9 Wheel 50 feet with 2 turns (QC: 9 Wheel 150 feet: 9 PT Plan Problem List Problem List: Activity Tolerance, Functional Strength, Safety, Balance, Gait, Transfer, Bed Mobility, ROM Treatment/Plan Treatment Plan: Continue Plan of Care Treatment Plan: Bed Mobility, Education, Functional Activity [place], Functional Strength, Gait, Safety, Therapeutic Exercise, Transfers Treatment Duration: Jan 19, 2021 Frequency: 6 times per week Estimated Hrs Per Day: .5 hour per day Patient and/or Family Agrees t: Yes Safety Risks/Education Patient Education: Gait Training, Transfer Techniques, Correct Positioning, Safety Issues Teaching Recipient: Patient, Family Teaching Methods: Demonstration, Discussion Response to Teaching: Verbalize Understanding, Return Demonstration, Reinforcement Needed Time/GCodes Time In: 902 Time Out: 920 Total Billed Treatment Time: 18 Total Billed Treatment 1 visit: FA: 18' LESLYE HELMS PT Jan 09, 2021 10:03
[2021-01-09] MEDS: DOCUSATE SODIUM 100 MG (COLACE) CAP PO SCH ×2 (10:24→20:20)
[2021-01-09] MEDS: LACTULOSE SYRUP 10GM/15ML (ENULOSE) 30ML UDC PO PRN (10:24)
[2021-01-09] MEDS: PANTOPRAZOLE 40 MG (PROTONIX) TAB PO SCH (10:24)
[2021-01-09] MEDS: KCL 10 MEQ TAB (MICRO K) PO SCH (10:25)
[2021-01-09] MEDS: APIXABAN 5 MG (ELIQUIS) TABLET PO SCH ×2 (10:25→20:20)
[2021-01-09] MEDS: FUROSEMIDE 40 MG (LASIX) TAB PO SCH (10:25)
--- NOTE | 2021-01-09 10:25 | Cardiology Progress Note ---
Subjective Date Seen by Provider: Jan 09, 2021 Time Seen by Provider: 10:23 Subjective/Events-last exam Patient is sitting up in chair, denies any chest pain. PPM implantation site C/D/I. Objective-Cardiology Exam Last Set of Vital Signs Vital Signs 01/09/21 16:01 Temp 36.4 Pulse 63 Resp 16 B/P (MAP) 157/88 (111) Pulse Ox 98 O2 Delivery Room Air Capillary Refill : I&O Intake and Output 01/09/21 00:00 Intake Total 1460 ml Output Total 300 ml Balance 1160 ml Intake Oral 1460 ml Output Urine Total 300 ml # Voids 4 # Bowel Movements 1 General: Alert, Oriented X3, Cooperative HEENT: Atraumatic, PERRLA Neck: Supple, No JVD, No Thyromegaly Lungs: Clear to Auscultation, Normal Air Movement Heart: Regular Rate, Normal S1, Normal S2, No Murmurs Abdomen: Normal Bowel Sounds, Soft, No Tenderness, No Hepatosplenomegaly, No Masses Extremities: No Clubbing, No Cyanosis, Normal Pulses, No Tenderness/Swelling, Other (trace edema) Skin: No Rashes, No Significant Lesion Neuro: Normal Speech, Cranial Nerves 3-12 NL Psych/Mental Status: Mental Status NL, Mood NL A/P-Cardiology Admission Diagnosis Syncope SSS/afib HTN Parkinson's Assessment/Plan Syncope- had syncopal episode x 2. Sinus node dysfunction alternating with paroxysmal atrial fibrillation with severe bradycardia, status post single- chamber pacemaker implantation with no complication. Site is healing well. Continue to monitor Debility, patient is unable to take care of himself, after the pacemaker implant was concerned that she will not be able to support him to get up and get out of bed due to the fact that he cannot use his left arm. Continue with PT Peripheral edema, started on Lasix, monitor tolerance and response History of loop monitor implanted, I am planning to extracted. Chest pain, nonspecific etiology, improved. Denies any recent chest pain. Stress test done February 2017 was negative for ischemia or infarct. Continue to monitor. Persistent atrial fibrillation-unable to tolerate beta enoc secondary to underlying bradycardia, unable to tolerate amiodarone due to dizziness, rate well controlled. S/p LINq implantation, planning for extraction. [id number] score of 2, yearly risk of stroke without oral anticoagulation is 2.2 percent. Maintained on Eliquis. Malignant hypertension, history of hypertensive encephalopathy with hallucinations during episode of elevated blood pressure. Has been having labile hypertension recently. HELEN, intolerant to CPAP Hypothyroidism, managed by primary care physician Parkinson's disease, followed by primary care physician Hyperlipidemia, maintained on fenofibrate, good control. Continue on current medications and continue to monitor. Next Mild bilateral carotid stenosis, ultrasound was done May 2019, continue to monitor. Supervisory-Addendum Brief Supervisory Addendum Participated in pt care: history, MDM, physical Personally performed: exam, history, MDM Care discussed with: STEW Notes: Patient was seen and evaluated with Alma Wound was evaluated at the site of the pacemaker appears to be healing well Blood pressure is better controlled Patient is feeling better, educated about the pacemaker and ability to do certain exercises. We will continue monitoring ALMA DEE Jan 09, 2021 10:25 am MIRIAM NICOLE MD Jan 09, 2021 6:20 pm
[2021-01-09] MEDS: hydrALAZINE (APRESOLINE) 25 MG TAB PO SCH ×3 (10:28→20:20)
--- NOTE | 2021-01-09 10:37 | Occupational Ther Daily Note ---
OT Current Status-Daily Note Subjective Pt AxO, agrees to tx. Denies pain, present through session. Mental Status/Objective Patient Orientation: Person, Place, Situation ADL-Treatment Therapy Code Descriptions/Definitions Functional [place] Measure: 0=Not Assessed/NA 4=Minimal Assistance 1=Total Assistance 5=Supervision or Setup 2=Maximal Assistance 6=Modified [place] 3=Moderate Assistance 7=Complete IndependenceSCALE: Activities may be completed with or without assistive devices. 9-Epmlplkfxj-roichio completes the activity by him/herself with no assistance from a helper. 5-Set-up or Clean-up Assistance-helper sets up or cleans up; patient completes activity. [place] assists only prior to or following the activity. 4-Supervision or Touching Assistance-helper provides verbal cues and/or touching/steadying and/or contact guard assistance as patient completes activity. Assistance may be provided throughout the activity or intermittently. 3-Partial/Moderate Assistance-helper does LESS THAN HALF the effort. [place] lifts, holds or supports trunk or limbs, but provides less than half the effort. 2-Substantial/Maximal Assistance-helper does MORE THAN HALF the effort. [place] lifts or holds trunk or limbs and provides more than half the effort. 6-Vtge[place]apek-tlleze does ALL the effort. Patient does none of the effort to complete the activity. Or, the assistance of 2 or more helpers is required for the patient to complete the activity. If activity was not attempted, code reason: 7-Patient Refused. 9-Not Applicable-not attempted and the patient did not perform the activity before the current illness, exacerbation or injury. 10-Not Attempted due to Environmental Limitations-(lack of equipment, weather restraints, etc.). 88-Not Attempted due to Medical Conditions or Safety Concerns. Bathing Location: L Arm, L Upper Leg, R Upper Leg, Chest, Abdomen, Perineal Area Shower/Bathe Self (QC): 3 (mod A (RUE due to LUE precautions, bottom)) Upper Body Dressing (QC): 3 (mod A with dressing/ sling donning max A) Lower Body Dressing (QC): 3 (CGA during pull down, mod A raising over hips in stance.) Toileting Hygiene (QC): 2 (max A bottom care. CGA josh care in stance.) Other Treatment Pt completes sponge bath in chair/ in stance with CGA. Pt sit to stand from raised chair with use of RUE to push off with CGA. Stands at walker level for ~5 min with CGA and cues for upright positioning. Pt sits post bottom care, requires increased time for all tasks. Pt agrees to UE ex (RUE only) with education for for positioning of theraband. Pt completes 15-25 reps of the following ex on RUE: shoulder flexion, horizontal abduction, horizontal adduction, bicep curls. Pt able to regulate repetitions. Pt educated on cont inued strengthening (one LUE precautions lifted) and stretching program. Pt is given hair cap and donned and takes over the hair grooming (Max A). All needs met, call light in reach. Education OT Patient Education: Correct positioning, Exercise program, Home exercise program, Instructions to caregiver, Modified ADL techniques, Progress toward Goal/Update tx plan, Purpose of tx/functional activities, Reviewed precautions, Safety issues, Transfer techniques Teaching Recipient: Patient Teaching Methods: Demonstration, Discussion Response to Teaching: Verbalize Understanding, Return Demonstration OT Short Term Goals Short Term Goals Time Frame: Jan 12, 2021 Eatin Oral hygiene: 4 Toileting hygiene: 3 Upper body dressin Lower body dressin Putting on/taking off footwear: 3 OT Nursing Home Goals Nursing Home Goals Time Frame: Jan 26, 2021 Eating (QC): 5 Oral Hygiene (QC): 5 Toileting Hygiene (QC): 4 Shower/Bathe Self (QC): 3 Upper Body Dressing (QC): 4 Lower Body Dressing (QC): 3 On/Off Footwear (QC): 3 Additional Goals: 1-Demonstrate ADL Tasks, 2-Verbalize Understanding, 3- ImproveStrength/[place]ling 1=Demonstrate adherence to instructed precautions during ADL tasks. 2=Patient will verbalize/demonstrate understanding of assistive devices/modifications for ADL. 3=Patient will improve strength/tolerance for activity to enable patient to perform ADL's. OT Education/Plan Problem List/Assessment Assessment: Decreased Activ Tolerance, Decreased UE Strength, Dependent Transfers, Impaired Coordination, Impaired Funct Balance, Impaired I ADL's, Impaired Self-Care Skills Discharge Recommendations Plan/Recommendations: Continue POC Therapy Discharge Recommendati: Scheduled Assistance, Bath Aide, Home & Family, Post Acute OT Treatment Plan/Plan of Care Treatment,Training & Education: Yes Patient would benefit from OT for education, treatment and training to promote independence in ADL's, mobility, safety and/or upper extremity function for ADL's. Plan of Care: ADL Retraining, Functional Mobility, UE Funct Exercise/Act Treatment Duration: Jan 26, 2021 Frequency: At least 5 of 7 days/Wk (IRF) Estimated Hrs Per Day: 1.5 hours per day Agreement: Yes Rehab Potential: Good Time/GCodes Start Time: 09:40 Stop Time: 10:25 Total Time Billed (hr/min): 45 Billed Treatment Time 1, ADL 2, EX (45) ARIANNA ACEVEDO OTR Jan 09, 2021 10:37
[2021-01-09] MEDS: SENNA W/DOCUSATE (SENOKOT S) TABLET PO SCH ×2 (10:40→20:19)
[2021-01-09 12:35] VITALS: BP 107/67
[2021-01-09] MEDS: ACETAMINOPHEN 325 MG TABLET PO PRN (12:36)
[2021-01-09 16:01] VITALS: BP 157/88
[2021-01-09] MEDS: QUEtiapine 25 MG (SEROquel) TAB IMMEDIATE RELEASE PO SCH ×2 (16:59→20:19)
[2021-01-09] MEDS: ALLOPURINOL 300 MG (ZYLOPRIM) TAB PO SCH (16:59)
[2021-01-09 18:00] VITALS: BP_SYST 154; BP_SYST 157; BP_DIAS 88; BP_DIAS 90
[2021-01-09 20:17] VITALS: BP 115/68
[2021-01-09] MEDS: NUPLAZID 34 MG PO SCH (20:20)
[2021-01-09] MEDS: lisINopril 5 MG (PRINIVIL) TABLET PO SCH (20:20)
[2021-01-09] MEDS: FINASTERIDE (PROSCAR) 5 MG TAB PO SCH (20:20)
[2021-01-10 05:05] VITALS: BP 136/78
[2021-01-10] MEDS: GEMFIBROZIL 600 MG (LOPID) TAB PO SCH ×2 (05:39→16:30)
[2021-01-10] MEDS: VENlafaxine XR 75 MG (EFFEXOR XR) CAP PO SCH (05:39)
[2021-01-10] MEDS: LEVOTHYROXINE 100 MCG (LEVOTHROID) TAB PO SCH (05:39)
[2021-01-10] MEDS: LEVOTHYROXINE 75 MCG (LEVOTHROID) TABLET PO SCH (05:39)
[2021-01-10] MEDS: DOCUSATE SODIUM 100 MG (COLACE) CAP PO SCH ×2 (08:07→20:21)
[2021-01-10] MEDS: SENNA W/DOCUSATE (SENOKOT S) TABLET PO SCH ×2 (08:07→20:21)
[2021-01-10] MEDS: KCL 10 MEQ TAB (MICRO K) PO SCH (08:07)
[2021-01-10] MEDS: FUROSEMIDE 40 MG (LASIX) TAB PO SCH (08:07)
[2021-01-10] MEDS: SINEMET 25/100 (CARBIDOPA/LEVODOPA) TAB PO SCH ×4 (08:07→20:20)
[2021-01-10] MEDS: PANTOPRAZOLE 40 MG (PROTONIX) TAB PO SCH (08:07)
[2021-01-10] MEDS: APIXABAN 5 MG (ELIQUIS) TABLET PO SCH ×2 (08:08→20:21)
[2021-01-10] MEDS: hydrALAZINE (APRESOLINE) 25 MG TAB PO SCH ×3 (08:08→20:21)
--- NOTE | 2021-01-10 10:13 | Physical Therapy Daily Note ---
PT Daily Note-Current Subjective Patient and spouse agree to therapy. Mental Status Patient Orientation: Normal For Age Transfers SCALE: Activities may be completed with or without assistive devices. 2-Gafnlnydeo-tayelkt completes the activity by him/herself with no assistance from a helper. 5-Set-up or Clean-up Assistance-helper sets up or cleans up; patient completes activity. [place] assists only prior to or following the activity. 4-Supervision or Touching Assistance-helper provides verbal cues and/or touching/steadying and/or contact guard assistance as patient completes activity. Assistance may be provided throughout the activity or intermittently. 3-Partial/Moderate Assistance-helper does LESS THAN HALF the effort. [place] lifts, holds or supports trunk or limbs, but provides less than half the effort. 2-Substantial/Maximal Assistance-helper does MORE THAN HALF the effort. [place] lifts or holds trunk or limbs and provides more than half the effort. 7-Gliithuzg-fbfvzw does ALL the effort. Patient does none of the effort to complete the activity. Or, the assistance of 2 or more helpers is required for the patient to complete the activity. If activity was not attempted, code reason: 7-Patient Refused. 9-Not Applicable-not attempted and the patient did not perform the activity before the current illness, exacerbation or injury. 10-Not Attempted due to Environmental Limitations-(lack of equipment, weather restraints, etc.). 88-Not Attempted due to Medical Conditions or Safety Concerns. Lying to Sitting/Side of Bed(Q: 3 Sit to Stand (QC): 4 Chair/Udv-zx-Aqjne Xfer(QC): 4 CGA for safety on this date Weight Bearing L UE in sling post pacemaker; no wB through L UE 01/10/21 physician reports patient is able to utilize left UE for balance/stability with FWW use. Continues to be restricted with overhead activity, pushing and pulling. Gait Training Does the Patient Walk?: Yes Distance: 300' Walk 10 feet (QC): 4 Walk 50 ft with 2 Turns(QC): 4 Walk 150 ft (QC): 4 Gait Assistive Device: FWW much improved gait sequence with appropriate step length and minimal to no VC's. Good posture with FWW use Exercises Supine Ex: Straight leg raise Supine Reps: 12 Seated Therapy Exercises: Ankle pumps, Long arc quads, Hip flexion Seated Reps: 15 Assessment Patient improved on this date with gross motor skills. Spouse and patient are highly motivated with progress. PT Short Term Goals Short Term Goals Time Frame: Jan 11, 2021 Sit to lyin Lying to sitting on side of be: 4 Walk 150 feet: 3 PT Half-Way Goals [employer] Goals PT Half-Way Goals Time Frame: Jan 19, 2021 Roll Left & Right (QC): 4 Sit to Lying (QC): 4 Lying-Sitting on Side/Bed(QC): 4 Sit to Stand (QC): 4 Chair/Wqq-ta-Qdmvk Xfer(QC): 4 Toilet Transfer (QC): 4 Car Transfer (QC): 4 Does the Patient Walk: Yes Walk 10 feet (QC): 4 Walk 50ft with 2 Turns (QC): 4 Walk 150 ft (QC): 4 Walking 10ft on Uneven Surface: 9 1 Step (curb) (QC): 9 4 Steps (QC): 9 12 Steps (QC): 9 Picking up an Object (QC): 9 Wheel 50 feet with 2 turns (QC: 9 Wheel 150 feet: 9 PT Plan Treatment/Plan Treatment Plan: Continue Plan of Care Treatment Plan: Bed Mobility, Education, Functional Activity [place], Functional Strength, Gait, Safety, Therapeutic Exercise, Transfers Treatment Duration: Jan 19, 2021 Frequency: 6 times per week Estimated Hrs Per Day: .5 hour per day Patient and/or Family Agrees t: Yes Time/GCodes Time In: 943 Time Out: 1006 Total Billed Treatment Time: 23 Total Billed Treatment 1 visit GT 14 min EX 9 min CRISPIN LOCO PT Jan 10, 2021 10:13
--- NOTE | 2021-01-10 12:36 | Cardiology Progress Note ---
Subjective Date Seen by Provider: Jan 10, 2021 Time Seen by Provider: 12:34 Subjective/Events-last exam Patient was seen at bedside, laying down comfortably, feeling better, pacemaker site is healing well Review of Systems General: No Chills, No Night Sweats, No Fatigue, No Malaise, No Appetite, No Other HEENT: No Head Aches, No Visual Changes, No Eye Pain, No Ear Pain, No Dysph mika, No Sinus Congestion, No Post Nasal Drip, No Sore Throat, No Other Pulmonary: No Dyspnea, No Cough, No Pleuritic Chest Pain, No Other Cardiovascular: No: Chest Pain, Palpitations, Orthopnea, Paroxysmal Noc. Dyspnea, Edema, Lt Headedness, Other Objective-Cardiology Exam Last Set of Vital Signs Vital Signs 01/10/21 01/10/21 05:05 08:00 Temp 36.1 Pulse 65 Resp 18 B/P (MAP) 136/78 (97) Pulse Ox 96 O2 Delivery Room Air Capillary Refill : I&O Intake and Output 01/10/21 00:00 Intake Total 1560 ml Output Total 200 ml Balance 1360 ml Intake Oral 1560 ml Output Urine Total 200 ml # Voids 7 General: Alert, Oriented X3, Cooperative HEENT: Atraumatic, PERRLA Neck: Supple, No JVD, No Thyromegaly Lungs: Clear to Auscultation, Normal Air Movement Heart: Regular Rate, Normal S1, Normal S2, No Murmurs Abdomen: Normal Bowel Sounds, Soft, No Tenderness, No Hepatosplenomegaly, No Masses Extremities: No Clubbing, No Cyanosis, Normal Pulses, No Tenderness/Swelling, Other (trace edema) Skin: No Rashes, No Significant Lesion Neuro: Normal Speech, Cranial Nerves 3-12 NL Psych/Mental Status: Mental Status NL, Mood NL A/P-Cardiology Admission Diagnosis Syncope SSS/afib HTN Parkinson's Assessment/Plan Syncope- had syncopal episode x 2. Sinus node dysfunction alternating with paroxysmal atrial fibrillation with severe bradycardia, status post single- chamber pacemaker implantation with no complication. Site is healing well. Continue to monitor Debility, patient is unable to take care of himself, after the pacemaker implant was concerned that she will not be able to support him to get up and get out of bed due to the fact that he cannot use his left arm. Continue with PT Peripheral edema, improving on diuretics. Continue to monitor History of loop monitor implanted, I am planning to extracted it tomorrow. Chest pain, nonspecific etiology, improved. Denies any recent chest pain. Stress test done February 2017 was negative for ischemia or infarct. Continue to monitor. Persistent atrial fibrillation-unable to tolerate beta enoc secondary to underlying bradycardia, unable to tolerate amiodarone due to dizziness, rate well controlled. S/p LINq implantation, planning for extraction. [id number] score of 2, yearly risk of stroke without oral anticoagulation is 2.2 percent. Maintained on Eliquis. Malignant hypertension, history of hypertensive encephalopathy with hallucinations during episode of elevated blood pressure. Has been having labile hypertension recently. HELEN, intolerant to CPAP Hypothyroidism, managed by primary care physician Parkinson's disease, followed by primary care physician Hyperlipidemia, maintained on fenofibrate, good control. Continue on current me dications and continue to monitor. Next Mild bilateral carotid stenosis, ultrasound was done May 2019, continue to monitor. MIRIAM NICOLE MD Jan 10, 2021 12:36
--- NOTE | 2021-01-10 13:21 | Occupational Ther Daily Note ---
OT Current Status-Daily Note Subjective Pt alert, sitting in recliner. Pt's in room. Pt agrees to therapy. No c/o pain. Mental Status/Objective Patient Orientation: Person, Place, Time, Situation Attachments: IV ADL-Treatment Pt states that he has already completed sponge bath today. Pt's states that they have a lady coming into the home to assist with bathing and dressing daily. Therapy Code Descriptions/Definitions Functional [place] Measure: 0=Not Assessed/NA 4=Minimal Assistance 1=Total Assistance 5=Supervision or Setup 2=Maximal Assistance 6=Modified [place] 3=Moderate Assistance 7=Complete IndependenceSCALE: Activities may be completed with or without assistive devices. 7-Manknyzzyf-mlftper completes the activity by him/herself with no assistance from a helper. 5-Set-up or Clean-up Assistance-helper sets up or cleans up; patient completes activity. [place] assists only prior to or following the activity. 4-Supervision or Touching Assistance-helper provides verbal cues and/or touching/steadying and/or contact guard assistance as patient completes activity. Assistance may be provided throughout the activity or intermittently. 3-Partial/Moderate Assistance-helper does LESS THAN HALF the effort. [place] lifts, holds or supports trunk or limbs, but provides less than half the effort. 2-Substantial/Maximal Assistance-helper does MORE THAN HALF the effort. [place] lifts or holds trunk or limbs and provides more than half the effort. 8-Mkrmktwyj-dhgtke does ALL the effort. Patient does none of the effort to complete the activity. Or, the assistance of 2 or more helpers is required for the patient to complete the activity. If activity was not attempted, code reason: 7-Patient Refused. 9-Not Applicable-not attempted and the patient did not perform the activity before the current illness, exacerbation or injury. 10-Not Attempted due to Environmental Limitations-(lack of equipment, weather restraints, etc.). 88-Not Attempted due to Medical Conditions or Safety Concerns. Other Treatment Pt able to remember and complete with correct technique 4 of 5 exercises, 1 verbal cue needed for pt to remember 5th exercise. 1 set 10 reps, pt fatigued. Pt able to remember restrictions and only using R UE. After session, pt sitting in recliner with call light/phone in reach. All needs met in room. OT Short Term Goals Short Term Goals Time Frame: Jan 12, 2021 Eatin Oral hygiene: 4 Toileting hygiene: 3 Upper body dressin Lower body dressin Putting on/taking off footwear: 3 OT [facility] Goals [facility] Goals Time Frame: Jan 26, 2021 Eating (QC): 5 Oral Hygiene (QC): 5 Toileting Hygiene (QC): 4 Shower/Bathe Self (QC): 3 Upper Body Dressing (QC): 4 Lower Body Dressing (QC): 3 On/Off Footwear (QC): 3 Additional Goals: 1-Demonstrate ADL Tasks, 2-Verbalize Understanding, 3- ImproveStrength/[place]ling 1=Demonstrate adherence to instructed precautions during ADL tasks. 2=Patient will verbalize/demonstrate understanding of assistive devices/modifications for ADL. 3=Patient will improve strength/tolerance for activity to enable patient to perform ADL's. OT Education/Plan Problem List/Assessment Assessment: Decreased Activ Tolerance, Decreased UE Strength, Impaired Self- Care Skills Discharge Recommendations Plan/Recommendations: Continue POC Treatment Plan/Plan of Care Patient would benefit from OT for education, treatment and training to promote independence in ADL's, mobility, safety and/or upper extremity function for ADL's. Plan of Care: ADL Retraining, Functional Mobility, UE Funct Exercise/Act Treatment Duration: Jan 26, 2021 Frequency: At least 5 of 7 days/Wk (IRF) Estimated Hrs Per Day: 1.5 hours per day Agreement: Yes Rehab Potential: Good Time/GCodes Start Time: 12:58 Stop Time: 13:13 Total Time Billed (hr/min): 15 Billed Treatment Time 1 visit-EX 1 (15 min) LIYA LÓPEZ Jan 10, 2021 13:21
[2021-01-10] MEDS ORDERED: LIDOCAINE/EPI 1%-1:100,000 (XYLOCAINE) 20ML INJ NR (14:00)
[2021-01-10] MEDS ORDERED: LIDOCAINE/EPI 1%-1:100,000 (XYLOCAINE) 50 ML INJ NR (14:00)
[2021-01-10] MEDS: ALLOPURINOL 300 MG (ZYLOPRIM) TAB PO SCH (16:29)
[2021-01-10] MEDS: QUEtiapine 25 MG (SEROquel) TAB IMMEDIATE RELEASE PO SCH ×2 (16:30→20:21)
[2021-01-10 18:00] VITALS: BP 162/81
[2021-01-10] MEDS: FINASTERIDE (PROSCAR) 5 MG TAB PO SCH (20:21)
[2021-01-10] MEDS: lisINopril 5 MG (PRINIVIL) TABLET PO SCH (20:21)
[2021-01-10] MEDS: NUPLAZID 34 MG PO SCH (20:22)
[2021-01-11 05:00] VITALS: BP 117/71
[2021-01-11] MEDS: LEVOTHYROXINE 75 MCG (LEVOTHROID) TABLET PO SCH (05:23)
[2021-01-11] MEDS: GEMFIBROZIL 600 MG (LOPID) TAB PO SCH ×2 (05:23→17:00)
[2021-01-11] MEDS: LEVOTHYROXINE 100 MCG (LEVOTHROID) TAB PO SCH (05:23)
[2021-01-11] MEDS: VENlafaxine XR 75 MG (EFFEXOR XR) CAP PO SCH (05:23)
[2021-01-11] MEDS: PANTOPRAZOLE 40 MG (PROTONIX) TAB PO SCH (08:42)
[2021-01-11] MEDS: SINEMET 25/100 (CARBIDOPA/LEVODOPA) TAB PO SCH ×4 (08:42→21:26)
[2021-01-11] MEDS: SENNA W/DOCUSATE (SENOKOT S) TABLET PO SCH ×2 (08:42→21:25)
[2021-01-11] MEDS: APIXABAN 5 MG (ELIQUIS) TABLET PO SCH ×2 (08:42→21:25)
[2021-01-11] MEDS: DOCUSATE SODIUM 100 MG (COLACE) CAP PO SCH ×2 (08:42→21:24)
[2021-01-11] MEDS: FUROSEMIDE 40 MG (LASIX) TAB PO SCH (08:42)
[2021-01-11] MEDS: KCL 10 MEQ TAB (MICRO K) PO SCH (08:42)
[2021-01-11] MEDS: hydrALAZINE (APRESOLINE) 25 MG TAB PO SCH ×3 (08:45→21:23)
--- NOTE | 2021-01-11 08:54 | Progress Note - Hospitalist ---
Subjective HPI/CC On Admission Date Seen by Provider: Jan 11, 2021 Time Seen by Provider: 08:52 Subjective/Events-last exam Pt reports doing well. No complaints. Was told he didn't have to wear his sling anymore per Dr Avila but still needs to limit his weight on it. Objective Exam Vital Signs Vital Signs Date Time Temp Pulse Resp B/P (MAP) Pulse Ox O2 Delivery O2 Flow Rate FiO2 01/11/21 09:47 95 Room Air 01/11/21 05:00 35.8 61 18 117/71 (86) Capillary Refill : General Appearance: No Apparent Distress, Chronically ill Respiratory: Lungs Clear, No Respiratory Distress Cardiovascular: Regular Rate, Rhythm, No Murmur Gastrointestinal: Normal Bowel Sounds, Non Tender, Soft Neurologic/Psychiatric: Alert, Oriented x3 Results/Procedures Lab Patient resulted labs reviewed. Assessment/Plan Assessment and Plan Assess & Plan/Chief Complaint Bradycardia Syncope s/p Pacemaker s/p pacemaker placement 01/01 Cardiology consulted, appreciate recs Sling off and can use arm but not bear weight on it Orthostatic hypotension HTN Likely due to progressing Parkinson's Continue Hydralazine with hold parameters Continue Lisinopril and Metoprolol IV Hydralazine as needed Parkinson's Dementia Weakness Acute on chronic debility Continue home Sinemet PT/OT Inpatient rehab denied Discussed plan to continue strengthening with PT and plan for DC home early to mid next week Atrial fibrillation, chronic HLD Continue home meds Eliquis DVT prophylaxis: already receiving therapeutic anticoagulation JAMES SANDERS MD Jan 11, 2021 08:54
--- NOTE | 2021-01-11 11:52 | Physical Therapy Daily Note ---
PT Daily Note-Current Subjective Patient agrees to PT. Mental Status Patient Orientation: Normal For Age Transfers SCALE: Activities may be completed with or without assistive devices. 7-Xpjgseamzt-rpcrqkc completes the activity by him/herself with no assistance from a helper. 5-Set-up or Clean-up Assistance-helper sets up or cleans up; patient completes activity. [place] assists only prior to or following the activity. 4-Supervision or Touching Assistance-helper provides verbal cues and/or touching/steadying and/or contact guard assistance as patient completes activity. Assistance may be provided throughout the activity or intermittently. 3-Partial/Moderate Assistance-helper does LESS THAN HALF the effort. [place] lifts, holds or supports trunk or limbs, but provides less than half the effort. 2-Substantial/Maximal Assistance-helper does MORE THAN HALF the effort. [place] lifts or holds trunk or limbs and provides more than half the effort. 5-Qlgqudpjg-atrkam does ALL the effort. Patient does none of the effort to complete the activity. Or, the assistance of 2 or more helpers is required for the patient to complete the activity. If activity was not attempted, code reason: 7-Patient Refused. 9-Not Applicable-not attempted and the patient did not perform the activity befo re the current illness, exacerbation or injury. 10-Not Attempted due to Environmental Limitations-(lack of equipment, weather re straints, etc.). 88-Not Attempted due to Medical Conditions or Safety Concerns. Lying to Sitting/Side of Bed(Q: 3 Sit to Stand (QC): 4 Chair/Zfn-fw-Ytuop Xfer(QC): 4 Weight Bearing L UE in sling post pacemaker; no wB through L UE 01/10/21 physician reports patient is able to utilize left UE for balance/stability with FWW use. Continues to be restricted with overhead activity, pushing and pulling. Gait Training Does the Patient Walk?: Yes Distance: 250' Walk 10 feet (QC): 3 Walk 50 ft with 2 Turns(QC): 3 Walk 150 ft (QC): 3 Gait Assistive Device: FWW improved Parkinson's gait sequence Exercises Seated Therapy Exercises: Ankle pumps, Long arc quads, Hip flexion Seated Reps: 15 Assessment Patient requires time to complete all functional tasks. Patient improving with treatment plan. PT Short Term Goals Short Term Goals Time Frame: Jan 11, 2021 Sit to lyin Lying to sitting on side of be: 4 Walk 150 feet: 3 PT Chcf Goals Chcf Goals PT Mail Carrier Goals Time Frame: Jan 19, 2021 Roll Left & Right (QC): 4 Sit to Lying (QC): 4 Lying-Sitting on Side/Bed(QC): 4 Sit to Stand (QC): 4 Chair/Mkd-xs-Mbvlr Xfer(QC): 4 Toilet Transfer (QC): 4 Car Transfer (QC): 4 Does the Patient Walk: Yes Walk 10 feet (QC): 4 Walk 50ft with 2 Turns (QC): 4 Walk 150 ft (QC): 4 Walking 10ft on Uneven Surface: 9 1 Step (curb) (QC): 9 4 Steps (QC): 9 12 Steps (QC): 9 Picking up an Object (QC): 9 Wheel 50 feet with 2 turns (QC: 9 Wheel 150 feet: 9 PT Plan Treatment/Plan Treatment Plan: Continue Plan of Care Treatment Plan: Bed Mobility, Education, Functional Activity [place], Functional Strength, Gait, Safety, Therapeutic Exercise, Transfers Treatment Duration: Jan 19, 2021 Frequency: 6 times per week Estimated Hrs Per Day: .5 hour per day Patient and/or Family Agrees t: Yes Time/GCodes Time In: 1005 Time Out: 1028 Total Billed Treatment Time: 23 Total Billed Treatment 1 visit GT 15 min EX 8 min CRISPIN LOCO PT Jan 11, 2021 11:52
--- NOTE | 2021-01-11 12:35 | Cardiology Progress Note ---
Subjective Date Seen by Provider: Jan 11, 2021 Time Seen by Provider: 12:34 Subjective/Events-last exam Patient is laying down in bed, feeling well. No new complaint Review of Systems General: No Chills, No Night Sweats, No Fatigue, No Malaise, No Appetite, No Other HEENT: No Head Aches, No Visual Changes, No Eye Pain, No Ear Pain, No Dysphasia, No Sinus Congestion, No Post Nasal Drip, No Sore Throat, No Other Pulmonary: No Dyspnea, No Cough, No Pleuritic Chest Pain, No Other Cardiovascular: No: Chest Pain, Palpitations, Orthopnea, Paroxysmal Noc. Dyspnea, Edema, Lt Headedness, Other Objective-Cardiology Exam Last Set of Vital Signs Vital Signs 01/11/21 01/11/21 05:00 09:47 Temp 35.8 Pulse 61 Resp 18 B/P (MAP) 117/71 (86) Pulse Ox 95 O2 Delivery Room Air Capillary Refill : I&O Intake and Output 01/10/21 23:59 Intake Total 1900 ml Balance 1900 ml Intake Oral 1900 ml # Voids 8 General: Alert, Oriented X3, Cooperative HEENT: Atraumatic, PERRLA Neck: Supple, No JVD, No Thyromegaly Lungs: Clear to Auscultation, Normal Air Movement Heart: Regular Rate, Normal S1, Normal S2, No Murmurs Abdomen: Normal Bowel Sounds, Soft, No Tenderness, No Hepatosplenomegaly, No Masses Extremities: No Clubbing, No Cyanosis, Normal Pulses, No Tenderness/Swelling, Other (trace edema) Skin: No Rashes, No Significant Lesion Neuro: Normal Speech, Cranial Nerves 3-12 NL Psych/Mental Status: Mental Status NL, Mood NL A/P-Cardiology Admission Diagnosis Syncope SSS/afib HTN Parkinson's Assessment/Plan Syncope- had syncopal episode x 2. Sinus node dysfunction alternating with paroxysmal atrial fibrillation with severe bradycardia, status post single- chamber pacemaker implantation with no complication. Site is healing well. Continue to monitor Debility, patient is unable to take care of himself, after the pacemaker implant was concerned that she will not be able to support him to get up and get out of bed due to the fact that he cannot use his left arm. Continue with PT Peripheral edema, improving on diuretics. Continue to monitor History of loop monitor, the monitor was extracted by Dr. Keita Chest pain, nonspecific etiology, improved. Denies any recent chest pain. Stress test done February 2017 was negative for ischemia or infarct. Continue to monitor. Persistent atrial fibrillation-unable to tolerate beta enoc secondary to underlying bradycardia, unable to tolerate amiodarone due to dizziness, rate well controlled. S/p LINq implantation, planning for extraction. [id number] score of 2, yearly risk of stroke without oral anticoagulation is 2.2 percent. Maintained on Eliquis. Malignant hypertension, history of hypertensive encephalopathy with hallucinations during episode of elevated blood pressure. Has been having labile hypertension recently. HELEN, intolerant to CPAP Hypothyroidism, managed by primary care physician Parkinson's disease, followed by primary care physician Hyperlipidemia, maintained on fenofibrate, good control. Continue on current medications and continue to monitor. Next Mild bilateral carotid stenosis, ultrasound was done May 2019, continue to monitor. MIRIAM NICOLE MD Jan 11, 2021 12:35
--- NOTE | 2021-01-11 12:38 | Consultation - Surgery ---
History of Present Illness History of Present Illness Patient Consulted On(sarahi/time) 01/10/21 17:29 Date Seen by Provider: Jan 10, 2021 Time Seen by Provider: 17:29 History of Present Illness Consult requested by Dr. Avila for loop recorder removal. Patient is a 75 year old male with loop recorder. Had defibrillator placed and no longer needing loop recorder. He is not having any other issues with it. He would like to have it removed. Currently denies any n/v fever sweats chills shortness of breath or chest pain. Allergies and Home Medications Allergies Coded Allergies: No Known Drug Allergies (Unverified , 05/12/17) Home Medications Acetaminophen 500 Mg Tablet, 1,000 MG PO HS PRN for PAIN-MILD (1-4), (Reported) TAKES 2 (500MG) TABLETS Allopurinol 300 Mg Tablet, 300 MG PO 1700, (Reported) Apixaban 5 Mg Tablet, 5 MG PO BID, (Reported) Calcium Carbonate 500 Mg Tablet, 500 MG PO DAILY, (Reported) Carbidopa/Levodopa 1 Each Tablet, 1.5 TAB PO QIDACHS, (Reported) TAKES 1 TABLETS Cefdinir 300 Mg Capsule, 300 MG PO BID, (Reported) Cholecalciferol (Vitamin D3) 125 Mcg Tablet, 125 MCG PO DAILY, (Reported) Cyanocobalamin (Vitamin B-12) 2,500 Mcg Tablet, 2,500 MCG PO DAILY, (Reported) Dutasteride 0.5 Mg Capsule, 0.5 MG PO HS, (Reported) Gemfibrozil 600 Mg Tablet, 600 MG PO BID, (Reported) Lactulose 10 Gm/15 Ml Solution, 15 ML PO Q48H, (Reported) Levothyroxine Sodium 175 Mcg Tablet, 175 MCG PO DAILY, (Reported) Multivitamin 1 Each Tablet, 1 EACH PO DAILY, (Reported) Pantoprazole Sodium 40 Mg Tablet.dr, 40 MG PO 1200, (Reported) Pimavanserin Tartrate 34 Mg Capsule, 34 MG PO 1700, (Reported) Quetiapine Fumarate 25 Mg Tablet, 25 MG PO 1400, (Reported) Quetiapine Fumarate 25 Mg Tablet, 50 MG PO 2030, (Reported) TAKES 2 (25MG) TABLETS Sodium Bicarbonate/Sodium Cit 1 Each Tablet.eff, 1 EACH PO DAILY PRN for HEARTBURN, (Reported) Venlafaxine HCl 75 Mg Cap.er.24h, 75 MG PO DAILY, (Reported) [Theraworx] , 1 APPLIC TOP DAILY PRN for CRAMPS, (Reported) Patient Home Medication List Home Medication List Reviewed: Yes Past Cixttir-Occkbl-Fwzjjp Hx Patient Social History Type Used: Cigarettes 2nd Hand Smoke Exposure: No Recent Hopitalizations: No Immunizations Up To Date Date of Pneumonia Vaccine: Jan 03, 2017 Date of Influenza Vaccine: Jul 05, 2018 Seasonal Allergies Seasonal Allergies: No Surgeries History of Surgeries: Yes (SCHRAPNEL REMOVED FROM LEFT ARM; LEFT LEG I&D CHILD FOR OSTEOMYELITIS; ) Surgeries: Appendectomy, Gallbladder, Orthopedic, Tonsillectomy Respiratory History of Respiratory Disorde: Yes Respiratory Disorders: Sleep Apnea Cardiovascular History of Cardiac Disorders: Yes Cardiac Disorders: Atrial Fibrillation, Hypertension Neurological History of Neurological Disord: Yes Neurological Disorders: Dementia, Parkinson's Disease Reproductive System Hx Reproductive Disorders: No Sexually Transmitted Disease: No HIV/AIDS: No Genitourinary History of Genitourinary Disor: Yes (HORSESHOE KIDNEY; KIDNEY STONES NOTED ON CT SCAN 09/27/18) Genitourinary Disorders: Benign Prostatic Hyperpl, Prostate Problems, Kidney Stones Gastrointestinal History of Gastrointestinal Di: Yes Gastrointestinal Disorders: Gastroesophageal Reflux, Chronic Constipation Musculoskeletal History of Musculoskeletal Dis: Yes Musculoskeletal Disorders: Arthritis, Chronic Back Pain Endocrine History of Endocrine Disorders: Yes Endocrine Disorders: Hypothyroidsim HEENT History of HEENT Disorders: No Loss of Vision: Denies Hearing Impairment: Denies 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: Skin Psychosocial History of Psychiatric Problem: Yes Behavioral Health Disorders: PTSD Integumentary History of Skin or Integumenta: No Blood Transfusions History of Blood Disorders: No Adverse Reaction to a Blood Tr: No (N/A) Reviewed Nursing Assessment Reviewed/Agree w Nursing PMH: Yes Family Medical History Significant Family History: No Pertinent Family Hx Family Medial History: Alcoholism G8 BROTHER Cervical cancer G8 SISTER Diabetes mellitus 19 FATHER 19 MOTHER G8 BROTHER FH: COPD (chronic obstructive pulmonary disease) 19 MOTHER FH: stroke 19 FATHER Review of Systems-General Constitutional: No chills, No diaphoresis EENTM: No blurred vision, No double vision Respiratory: No cough, No dyspnea on exertion Cardiovascular: No chest pain, No palpitations Gastrointestinal: No abdominal pain, No nausea, No vomiting Genitourinary: No decreased output, No discharge Musculoskeletal: No back pain, No joint pain Skin: No change in color, No change in hair/nails Psychiatric/Neurological: Denies Anxiety, Denies Depressed, Denies Emotional Problems All Other Systems Reviewed Negative Unless Noted: Yes (Negative excepted noted.) Physical Exam-General Problems Physical Exam Vital Signs Vital Signs - First Documented 01/05/21 18:01 Temp 36.1 Pulse 63 Resp 18 B/P (MAP) 114/76 (89) Pulse Ox 98 O2 Delivery Room Air Capillary Refill : General Appearance: WD/WN, no apparent distress HEENT: PERRL/EOMI, normal ENT inspection Neck: non-tender, supple Respiratory: chest non-tender (left chest wall), no respiratory distress, no accessory muscle use Cardiovascular: regular rate, rhythm; No no edema; no JVD Gastrointestinal: non tender, soft, no organomegaly Rectal: deferred Back: no CVA tenderness, no vertebral tenderness Extremities: non-tender, pedal edema Neurologic/Psychiatric: no motor/sensory deficits, alert, normal mood/affect, oriented x 3 Skin: normal color, warm/dry Lymphatic: no adenopathy Assessment/Plan Assessment/Plan Assessment/Plan Foreign body of subcutaneous tissue (loop recorder) left chest. 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 They understand and wish to proceed. Consent obtained. PROCEDURE: Removal of foreign body left chest subcutaneous tissue. Patient prepped and draped in sterile fashion. Timeout performed. 3 ml of local anesthetic injected left chest at site of foreign body. 15 blade scalpel made incision through skin and hemostat used to grasp foreign body. Slight traction applied removing the foreign body out of subcutaneous layer. 4-o nylon used to close skin in simple interrupted fashion. Area was washed and dried and sterile bandage applied. NE MERLOS DO Jan 11, 2021 12:38
--- NOTE | 2021-01-11 14:15 | Occupational Ther Daily Note ---
OT Current Status-Daily Note Subjective Pt AxO, present through session. Pt agrees to tx. Pt desires bathroom. Mental Status/Objective Patient Orientation: Person, Place, Situation ADL-Treatment Therapy Code Descriptions/Definitions Functional [place] Measure: 0=Not Assessed/NA 4=Minimal Assistance 1=Total Assistance 5=Supervision or Setup 2=Maximal Assistance 6=Modified [place] 3=Moderate Assistance 7=Complete IndependenceSCALE: Activities may be completed with or without assistive devices. 0-Zozbluutno-hfluvre completes the activity by him/herself with no assistance from a helper. 5-Set-up or Clean-up Assistance-helper sets up or cleans up; patient completes activity. [place] assists only prior to or following the activity. 4-Supervision or Touching Assistance-helper provides verbal cues and/or touching/steadying and/or contact guard assistance as patient completes activity. Assistance may be provided throughout the activity or intermittently. 3-Partial/Moderate Assistance-helper does LESS THAN HALF the effort. [place] lifts, holds or supports trunk or limbs, but provides less than half the effort. 2-Substantial/Maximal Assistance-helper does MORE THAN HALF the effort. [place] lifts or holds trunk or limbs and provides more than half the effort. 9-Clfnfnqbs-pvfizv does ALL the effort. Patient does none of the effort to complete the activity. Or, the assistance of 2 or more helpers is required for the patient to complete the activity. If activity was not attempted, code reason: 7-Patient Refused. 9-Not Applicable-not attempted and the patient did not perform the activity before the current illness, exacerbation or injury. 10-Not Attempted due to Environmental Limitations-(lack of equipment, weather restraints, etc.). 88-Not Attempted due to Medical Conditions or Safety Concerns. Lower Body Dressing (QC): 2 (education to on use of nitric acid concentrator operator for RLE, though assist would be needed for LLE. states typically assists but can try, howver, typically in hurry and will complete for pt) Toileting Hygiene (QC): 2 (Pt able to cleanse josh area, max A bottom care in stance.) Toilet Transfer (QC): 4 (CGA) Other Treatment Pt completes sit to stand with 2 trials from raised seat. Pt ambulates to bathroom with CGA, completes BM. Sit to stand from toilet with CGA and gb use. Max A LB dressing. Max A toilet hygiene. Pt ambulates to chair, positioned with pillow to L side to decreased L side lean. All needs met, call light in reach, pt left in chair with present. Education OT Patient Education: Correct positioning, Modified ADL techniques, Progress toward Goal/Update tx plan, Purpose of tx/functional activities, Reviewed precautions (sling doffed, uses only to push from chair and stabilize walker. Reinforcement of continued no flexion/ push/ pull of L shoulder.), Safety issues, Transfer techniques Teaching Recipient: Patient, Significant Other Teaching Methods: Demonstration, Discussion Response to Teaching: Verbalize Understanding, Return Demonstration, Reinforcement Needed OT Short Term Goals Short Term Goals Time Frame: Jan 12, 2021 Eatin Oral hygiene: 4 Toileting hygiene: 3 Upper body dressin Lower body dressin Putting on/taking off footwear: 3 OT Test Data Developer Goals Correction Goals Time Frame: Jan 26, 2021 Eating (QC): 5 Oral Hygiene (QC): 5 Toileting Hygiene (QC): 4 Shower/Bathe Self (QC): 3 Upper Body Dressing (QC): 4 Lower Body Dressing (QC): 3 On/Off Footwear (QC): 3 Additional Goals: 1-Demonstrate ADL Tasks, 2-Verbalize Understanding, 3- ImproveStrength/Darling 1=Demonstrate adherence to instructed precautions during ADL tasks. 2=Patient will verbalize/demonstrate understanding of assistive devices/modifica tions for ADL. 3=Patient will improve strength/tolerance for activity to enable patient to perform ADL's. OT Education/Plan Problem List/Assessment Assessment: Decreased Activ Tolerance, Decreased UE Strength, Dependent Transfers, Impaired Bed Mobility, Impaired Coordination, Impaired Funct Balance, Impaired I ADL's, Impaired Self-Care Skills Discharge Recommendations Plan/Recommendations: Continue POC Therapy Discharge Recommendati: Scheduled Assistance, Bath Aide, Home & Family Treatment Plan/Plan of Care Treatment,Training & Education: Yes Patient would benefit from OT for education, treatment and training to promote independence in ADL's, mobility, safety and/or upper extremity function for ADL's. Plan of Care: ADL Retraining, Functional Mobility, UE Funct Exercise/Act Treatment Duration: Jan 26, 2021 Frequency: At least 5 of 7 days/Wk (IRF) Estimated Hrs Per Day: 1.5 hours per day Agreement: Yes Rehab Potential: Good Time/GCodes Start Time: 13:30 Stop Time: 13:58 Total Time Billed (hr/min): 28 Billed Treatment Time 1, ADL 2 (28) ARIANNA ACEVEDO OTR Jan 11, 2021 14:15
[2021-01-11] MEDS: ALLOPURINOL 300 MG (ZYLOPRIM) TAB PO SCH (17:00)
[2021-01-11] MEDS: QUEtiapine 25 MG (SEROquel) TAB IMMEDIATE RELEASE PO SCH ×2 (17:00→21:25)
[2021-01-11 17:11] VITALS: BP 137/79
[2021-01-11] MEDS: FINASTERIDE (PROSCAR) 5 MG TAB PO SCH (21:24)
[2021-01-11] MEDS: lisINopril 5 MG (PRINIVIL) TABLET PO SCH (21:24)
[2021-01-11] MEDS: NUPLAZID 34 MG PO SCH (21:27)
[2021-01-12] MEDS: GEMFIBROZIL 600 MG (LOPID) TAB PO SCH ×2 (05:40→17:03)
[2021-01-12] MEDS: LEVOTHYROXINE 75 MCG (LEVOTHROID) TABLET PO SCH (05:40)
[2021-01-12] MEDS: LEVOTHYROXINE 100 MCG (LEVOTHROID) TAB PO SCH (05:40)
[2021-01-12] MEDS: VENlafaxine XR 75 MG (EFFEXOR XR) CAP PO SCH (05:40)
[2021-01-12 05:42] VITALS: BP 137/77
[2021-01-12] MEDS: hydrALAZINE (APRESOLINE) 25 MG TAB PO SCH ×3 (09:20→21:39)
[2021-01-12] MEDS: SENNA W/DOCUSATE (SENOKOT S) TABLET PO SCH ×2 (09:21→21:37)
[2021-01-12] MEDS: PANTOPRAZOLE 40 MG (PROTONIX) TAB PO SCH (09:21)
[2021-01-12] MEDS: KCL 10 MEQ TAB (MICRO K) PO SCH (09:21)
[2021-01-12] MEDS: SINEMET 25/100 (CARBIDOPA/LEVODOPA) TAB PO SCH ×4 (09:21→21:38)
[2021-01-12] MEDS: APIXABAN 5 MG (ELIQUIS) TABLET PO SCH ×2 (09:21→21:37)
[2021-01-12] MEDS: DOCUSATE SODIUM 100 MG (COLACE) CAP PO SCH ×2 (09:21→21:37)
[2021-01-12] MEDS: FUROSEMIDE 40 MG (LASIX) TAB PO SCH (09:21)
--- NOTE | 2021-01-12 10:07 | Cardiology Progress Note ---
Subjective Date Seen by Provider: Jan 12, 2021 Time Seen by Provider: 10:06 Subjective/Events-last exam Patient is laying down in bed, feeling better, gaining some strength. Review of Systems General: No Chills, No Night Sweats; Fatigue, Malaise; No Appetite, No Other HEENT: No Head Aches, No Visual Changes, No Eye Pain, No Ear Pain, No Dysphasia, No Sinus Congestion, No Post Nasal Drip, No Sore Throat, No Other Pulmonary: No Dyspnea, No Cough, No Pleuritic Chest Pain, No Other Cardiovascular: Edema; No: Chest Pain, Palpitations, Orthopnea, Paroxysmal Noc. Dyspnea, Lt Headedness, Other Objective-Cardiology Exam Last Set of Vital Signs Vital Signs 01/12/21 05:42 Temp 36.0 Pulse 60 Resp 18 B/P (MAP) 137/77 (97) Pulse Ox 97 O2 Delivery Room Air Capillary Refill : I&O Intake and Output 01/11/21 23:59 Intake Total 1412 ml Output Total 300 ml Balance 1112 ml Intake Oral 1412 ml Output Urine Total 300 ml # Voids 7 General: Alert, Oriented X3, Cooperative HEENT: Atraumatic, PERRLA Neck: Supple, No JVD, No Thyromegaly Lungs: Clear to Auscultation, Normal Air Movement Heart: Regular Rate, Normal S1, Normal S2, No Murmurs Abdomen: Normal Bowel Sounds, Soft, No Tenderness, No Hepatosplenomegaly, No Masses Extremities: No Clubbing, No Cyanosis, Normal Pulses, No Tenderness/Swelling, Other (trace edema) Skin: No Rashes, No Significant Lesion Neuro: Normal Speech, Cranial Nerves 3-12 NL Psych/Mental Status: Mental Status NL, Mood NL A/P-Cardiology Admission Diagnosis Syncope SSS/afib HTN Parkinson's Assessment/Plan Syncope- had syncopal episode x 2. Sinus node dysfunction alternating with paroxysmal atrial fibrillation with severe bradycardia, status post single- chamber pacemaker implantation with no complication. Site is healing well. Continue to monitor Debility, patient is unable to take care of himself, after the pacemaker implant was concerned that she will not be able to support him to get up and get out of bed due to the fact that he cannot use his left arm. Continue with PT Peripheral edema, improving on diuretics. Continue to monitor History of loop monitor, the monitor was extracted by Dr. Keita Chest pain, nonspecific etiology, improved. Denies any recent chest pain. Stress test done February 2017 was negative for ischemia or infarct. Continue to monitor. Persistent atrial fibrillation-unable to tolerate beta enoc secondary to underlying bradycardia, unable to tolerate amiodarone due to dizziness, rate well controlled. S/p LINq implantation, planning for extraction. [id number] score of 2, yearly risk of stroke without oral anticoagulation is 2.2 percent. Maintained on Eliquis. Malignant hypertension, history of hypertensive encephalopathy with hallucinations during episode of elevated blood pressure. Has been having labile hypertension recently. HELEN, intolerant to CPAP Hypothyroidism, managed by primary care physician Parkinson's disease, followed by primary care physician Hyperlipidemia, maintained on fenofibrate, good control. Continue on current medications and continue to monitor. Next Mild bilateral carotid stenosis, ultrasound was done May 2019, continue to monitor. MIRIAM NICOLE MD Jan 12, 2021 10:07
--- NOTE | 2021-01-12 10:57 | Physical Therapy Daily Note ---
PT Daily Note-Current Subjective Pt presents sitting up in chair with present in room. Agreeable to PT treatment at this time. He denies any pain. Appearance Following session, pt sitting in chair with call light and tray within reach. Spouse present in room, All needs met at this time. Mental Status Patient Orientation: Person, Place Transfers SCALE: Activities may be completed with or without assistive devices. 0-Ykkpopztfx-kvjjdsa completes the activity by him/herself with no assistance from a helper. 5-Set-up or Clean-up Assistance-helper sets up or cleans up; patient completes activity. [place] assists only prior to or following the activity. 4-Supervision or Touching Assistance-helper provides verbal cues and/or touching/steadying and/or contact guard assistance as patient completes activity. Assistance may be provided throughout the activity or intermittently. 3-Partial/Moderate Assistance-helper does LESS THAN HALF the effort. [place] lifts, holds or supports trunk or limbs, but provides less than half the effort. 2-Substantial/Maximal Assistance-helper does MORE THAN HALF the effort. [place] lifts or holds trunk or limbs and provides more than half the effort. 1-Ixlnntxgu-pyhxce does ALL the effort. Patient does none of the effort to complete the activity. Or, the assistance of 2 or more helpers is required for the patient to complete the activity. If activity was not attempted, code reason: 7-Patient Refused. 9-Not Applicable-not attempted and the patient did not perform the activity b efore the current illness, exacerbation or injury. 10-Not Attempted due to Environmental Limitations-(lack of equipment, weather restraints, etc.). 88-Not Attempted due to Medical Conditions or Safety Concerns. Sit to Stand (QC): 4 Pt utilizing lift chair in room for sit-stand transfer Weight Bearing L UE in sling post pacemaker; no wB through L UE 01/10/21 physician reports patient is able to utilize left UE for balance/stability with FWW use. Continues to be restricted with overhead activity, pushing and pulling. Gait Training Distance: 300' Walk 10 feet (QC): 4 Walk 50 ft with 2 Turns(QC): 4 Walk 150 ft (QC): 4 Gait Assistive Device: FWW Pt with good gait sequence this date, taking long strides. He does have increase d shuffling gait with turns; however, this is improved with straight ambulation. Assessment Current Status: Good Progress Pt with improved gait this date, he was able to increase distance and had improved ambulation sequencing. Will continue to progress pt as able. PT Short Term Goals Short Term Goals Time Frame: Jan 11, 2021 Sit to lyin Lying to sitting on side of be: 4 Walk 150 feet: 3 PT Fpc Goals Fpc Goals PT Paper Rewinder Goals Time Frame: Jan 19, 2021 Roll Left & Right (QC): 4 Sit to Lying (QC): 4 Lying-Sitting on Side/Bed(QC): 4 Sit to Stand (QC): 4 Chair/Mfo-ry-Wtyic Xfer(QC): 4 Toilet Transfer (QC): 4 Car Transfer (QC): 4 Does the Patient Walk: Yes Walk 10 feet (QC): 4 Walk 50ft with 2 Turns (QC): 4 Walk 150 ft (QC): 4 Walking 10ft on Uneven Surface: 9 1 Step (curb) (QC): 9 4 Steps (QC): 9 12 Steps (QC): 9 Picking up an Object (QC): 9 Wheel 50 feet with 2 turns (QC: 9 Wheel 150 feet: 9 PT Plan Problem List Problem List: Activity Tolerance, Functional Strength, Safety, Balance, Gait, Transfer, Bed Mobility, ROM Treatment/Plan Treatment Plan: Continue Plan of Care Treatment Plan: Bed Mobility, Education, Functional Activity [place], Functional Strength, Gait, Safety, Therapeutic Exercise, Transfers Treatment Duration: Jan 19, 2021 Frequency: 6 times per week Estimated Hrs Per Day: .5 hour per day Patient and/or Family Agrees t: Yes Time/GCodes Time In: 1021 Time Out: 1037 Total Billed Treatment 1 visit GT (15') RACHEL MONDRAGON PT Jan 12, 2021 10:57
[2021-01-12] MEDS: ACETAMINOPHEN 325 MG TABLET PO PRN (14:57)
[2021-01-12 15:49] VITALS: BP 130/63
[2021-01-12] MEDS: QUEtiapine 25 MG (SEROquel) TAB IMMEDIATE RELEASE PO SCH ×2 (17:03→21:37)
[2021-01-12] MEDS: ALLOPURINOL 300 MG (ZYLOPRIM) TAB PO SCH (17:03)
[2021-01-12 18:00] VITALS: BP 119/71
[2021-01-12] MEDS: lisINopril 5 MG (PRINIVIL) TABLET PO SCH (21:37)
[2021-01-12] MEDS: FINASTERIDE (PROSCAR) 5 MG TAB PO SCH (21:37)
[2021-01-12] MEDS: NUPLAZID 34 MG PO SCH (21:39)
[2021-01-13 05:13] VITALS: BP 128/76
[2021-01-13] MEDS: LEVOTHYROXINE 75 MCG (LEVOTHROID) TABLET PO SCH (06:49)
[2021-01-13] MEDS: LEVOTHYROXINE 100 MCG (LEVOTHROID) TAB PO SCH (06:49)
[2021-01-13] MEDS: GEMFIBROZIL 600 MG (LOPID) TAB PO SCH ×2 (06:49→16:24)
[2021-01-13] MEDS: VENlafaxine XR 75 MG (EFFEXOR XR) CAP PO SCH (06:49)
[2021-01-13] MEDS: SINEMET 25/100 (CARBIDOPA/LEVODOPA) TAB PO SCH ×4 (08:25→20:51)
[2021-01-13] MEDS: DOCUSATE SODIUM 100 MG (COLACE) CAP PO SCH ×2 (08:25→20:51)
[2021-01-13] MEDS: PANTOPRAZOLE 40 MG (PROTONIX) TAB PO SCH (08:25)
[2021-01-13] MEDS: FUROSEMIDE 40 MG (LASIX) TAB PO SCH (08:25)
[2021-01-13] MEDS: hydrALAZINE (APRESOLINE) 25 MG TAB PO SCH ×3 (08:25→20:53)
[2021-01-13] MEDS: SENNA W/DOCUSATE (SENOKOT S) TABLET PO SCH ×2 (08:25→20:52)
[2021-01-13] MEDS: APIXABAN 5 MG (ELIQUIS) TABLET PO SCH ×2 (08:25→20:53)
[2021-01-13] MEDS: KCL 10 MEQ TAB (MICRO K) PO SCH (08:26)
[2021-01-13] MEDS: ACETAMINOPHEN 325 MG TABLET PO PRN ×2 (11:04→22:52)
--- NOTE | 2021-01-13 11:36 | Cardiology Progress Note ---
Subjective Date Seen by Provider: Jan 13, 2021 Time Seen by Provider: 11:34 Subjective/Events-last exam Patient is feeling well. No chest pain. No palpitation Review of Systems General: No Chills, No Night Sweats, No Fatigue, No Malaise, No Appetite, No Other HEENT: No Head Aches, No Visual Changes, No Eye Pain, No Ear Pain, No Dysphasia, No Sinus Congestion, No Post Nasal Drip, No Sore Throat, No Other Pulmonary: No Dyspnea, No Cough, No Pleuritic Chest Pain, No Other Cardiovascular: No: Chest Pain, Palpitations, Orthopnea, Paroxysmal Noc. Dyspnea, Edema, Lt Headedness, Other Objective-Cardiology Exam Last Set of Vital Signs Vital Signs 01/13/21 01/13/21 05:13 08:00 Temp 35.7 Pulse 60 Resp 20 B/P (MAP) 128/76 (93) Pulse Ox 94 O2 Delivery Room Air Capillary Refill : I&O Intake and Output 01/13/21 00:00 Intake Total 1547 ml Output Total 675 ml Balance 872 ml Intake Oral 1547 ml Output Urine Total 675 ml # Voids 5 # Bowel Movements 1 General: Alert, Oriented X3, Cooperative HEENT: Atraumatic, PERRLA Neck: Supple, No JVD, No Thyromegaly Lungs: Clear to Auscultation, Normal Air Movement Heart: Regular Rate, Normal S1, Normal S2, No Murmurs Abdomen: Normal Bowel Sounds, Soft, No Tenderness, No Hepatosplenomegaly, No Masses Extremities: No Clubbing, No Cyanosis, Normal Pulses, No Tenderness/Swelling, Other (trace edema) Skin: No Rashes, No Significant Lesion Neuro: Normal Speech, Cranial Nerves 3-12 NL Psych/Mental Status: Mental Status NL, Mood NL A/P-Cardiology Admission Diagnosis Syncope SSS/afib HTN Parkinson's Assessment/Plan Syncope- had syncopal episode x 2. Sinus node dysfunction alternating with paroxysmal atrial fibrillation with severe bradycardia, status post single- chamber pacemaker implantation with no complication. Site is healing well. Episode of dizziness and lightheadedness this morning after taking his medication, I will change the Toprol to evening and keep the lisinopril in the morning and monitor his tolerance and response Debility, patient is unable to take care of himself, after the pacemaker implant was concerned that she will not be able to support him to get up and get out of bed due to the fact that he cannot use his left arm. Continue with PT Peripheral edema, improving on diuretics. Continue to monitor History of loop monitor, the monitor was extracted by Dr. Keita Chest pain, nonspecific etiology, improved. Denies any recent chest pain. Stress test done February 2017 was negative for ischemia or infarct. Continue to monitor. Persistent atrial fibrillation-unable to tolerate beta enoc secondary to underlying bradycardia, unable to tolerate amiodarone due to dizziness, rate well controlled. S/p LINq implantation, planning for extraction. [id number] score of 2, yearly risk of stroke without oral anticoagulation is 2.2 percent. Maintained on Eliquis. Malignant hypertension, history of hypertensive encephalopathy with hallucinations during episode of elevated blood pressure. Has been having labile hypertension recently. HELEN, intolerant to CPAP Hypothyroidism, managed by primary care physician Parkinson's disease, followed by primary care physician Hyperlipidemia, maintained on fenofibrate, good control. Continue on current medications and continue to monitor. Next Mild bilateral carotid stenosis, ultrasound was done May 2019, continue to monitor. MIRIAM NICOLE MD Jan 13, 2021 11:35
[2021-01-13] MEDS: QUEtiapine 25 MG (SEROquel) TAB IMMEDIATE RELEASE PO SCH ×2 (16:23→20:52)
[2021-01-13] MEDS: ALLOPURINOL 300 MG (ZYLOPRIM) TAB PO SCH (16:23)
[2021-01-13 17:06] VITALS: BP 137/73
[2021-01-13] MEDS: lisINopril 5 MG (PRINIVIL) TABLET PO SCH (20:52)
[2021-01-13] MEDS: NUPLAZID 34 MG PO SCH (20:53)
[2021-01-13] MEDS: FINASTERIDE (PROSCAR) 5 MG TAB PO SCH (20:53)
[2021-01-14 00:46] VITALS: BP 158/95
[2021-01-14] MEDS: LEVOTHYROXINE 75 MCG (LEVOTHROID) TABLET PO SCH (06:04)
[2021-01-14] MEDS: LEVOTHYROXINE 100 MCG (LEVOTHROID) TAB PO SCH (06:04)
[2021-01-14] MEDS: GEMFIBROZIL 600 MG (LOPID) TAB PO SCH ×2 (06:04→16:18)
[2021-01-14] MEDS: VENlafaxine XR 75 MG (EFFEXOR XR) CAP PO SCH (06:04)
[2021-01-14 07:00] VITALS: BP 146/83
[2021-01-14] MEDS: SENNA W/DOCUSATE (SENOKOT S) TABLET PO SCH ×2 (08:28→21:04)
[2021-01-14] MEDS: DOCUSATE SODIUM 100 MG (COLACE) CAP PO SCH ×2 (08:28→21:04)
[2021-01-14] MEDS: APIXABAN 5 MG (ELIQUIS) TABLET PO SCH ×2 (08:28→21:04)
[2021-01-14] MEDS: FUROSEMIDE 40 MG (LASIX) TAB PO SCH (08:28)
[2021-01-14] MEDS: KCL 10 MEQ TAB (MICRO K) PO SCH (08:28)
[2021-01-14] MEDS: SINEMET 25/100 (CARBIDOPA/LEVODOPA) TAB PO SCH ×4 (08:28→21:04)
[2021-01-14] MEDS: hydrALAZINE (APRESOLINE) 25 MG TAB PO SCH ×3 (08:28→21:13)
[2021-01-14] MEDS: PANTOPRAZOLE 40 MG (PROTONIX) TAB PO SCH (08:28)
--- NOTE | 2021-01-14 10:01 | Physical Therapy Daily Note ---
PT Daily Note-Current Subjective Patient and spouse agree to PT. Mental Status Patient Orientation: Normal For Age Transfers SCALE: Activities may be completed with or without assistive devices. 5-Xxrrhvuoxj-yiksgoi completes the activity by him/herself with no assistance from a helper. 5-Set-up or Clean-up Assistance-helper sets up or cleans up; patient completes activity. [place] assists only prior to or following the activity. 4-Supervision or Touching Assistance-helper provides verbal cues and/or touching/steadying and/or contact guard assistance as patient completes activity. Assistance may be provided throughout the activity or intermittently. 3-Partial/Moderate Assistance-helper does LESS THAN HALF the effort. [place] lifts, holds or supports trunk or limbs, but provides less than half the effort. 2-Substantial/Maximal Assistance-helper does MORE THAN HALF the effort. [place] lifts or holds trunk or limbs and provides more than half the effort. 1-Yonjqkici-kqztgb does ALL the effort. Patient does none of the effort to complete the activity. Or, the assistance of 2 or more helpers is required for the patient to complete the activity. If activity was not attempted, code reason: 7-Patient Refused. 9-Not Applicable-not attempted and the patient did not perform the activity before the current illness, exacerbation or injury. 10-Not Attempted due to Environmental Limitations-(lack of equipment, weather restraints, etc.). 88-Not Attempted due to Medical Conditions or Safety Concerns. Roll Left & Right (QC): 3 Sit to Lying (QC): 3 Lying to Sitting/Side of Bed(Q: 3 Sit to Stand (QC): 4 (SBA with patient utilizing lift chair) Chair/Xvl-bz-Qxxbc Xfer(QC): 4 Toilet Transfer (QC): 88 Car Transfer (QC): 88 Weight Bearing L UE in sling post pacemaker; no wB through L UE 01/10/21 physician reports patient is able to utilize left UE for balance/stability with FWW use. Continues to be restricted with overhead activity, pushing and pulling. Gait Training Does the Patient Walk?: Yes Distance: 325' Walk 10 feet (QC): 4 Walk 50 ft with 2 Turns(QC): 4 Walk 150 ft (QC): 4 Walking 10ft/uneven surface-QC: 4 Gait Assistive Device: FWW CGA for safety/improve gait sequence Wheelchair Training Does the Pt Use a Wheelchair?: No Wheel 50 ft with 2 turns (QC): 9 Wheel 150 ft (QC): 9 Stair Training 1 Step (curb) (QC): 9 4 Steps (QC): 9 12 Steps (QC): 9 Balance Picking up an Object (QC): 88 Exercises Seated Therapy Exercises: Ankle pumps, Long arc quads, Hip flexion Seated Reps: 15 (3 sets) Assessment Patient tolerated treatment well. Plan dismissal to home with spouse and home health and spiritual care coordinator assist. PT Short Term Goals Short Term Goals Time Frame: Jan 11, 2021 Sit to lyin Lying to sitting on side of be: 4 Walk 150 feet: 3 PT Longterm Goals Longterm Goals PT Flocculator Operator Goals Time Frame: Jan 19, 2021 Roll Left & Right (QC): 4 Sit to Lying (QC): 4 Lying-Sitting on Side/Bed(QC): 4 Sit to Stand (QC): 4 (met 01/14/21) Chair/Nzz-wi-Hsjop Xfer(QC): 4 (met 01/14/21) Toilet Transfer (QC): 4 Car Transfer (QC): 4 Does the Patient Walk: Yes Walk 10 feet (QC): 4 (met 01/14/21) Walk 50ft with 2 Turns (QC): 4 (met 01/14/21) Walk 150 ft (QC): 4 (met 01/14/21) Walking 10ft on Uneven Surface: 9 1 Step (curb) (QC): 9 4 Steps (QC): 9 12 Steps (QC): 9 Picking up an Object (QC): 9 Wheel 50 feet with 2 turns (QC: 9 Wheel 150 feet: 9 PT Plan Treatment/Plan Treatment Plan: Continue Plan of Care Treatment Plan: Bed Mobility, Education, Functional Activity Dar[place], Functional Strength, Gait, Safety, Therapeutic Exercise, Transfers Treatment Duration: Jan 19, 2021 Frequency: 6 times per week Estimated Hrs Per Day: .5 hour per day Patient and/or Family Agrees t: Yes Time/GCodes Time In: 932 Time Out: 955 Total Billed Treatment Time: 23 Total Billed Treatment 1 visit EX 10 min GT 13 min CRISPIN LOCO PT Jan 14, 2021 10:01
--- NOTE | 2021-01-14 10:44 | Cardiology Progress Note ---
Subjective Date Seen by Provider: Jan 14, 2021 Time Seen by Provider: 10:43 Subjective/Events-last exam Patient is laying down in bed, feeling well. No new complaint Review of Systems General: No Chills, No Night Sweats; Fatigue; No Malaise, No Appetite, No Other HEENT: No Head Aches, No Visual Changes, No Eye Pain, No Ear Pain, No Dysphasia, No Sinus Congestion, No Post Nasal Drip, No Sore Throat, No Other Pulmonary: No Dyspnea, No Cough, No Pleuritic Chest Pain, No Other Cardiovascular: No: Chest Pain, Palpitations, Orthopnea, Paroxysmal Noc. Dyspnea, Edema, Lt Headedness, Other Objective-Cardiology Exam Last Set of Vital Signs Vital Signs 01/14/21 07:00 Temp 36.0 Pulse 59 Resp 18 B/P (MAP) 146/83 (104) Pulse Ox 98 O2 Delivery Room Air Capillary Refill : I&O Intake and Output 01/13/21 23:59 Intake Total 1440 ml Output Total 1375 ml Balance 65 ml Intake Oral 1440 ml Output Urine Total 1375 ml General: Alert, Oriented X3, Cooperative HEENT: Atraumatic, PERRLA Neck: Supple, No JVD, No Thyromegaly Lungs: Clear to Auscultation, Normal Air Movement Heart: Regular Rate, Normal S1, Normal S2, No Murmurs Abdomen: Normal Bowel Sounds, Soft, No Tenderness, No Hepatosplenomegaly, No Masses Extremities: No Clubbing, No Cyanosis, Normal Pulses, No Tenderness/Swelling, Other (trace edema) Skin: No Rashes, No Significant Lesion Neuro: Normal Speech, Cranial Nerves 3-12 NL Psych/Mental Status: Mental Status NL, Mood NL A/P-Cardiology Admission Diagnosis Syncope SSS/afib HTN Parkinson's Assessment/Plan Syncope- had syncopal episode x 2. Sinus node dysfunction alternating with paroxysmal atrial fibrillation with severe bradycardia, status post single- chamber pacemaker implantation with no complication. Site is healing well. Episode of dizziness and lightheadedness this morning after taking his me dication, I will change the Toprol to evening and keep the lisinopril in the morning and monitor his tolerance and response Debility, patient is unable to take care of himself, after the pacemaker implant was concerned that she will not be able to support him to get up and get out of bed due to the fact that he cannot use his left arm. Continue with PT Peripheral edema, improving on diuretics. Continue to monitor History of loop monitor, the monitor was extracted by Dr. Keita Chest pain, nonspecific etiology, improved. Denies any recent chest pain. Stress test done February 2017 was negative for ischemia or infarct. Continue to monitor. Persistent atrial fibrillation-unable to tolerate beta enoc secondary to underlying bradycardia, unable to tolerate amiodarone due to dizziness, rate well controlled. S/p LINq implantation, planning for extraction. [id number] score of 2, yearly risk of stroke without oral anticoagulation is 2.2 percent. Maintained on Eliquis. Malignant hypertension, history of hypertensive encephalopathy with hallucinations during episode of elevated blood pressure. Has been having labile hypertension recently. HELEN, intolerant to CPAP Hypothyroidism, managed by primary care physician Parkinson's disease, followed by primary care physician Hyperlipidemia, maintained on fenofibrate, good control. Continue on current medications and continue to monitor. Next Mild bilateral carotid stenosis, ultrasound was done May 2019, continue to monitor. MIRIAM NICOLE MD Jan 14, 2021 10:44 am
--- NOTE | 2021-01-14 14:19 | Occupational Ther Daily Note ---
OT Current Status-Daily Note Subjective Pt alert, sitting in recliner. Pt's in room. Pt agrees to therapy. Mental Status/Objective Patient Orientation: Person, Place, Time, Situation ADL-Treatment Pt and agree to education for lower body dressing equipment. Pt was introduced to sock aide, tailman, drsg stick and LH shoe horn. Pt demonstrated understanding of equipment though due to weakness, slow movements will continue to require skilled therapy to become efficient with equipment. Pt and were educated where to purchase equipment. After session, pt sitting in recliner with call light/phone in reach. All needs met in room. Therapy Code Descriptions/Definitions Functional [place] Measure: 0=Not Assessed/NA 4=Minimal Assistance 1=Total Assistance 5=Supervision or Setup 2=Maximal Assistance 6=Modified [place] 3=Moderate Assistance 7=Complete IndependenceSCALE: Activities may be completed with or without assistive devices. 6-Xhxdhaogry-gpobulm completes the activity by him/herself with no assistance from a helper. 5-Set-up or Clean-up Assistance-helper sets up or cleans up; patient completes activity. [place] assists only prior to or following the activity. 4-Supervision or Touching Assistance-helper provides verbal cues and/or touching/steadying and/or contact guard assistance as patient completes activity. Assistance may be provided throughout the activity or intermittently. 3-Partial/Moderate Assistance-helper does LESS THAN HALF the effort. [place] lifts, holds or supports trunk or limbs, but provides less than half the effort. 2-Substantial/Maximal Assistance-helper does MORE THAN HALF the effort. [place] lifts or holds trunk or limbs and provides more than half the effort. 3-Lfusfezsg-xeygpo does ALL the effort. Patient does none of the effort to complete the activity. Or, the assistance of 2 or more helpers is required for the patient to complete the activity. If activity was not attempted, code reason: 7-Patient Refused. 9-Not Applicable-not attempted and the patient did not perform the activity before the current illness, exacerbation or injury. 10-Not Attempted due to Environmental Limitations-(lack of equipment, weather restraints, etc.). 88-Not Attempted due to Medical Conditions or Safety Concerns. OT Short Term Goals Short Term Goals Time Frame: Jan 12, 2021 Eatin Oral hygiene: 4 Toileting hygiene: 3 Upper body dressin Lower body dressin Putting on/taking off footwear: 3 OT Intermediate Goals Turf Farmer Goals Time Frame: Jan 26, 2021 Eating (QC): 5 Oral Hygiene (QC): 5 Toileting Hygiene (QC): 4 Shower/Bathe Self (QC): 3 Upper Body Dressing (QC): 4 Lower Body Dressing (QC): 3 On/Off Footwear (QC): 3 Additional Goals: 1-Demonstrate ADL Tasks, 2-Verbalize Understanding, 3- ImproveStrength/[place] 1=Demonstrate adherence to instructed precautions during ADL tasks. 2=Patient will verbalize/demonstrate understanding of assistive devices/modifications for ADL. 3=Patient will improve strength/tolerance for activity to enable patient to perform ADL's. OT Education/Plan Problem List/Assessment Assessment: Decreased Activ Tolerance, Decreased UE Strength, Impaired Self- Care Skills Discharge Recommendations Plan/Recommendations: Continue POC Treatment Plan/Plan of Care Patient would benefit from OT for education, treatment and training to promote independence in ADL's, mobility, safety and/or upper extremity function for ADL's. Plan of Care: ADL Retraining, Functional Mobility, UE Funct Exercise/Act Treatment Duration: Jan 26, 2021 Frequency: At least 5 of 7 days/Wk (IRF) Estimated Hrs Per Day: 1.5 hours per day Agreement: Yes Rehab Potential: Good Time/GCodes Start Time: 13:16 Stop Time: 13:39 Total Time Billed (hr/min): 23 Billed Treatment Time 1 visit-ADL 2 (23 min) LIYA LÓPEZ Jan 14, 2021 14:19
[2021-01-14] MEDS: QUEtiapine 25 MG (SEROquel) TAB IMMEDIATE RELEASE PO SCH ×2 (16:18→21:13)
[2021-01-14] MEDS: ALLOPURINOL 300 MG (ZYLOPRIM) TAB PO SCH (16:19)
[2021-01-14 17:57] VITALS: BP 137/72
[2021-01-14] MEDS: FINASTERIDE (PROSCAR) 5 MG TAB PO SCH (21:04)
--- NOTE | 2021-01-14 21:04 | Progress Note - Hospitalist ---
Subjective HPI/CC On Admission Date Seen by Provider: Jan 14, 2021 Time Seen by Provider: 15:30 Subjective/Events-last exam He is feeling better. He is feeling stronger. He hasn't been having issues with dizziness. Objective Exam Vital Signs Vital Signs Date Time Temp Pulse Resp B/P (MAP) Pulse Ox O2 Delivery O2 Flow Rate FiO2 01/14/21 17:57 36.6 60 24 137/72 (93) 97 Room Air Capillary Refill : General Appearance: No Apparent Distress, Obese Respiratory: Lungs Clear, Normal Breath Sounds, No Respiratory Distress Cardiovascular: Regular Rate, Rhythm, No Murmur Gastrointestinal: Normal Bowel Sounds, Non Tender, Soft Extremity: Normal Inspection, Pedal Edema Neurologic/Psychiatric: Alert, Oriented x3, Normal Mood/Affect Skin: Normal Color, Warm/Dry Results/Procedures Lab Patient resulted labs reviewed. Assessment/Plan Assessment and Plan Assess & Plan/Chief Complaint Parkinson's Dementia Weakness Acute on chronic debility Continue home Sinemet PT/OT Inpatient rehab denied Discussed plan to continue strengthening with PT and plan for DC home mid- week Bradycardia Syncope s/p Pacemaker s/p pacemaker placement 01/01 Cardiology consulted, appreciate recs Sling off and can use arm but not bear weight on it Orthostatic hypotension HTN Likely due to progressing Parkinson's Continue Hydralazine with hold parameters Continue Lisinopril and Metoprolol IV Hydralazine as needed Atrial fibrillation, chronic HLD Continue home meds Eliquis DVT prophylaxis: already receiving therapeutic anticoagulation Diagnosis/Problems Diagnosis/Problems (1) Parkinson's disease (tremor, stiffness, slow motion, unstable posture) Status: Acute (2) Orthostatic hypotension Status: Acute (3) HTN (hypertension) Status: Acute (4) Bradycardia Status: Acute (5) Syncope Status: Acute ERIBERTO BOWMAN MD Jan 14, 2021 21:04
[2021-01-14] MEDS: NUPLAZID 34 MG PO SCH (21:05)
[2021-01-14 21:07] VITALS: BP 154/94
[2021-01-14] MEDS: lisINopril 5 MG (PRINIVIL) TABLET PO SCH (21:13)
[2021-01-15] MEDS: LEVOTHYROXINE 75 MCG (LEVOTHROID) TABLET PO SCH (06:11)
[2021-01-15] MEDS: GEMFIBROZIL 600 MG (LOPID) TAB PO SCH ×2 (06:11→17:09)
[2021-01-15] MEDS: VENlafaxine XR 75 MG (EFFEXOR XR) CAP PO SCH (06:11)
[2021-01-15] MEDS: LEVOTHYROXINE 100 MCG (LEVOTHROID) TAB PO SCH (06:11)
[2021-01-15 06:14] VITALS: BP 108/70
[2021-01-15] MEDS: DOCUSATE SODIUM 100 MG (COLACE) CAP PO SCH ×2 (08:09→21:03)
[2021-01-15] MEDS: SINEMET 25/100 (CARBIDOPA/LEVODOPA) TAB PO SCH ×4 (08:09→20:56)
[2021-01-15] MEDS: PANTOPRAZOLE 40 MG (PROTONIX) TAB PO SCH (08:09)
[2021-01-15] MEDS: hydrALAZINE (APRESOLINE) 25 MG TAB PO SCH ×3 (08:09→20:55)
[2021-01-15] MEDS: KCL 10 MEQ TAB (MICRO K) PO SCH (08:09)
[2021-01-15] MEDS: APIXABAN 5 MG (ELIQUIS) TABLET PO SCH ×2 (08:09→20:55)
[2021-01-15] MEDS: FUROSEMIDE 40 MG (LASIX) TAB PO SCH (08:09)
[2021-01-15] MEDS: SENNA W/DOCUSATE (SENOKOT S) TABLET PO SCH ×2 (08:09→20:55)
--- NOTE | 2021-01-15 08:42 | Occupational Ther Daily Note ---
OT Current Status-Daily Note Subjective Pt AxO. In bed, present. Pt denies pain, agrees to tx. Mental Status/Objective Patient Orientation: Person, Place, Situation, Normal For Age ADL-Treatment Therapy Code Descriptions/Definitions Functional [place] Measure: 0=Not Assessed/NA 4=Minimal Assistance 1=Total Assistance 5=Supervision or Setup 2=Maximal Assistance 6=Modified [place] 3=Moderate Assistance 7=Complete IndependenceSCALE: Activities may be completed with or without assistive devices. 6-Dclxviwtzj-sklvlyt completes the activity by him/herself with no assistance from a helper. 5-Set-up or Clean-up Assistance-helper sets up or cleans up; patient completes activity. [place] assists only prior to or following the activity. 4-Supervision or Touching Assistance-helper provides verbal cues and/or touching/steadying and/or contact guard assistance as patient completes activity. Assistance may be provided throughout the activity or intermittently. 3-Partial/Moderate Assistance-helper does LESS THAN HALF the effort. [place] lifts, holds or supports trunk or limbs, but provides less than half the effort. 2-Substantial/Maximal Assistance-helper does MORE THAN HALF the effort. [place] lifts or holds trunk or limbs and provides more than half the effort. 7-Rybuxmxxd-hmcsrj does ALL the effort. Patient does none of the effort to complete the activity. Or, the assistance of 2 or more helpers is required for the patient to complete the activity. If activity was not attempted, code reason: 7-Patient Refused. 9-Not Applicable-not attempted and the patient did not perform the activity before the current illness, exacerbation or injury. 10-Not Attempted due to Environmental Limitations-(lack of equipment, weather restraints, etc.). 88-Not Attempted due to Medical Conditions or Safety Concerns. Eating (QC): 5 Lower Body Dressing (QC): 3 (min A with use of AE on EOB.) Toileting Hygiene (QC): 2 (max A bottom hygiene. ) Other Treatment Pt bed mob supine to sit with min A (L side reaching EOB/ sitting upright). Pt sit to stand mod A, doffs briefs from hips. Sits, doffs from feet with dressing stick and increased time. Completes donning new briefs with increased time, cues for placement of AE, cues for L UE precautions during task, and cues for body positioning. Requires min A for completing threading and pt able to sit to stand min A, dons over hips with CGA. Ambulates to chair, sits with control. Positioned for comfort/ safety. present, food in front of pt. Education OT Patient Education: Correct positioning, Modified ADL techniques, Progress toward Goal/Update tx plan, Reviewed precautions, Safety issues, Use of adapted equipment Teaching Recipient: Patient, Significant Other Teaching Methods: Demonstration, Discussion Response to Teaching: Verbalize Understanding, Return Demonstration, Reinforcement Needed OT Short Term Goals Short Term Goals Time Frame: Jan 12, 2021 Eatin Oral hygiene: 4 Toileting hygiene: 3 Upper body dressin Lower body dressin Putting on/taking off footwear: 3 OT News Library Director Goals Halfway Goals Time Frame: Jan 26, 2021 Eating (QC): 5 Oral Hygiene (QC): 5 Toileting Hygiene (QC): 4 Shower/Bathe Self (QC): 3 Upper Body Dressing (QC): 4 Lower Body Dressing (QC): 3 On/Off Footwear (QC): 3 Additional Goals: 1-Demonstrate ADL Tasks, 2-Verbalize Understanding, 3- ImproveStrength/Darling 1=Demonstrate adherence to instructed precautions during ADL tasks. 2=Patient will verbalize/demonstrate understanding of assistive devices/modifications for ADL. 3=Patient will improve strength/tolerance for activity to enable patient to perform ADL's. OT Education/Plan Problem List/Assessment Assessment: Decreased Activ Tolerance, Decreased UE Strength, Dependent Transfers, Impaired Bed Mobility, Impaired Coordination, Impaired Funct Balance, Impaired I ADL's, Impaired Self-Care Skills, Restricted Funct UE ROM Discharge Recommendations Plan/Recommendations: Continue POC Therapy Discharge Recommendati: Bath Aide, Home & Family Treatment Plan/Plan of Care Treatment,Training & Education: Yes Patient would benefit from OT for education, treatment and training to promote independence in ADL's, mobility, safety and/or upper extremity function for ADL's. Plan of Care: ADL Retraining, Functional Mobility, UE Funct Exercise/Act Treatment Duration: Jan 26, 2021 Frequency: At least 5 of 7 days/Wk (IRF) Estimated Hrs Per Day: 1.5 hours per day Agreement: Yes Rehab Potential: Good Time/GCodes Start Time: 08:11 Stop Time: 08:37 Total Time Billed (hr/min): 26 Billed Treatment Time 1, ADL 2 (26) ARIANNA ACEVEDO OTR Jan 15, 2021 08:42
[2021-01-15 10:08] VITALS: BP 122/78
--- NOTE | 2021-01-15 10:15 | Physical Therapy Daily Note ---
PT Daily Note-Current Subjective Patient and spouse report probable dismissal to home tomorrow. Mental Status Patient Orientation: Normal For Age Transfers SCALE: Activities may be completed with or without assistive devices. 3-Wsrsjnbuka-vfbwyhi completes the activity by him/herself with no assistance from a helper. 5-Set-up or Clean-up Assistance-helper sets up or cleans up; patient completes activity. [place] assists only prior to or following the activity. 4-Supervision or Touching Assistance-helper provides verbal cues and/or touching/steadying and/or contact guard assistance as patient completes activity. Assistance may be provided throughout the activity or intermittently. 3-Partial/Moderate Assistance-helper does LESS THAN HALF the effort. [place] lifts, holds or supports trunk or limbs, but provides less than half the effort. 2-Substantial/Maximal Assistance-helper does MORE THAN HALF the effort. [place] lifts or holds trunk or limbs and provides more than half the effort. 6-Qjyuyeuiq-lcpbpk does ALL the effort. Patient does none of the effort to complete the activity. Or, the assistance of 2 or more helpers is required for the patient to complete the activity. If activity was not attempted, code reason: 7-Patient Refused. 9-Not Applicable-not attempted and the patient did not perform the activity before the current illness, exacerbation or injury. 10-Not Attempted due to Environmental Limitations-(lack of equipment, weather restraints, etc.). 88-Not Attempted due to Medical Conditions or Safety Concerns. Roll Left & Right (QC): 3 Sit to Lying (QC): 3 Lying to Sitting/Side of Bed(Q: 3 Sit to Stand (QC): 4 Chair/Qyk-jz-Pgmph Xfer(QC): 4 Toilet Transfer (QC): 4 Car Transfer (QC): 3 Weight Bearing L UE in sling post pacemaker; no wB through L UE 01/10/21 physician reports patient is able to utilize left UE for balance/stability with FWW use. Continues to be restricted with overhead activity, pushing and pulling. Gait Training Does the Patient Walk?: Yes Distance: 325' Walk 10 feet (QC): 4 Walk 50 ft with 2 Turns(QC): 4 Walk 150 ft (QC): 4 Walking 10ft/uneven surface-QC: 4 Gait Assistive Device: FWW SBA to CGA for safety (Parkinson's gait) Wheelchair Training Does the Pt Use a Wheelchair?: No Wheel 50 ft with 2 turns (QC): 9 Wheel 150 ft (QC): 9 Stair Training 1 Step (curb) (QC): 9 4 Steps (QC): 9 12 Steps (QC): 9 Balance Picking up an Object (QC): 9 Exercises Seated Therapy Exercises: Ankle pumps, Long arc quads, Hip flexion Seated Reps: 15 (2 sets) Assessment Patient much improved with gross motor skills. Home Health to follow to ensure safe return to home with spouse. Goals addressed. PT Short Term Goals Short Term Goals Time Frame: Jan 11, 2021 Sit to lyin Lying to sitting on side of be: 4 Walk 150 feet: 3 PT Mcc Goals Search Lead Goals PT Mcc Goals Time Frame: Jan 19, 2021 Roll Left & Right (QC): 4 Sit to Lying (QC): 4 Lying-Sitting on Side/Bed(QC): 4 Sit to Stand (QC): 4 (met 01/14/21) Chair/Svg-oy-Hloyz Xfer(QC): 4 (met 01/14/21) Toilet Transfer (QC): 4 Car Transfer (QC): 4 Does the Patient Walk: Yes Walk 10 feet (QC): 4 (met 01/14/21) Walk 50ft with 2 Turns (QC): 4 (met 01/14/21) Walk 150 ft (QC): 4 (met 01/14/21) Walking 10ft on Uneven Surface: 9 1 Step (curb) (QC): 9 4 Steps (QC): 9 12 Steps (QC): 9 Picking up an Object (QC): 9 Wheel 50 feet with 2 turns (QC: 9 Wheel 150 feet: 9 PT Plan Treatment/Plan Treatment Plan: Continue Plan of Care Treatment Plan: Bed Mobility, Education, Functional Activity [place], Functional Strength, Gait, Safety, Therapeutic Exercise, Transfers Treatment Duration: Jan 19, 2021 Frequency: 6 times per week Estimated Hrs Per Day: .5 hour per day Patient and/or Family Agrees t: Yes Time/GCodes Time In: 913 Time Out: 936 Total Billed Treatment Time: 23 Total Billed Treatment 1 visit GT 12 min EX 11 min CRISPIN LOCO PT Jan 15, 2021 10:15
--- NOTE | 2021-01-15 11:08 | Cardiology Progress Note ---
Subjective Date Seen by Provider: Jan 15, 2021 Time Seen by Provider: 11:07 Subjective/Events-last exam Patient was seen at bedside, receiving physical therapy. No new complaint Review of Systems General: No Chills, No Night Sweats; Fatigue, Malaise; No Appetite, No Other HEENT: No Head Aches, No Visual Changes, No Eye Pain, No Ear Pain, No Dysphasia, No Sinus Congestion, No Post Nasal Drip, No Sore Throat, No Other Pulmonary: No Dyspnea, No Cough, No Pleuritic Chest Pain, No Other Cardiovascular: No: Chest Pain, Palpitations, Orthopnea, Paroxysmal Noc. Dyspnea, Edema, Lt Headedness, Other Objective-Cardiology Exam Last Set of Vital Signs Vital Signs 01/15/21 01/15/21 01/15/21 06:14 08:00 10:08 Temp 36.3 Pulse 60 Resp 20 B/P (MAP) 122/78 (93) Pulse Ox 96 O2 Delivery Room Air Capillary Refill : I&O Intake and Output 01/15/21 00:00 Intake Total 2120 ml Output Total 1550 ml Balance 570 ml Intake Oral 2120 ml Output Urine Total 1550 ml # Voids 2 General: Alert, Oriented X3, Cooperative HEENT: Atraumatic, PERRLA Neck: Supple, No JVD, No Thyromegaly Lungs: Clear to Auscultation, Normal Air Movement Heart: Regular Rate, Normal S1, Normal S2, No Murmurs Abdomen: Normal Bowel Sounds, Soft, No Tenderness, No Hepatosplenomegaly, No Masses Extremities: No Clubbing, No Cyanosis, Normal Pulses, No Tenderness/Swelling, Other (trace edema) Skin: No Rashes, No Significant Lesion Neuro: Normal Speech, Cranial Nerves 3-12 NL Psych/Mental Status: Mental Status NL, Mood NL A/P-Cardiology Admission Diagnosis Syncope SSS/afib HTN Parkinson's Assessment/Plan Syncope- had syncopal episode x 2. Sinus node dysfunction alternating with paroxysmal atrial fibrillation with severe bradycardia, status post single- chamber pacemaker implantation with no complication. Site is healing well. Episode of dizziness and lightheadedness this morning after taking his medication, I will change the Toprol to evening and keep the lisinopril in the morning and monitor his tolerance and response Debility, patient is unable to take care of himself, after the pacemaker implant was concerned that she will not be able to support him to get up and get out of bed due to the fact that he cannot use his left arm. Continue with PT Peripheral edema, improving on diuretics. Continue to monitor History of loop monitor, the monitor was extracted by Dr. Keita Chest pain, nonspecific etiology, improved. Denies any recent chest pain. Stress test done February 2017 was negative for ischemia or infarct. Continue to monitor. Persistent atrial fibrillation-unable to tolerate beta enoc secondary to underlying bradycardia, unable to tolerate amiodarone due to dizziness, rate well controlled. S/p LINq implantation, planning for extraction. [id number] score of 2, yearly risk of stroke without oral anticoagulation is 2.2 percent. Maintained on Eliquis. Malignant hypertension, history of hypertensive encephalopathy with hallucinations during episode of elevated blood pressure. Has been having labile hypertension recently. HELEN, intolerant to CPAP Hypothyroidism, managed by primary care physician Parkinson's disease, followed by primary care physician Hyperlipidemia, maintained on fenofibrate, good control. Continue on current medications and continue to monitor. Next Mild bilateral carotid stenosis, ultrasound was done May 2019, continue to monitor. MIRIAM NICOLE MD Jan 15, 2021 11:08
[2021-01-15 17:00] VITALS: BP 132/76
[2021-01-15] MEDS: ALLOPURINOL 300 MG (ZYLOPRIM) TAB PO SCH (17:09)
[2021-01-15] MEDS: QUEtiapine 25 MG (SEROquel) TAB IMMEDIATE RELEASE PO SCH ×2 (17:18→20:55)
[2021-01-15] MEDS ORDERED: POTA10TA6 PO (20:03)
[2021-01-15] MEDS ORDERED: MTP25TSR PO (20:03)
[2021-01-15] MEDS ORDERED: LISI-729 PO (20:03)
[2021-01-15] MEDS ORDERED: HYDR-3923 PO (20:03)
[2021-01-15] MEDS ORDERED: FURO40TA4 PO (20:03)
--- NOTE | 2021-01-15 20:07 | D/C HH Face to Face Order ---
D/C Face to Face Orders Reconcile Patient Problems Problems Reviewed?: Yes Instructions for Patient Via [employer], Patient Instructions/FollowUp: Take medications as prescribed. Follow up with your primary care doctor and cardiology as scheduled. Physician to follow Patient: Lopez Discharge Diet for Home: Low Sodium Diet Patient Data-Allergies,Ht & Wt Patient Allergies: Coded Allergies: No Known Drug Allergies (Unverified , 05/12/17) Height (Feet): 6 Height (Inches): 0.00 Weight (Pounds): 260 Weight (Ounces): 0.0 Home Health Need/Face to Face Date of Face to Face: Jan 15, 2021 Clinical Findings: Generalized weakness and fatigue, Instability, Muscle weakness, Unsteady gait I have seen Pt gguy-de-nynr: Yes Discharged To: Home Diagnosis/Conditions: Parkinsons disease Sick sinus syndrome s/p pacemaker placement Orthostatic hypotension Problems/Diagnosis/Condition: (1) Parkinson's disease (tremor, stiffness, slow motion, unstable posture) (2) Bradycardia (3) Orthostatic hypotension Patient is Homebound due to: [place] fall risk due to instabilty, Muscle weakness Homebound Status Due to the above stated illness, injury or surgical procedure (medical condition or diagnosis) and associated clinical findings, the patient is homebound because of his/her inability to leave home except with aid of a supportive device and/or person AND leaving the home requires a considerable and taxing effort or is medically contraindicated. Pt req the following assistanc: Aid of another person Home Health Nursing Orders Home Health Services Order: Nursing Services, Senior Staff Consultant-Evaluate & Treat, Physical Therapy-Evaluate & Treat Therapy Orders Therapy Orders: OT (must have SN or PT order), Physical Therapy Therapy Specific Orders: Eval assistive deivces, Teach enviro modifications/safety, Gait training, Increase strength/endurance Certify Stmt I certify that this patient is under my care and that I, a nurse practitioner or a physician; a medical assistant ob gyn working with me, had a face to face encounter that - meets the physician face to face encounter requirements with this patient as dated. ERIBERTO BOWMAN MD Jan 15, 2021 20:07
[2021-01-15] MEDS: lisINopril 5 MG (PRINIVIL) TABLET PO SCH (20:55)
[2021-01-15] MEDS: NUPLAZID 34 MG PO SCH (20:56)
[2021-01-15] MEDS: FINASTERIDE (PROSCAR) 5 MG TAB PO SCH (20:56)
[2021-01-15 21:35] VITALS: BP 156/82
[2021-01-16 05:59] VITALS: BP 143/80
[2021-01-16] MEDS: LEVOTHYROXINE 100 MCG (LEVOTHROID) TAB PO SCH (06:02)
[2021-01-16] MEDS: GEMFIBROZIL 600 MG (LOPID) TAB PO SCH (06:02)
[2021-01-16] MEDS: VENlafaxine XR 75 MG (EFFEXOR XR) CAP PO SCH (06:02)
[2021-01-16] MEDS: LEVOTHYROXINE 75 MCG (LEVOTHROID) TABLET PO SCH (06:02)
[2021-01-16] MEDS: hydrALAZINE (APRESOLINE) 25 MG TAB PO SCH (08:39)
[2021-01-16] MEDS: KCL 10 MEQ TAB (MICRO K) PO SCH (08:39)
[2021-01-16] MEDS: DOCUSATE SODIUM 100 MG (COLACE) CAP PO SCH (08:39)
[2021-01-16] MEDS: SINEMET 25/100 (CARBIDOPA/LEVODOPA) TAB PO SCH (08:39)
[2021-01-16] MEDS: PANTOPRAZOLE 40 MG (PROTONIX) TAB PO SCH (08:39)
[2021-01-16] MEDS: SENNA W/DOCUSATE (SENOKOT S) TABLET PO SCH (08:39)
[2021-01-16] MEDS: FUROSEMIDE 40 MG (LASIX) TAB PO SCH (08:39)
[2021-01-16] MEDS: APIXABAN 5 MG (ELIQUIS) TABLET PO SCH (08:39)
--- NOTE | 2021-01-16 09:04 | Occupational Ther Daily Note ---
OT Current Status-Daily Note Subjective Pt AxO. present with pt. Pt agrees to tx. Denies pain. Denies showering as will complete later with techs prior to d/c. Agrees to LB/ footwear. Mental Status/Objective Patient Orientation: Person, Place, Situation ADL-Treatment Therapy Code Descriptions/Definitions Functional [place] Measure: 0=Not Assessed/NA 4=Minimal Assistance 1=Total Assistance 5=Supervision or Setup 2=Maximal Assistance 6=Modified [place] 3=Moderate Assistance 7=Complete IndependenceSCALE: Activities may be completed with or without assistive devices. 3-Ttbgecjcay-lgcnygj completes the activity by him/herself with no assistance from a helper. 5-Set-up or Clean-up Assistance-helper sets up or cleans up; patient completes activity. [place] assists only prior to or following the activity. 4-Supervision or Touching Assistance-helper provides verbal cues and/or touching/steadying and/or contact guard assistance as patient completes activity. Assistance may be provided throughout the activity or intermittently. 3-Partial/Moderate Assistance-helper does LESS THAN HALF the effort. [place] lifts, holds or supports trunk or limbs, but provides less than half the effort. 2-Substantial/Maximal Assistance-helper does MORE THAN HALF the effort. [place] lifts or holds trunk or limbs and provides more than half the effort. 3-Nmcjmrqpd-otgrpa does ALL the effort. Patient does none of the effort to complete the activity. Or, the assistance of 2 or more helpers is required for the patient to complete the activity. If activity was not attempted, code reason: 7-Patient Refused. 9-Not Applicable-not attempted and the patient did not perform the activity before the current illness, exacerbation or injury. 10-Not Attempted due to Environmental Limitations-(lack of equipment, weather restraints, etc.). 88-Not Attempted due to Medical Conditions or Safety Concerns. Eating (QC): 5 Oral Hygiene (QC): 3 ( assists with this task per pt/ family) Shower/Bathe Self (QC): 3 (Denies as pt to complete with staff later this date. Per clinical jugdement, pt will require mod A for LB / bottom care.) Upper Body Dressing (QC): 4 (denies need. However, per clinical judgment pt CGA-s/u for UB dressing.) Lower Body Dressing (QC): 3 (denies need. However, per clinical judgment pt min A with donning LB dressing with use of AE (as per yesterday's findings)) On/Off Footwear: 2 (pt able to doff with dressing stick, increased time, increased cues and min A. Pt dons with use of sock aide and max A (cues for only use of RUE for pullling sock aide ropes back). Due to pt's neuropathy and decre ased sensation, sock aide likely not a safe candidate for AE (pt's R 5th toe must be moved/ adjusted to ensure not catching on rope). Pt instructed to only utilize dressing stick due to safety concerns of sock aide) Toileting Hygiene (QC): 2 (denies need. However, per clinical judgment pt max A bottom care.) Toilet Transfer (QC): 4 (denies need. However, per clinical judgment pt CGA with use of walker/ gbs.) Other Treatment Pt denies most ADLs as is d/c'ing home today and had plans for shower later this am. Pt completes footwear with assist (see QC scores), decreased safety with use of sock aide due to neuropathy. Pt sits in recliner end of session with all needs met, call light in reach. present. Education OT Patient Education: Correct positioning, Modified ADL techniques, Progress toward Goal/Update tx plan, Purpose of tx/functional activities, Safety issues, Use of adapted equipment Teaching Recipient: Patient Teaching Methods: Demonstration Response to Teaching: Verbalize Understanding, Unable to Return Demonstration, Return Demonstration OT Short Term Goals Short Term Goals Time Frame: Jan 12, 2021 Eatin Oral hygiene: 4 Toileting hygiene: 3 Upper body dressin Lower body dressin Putting on/taking off footwear: 3 OT Usp Goals Database Admin Goals Time Frame: Jan 26, 2021 Eating (QC): 5 Oral Hygiene (QC): 5 Toileting Hygiene (QC): 4 Shower/Bathe Self (QC): 3 Upper Body Dressing (QC): 4 Lower Body Dressing (QC): 3 On/Off Footwear (QC): 3 Additional Goals: 1-Demonstrate ADL Tasks, 2-Verbalize Understanding, 3- ImproveStrength/Darling 1=Demonstrate adherence to instructed precautions during ADL tasks. 2=Patient will verbalize/demonstrate understanding of assistive devices/modifications for ADL. 3=Patient will improve strength/tolerance for activity to enable patient to perform ADL's. OT Education/Plan Problem List/Assessment Assessment: Decreased Activ Tolerance, Decreased UE Strength, Dependent Trans fers, Impaired Bed Mobility, Impaired Coordination, Impaired Funct Balance, Impaired I ADL's, Impaired Self-Care Skills Discharge Recommendations Plan/Recommendations: Continue POC Therapy Discharge Recommendati: Home & Family, Post Acute OT Treatment Plan/Plan of Care Treatment,Training & Education: Yes Patient would benefit from OT for education, treatment and training to promote independence in ADL's, mobility, safety and/or upper extremity function for ADL's. Plan of Care: ADL Retraining, Functional Mobility, UE Funct Exercise/Act Treatment Duration: Jan 26, 2021 Frequency: At least 5 of 7 days/Wk (IRF) Estimated Hrs Per Day: 1.5 hours per day Agreement: Yes Rehab Potential: Good Time/GCodes Start Time: 08:25 Stop Time: 08:37 Total Time Billed (hr/min): 12 Billed Treatment Time 1, ADL (12) d/c. ARIANNA ACEVEDO OTR Jan 16, 2021 09:04
--- NOTE | 2021-01-16 09:09 | Therapy Team Discharge Summary ---
Therapy Discharge Summary Discharge Recommendations Date of Discharge Occupational Therapy Pt admits post sycope/ pacemaker placement. Pt admits with eating with SBA, oral care min A ( assists prior), showering/ UB dressing/ LB dressing/ toilet hygiene max A and footwear TD. Pt receives 3 hours of assist at home, goals made to assume PLOF. Pt limited by fatigue and tremors. Pt and OT staff work towards higher fx IND through ADLs, AE, adaptive techniques, UE ex, safety interventions. Pt d/c's home with recommendations of OT evaluation and continued bath aide with eating s/u, oral care min A as prior, showering mod A, UB dressing s/u to CGA, LB dressing min A, toilet hygiene max A and footwear max A. Pt makes progress in most ADLs. Pt to d/c this date home with family. Decreased Activ Tolerance, Decreased UE Strength, Dependent Transfers, Impaired Bed Mobility, Impaired Coordination, Impaired Funct Balance, Impaired I ADL's, Impaired Self-Care Skills PT Fci Goals Fci Goals PT Fci Goals Time Frame: Jan 19, 2021 Roll Left to Right (QC): 4 Sit to Lying (QC): 4 Lying-Sitting on Side/Bed(QC): 4 Sit to Stand (QC): 4 (met 01/14/21) Chair/Pmb-jz-Cpkfi Xfer(QC): 4 (met 01/14/21) Car Transfer (QC): 4 Does the Patient Walk: Yes Walk 10 feet (QC): 4 (met 01/14/21) Walk 10ft-Uneven Surface(QC): 9 Walk 50ft with 2 Turns (QC): 4 (met 01/14/21) Walk 150 ft (QC): 4 (met 01/14/21) Wheel 50 feet with 2 turns (QC: 9 1 Step (curb) (QC): 9 4 Steps (QC): 9 12 Steps (QC): 9 Picking up an Object (QC): 9 OT Fci Goals Ladle Pourer Goals Time Frame: Jan 26, 2021 Eating (QC): 5 Oral Hygiene (QC): 5 Shower/Bathe Self (QC): 3 Upper Body Dressing (QC): 4 Lower Body Dressing (QC): 3 On/Off Footwear (QC): 3 Toileting Hygiene (QC): 4 Toilet/Commode Transfer (QC): 4 Additional Goals: 1-Demonstrate ADL Tasks, 2-Verbalize Understanding, 3- ImproveStrength/Darling 1=Demonstrate adherence to instructed precautions during ADL tasks. 2=Patient will verbalize/demonstrate understanding of assistive devices/modifications for ADL. 3=Patient will improve strength/tolerance for activity to enable patient to perform ADL's. ARIANNA ACEVEDO OTR Jan 16, 2021 09:09
--- NOTE | 2021-01-16 10:13 | Cardiology Progress Note ---
Subjective Date Seen by Provider: Jan 16, 2021 Time Seen by Provider: 10:12 Subjective/Events-last exam Sitting up in chair, denies any chest pain or dyspnea. Being discharged home today. Objective-Cardiology Exam Last Set of Vital Signs Vital Signs 01/16/21 01/16/21 05:59 08:00 Temp 36.1 Pulse 61 Resp 20 B/P (MAP) 143/80 (101) Pulse Ox 98 O2 Delivery Room Air Capillary Refill : I&O Intake and Output 01/16/21 00:00 Intake Total 1135 ml Output Total 450 ml Balance 685 ml Intake Oral 1135 ml Output Urine Total 450 ml # Voids 5 # Urine Diapers 1 General: Alert, Oriented X3, Cooperative HEENT: Atraumatic, PERRLA Neck: Supple, No JVD, No Thyromegaly Lungs: Clear to Auscultation, Normal Air Movement Heart: Regular Rate, Normal S1, Normal S2, No Murmurs Abdomen: Normal Bowel Sounds, Soft, No Tenderness, No Hepatosplenomegaly, No Masses Extremities: No Clubbing, No Cyanosis, Normal Pulses, No Tenderness/Swelling, Other (trace edema) Skin: No Rashes, No Significant Lesion Neuro: Normal Speech, Cranial Nerves 3-12 NL Psych/Mental Status: Mental Status NL, Mood NL A/P-Cardiology Admission Diagnosis Syncope SSS/afib HTN Parkinson's Assessment/Plan Syncope- had syncopal episode x 2. Sinus node dysfunction alternating with paroxysmal atrial fibrillation with severe bradycardia, status post single- chamber pacemaker implantation with no complication. Site is healing well. Episode of dizziness and lightheadedness this morning after taking his medication, I will change the Toprol to evening and keep the lisinopril in the morning and monitor his tolerance and response Debility, patient is unable to take care of himself, after the pacemaker implant was concerned that she will not be able to support him to get up and get out of bed due to the fact that he cannot use his left arm. Continue with PT Peripheral edema, improving on diuretics. Continue to monitor History of loop monitor, the monitor was extracted by Dr. Keita Chest pain, nonspecific etiology, improved. Denies any recent chest pain. Stress test done February 2017 was negative for ischemia or infarct. Continue to monitor. Persistent atrial fibrillation-unable to tolerate beta enoc secondary to underlying bradycardia, unable to tolerate amiodarone due to dizziness, rate well controlled. [id number] score of 2, yearly risk of stroke without oral anticoagulation is 2.2 percent. Maintained on Eliquis. Malignant hypertension, history of hypertensive encephalopathy with hallucinations during episode of elevated blood pressure. Has been having la bile hypertension recently. HELEN, intolerant to CPAP Hypothyroidism, managed by primary care physician Parkinson's disease, followed by primary care physician Hyperlipidemia, maintained on fenofibrate, good control. Continue on current medications and continue to monitor. Mild bilateral carotid stenosis, ultrasound was done May 2019, continue to monitor. Ok for discharge from cardiology standpoint. f/u in 2-4 weeks. Patient was seen and evaluated with Alma, examination performed, management plan was discussed, agree with the current scribed note, I made few changes to the note using Italic font Patient was feeling better, no new complaint Significant improvement in symptoms Okay for discharge, follow-up as an outpatient ALMA DEE Jan 16, 2021 10:13 MIRIAM NICOLE MD Jan 16, 2021 16:54
--- NOTE | 2021-01-16 10:45 | Therapy Team Discharge Summary ---
Therapy Discharge Summary Discharge Recommendations Date of Discharge 01/16/2021 Therapy D/C Recommendations: Physical Therapy Home Care Physical Therapy This patient admitted to [facility] status from acute care post hospital stay due to hypotension, low sodium and pacemaker placement. He admitted to [facility] due to diffiuculty with functional mobility and increased need for assist due to functional weakness as well as left UE in a sling. Upon admission to [facility], pt required max assist with bed mobility and transfers and walked 50 ft with FWW with min assist with heavy cues for posture and step length. Treatment has consisted of functional strength training and balance as well as progressing functional gait distance; in addition, family support and training provided as well. Pt has made excellent progress and has nearly met his goals. He is at his PLOF and his notes she feels she will be able to manage his mobility as she did before. He is min assist with bed mobility, SB to [facility] with transfers and gait and is walking up to 325 ft with FWW. He has made excellent gains. Feel he has potential to make additional progress with the initiation of [facility] PT to address mobility in the home and modify his environment as necessary. DC PT this date from [facility] status. Occupational Therapy Decreased Activ Tolerance, Decreased UE Strength, Dependent Transfers, Impaired Bed Mobility, Impaired Coordination, Impaired Funct Balance, Impaired I ADL's, Impaired Self-Care Skills PT Fdc Goals Fdc Goals PT Car Refinisher Goals Time Frame: Jan 19, 2021 Roll Left to Right (QC): 4 Sit to Lying (QC): 4 Lying-Sitting on Side/Bed(QC): 4 Sit to Stand (QC): 4 (met 01/14/21) Chair/Jsz-vr-Mhlub Xfer(QC): 4 (met 01/14/21) Car Transfer (QC): 4 Does the Patient Walk: Yes Walk 10 feet (QC): 4 (met 01/14/21) Walk 10ft-Uneven Surface(QC): 9 Walk 50ft with 2 Turns (QC): 4 (met 01/14/21) Walk 150 ft (QC): 4 (met 01/14/21) Wheel 50 feet with 2 turns (QC: 9 1 Step (curb) (QC): 9 4 Steps (QC): 9 12 Steps (QC): 9 Picking up an Object (QC): 9 Goals not fully met, pt will have follow up [facility] PT. OT Fdc Goals Fdc Goals Time Frame: Jan 26, 2021 Eating (QC): 5 Oral Hygiene (QC): 5 Shower/Bathe Self (QC): 3 Upper Body Dressing (QC): 4 Lower Body Dressing (QC): 3 On/Off Footwear (QC): 3 Toileting Hygiene (QC): 4 Toilet/Commode Transfer (QC): 4 Additional Goals: 1-Demonstrate ADL Tasks, 2-Verbalize Understanding, 3- ImproveStrength/Darling 1=Demonstrate adherence to instructed precautions during ADL tasks. 2=Patient will verbalize/demonstrate understanding of assistive devices/m odifications for ADL. 3=Patient will improve strength/tolerance for activity to enable patient to perform ADL's. LIYA GRANT PT Jan 16, 2021 10:45
--- NOTE | 2021-01-16 12:35 | Discharge Summary ---
Discharge Summary Hospital Course Was the Problem List Reviewed?: Yes Problems/Dx: (1) Parkinson's disease (tremor, stiffness, slow motion, unstable posture) Status: Acute (2) Orthostatic hypotension Status: Acute (3) HTN (hypertension) Status: Acute (4) Bradycardia Status: Acute (5) Syncope Status: Acute Hospital Course Date of Admission: Jan 05, 2021 at 09:11 Admission Diagnosis : Parkinson's disease Family Physician/Provider: Jan Lopez DO Date of Discharge: 01/16/21 Discharge Diagnosis: Parkinson's disease Hospital Course: Brooks Gan is a 75-year-old male with past medical history of Parkinson's disease, hypertension, atrial fibrillation, obesity, sick sinus syndrome status post pacemaker placement, who was admitted with debility related to Parkinson's disease. He was admitted to swing bed status for therapies. He recently had a pacemaker placed and was unable to use his left arm which is his dominant arm. He made significant improvements with his therapies during his stay. He was discharged home with home health care on discharge. He should follow-up with his primary care physician and cardiology. Labs and Pending Lab Test: Home Meds Active Furosemide 40 Mg Tablet 40 Mg PO DAILY 30 Days Klor-Con 10 (Potassium Chloride) 10 Meq Tablet.er 10 Meq PO DAILY@0900 30 Days Lisinopril 5 Mg Tablet 5 Mg PO HS 30 Days Metoprolol Succinate 25 Mg Tab.er.24h 25 Mg PO DAILY 30 Days Hydralazine HCl 25 Mg Tablet 25 Mg PO TID 30 Days Reported Vitamin B12 (Cyanocobalamin (Vitamin B-12)) 2,500 Mcg Tablet 2,500 Mcg PO DAILY Vitamin D3 (Cholecalciferol (Vitamin D3)) 125 Mcg Tablet 125 Mcg PO DAILY Calcium (Calcium Carbonate) 500 Mg Tablet 500 Mg PO DAILY Multivitamin 1 Each Tablet 1 Each PO DAILY [place]ossie-[place] Heartburn Tab Eff (Sodium Bicarbonate/Sodium Cit) 1 Each Tablet.eff 1 Each PO DAILY PRN [Theraworx] 1 Applic TOP DAILY PRN Tylenol Extra Strength (Acetaminophen) 500 Mg Tablet 1,000 Mg PO HS PRN TAKES 2 (500MG) TABLETS Levothyroxine Sodium 175 Mcg Tablet 175 Mcg PO DAILY Carbidopa-Levodopa 25-100 Tab (Carbidopa/Levodopa) 1 Each Tablet 1.5 Tab PO QIDACHS TAKES 1 TABLETS Quetiapine Fumarate 25 Mg Tablet 50 Mg PO 2030 TAKES 2 (25MG) TABLETS Nuplazid (Pimavanserin Tartrate) 34 Mg Capsule 34 Mg PO 1700 Venlafaxine HCl ER (Venlafaxine HCl) 75 Mg Cap.er.24h 75 Mg PO DAILY Allopurinol 300 Mg Tablet 300 Mg PO 1700 Quetiapine Fumarate 25 Mg Tablet 25 Mg PO 1400 Constulose (Lactulose) 10 Gm/15 Ml Solution 15 Ml PO Q48H Eliquis (Apixaban) 5 Mg Tablet 5 Mg PO BID Pantoprazole Sodium 40 Mg Tablet.dr 40 Mg PO 1200 Gemfibrozil 600 Mg Tablet 600 Mg PO BID Dutasteride 0.5 Mg Capsule 0.5 Mg PO HS Assessment/Pt Instructions Take medications as prescribed. Follow up with your PCP. Follow up with Cardiology. Discharge Planning: <30 minutes discharge planning Discharge Instructions Discharge Diet: No Restrictions Activity as Tolerated: Yes Consultations Cardiology Discharge Physical Examination Vital Signs Vital Signs Date Time Temp Pulse Resp B/P (MAP) Pulse Ox O2 Delivery O2 Flow Rate FiO2 01/16/21 08:00 Room Air 01/16/21 05:59 36.1 61 20 143/80 (101) 98 General Appearance: No Apparent Distress, Obese HEENT: PERRL/EOMI, Pharynx Normal Respiratory: Lungs Clear, Normal Breath Sounds, No Respiratory Distress Cardiovascular: Regular Rate, Rhythm, No Edema, No Murmur Gastrointestinal: Normal Bowel Sounds, Non Tender, Soft Extremity: Normal Inspection, Non Tender, No Pedal Edema Skin: Normal Color, Warm/Dry Neurologic/Psychiatric: Alert, Oriented x3, No Motor/Sensory Deficits, Normal Mood/Affect Allergies: Coded Allergies: No Known Drug Allergies (Unverified , 05/12/17) Copy Copies To 1: JAN LOPEZ DO Discharge Summary Date of Admission Jan 05, 2021 at 09:11 Date of Discharge Jan 16, 2021 at 11:00 Discharge Date: Jan 16, 2021 Discharge Time: 11:00 Admission Diagnosis Parkinson's disease Consults/Procedures Consulations Cardiology Discharge Diagnosis Parkinson's disease (1) Parkinson's disease (tremor, stiffness, slow motion, unstable posture) Status: Acute (2) Orthostatic hypotension Status: Acute (3) HTN (hypertension) Status: Acute (4) Bradycardia Status: Acute (5) Syncope Status: Acute ERIBERTO BOWMAN MD Jan 16, 2021 12:28
== END 2021-01-16 11:00 | disposition home health service (06) | DRG 57 ==
LOC: 4TH 09:11
PROVIDERS: ADMIT Internal Medicine; ATTEND Internal Medicine
PROC: 0JPT02Z Removal of Monitoring Device from Trunk Subcutaneous Tissue and Fascia, Open Approach (ICD-10-PCS; principal; 2021-01-11)
DX: G20 Parkinson's disease (principal); I48.19 Other persistent atrial fibrillation; I95.1 Orthostatic hypotension; I10 Essential (primary) hypertension; Z66 Do not resuscitate; E66.9 Obesity, unspecified; Z95.0 Presence of cardiac pacemaker; R53.81 Other malaise; F02.80 Dementia in other diseases classified elsewhere, unspecified severity, without behavioral disturbance, psychotic disturbance, mood disturbance, and anxiety; N40.0 Benign prostatic hyperplasia without lower urinary tract symptoms; K21.9 Gastro-esophageal reflux disease without esophagitis; G89.29 Other chronic pain; M54.9 Dorsalgia, unspecified; E03.9 Hypothyroidism, unspecified; Z79.01 Long term (current) use of anticoagulants; G47.33 Obstructive sleep apnea (adult) (pediatric); E78.5 Hyperlipidemia, unspecified; R60.9 Edema, unspecified; Z68.34 Body mass index [BMI] 34.0-34.9, adult
CPT/HCPCS: 36415; 80048

== ENCOUNTER → 2021-02-26 | Outpatient (CLI) | payer MEDICARE, OTHER ==
[~2021-02-26] MED LIST changes: -DRON400T2 PO; +DRON400T6 PO; +FURO40TA4 PO; +HYDR-3923 PO; +MTP25TSR PO; +POTA10TA6 PO
== END ==
LOC: CARD 13:51
PROVIDERS: ATTEND Physician Assistant
DX: I08.0 Rheumatic disorders of both mitral and aortic valves (principal); I25.10 Atherosclerotic heart disease of native coronary artery without angina pectoris; I11.9 Hypertensive heart disease without heart failure
CPT/HCPCS: 93306

== ENCOUNTER 2021-09-25 12:58 | Outpatient (RCR) | payer OTHER ==
[~2021-09-25 12:58] MED LIST changes: -AMIO200T6 PO; +AMIO200T65 PO; +CYCL10TA25 PO; -CYCL10TA9 PO; -LISI-729 PO; +LISI5TAB20 PO; +POTA-160 PO; -POTA10TA6 PO; -QUET25TA34 PO; +QUET25TA35 PO; -SULF1TAB35 PO; +SULF1TAB38 PO
== END 2021-09-26 | disposition home or self-care (01) ==
PROVIDERS: ATTEND Internal Medicine Endocrinology, Diabetes & Metabolism
DX: G20 Parkinson's disease (principal); I10 Essential (primary) hypertension

== ENCOUNTER 2021-10-02 14:27 | Outpatient (RCR) | payer OTHER | END 2021-10-04 | disposition home or self-care (01) | PROVIDERS: ATTEND Internal Medicine Endocrinology, Diabetes & Metabolism | DX: G20 Parkinson's disease (principal); I10 Essential (primary) hypertension ==

== ENCOUNTER 2021-10-31 14:21 | Outpatient (RCR) | payer OTHER | END 2021-11-04 | disposition home or self-care (01) | PROVIDERS: ATTEND Internal Medicine Endocrinology, Diabetes & Metabolism | DX: G20 Parkinson's disease (principal); I10 Essential (primary) hypertension ==

== ENCOUNTER 2021-11-15 14:16 | Outpatient (RCR) | payer OTHER | END 2021-12-02 | disposition home or self-care (01) | PROVIDERS: ATTEND Internal Medicine Endocrinology, Diabetes & Metabolism | DX: G20 Parkinson's disease (principal); I10 Essential (primary) hypertension ==

== ENCOUNTER → 2022-01-02 | Outpatient (RCR) | payer OTHER | END | disposition home or self-care (01) | PROVIDERS: ATTEND Internal Medicine Endocrinology, Diabetes & Metabolism | DX: G20 Parkinson's disease (principal); I10 Essential (primary) hypertension ==

== ENCOUNTER 2022-01-14 13:56 | Outpatient (RCR) | payer OTHER | END 2022-02-01 | disposition home or self-care (01) | PROVIDERS: ATTEND Internal Medicine Endocrinology, Diabetes & Metabolism | DX: G20 Parkinson's disease (principal); I10 Essential (primary) hypertension ==

== ENCOUNTER → 2022-05-03 | Outpatient (CLI) | payer OTHER ==
[2022-05-03 12:45] LABS: POTASSIUM 4.4 MMOL/L (3.6-5.0)
[2022-05-03 12:46] LABS: CALCIUM 9.8 MG/DL (8.5-10.1)
[2022-05-03 12:50] LABS: CREATININE SERUM 1.11 MG/DL (0.60-1.30)
== END ==
LOC: HH 12:00
DX: Z01.89 Encounter for other specified special examinations (principal)
CPT/HCPCS: 80048

== ENCOUNTER 2022-05-18 14:51 | Emergency (ER) | payer MEDICARE, OTHER ==
[~2022-05-18] VITALS: Ht 185 cm; Wt 104.0 kg
[2022-05-18] MEDS ORDERED: HYDROcodone/APAP 5 MG/325 MG (LORTAB) TAB PO ONE (15:45)
--- NOTE | 2022-05-18 15:45 | ED Back Pain ---
General Chief Complaint: Back Problems Stated Complaint: LOWER BACK PAIN Nursing Triage Note: PT TO OR 4 PER EMS W/ C/O LOWER BACK PAIN ONSET AFTER SLIDING OUT OF W/C W/ ASSIST AT HOME. PER EMS, FAMILY WAS ASSISTED PT TO W/C WHEN HE BEGAN TO SLIP OUT SO THEY ATTEMPTED TO REPOSITION HIM. THIS WAS UNSUCCESSFUL PER EMS ET PT WAS SET ON THE FLOOR. PT NOW C/O LOWER BACK PAIN. History of Present Illness Date Seen by Provider: May 18, 2022 Time Seen by Provider: 15:28 Initial Comments 76-year-old male presents via EMS after being transferred to his wheelchair by family. He began to slide out of the wheelchair and was assisted to the ground without trauma by his family. However when law enforcement arrived to help transfer him back to his bed he had excruciating low back pain. He has a history of Parkinson's, spinal stenosis and degenerative disc disease. He denies any leg or hip pain. He has minor abrasion to his right posterior foot, no active bleeding. Location: Lumbar Spine Timing/Duration: 1 Hour Severity: Moderate Pain/Injury Location: Back (lumbar) Associated Symptoms: No muscle spasms, No numbness in legs/feet, No tingling in legs/feet, No sensory/motor loss; lower back pain; No loss of bladder control, No loss of bowel control Allergies and Home Medications Allergies Coded Allergies: No Known Drug Allergies (Unverified , 05/12/17) Patient Home Medication List Home Medication List Reviewed: Yes Acetaminophen (Tylenol Extra Strength) 500 Mg Tablet, 1,000 MG PO HS PRN for PAIN-MILD (1-4), (Reported) Entered as Reported by: BOLIVAR OBRIEN on 12/31/20 1428 Allopurinol (Allopurinol) 300 Mg Tablet, 300 MG PO 1700, (Reported) Entered as Reported by: ANKUSH MADRIGAL on 12/30/20 1312 Apixaban (Eliquis) 5 Mg Tablet, 5 MG PO BID, (Reported) Entered as Reported by: GABI JIMENEZ on 04/13/18 1145 Calcium Carbonate (Calcium) 500 Mg Tablet, 500 MG PO DAILY, (Reported) Entered as Reported by: BOLIVAR OBRIEN on 12/31/20 1428 Carbidopa/Levodopa (Carbidopa-Levodopa 25-100 Tab) 1 Each Tablet, 1.5 TAB PO QIDACHS, (Reported) Entered as Reported by: BOLIVAR OBRIEN on 12/31/201427 Cholecalciferol (Vitamin D3) (Vitamin D3) 125 Mcg Tablet, 125 MCG PO DAILY, (Reported) Entered as Reported by: BOLIVAR OBRIEN on 12/31/20 142 Cyanocobalamin (Vitamin B-12) (Vitamin B12) 2,500 Mcg Tablet, 2,500 MCG PO DAILY, (Reported) Entered as Reported by: BOLIVAR OBRIEN on 12/31/201427 Dutasteride (Dutasteride) 0.5 Mg Capsule, 0.5 MG PO HS, (Reported) Entered as Reported by: KIP DUNBAR on 07/31/16 075 Furosemide (Furosemide) 40 Mg Tablet, 40 MG PO DAILY Prescribed by: ERIBERTO BOWMAN on 01/15/212002 Gemfibrozil (Gemfibrozil) 600 Mg Tablet, 600 MG PO BID, (Reported) Entered as Reported by: KIP DUNBAR on 07/31/16 075 Hydralazine HCl (Hydralazine HCl) 25 Mg Tablet, 25 MG PO TID Prescribed by: ERIBERTO BOWMAN on 01/15/212002 Lactulose (Constulose) 10 Gm/15 Ml Solution, 15 ML PO Q48H, (Reported) Entered as Reported by: ANKUSH MADRIGAL on 12/30/20 1300 Levothyroxine Sodium (Levothyroxine Sodium) 175 Mcg Tablet, 175 MCG PO DAILY, (Reported) Entered as Reported by: BOLIVAR OBRIEN on 12/31/20 142 Lisinopril (Lisinopril) 5 Mg Tablet, 5 MG PO HS Prescribed by: ERIBERTO BOWMAN on 01/15/212002 Metoprolol Succinate (Metoprolol Succinate) 25 Mg Tab.er.24h, 25 MG PO DAILY Prescribed by: ERIBERTO BOWMAN on 01/15/212002 Multivitamin (Multivitamin) 1 Each Tablet, 1 EACH PO DAILY, (Reported) Entered as Reported by: BOLIVAR OBRIEN on 12/31/20 142 Pantoprazole Sodium (Pantoprazole Sodium) 40 Mg Tablet.dr, 40 MG PO 1200, (Reported) Entered as Reported by: GABI JIMENEZ on 04/13/18 1145 Pimavanserin Tartrate (Nuplazid) 34 Mg Capsule, 34 MG PO 1700, (Reported) Entered as Reported by: ANKUSH MADRIGAL on 12/30/20 1312 Potassium Chloride (Klor-Con 10) 10 Meq Tablet.er, 10 MEQ PO DAILY@0900 Prescribed by: ERIBERTO BOWMAN on 01/15/212002 Quetiapine Fumarate (Quetiapine Fumarate) 25 Mg Tablet, 25 MG PO 1400, (Reported) Entered as Reported by: ANKUSH MADRIGAL on 12/30/20 131 Quetiapine Fumarate (Quetiapine Fumarate) 25 Mg Tablet, 50 MG PO 2030, (Reported) Entered as Reported by: BOLIVAR OBRIEN on 12/31/20 142 Sodium Bicarbonate/Sodium Cit ([place]ossie-[place] Heartburn Tab Eff) 1 Each Tablet.eff, 1 EACH PO DAILY PRN for HEARTBURN, (Reported) Entered as Reported by: BOLIVAR OBRIEN on 12/31/20 142 Venlafaxine HCl (Venlafaxine HCl ER) 75 Mg Cap.er.24h, 75 MG PO DAILY, (Reported) Entered as Reported by: ANKUSH MADRIGAL on 12/30/20 131 [Theraworx] , 1 APPLIC TOP DAILY PRN for CRAMPS, (Reported) Entered as Reported by: BOLIVAR OBRIEN on 12/31/201427 Review of Systems Constitutional: no symptoms reported, see HPI Musculoskeletal: see HPI, back pain All Other Systems Reviewed Negative Unless Noted: Yes Past Qdodamr-Uexcxi-Trsulb Hx Patient Social History Tobacco Use?: No Use of E-Cig and/or Vaping dev: No Substance use?: No Alcohol Use?: No Pt feels they are or have been: No Seasonal Allergies Seasonal Allergies: No Past Medical History Surgery/Hospitalization HX: PARKINSONS, A FIB, CHF, NEUROPATHY, PACEMAKER/DEFIBRILLATOR Surgeries: Yes (SCHRAPNEL REMOVED FROM LEFT ARM; LEFT LEG I&D CHILD FOR OSTEOMYELITIS; ) Appendectomy, Gallbladder, Orthopedic, Tonsillectomy Respiratory: Yes Sleep Apnea Currently Using CPAP: Yes Currently Using BIPAP: No Cardiac: Yes Atrial Fibrillation, Hypertension Neurological: Yes Dementia, Parkinson's Disease Reproductive Disorders: No Sexually Transmitted Disease: No HIV/AIDS: No Genitourinary: Yes (HORSESHOE KIDNEY; KIDNEY STONES NOTED ON CT SCAN 09/27/18) Benign Prostatic Hyperpl, Prostate Problems, Kidney Stones Gastrointestinal: Yes Gastroesophageal Reflux, Chronic Constipation Musculoskeletal: Yes Arthritis, Chronic Back Pain Endocrine: Yes Hypothyroidsim HEENT: No Loss of Vision: Denies Hearing Impairment: Denies Cancer: Yes (SQUAMOUS CELL-EAR) Skin Did You Recieve Any Treatments: Yes What Type of Treatment Did You: Surgical Intervention Psychosocial: Yes PTSD Integumentary: No Blood Disorders: No Adverse Reaction/Blood Tranf: No (N/A) Family Medical History Reviewed Nursing Family Hx Alcoholism G8 BROTHER Cervical cancer G8 SISTER Diabetes mellitus 19 FATHER 19 MOTHER G8 BROTHER FH: COPD (chronic obstructive pulmonary disease) 19 MOTHER FH: stroke 19 FATHER No Pertinent Family Hx Physical Exam Vital Signs Vital Signs - First Documented 05/18/22 15:03 Temp 36.5 Pulse 79 Resp 16 B/P (MAP) 151/111 (124) Pulse Ox 97 O2 Delivery Room Air Capillary Refill : Less Than 3 Seconds Height, Weight, BMI Height: 6'0.00" Weight: 260lbs. 0.0oz. 117.623095rb; 30.00 BMI Method:Stated General Appearance: No Apparent Distress, WD/WN HEENT: PERRL/EOMI, TMs Normal, Normal ENT Inspection, Pharynx Normal Neck: Full Range of Motion, Normal Inspection, Non Tender, Supple Cardiovascular: Regular Rate, Rhythm, No Murmur, Normal Peripheral Pulses Respiratory: Chest Non Tender, Lungs Clear, Normal Breath Sounds Gastrointestinal: Normal Bowel Sounds, No Organomegaly, Non Tender, Soft Extremity: Normal Capillary Refill, Normal Inspection, No Pedal Edema, Pelvis Stable, Other (No pain with ROM to legs/hips. ) Neurologic/Psychiatric: Alert, Oriented x3, No Motor/Sensory Deficits, Normal Mood/Affect Skin: Normal Color, Warm/Dry, Other (Superficial abrasion to right heel, no active bleeding. Sterile dressing applied. ) Progress/Results/Core Measures Results/Orders My Orders Orders - LINA HARVEY Hydrocodone/Apap 5/325 Tablet (Lortab 5 (05/18/22 15:45) Lumbar Spine - 2-3 Views (05/18/22 15:37) Pelvis 1 To 2 Views (05/18/22 15:38) Medications Given in ED Current Medications Medications Dose Ordered Sig/Mariah Route Start Time Stop Time Status Last Admin Dose Admin Acetaminophen/ Hydrocodone Bitart 1 ea ONCE ONCE PO 05/18/22 15:45 05/18/22 15:46 DC 05/18/22 15:46 1 EA Vital Signs/I&O 05/18/22 15:03 Temp 36.5 Pulse 79 Resp 16 B/P (MAP) 151/111 (124) Pulse Ox 97 O2 Delivery Room Air Blood Pressure Mean: 124 Diagnostic Imaging Diagonstic Imaging: Xray Plain Films/CT/US/NM/MRI: other (L spine) Comments NAME: ALLIE SILVA [facility] REC#: [id number] PT STATUS: REG ER : 1945 PHYSICIAN: LNIA HARVEY ADMIT DATE: 05/18/22/ER Draft Date of Exam:05/18/22 LUMBAR SPINE - 2-3 VIEWS INDICATION: Low back pain. COMPARISON: Prior study from 01/13/2018. FINDINGS: Severe endplate changes and bulky osteophytes are again demonstrated throughout the lumbar spine. There is a mild dextroscoliosis. Lateral alignment appears unchanged. The vertebral body heights appear preserved. IMPRESSION: Severe multilevel degenerative endplate changes with large bulky osteophytes throughout the lumbar spine. Alignment is stable. The vertebral body heights appear maintained. Dictated on workstation # [id number] Dict: 05/18/22 1608 Trans: 05/18/221625 PJE [id number] Interpreted by: DIANNE DE LOS SANTOS MD Electronically signed by: Reviewed: Reviewed by Me Diagonstic Imaging: Xray Plain Films/CT/US/NM/MRI: pelvis Comments NAME: ALLIE SILVA [facility] REC#: [id number] PT STATUS: REG ER : 1945 PHYSICIAN: LINA HARVEY ADMIT DATE: 05/18/22/ER Draft Date of Exam:05/18/22 PELVIS 1 TO 2 VIEWS EXAMINATION: Pelvis 1 or 2 views. HISTORY: Pelvic pain. COMPARISON: None available. FINDINGS: Alignment is normal. No fracture is seen. Joint spaces are normal. IMPRESSION: No fracture. Dictated on workstation # [id number] Dict: 05/18/22 1611 Trans: 05/18/22 162 PJE [id number] Interpreted by: JENNIFER ALLEN MD Electronically signed by: Reviewed: Reviewed by Me Departure Impression Primary Impression: Fall from wheelchair Qualified Codes: W05.0XXA - Fall from non-moving wheelchair, initial encounter Disposition: HOME, SELF-CARE Condition: Improved Departure-Patient Inst. Decision time for Depature: 16:20 Referrals: EDDY ESPINO DO (PCP/Family) Primary Care Physician Patient Instructions: Low Back Pain (DC) Add. Discharge Instructions: Continue home medications as needed for pain. Follow-up with your primary care provider if symptoms are not improving or worsen. Return to the emergency department for new, urgent healthcare problems. All discharge instructions reviewed with patient and/or family. Voiced understanding. LINA HARVEY May 18, 2022 15:45
--- NOTE | 2022-05-18 16:27 | Diagnostic Imaging Report ---
EXAMINATION: Pelvis 1 or 2 views. HISTORY: Pelvic pain. COMPARISON: None available. FINDINGS: Alignment is normal. No fracture is seen. Joint spaces are normal. IMPRESSION: No fracture. Dictated by: Dictated on workstation # [id number]
--- NOTE | 2022-05-18 16:27 | Diagnostic Imaging Report ---
INDICATION: Low back pain. COMPARISON: Prior study from 01/13/2018. FINDINGS: Severe endplate changes and bulky osteophytes are again demonstrated throughout the lumbar spine. There is a mild dextroscoliosis. Lateral alignment appears unchanged. The vertebral body heights appear preserved. IMPRESSION: Severe multilevel degenerative endplate changes with large bulky osteophytes throughout the lumbar spine. Alignment is stable. The vertebral body heights appear maintained. Dictated by: Dictated on workstation # [id number]
[2022-05-18 16:47] VITALS: BP 160/96
== END 2022-05-18 16:47 | disposition home or self-care (01) ==
LOC: EDUNIT# 14:51 → ER 14:53
DX: S90.811A Abrasion, right foot, initial encounter (principal); G47.30 Sleep apnea, unspecified; Z99.89 Dependence on other enabling machines and devices; W05.0XXA Fall from non-moving wheelchair, initial encounter
CPT/HCPCS: 72100; 72170

== ENCOUNTER 2022-05-24 13:32 | Emergency (ER) | payer MEDICARE, OTHER ==
[~2022-05-24] VITALS: Ht 182 cm; Wt 108.0 kg
--- NOTE | 2022-05-24 13:58 | ED Psychosocial ---
General Chief Complaint: General Problems/Pain Stated Complaint: HALLUCINATING Nursing Triage Note: Pt here with possible hallucinations x several months; spouse states he has Parkinson's. Source: family () Exam Limitations: no limitations (MADYSON MONTANO MD) History of Present Illness Date Seen by Provider: May 24, 2022 Time Seen by Provider: 13:50 Initial Comments Patient is a 76-year-old male brought to the emergency department by his for chief complaint increasing/worsening hallucinations. Patient has a history of Parkinson's disease. He has hallucinated off and on over the last 18 months. He has had previous hospitalization at [facility] in [place]. Patient's states that she gives him his medications daily. They have home physical therapy and home health for assistance with bathing and activities of daily living. She states over the last 2 weeks he has had increasing paranoia and concerns that people have been in the house, that she has "boyfriends" that she is leaving him, that they are in danger. He is constantly asking to leave the house. She states sleep is normally pretty good. He takes nightly medicines that help him rest. 2 nights ago he was however up all night agitated and restless. She reports no recent illnesses such as cough, congestion, nausea, vomiting. He does wear depends and has had urinary tract infections in the past. No sick contacts that she is aware of. No recent head trauma, he is chronically anticoagulated with a history of atrial fibrillation. He does have some superficial wounds to the sacrum and scrotum as well as to the right heel none of which she states are infected. All other review of systems reviewed and negative except as stated. Timing/Duration: getting worse (2-4 months) Severity: moderate Associated Symptoms: other (hallucinating) (MADYSON MONTANO MD) Allergies and Home Medications Allergies Coded Allergies: No Known Drug Allergies (Unverified , 05/12/17) Patient Home Medication List Home Medication List Reviewed: Yes (MADYSON MONTANO MD) Acetaminophen (Tylenol Extra Strength) 500 Mg Tablet, 1,000 MG PO HS PRN for PAIN-MILD (1-4), (Reported) Entered as Reported by: BOLIVAR OBRIEN on 12/31/20 1428 Allopurinol (Allopurinol) 300 Mg Tablet, 300 MG PO 1700, (Reported) Entered as Reported by: ANKUSH MADRIGAL on 12/30/20 1312 Last Action: Last Taken Edited Apixaban (Eliquis) 5 Mg Tablet, 5 MG PO BID, (Reported) Entered as Reported by: GABI JIMENEZ on 04/13/18 1145 Last Action: Last Taken Edited Carbidopa/Levodopa (Carbidopa-Levodopa 25-100 Tab) 1 Each Tablet, 1.5 TAB PO QIDACHS, (Reported) Entered as Reported by: BOLIVAR OBRIEN on 12/31/201427 Last Action: Last Taken Edited Dutasteride (Dutasteride) 0.5 Mg Capsule, 0.5 MG PO HS, (Reported) Entered as Reported by: KIP DUNBAR on 07/31/16 075 Last Action: Last Taken Edited Furosemide (Furosemide) 40 Mg Tablet, 40 MG PO DAILY Prescribed by: ERIBERTO BOWMAN on 01/15/212002 Last Action: Last Taken Edited Gemfibrozil (Gemfibrozil) 600 Mg Tablet, 600 MG PO BID, (Reported) Entered as Reported by: KIP DUNBAR on 07/31/16 469 Last Action: Last Taken Edited Hydralazine HCl (Hydralazine HCl) 25 Mg Tablet, 25 MG PO TID Prescribed by: ERIBERTO BOWMAN on 01/15/212002 Last Action: Last Taken Edited Lactulose (Constulose) 10 Gm/15 Ml Solution, 15 ML PO Q48H, (Reported) Entered as Reported by: ANKUSH MADRIGAL on 12/30/20 1300 Levothyroxine Sodium (Levothyroxine Sodium) 175 Mcg Tablet, 175 MCG PO DAILY, (Reported) Entered as Reported by: BOLIVAR OBRIEN on 12/31/20 142 Last Action: Last Taken Edited Lorazepam (Ativan) 1 Mg Tablet, 1 MG SL HS PRN for ANXIETY, (Reported) Entered as Reported by: LEVI LEON on 05/24/22 5823 Last Action: New Order Multivitamin (Multivitamin) 1 Each Tablet, 1 EACH PO DAILY, (Reported) Entered as Reported by: BOLIVAR OBRIEN on 12/31/201427 Pantoprazole Sodium (Pantoprazole Sodium) 40 Mg Tablet.dr, 40 MG PO 1200, (Reported) Entered as Reported by: GABI JIMENEZ on 04/13/18 1145 Last Action: Last Taken Edited Potassium Chloride (Klor-Con 10) 10 Meq Tablet.er, 10 MEQ PO DAILY@0900 Prescribed by: ERIBERTO BOWMAN on 01/15/212002 Last Action: Last Taken Edited Quetiapine Fumarate (Quetiapine Fumarate) 25 Mg Tablet, 25 MG PO 1400, (Reported) Entered as Reported by: ANKUSH MADRIGAL on 12/30/201311 Last Action: Last Taken Edited Quetiapine Fumarate (Quetiapine Fumarate) 25 Mg Tablet, 50 MG PO 2030, (Reported) Entered as Reported by: BOLIVAR OBRIEN on 12/31/201427 Last Action: Last Taken Edited Venlafaxine HCl (Venlafaxine HCl ER) 75 Mg Cap.er.24h, 75 MG PO DAILY, (Reported) Entered as Reported by: ANKUSH MADRIGAL on 12/30/201311 Last Action: Last Taken Edited [Theraworx] , 1 APPLIC TOP DAILY PRN for CRAMPS, (Reported) Entered as Reported by: BOLIVAR OBRIEN on 12/31/201427 Discontinued Medications Cyanocobalamin (Vitamin B-12) (Vitamin B12) 2,500 Mcg Tablet, 2,500 MCG PO DAILY, (Reported) Discontinued Reason: No Longer Taking Entered as Reported by: BOLIVAR OBRIEN on 12/31/201427 Last Action: Discontinued Lisinopril (Lisinopril) 5 Mg Tablet, 5 MG PO HS Discontinued Reason: No Longer Taking Prescribed by: ERIBERTO BOWMAN on 01/15/212002 Last Action: Discontinued Pimavanserin Tartrate (Nuplazid) 34 Mg Capsule, 34 MG PO 1700, (Reported) Discontinued Reason: No Longer Taking Entered as Reported by: ANKUSH MADRIGAL on 12/30/201311 Last Action: Discontinued Review of Systems Constitutional: see HPI EENTM: no symptoms reported Respiratory: no symptoms reported Cardiovascular: no symptoms reported Gastrointestinal: no symptoms reported Genitourinary: no symptoms reported Musculoskeletal: no symptoms reported Skin: other (Superficial ulceration) Psychiatric/Neurological: Other (hallucniations) (MADYSON MONTANO MD) All Other Systems Reviewed Negative Unless Noted: Yes (MADYSON MONTANO MD) Past Zyfphai-Hjcorc-Vwlxbb Hx Seasonal Allergies Seasonal Allergies: No (MADYSON MONTANO MD) Past Medical History Surgery/Hospitalization HX: PARKINSONS, A FIB, CHF, NEUROPATHY, PACEMAKER/DEFIBRILLATOR Surgeries: Yes (SCHRAPNEL REMOVED FROM LEFT ARM; 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; ) Appendectomy, Gallbladder, Orthopedic, Tonsillectomy Respiratory: Yes Sleep Apnea Currently Using CPAP: Yes Currently Using BIPAP: No Cardiac: Yes Atrial Fibrillation, Hypertension Neurological: Yes Dementia, Parkinson's Disease Reproductive Disorders: No Sexually Transmitted Disease: No HIV/AIDS: No Genitourinary: Yes (HORSESHOE KIDNEY; KIDNEY STONES NOTED ON CT SCAN 09/27/18) Benign Prostatic Hyperpl, Prostate Problems, Kidney Stones Gastrointestinal: Yes Gastroesophageal Reflux, Chronic Constipation Musculoskeletal: Yes Arthritis, Chronic Back Pain Endocrine: Yes Hypothyroidsim HEENT: No Loss of Vision: Denies Hearing Impairment: Denies Cancer: Yes (SQUAMOUS CELL-EAR) Skin Did You Recieve Any Treatments: Yes What Type of Treatment Did You: Surgical Intervention Psychosocial: Yes PTSD Integumentary: No Blood Disorders: No Adverse Reaction/Blood Tranf: No (N/A) (MADYSON MONTANO MD) Family Medical History Alcoholism G8 BROTHER Cervical cancer G8 SISTER Diabetes mellitus 19 FATHER 19 MOTHER G8 BROTHER FH: COPD (chronic obstructive pulmonary disease) 19 MOTHER FH: stroke 19 FATHER No Pertinent Family Hx (MADYSON MONTANO MD) Physical Exam Vital Signs - First Documented 05/24/22 05/24/22 13:42 19:46 Temp 36.2 Pulse 69 Resp 22 B/P (MAP) 110/81 (91) Pulse Ox 99 O2 Delivery Room Air (CAESAR,ASPEN K DO) Capillary Refill : (MADYSON MONTANO MD) Height, Weight, BMI Height: 6'0.00" Weight: 260lbs. 0.0oz. 117.992224ic; 32.00 BMI Method:Stated General Appearance: WD/WN, no apparent distress HEENT: PERRL/EOMI, pharynx normal, other (appears adquately hydrated; fair dentition) Neck: supple, normal inspection Respiratory: lungs clear, normal breath sounds, no respiratory distress, no accessory muscle use Cardiovascular: irregularly irregular Peripheral Pulses: 2+ Radial Pulses (R), 2+ Radial Pulses (L) Gastrointestinal: normal bowel sounds, non tender, soft Extremities: normal range of motion, normal inspection, no pedal edema Neurologic/Psychiatric: alert, oriented x 3 Appearance/Memory: appropriate appearance, neat Behavior/Eye Contact: cooperative, good eye contact, normal speech Thoughts/Hallucinations: no apparent hallucination Skin: normal color, warm/dry, other (shallow 1cm ulcer posterior right heel without erythema) (MADYSON MONTANO MD) Suicide Risk Suicide Risk Low Suicide Risk Level []Suicidal Ideation WITHOUT method, intent, plan or behavior more than a month ago []]Modifiable risk factors and strong protective factors []No reported history of suicidal ideation or behavior []Patient reports/exhibits symptoms consistent with psychosis []Patient reports a plan that would be unrealistic/impossible to complete and intent []Suicide attempt prior to arrival (Indicates at LEAST Low Suicide Risk, consider other risk factors) Moderate Suicide Risk Level: []Suicidal ideation with method, WITHOUT plan, intent or behavior in the past month []Multiple risk factors and few protective factors []Patient reports intent to follow through on plan to end life if allowed to leave hospital, and has attempted to elope from the hospital High Suicide Risk Level: [] Suicidal ideation with intent or intent with a plan in the past month [] Patient has harmed self or attempted suicide while in the hospital [] Patient has hx of or current Command Auditory hallucinations to harm self or others that they follow without hesitation [] Patient refuses to disclose plan, and indicates intent to complete [] Patient reports plan that is possible to accomplish and/or has means to complete Risk factors supporting recommendation: [] Non-compliance with treatment (acute or chronic) [] Patient has access to or owns firearms and/or stockpiled medications [] Hx Impulsive behavior [] Pending incarceration or homelessness [] Sexual abuse [] Family history and/or exposure to suicide [] Adverse childhood experiences [] Exposure to violence or negative socio-political cultural, and economic forces [] Current or hx of substance use/abuse [] Chronic physical pain or other acute medical problem (AIDS, COPD, Cancer, etc) [] Perceived burden on family or others [] Patient has attempted to elope [] Unable to answer and/or unable to identify [] Refuses to agree to a safety plan Protective Factors supporting recommendation: [] Identifies reasons for living [] Future plans/goals [] Engaged in work or School [] Good family support network [] Good social support network [] Responsibility to family [] Belief that suicide is immoral, against their jain beliefs [] High spirituality and involvement in mu-ism community [] Fear of or dying due to pain and suffering [] Established outpt psychiatric services [] Unable to answer and/or unable to identify (MADYSON MONTANO MD) Suicide Risk Level / RN Screen: Low Risk Assessment Tool Score: Low (ASPEN LAM DO) Progress/Results/Core Measures Results/Orders Lab Results Laboratory Tests Test 05/24/22 14:15 05/24/22 14:24 Range/Units White Blood Count 4.9 4.3-11.0 10^3/uL Red Blood Count 4.29 L 4.30-5.52 10^6/uL Hemoglobin 13.7 13.3-17.7 g/dL Hematocrit 40 40-54 % Mean Corpuscular Volume 92 80-99 fL Mean Corpuscular Hemoglobin 32 25-34 pg Mean Corpuscular Hemoglobin Concent 35 32-36 g/dL Red Cell Distribution Width 14.0 10.0-14.5 % Platelet Count 128 L 130-400 10^3/uL Mean Platelet Volume 11.4 9.0-12.2 fL Immature Granulocyte % (Auto) 0 % Neutrophils (%) (Auto) 62 42-75 % Lymphocytes (%) (Auto) 27 12-44 % Monocytes (%) (Auto) 8 0-12 % Eosinophils (%) (Auto) 2 0-10 % Basophils (%) (Auto) 0 0-10 % Neutrophils # (Auto) 3.0 1.8-7.8 10^3/uL Lymphocytes # (Auto) 1.3 1.0-4.0 10^3/uL Monocytes # (Auto) 0.4 0.0-1.0 10^3/uL Eosinophils # (Auto) 0.1 0.0-0.3 10^3/uL Basophils # (Auto) 0.0 0.0-0.1 10^3/uL Immature Granulocyte # (Auto) 0.0 0.0-0.1 10^3/uL Percent Immature Platelet Fraction 6.3 0.0-7.6 % Urine Color YELLOW Urine Clarity SL CLOUDY Urine pH 6.0 5-9 Urine Specific [place] 1.015 L 1.016-1.022 Urine Protein NEGATIVE NEGATIVE Urine Glucose (UA) NEGATIVE NEGATIVE Urine Ketones NEGATIVE NEGATIVE Urine Nitrite NEGATIVE NEGATIVE Urine Bilirubin NEGATIVE NEGATIVE Urine Urobilinogen 0.2 < = 1.0 MG/DL Urine Leukocyte Esterase NEGATIVE NEGATIVE Urine RBC (Auto) TRACE-I H NEGATIVE Urine RBC 0-2 /HPF Urine WBC RARE /HPF Urine Crystals NONE /LPF Urine Bacteria TRACE /HPF Urine Casts NONE /LPF Urine Mucus NEGATIVE /LPF Urine Culture Indicated NO Sodium Level 140 135-145 MMOL/L Potassium Level 3.7 3.6-5.0 MMOL/L Chloride Level 105 98-107 MMOL/L Carbon Dioxide Level 21 21-32 MMOL/L Anion Gap 14 5-14 MMOL/L Blood Urea Nitrogen 19 H 7-18 MG/DL Creatinine 1.04 0.60-1.30 MG/DL Estimat Glomerular Filtration Rate 75 BUN/Creatinine Ratio 18 Glucose Level 136 H 70-105 MG/DL Calcium Level 9.7 8.5-10.1 MG/DL Corrected Calcium 9.5 8.5-10.1 MG/DL Total Bilirubin 0.5 0.1-1.0 MG/DL Aspartate Amino Transf (AST/SGOT) 26 5-34 U/L Alanine Aminotransferase (ALT/SGPT) 18 0-55 U/L Alkaline Phosphatase 102 40-136 U/L Total Protein 7.8 6.4-8.2 GM/DL Albumin 4.2 3.2-4.5 GM/DL TSH [place] Testing 2.00 0.35-4.94 UIU/ML Salicylates Level < 5.0 L 5.0-20.0 MG/DL Urine Opiates Screen NEGATIVE NEGATIVE Urine Oxycodone Screen NEGATIVE NEGATIVE Urine Methadone Screen NEGATIVE NEGATIVE Urine Propoxyphene Screen NEGATIVE NEGATIVE Acetaminophen Level < 10 L 10-30 UG/ML Urine Barbiturates Screen NEGATIVE NEGATIVE Ur Tricyclic Antidepressants Screen POSITIVE H NEGATIVE Urine Phencyclidine Screen NEGATIVE NEGATIVE Urine Amphetamines Screen NEGATIVE NEGATIVE Urine Methamphetamines Screen NEGATIVE NEGATIVE Urine Benzodiazepines Screen POSITIVE H NEGATIVE Urine Cocaine Screen NEGATIVE NEGATIVE Urine Cannabinoids Screen NEGATIVE NEGATIVE Serum Alcohol < 10 <10 MG/DL SARS-CoV-2 RNA (RT-PCR) Not Detected Not Detecte (CAESAR,ASPEN K DO) My Orders Orders - CAESAR,ASPEN K DO Acetaminophen Tablet (Tylenol Tablet) (05/24/22 19:15) (CAESAR,ASPEN K DO) Medications Given in ED Current Medications Medications Dose Ordered Sig/Mariah Route Start Time Stop Time Status Last Admin Dose Admin Acetaminophen 1,000 mg ONCE ONCE PO 05/24/22 19:15 05/24/22 19:16 DC 05/24/22 19:05 1,000 MG Carbidopa/Levodopa 1 ea ONCE ONCE PO 05/24/22 15:30 05/24/22 15:31 DC 05/24/22 15:33 1 EA Lidocaine HCl 10 ml ONCE ONCE TOP 05/24/22 14:00 05/24/22 14:01 DC 05/24/22 14:20 10 ML (ASPEN LAM DO) Vital Signs/I&O 05/24/22 05/24/22 13:42 19:46 Temp 36.2 36.2 Pulse 69 80 Resp 22 18 B/P (MAP) 110/81 (91) 133/67 Pulse Ox 99 95 O2 Delivery Room Air (ASPEN LAM DO) Blood Pressure Mean: 91 Progress Progress Note #1: Time: 16:37 Progress Note Finally made contact with [facility] in [place], [place]. I spoke with the intake nurse - she requests a fax with demographics, insurance, DPOA, med list, Chart and labs. these are being faxed. Patient stable - BP had been going up - diastolic about 114 - I ordered 10mg labetalol, however, his pressure cycled ag ain just before administration and he was 88 diastolic. will hold off on labetalol for now - he is not currently on any BP meds - as both his [facility] and [facility] had changed meds previously. Progress Note #2: Time: 17:44 Progress Note Care passed to Dr Lam with placement pending (MADYSON MONTANO MD) Progress Note : Progress Note 1800--ASSUMED CARE FROM DR. MONTANO, PLACEMENT PENDING. IS BEING VERY SELECTIVE ABOUT WHERE SHE WANTS HIM TO GO, DR. MONTANO AND RN HAVE BOTH EXPLAINED TO , THE PROCESS, AND THAT MANY FACILITIES DO NOT HAVE GERIATRIC PSYCH OR THEY DO NOT HAVE ANY BEDS AVAILABLE AT ALL. RN IS DISCUSSING OPTIONS WITH NOW. 1824-- WANTS [facility] CALLED, ALSO [facility]. RN ALSO DISCUSSING POSSIBLY CONTACTING NEW BEGINNINGS IN [place]. 1844-- NOW WANTING THE [facility] IN [place] CALLED. SEEN NURSING NOTES FOR DETAILS OF FACILITIES SHE HAS CONTACTED/ATTEMPTED TO CONTACT. 1914-- HAS NOW DECIDED TO TAKE PT HOME, AND [facility] AND WITH DR[facility] ESPINO ON THURSDAY. PT IS CALM AND COOPERATIVE SINCE MY ARRIVAL HERE AT 1800. (ASPEN LAM DO) Initial ECG Impression Date: May 24, 2022 Initial ECG Impression Time: 14:02 Initial ECG Rate: 74 Initial ECG Rhythm: A Fib/Flutter Initial ECG Intervals CA * QRS 101 QTc 377 Initial ECG Impression: Nonspecific Changes Comment PVC's; afib (irregularly irregular), No ST elevation; ST depression V2, V3 1mm (MADYSON MONTANO MD) Departure Impression Primary Impression: Psychosis due to Parkinson's disease Disposition: HOME, SELF-CARE Condition: Stable Transfer Transfer Reason: Exceeds level of care (MADYSON MONTANO MD) Departure-Patient Inst. Decision time for Depature: 19:18 (ASPEN LAM DO) Referrals: EDDY ESPINO DO (PCP/Family) Primary Care Physician Patient Instructions: Acute Psychosis (DC), Parkinson Disease (DC) Add. Discharge Instructions: CONTINUE YOUR MEDICATIONS PRESCRIBED FOLLOW UP WITH DR. ESPINO AND THE [facility] FOR FURTHER CARE--CALL ON THURSDAY FOR APPOINTMENT All discharge instructions reviewed with patient and/or family. Voiced understanding. MADYSON MONTANO MD May 24, 2022 13:58 ASPEN LAM DO May 24, 2022 18:17
[2022-05-24] MEDS ORDERED: LIDOCAINE UROJET 2% GEL 10 ML PKG TOP ONE (14:00)
[2022-05-24 14:27] LABS: BASOPHILS % (AUTO) 0 % (0-10); HEMOGLOBIN 13.7 g/dL (13.3-17.7); MEAN CORPUSCULAR VOLUME 92 fL (80-99)
[2022-05-24 14:29] LABS: EOSINOPHILS # (AUTO) 0.1 10^3/uL (0.0-0.3); EOSINOPHILS % (AUTO) 2 % (0-10); HEMATOCRIT 40 % (40-54); LYMPHOCYTES # (AUTO) 1.3 10^3/uL (1.0-4.0); LYMPHOCYTES % (AUTO) 27 % (12-44); MEAN CORPUSCULAR HEMOGLOBIN 32 pg (25-34); MEAN CORPUSCULAR HGB CONC 35 g/dL (32-36); MEAN PLATELET VOLUME 11.4 fL (9.0-12.2); MONOCYTES # (AUTO) 0.4 10^3/uL (0.0-1.0); MONOCYTES % (AUTO) 8 % (0-12); NEUTROPHILS % (AUTO) 62 % (42-75); PLATELET COUNT 128 10^3/uL (130-400); WHITE BLOOD COUNT 4.9 10^3/uL (4.3-11.0)
[2022-05-24 14:33] LABS: BILIRUBIN,URINE NEGATIVE (NEGATIVE); CLARITY,URINE SL CLOUDY; COLOR,URINE YELLOW; GLUCOSE, URINE (UA) NEGATIVE (NEGATIVE); KETONES,URINE NEGATIVE (NEGATIVE); LEUKOCYTE ESTERASE ,URINE NEGATIVE (NEGATIVE); NITRITE,URINE NEGATIVE (NEGATIVE); PROTEIN,URINE NEGATIVE (NEGATIVE)
[2022-05-24 14:37] LABS: CHLORIDE 105 MMOL/L (98-107); POTASSIUM 3.7 MMOL/L (3.6-5.0); SODIUM 140 MMOL/L (135-145)
[2022-05-24 14:38] LABS: ALBUMIN 4.2 GM/DL (3.2-4.5)
[2022-05-24 14:39] LABS: CALCIUM 9.7 MG/DL (8.5-10.1)
[2022-05-24 14:40] LABS: GLUCOSE 136 MG/DL (70-105); RBC,URINE 0-2 /HPF; TOTAL PROTEIN 7.8 GM/DL (6.4-8.2); WBC,URINE RARE /HPF
[2022-05-24 14:41] LABS: BACTERIA,URINE TRACE /HPF; CARBON DIOXIDE 21 MMOL/L (21-32)
[2022-05-24 14:42] LABS: BILIRUBIN,TOTAL 0.5 MG/DL (0.1-1.0)
[2022-05-24 14:44] LABS: ALKALINE PHOSPHATASE 102 U/L (40-136); CREATININE SERUM 1.04 MG/DL (0.60-1.30); GFR ESTIMATED 75
[2022-05-24 14:45] LABS: BENZODIAZEPINES SCREEN URINE POSITIVE (NEGATIVE); BUN/CREATININE RATIO 18
[2022-05-24 14:46] LABS: AMPHETAMINE SCREEN, URINE NEGATIVE (NEGATIVE); BARBITURATE SCREEN URINE NEGATIVE (NEGATIVE); CANNABINOID SCREEN, URINE NEGATIVE (NEGATIVE); COCAINE SCREEN URINE NEGATIVE (NEGATIVE); METHADONE STAT NEGATIVE (NEGATIVE); OPIATE SCREEN URINE NEGATIVE (NEGATIVE); OXYCODONE STAT NEGATIVE (NEGATIVE); PROPOXYPHENE STAT NEGATIVE (NEGATIVE); TRICYCLIC ANTIDEPRESSANTS SCRE POSITIVE (NEGATIVE)
[2022-05-24 14:47] LABS: ALANINE AMINOTRANSFERASE 18 U/L (0-55); SALICYLATE < 5.0 MG/DL (5.0-20.0)
[2022-05-24 14:49] LABS: ACETAMINOPHEN < 10 UG/ML (10-30)
[2022-05-24] MEDS ORDERED: SINEMET 25/100 (CARBIDOPA/LEVODOPA) TAB PO ONE (15:30)
[2022-05-24] MEDS ORDERED: LORA-405 SL (15:53)
[2022-05-24] MEDS ORDERED: LABETALOL HCL 20 MG/4 ML VIAL IV ONE (16:30)
[2022-05-24] MEDS ORDERED: ACETAMINOPHEN 500 MG TAB (TYLENOL) PO ONE (19:15)
[2022-05-24 19:46] VITALS: BP 133/67
== END 2022-05-24 19:50 | disposition home or self-care (01) ==
LOC: EDUNIT# 13:32 → ER 13:33
DX: F29 Unspecified psychosis not due to a substance or known physiological condition (principal); G20 Parkinson's disease; R03.0 Elevated blood-pressure reading, without diagnosis of hypertension; G47.30 Sleep apnea, unspecified; I48.91 Unspecified atrial fibrillation; Z99.89 Dependence on other enabling machines and devices; Z20.822 Contact with and (suspected) exposure to COVID-19; Z79.01 Long term (current) use of anticoagulants
CPT/HCPCS: 80053; 80306; 81000; 84443; 85025; 87636; 99284; G0480 ×3; 36415; 80320; 80329; 93005

== ENCOUNTER 2022-05-29 11:25 | Emergency (ER) | payer MEDICARE, OTHER ==
[~2022-05-29] VITALS: Ht 187.9 cm; Wt 108.0 kg
[~2022-05-29 11:25] MED LIST changes: +LORA-405 SL
[2022-05-29 12:06] LABS: BASOPHILS % (AUTO) 1 % (0-10); MEAN CORPUSCULAR HEMOGLOBIN 32 pg (25-34); MEAN CORPUSCULAR HGB CONC 34 g/dL (32-36); MEAN CORPUSCULAR VOLUME 93 fL (80-99)
[2022-05-29 12:07] LABS: EOSINOPHILS # (AUTO) 0.1 10^3/uL (0.0-0.3); EOSINOPHILS % (AUTO) 4 % (0-10); HEMATOCRIT 39 % (40-54); HEMOGLOBIN 13.3 g/dL (13.3-17.7); LYMPHOCYTES # (AUTO) 1.2 10^3/uL (1.0-4.0); LYMPHOCYTES % (AUTO) 33 % (12-44); MEAN PLATELET VOLUME 11.5 fL (9.0-12.2); MONOCYTES # (AUTO) 0.4 10^3/uL (0.0-1.0); MONOCYTES % (AUTO) 11 % (0-12); NEUTROPHILS # (AUTO) 1.9 10^3/uL (1.8-7.8); NEUTROPHILS % (AUTO) 51 % (42-75); WHITE BLOOD COUNT 3.6 10^3/uL (4.3-11.0)
[2022-05-29 12:10] LABS: PLATELET COUNT 118 10^3/uL (130-400)
[2022-05-29 12:26] LABS: ALBUMIN 3.8 GM/DL (3.2-4.5); CHLORIDE 107 MMOL/L (98-107); POTASSIUM 3.7 MMOL/L (3.6-5.0); SODIUM 144 MMOL/L (135-145)
[2022-05-29 12:27] LABS: CALCIUM 9.7 MG/DL (8.5-10.1)
[2022-05-29 12:28] LABS: GLUCOSE 159 MG/DL (70-105)
[2022-05-29 12:29] LABS: CARBON DIOXIDE 24 MMOL/L (21-32); TOTAL PROTEIN 7.3 GM/DL (6.4-8.2)
[2022-05-29 12:30] LABS: BILIRUBIN,TOTAL 0.7 MG/DL (0.1-1.0)
[2022-05-29 12:32] LABS: ALKALINE PHOSPHATASE 92 U/L (40-136); CREATININE SERUM 0.99 MG/DL (0.60-1.30); GFR ESTIMATED 79
[2022-05-29 12:33] LABS: BUN/CREATININE RATIO 18
[2022-05-29 12:35] LABS: ALANINE AMINOTRANSFERASE 21 U/L (0-55)
[2022-05-29 12:55] LABS: FREE T4 (FREE THYROXINE) 1.25 NG/DL (0.70-1.48)
--- NOTE | 2022-05-29 13:18 | ED General ---
General Chief Complaint: Psych/Social Disorder Stated Complaint: HALLUCINATIONS Nursing Triage Note: patient arrives via ems to room 8 with a patient who has been having an increased amount of parinoid behaviors and hallucinations resulting in occasional aggressive behaviors at home. Patient is alert and oriented x3, and denies thoughts of suicidial ideation or homicidial intention. patient appears calm and drowsy at this time following commands. frequent monitoring maintained. Spouse en route. Source of Information: Patient Exam Limitations: No Limitations (DUDLEY MONTALVO APRN) History of Present Illness Date Seen by Provider: May 29, 2022 Initial Comments This is a 76-year-old male with a history of end-stage Parkinson's disease, hypothyroidism, BPH, hypertension, atrial fibrillation who presented to the ER via [facility] with his for increased paranoid delusions. Spouse states that he was evaluated by his [facility] provider regarding Parkinson's approximately 2 months ago and was informed patient is at the end stage of his disease process and there is a little intervention available. They did recommend either placing patient on hospice, [facility], or receiving home health at that time. Spouse states that they opted to start with home health and he has a visiting nurse once a week, bath aide, physical therapy twice a week. Spouse states over these past 2 months he has been having worsening hallucinations/delusions about his being with other men, and other "wild behaviors". His states that he is not physically aggressive, he is somewhat difficult to redirect. They have been in contact with her primary care physician Dr. Espino who recommended respite vs inpatient geriatric care for his increasing symptoms. They attempted to contact medical [place] for respite and patient was declined. His sales order administrator recommended he go to [place] to the emergency department for evaluation and placement into geriatric psych. His spouse states that they drove to [place] yesterday he was evaluated and cleared in the ER, however they did not have any beds available and he was sent home. He has previously had admission at the senior behavioral health unit in [facility], last admit was in April 2022. At that time he was admitted for worsening hallucinations/delusions of similar nature. During that stay he was noted to have SLUMS 23. Spouse states that they changed some of his medication and he was discharged after about 5 days of treatment. However she did not feel that he had really any improvement of his delusions from the stay. Yesterday she reports that patient had a difficult day and was given as needed Ativan and Zyprexa along with Seroquel. He was noted to have increased slurring of speech. This morning he also had some increased slurring of speech and family felt he was "leaning" to his left side. He does have a history of atrial fibrillation and is currently anticoagulated with Eliquis. At his last visit with [facility] he was decreased from 5 mg twice daily to 5mg daily. Spouse states that he has not had any recent falls or injury to head. Last Thursday he was evaluated in this emergency department for back pain after he was assisted to the floor, and was medically cleared at that time. They would like to have him medically cleared and assistance with finding placement in geriatric psychiatric unit for evaluation and treatment. (DUDLEY MONTALVO APRN) Time Seen by Provider: 12:00 (ASPEN MAYNARD DO) Allergies and Home Medications Allergies Coded Allergies: No Known Drug Allergies (Unverified , 05/12/17) Patient Home Medication List Home Medication List Reviewed: Yes (DUDLEY MONTALVO APRN) Acetaminophen (Tylenol Extra Strength) 500 Mg Tablet, 1,000 MG PO HS PRN for PAIN-MILD (1-4), (Reported) Entered as Reported by: BOLIVAR OBRIEN on 12/31/20 1428 Allopurinol (Allopurinol) 300 Mg Tablet, 300 MG PO 1700, (Reported) Entered as Reported by: ANKUSH MADRIGAL on 12/30/20 1312 Apixaban (Eliquis) 5 Mg Tablet, 5 MG PO BID, (Reported) Entered as Reported by: GABI JIMENEZ on 04/13/18 1145 Carbidopa/Levodopa (Carbidopa-Levodopa 25-100 Tab) 1 Each Tablet, 1.5 TAB PO QIDACHS, (Reported) Entered as Reported by: BOLIVAR OBRIEN on 12/31/20 1428 Dutasteride (Dutasteride) 0.5 Mg Capsule, 0.5 MG PO HS, (Reported) Entered as Reported by: KIP DUNBAR on 07/31/16 0756 Furosemide (Furosemide) 40 Mg Tablet, 40 MG PO DAILY Prescribed by: ERIBERTO BOWMAN on 01/15/212002 Gemfibrozil (Gemfibrozil) 600 Mg Tablet, 600 MG PO BID, (Reported) Entered as Reported by: KIP DUNBAR on 07/31/16 0759 Hydralazine HCl (Hydralazine HCl) 25 Mg Tablet, 25 MG PO TID Prescribed by: ERIBERTO BOWMAN on 01/15/212002 Lactulose (Constulose) 10 Gm/15 Ml Solution, 15 ML PO Q48H, (Reported) Entered as Reported by: ANKUSH MADRIGAL on 12/30/20 1300 Levothyroxine Sodium (Levothyroxine Sodium) 175 Mcg Tablet, 175 MCG PO DAILY, (Reported) Entered as Reported by: BOLIVAR OBRIEN on 12/31/20 1428 Lorazepam (Ativan) 1 Mg Tablet, 1 MG SL HS PRN for ANXIETY, (Reported) Entered as Reported by: LEVI LEON on 05/24/22 1553 Multivitamin (Multivitamin) 1 Each Tablet, 1 EACH PO DAILY, (Reported) Entered as Reported by: BOLIVAR OBRIEN on 12/31/20 142 Pantoprazole Sodium (Pantoprazole Sodium) 40 Mg Tablet.dr, 40 MG PO 1200, (Reported) Entered as Reported by: GABI JIMENEZ on 04/13/18 1145 Potassium Chloride (Klor-Con 10) 10 Meq Tablet.er, 10 MEQ PO DAILY@0900 Prescribed by: ERIBERTO BOWMAN on 01/15/212002 Quetiapine Fumarate (Quetiapine Fumarate) 25 Mg Tablet, 25 MG PO 1400, (Reported) Entered as Reported by: ANKUSH MADRIGAL on 12/30/20 1312 Quetiapine Fumarate (Quetiapine Fumarate) 25 Mg Tablet, 50 MG PO 2030, (Reported) Entered as Reported by: BOLIVAR OBRIEN on 12/31/20 142 Venlafaxine HCl (Venlafaxine HCl ER) 75 Mg Cap.er.24h, 75 MG PO DAILY, (Reported) Entered as Reported by: ANKUSH MADRIGAL on 12/30/20 1312 [Theraworx] , 1 APPLIC TOP DAILY PRN for CRAMPS, (Reported) Entered as Reported by: BOLIVAR OBRIEN on 12/31/20 142 Discontinued Medications Cyanocobalamin (Vitamin B-12) (Vitamin B12) 2,500 Mcg Tablet, 2,500 MCG PO DAILY, (Reported) Discontinued Reason: No Longer Taking Entered as Reported by: BOLIVAR OBRIEN on 12/31/20 1428 Lisinopril (Lisinopril) 5 Mg Tablet, 5 MG PO HS Discontinued Reason: No Longer Taking Prescribed by: ERIBERTO BOWMAN on 01/15/212002 Pimavanserin Tartrate (Nuplazid) 34 Mg Capsule, 34 MG PO 1700, (Reported) Discontinued Reason: No Longer Taking Entered as Reported by: ANKUSH MADRIGAL on 12/30/20 1312 Review of Systems Review of Systems Constitutional: see HPI EENTM: see HPI Respiratory: no symptoms reported Cardiovascular: see HPI Gastrointestinal: no symptoms reported Genitourinary: no symptoms reported Musculoskeletal: muscle weakness Skin: other (abrasions to bilateral heels) Psychiatric/Neurological: See HPI, Weakness Hematologic/Lymphatic: No Symptoms Reported Immunological/Allergic: no symptoms reported (DUDLEY MONTALVO APRN) Past Iwnyhwl-Rjizhm-Flxgyw Hx Patient Social History Tobacco Use?: No Use of E-Cig and/or Vaping dev: No Substance use?: No Alcohol Use?: No Pt feels they are or have been: No (DUDLEY MONTALVO APRN) Immunizations Up To Date First/Initial COVID19 Vaccinat: 10/25/20 Second COVID19 Vaccination Vivek: 11/15/20 Third COVID19 Vaccination Date: 10/25/20 (DUDLEY MONTALVO APRN) Seasonal Allergies Seasonal Allergies: No (DUDLEY MONTALVO APRN) Past Medical History Surgery/Hospitalization HX: PARKINSONS, A FIB, CHF, NEUROPATHY, PACEMAKER/DEFIBRILLATOR Surgeries: Yes (SCHRAPNEL REMOVED FROM LEFT ARM; LEFT LEG I&D CHILD FOR OSTEOMYELITIS; ) Appendectomy, Gallbladder, Orthopedic, Tonsillectomy Respiratory: Yes Sleep Apnea Currently Using CPAP: Yes Currently Using BIPAP: No Cardiac: Yes Atrial Fibrillation, Hypertension Neurological: Yes Dementia, Parkinson's Disease Reproductive Disorders: No Sexually Transmitted Disease: No HIV/AIDS: No Genitourinary: Yes (HORSESHOE KIDNEY; KIDNEY STONES NOTED ON CT SCAN 09/27/18) Benign Prostatic Hyperpl, Prostate Problems, Kidney Stones Gastrointestinal: Yes Gastroesophageal Reflux, Chronic Constipation Musculoskeletal: Yes Arthritis, Chronic Back Pain Endocrine: Yes Hypothyroidsim HEENT: No Loss of Vision: Denies Hearing Impairment: Denies Cancer: Yes (SQUAMOUS CELL-EAR) Skin Did You Recieve Any Treatments: Yes What Type of Treatment Did You: Surgical Intervention Psychosocial: Yes PTSD Integumentary: No Blood Disorders: No Adverse Reaction/Blood Tranf: No (N/A) (DUDLEY MONTALVO APRN) Family Medical History Alcoholism G8 BROTHER Cervical cancer G8 SISTER Diabetes mellitus 19 FATHER 19 MOTHER G8 BROTHER FH: COPD (chronic obstructive pulmonary disease) 19 MOTHER FH: stroke 19 FATHER No Pertinent Family Hx (DUDLEY MONTALVO APRN) Physical Exam Vital Signs Vital Signs - First Documented 05/29/22 11:28 Temp 36.8 Pulse 78 Resp 20 B/P (MAP) 141/89 (106) Pulse Ox 98 O2 Delivery Room Air (CAESAR,ASPEN K DO) Vital Signs Capillary Refill : Less Than 3 Seconds (DUDLEY MONTALVO APRN) Height, Weight, BMI Height: 6'0.00" Weight: 260lbs. 0.0oz. 117.174739xl; 30.00 BMI Method:Stated General Appearance: No Apparent Distress, Chronically ill Eyes: Bilateral Eye Normal Inspection, Bilateral Eye PERRL, Bilateral Eye EOMI HEENT: PERRL/EOMI, Normal ENT Inspection, Pharynx Normal, Moist Mucous Membranes Neck: Normal Inspection, Supple Respiratory: Lungs Clear, Normal Breath Sounds, No Accessory Muscle Use, No Respiratory Distress Cardiovascular: Regular Rate, Rhythm, No Edema Gastrointestinal: Normal Bowel Sounds, Non Tender, Soft Extremity: Normal Capillary Refill, Normal Range of Motion Neurologic/Psychiatric: Alert; No Oriented x3 (not forthcoming with answers to questions); Depressed Affect Skin: Warm/Dry, Pallor (DUDLEY MONTALVO APRN) Progress/Results/Core Measures Suspected Sepsis SIRS Temperature: Pulse: 78 Respiratory Rate: 20 Laboratory Tests 05/29/22 11:30: White Blood Count 3.6L Blood Pressure 141 /89 Mean: 106 Laboratory Tests 05/29/22 11:30: Creatinine 0.99, Platelet Count 118L, Total Bilirubin 0.7 (DUDLEY MONTALVO APRN) Results/Orders Lab Results Laboratory Tests Test 05/29/22 11:30 05/29/22 11:46 05/30/22 04:00 Range/Units White Blood Count 3.6 L 4.3-11.0 10^3/uL Red Blood Count 4.17 L 4.30-5.52 10^6/uL Hemoglobin 13.3 13.3-17.7 g/dL Hematocrit 39 L 40-54 % Mean Corpuscular Volume 93 80-99 fL Mean Corpuscular Hemoglobin 32 25-34 pg Mean Corpuscular Hemoglobin Concent 34 32-36 g/dL Red Cell Distribution Width 14.2 10.0-14.5 % Platelet Count 118 L 130-400 10^3/uL Mean Platelet Volume 11.5 9.0-12.2 fL Immature Granulocyte % (Auto) 1 % Neutrophils (%) (Auto) 51 42-75 % Lymphocytes (%) (Auto) 33 12-44 % Monocytes (%) (Auto) 11 0-12 % Eosinophils (%) (Auto) 4 0-10 % Basophils (%) (Auto) 1 0-10 % Neutrophils # (Auto) 1.9 1.8-7.8 10^3/uL Lymphocytes # (Auto) 1.2 1.0-4.0 10^3/uL Monocytes # (Auto) 0.4 0.0-1.0 10^3/uL Eosinophils # (Auto) 0.1 0.0-0.3 10^3/uL Basophils # (Auto) 0.0 0.0-0.1 10^3/uL Immature Granulocyte # (Auto) 0.0 0.0-0.1 10^3/uL Percent Immature Platelet Fraction 6.9 0.0-7.6 % Sodium Level 144 135-145 MMOL/L Potassium Level 3.7 3.6-5.0 MMOL/L Chloride Level 107 98-107 MMOL/L Carbon Dioxide Level 24 21-32 MMOL/L Anion Gap 13 5-14 MMOL/L Blood Urea Nitrogen 18 7-18 MG/DL Creatinine 0.99 0.60-1.30 MG/DL Estimat Glomerular Filtration Rate 79 BUN/Creatinine Ratio 18 Glucose Level 159 H 70-105 MG/DL Calcium Level 9.7 8.5-10.1 MG/DL Corrected Calcium 9.9 8.5-10.1 MG/DL Total Bilirubin 0.7 0.1-1.0 MG/DL Aspartate Amino Transf (AST/SGOT) 39 H 5-34 U/L Alanine Aminotransferase (ALT/SGPT) 21 0-55 U/L Alkaline Phosphatase 92 40-136 U/L C-Reactive Protein High Sensitivity 1.44 H 0.00-0.50 MG/DL Total Protein 7.3 6.4-8.2 GM/DL Albumin 3.8 3.2-4.5 GM/DL Vitamin B12 Level 048 643-1789 pg/mL Folate 12.5 >=4.0 ng/mL Thyroid Stimulating Hormone (TSH) 1.92 0.35-4.94 UIU/ML Free Thyroxine 1.25 0.70-1.48 NG/DL Serum Alcohol < 10 <10 MG/DL Syphilis Serology Non-Reactive Non-Reactive Influenza Type A (RT-PCR) Not Detected Not Detecte Influenza Type B (RT-PCR) Not Detected Not Detecte SARS-CoV-2 RNA (RT-PCR) Not Detected Not Detecte Urine Color YELLOW Urine Clarity CLEAR Urine pH 6.0 5-[address] [place] 1.015 L 1.016-1.022 Urine Protein NEGATIVE NEGATIVE Urine Glucose (UA) NEGATIVE NEGATIVE Urine Ketones NEGATIVE NEGATIVE Urine Nitrite NEGATIVE NEGATIVE Urine Bilirubin NEGATIVE NEGATIVE Urine Urobilinogen 1.0 < = 1.0 MG/DL Urine Leukocyte Esterase TRACE H NEGATIVE Urine RBC (Auto) NEGATIVE NEGATIVE Urine RBC NONE /HPF Urine WBC NONE /HPF Urine Squamous Epithelial Cells RARE /HPF Urine Crystals NONE /LPF Urine Bacteria NEGATIVE /HPF Urine Casts NONE /LPF Urine Mucus NEGATIVE /LPF Urine Culture Indicated NO Urine Opiates Screen NEGATIVE NEGATIVE Urine Oxycodone Screen NEGATIVE NEGATIVE Urine Methadone Screen NEGATIVE NEGATIVE Urine Propoxyphene Screen NEGATIVE NEGATIVE Urine Barbiturates Screen NEGATIVE NEGATIVE Ur Tricyclic Antidepressants Screen POSITIVE H NEGATIVE Urine Phencyclidine Screen NEGATIVE NEGATIVE Urine Amphetamines Screen NEGATIVE NEGATIVE Urine Methamphetamines Screen NEGATIVE NEGATIVE Urine Benzodiazepines Screen POSITIVE H NEGATIVE Urine Cocaine Screen NEGATIVE NEGATIVE Urine Cannabinoids Screen NEGATIVE NEGATIVE (ASPEN MAYNARD DO) My Orders Orders - ASPEN MAYNARD DO Straight Cath For Spec.-Adult (05/30/22 00:39) (ASPEN MAYNARD DO) Medications Given in ED Current Medications Medications Dose Ordered Sig/Mariah Route Start Time Stop Time Status Last Admin Dose Admin Apixaban 5 mg ONCE ONCE PO 05/29/22 19:00 05/29/22 19:01 DC 05/29/22 19:35 5 MG Carbidopa/Levodopa 1 ea ONCE ONCE PO 05/29/22 19:00 05/29/22 19:01 DC 05/29/22 19:35 1 EA Lorazepam 1 mg ONCE ONCE PO 05/29/22 19:00 05/29/22 19:01 DC 05/29/22 19:32 1 MG (ASPEN MAYNARD DO) Vital Signs/I&O 05/29/22 05/29/22 05/29/22 05/29/22 11:28 22:22 23:52 23:53 Temp 36.8 Pulse 78 67 69 Resp 20 18 B/P (MAP) 141/89 (106) 143/84 143/84 116/72 Pulse Ox 98 100 O2 Delivery Room Air Room Air 05/30/22 05/30/22 05/30/22 05/30/22 01:18 02:58 04:01 05:02 Pulse 60 61 67 64 Resp 18 18 18 18 B/P (MAP) 113/79 114/68 119/83 107/61 Pulse Ox 100 100 100 100 O2 Delivery Room Air Room Air Room Air 05/29/22 23:59 Intake Total 1410 ml Balance 1410 ml (ASPEN MAYNARD DO) Vital Signs/I&O Capillary Refill : Less Than 3 Seconds (DUDLEY MONTALVO CRM SOLUTION ARCHITECT) Blood Pressure Mean: 106 Progress Note : Progress Note Patient examined and in no acute distress. He does have generalized body weakness, no focal deficits appreciated. He is still able to converse, does have slowed/delayed speech. Spouse states that he typically does have flat affect with distant gaze. He is typically wheelchair bound but has been working with physical therapy for increasing ambulation with walker. He does require significant assistance with ambulation. Family states that [facility], [facility] workers and attempts to have patient placed for treatment of his paranoid delusions. His labs are stable, no significant infection appreciated. We are still currently pending a urine sample. His CT head without was negative for acute stroke. We will proceed with possible transfer to inpatient geriatric unit, contact [facility] with [facility] [place]. His spouse who is medical DPOA is present and is agreeable with current plan of care. (DUDLEY MONTALVO CRM SOLUTION ARCHITECT) Progress Note : Progress Note 1899--ASSUMED CARE OF PT AT END OF SHIFT, PT IS [facility]. ALL OF PT'S INFORMATION HAS BEEN FAXED TO THAT FACILITY, AND IS PENDING REVIEW. PT IS RESTING QUIETLY, PT HAS BEEN FED, AND PM MEDICATIONS GIVEN. VITALS STABLE. (ASPEN MAYNARD DO) Diagnostic Imaging Diagonstic Imaging: CT Plain Films/CT/US/NM/MRI: head Comments [facility] [place] NAME: ALLIE SILVA [facility] REC#: [id number] PT STATUS: REG ER : 1945 PHYSICIAN: MARIEL TAN MD ADMIT DATE: 05/29/22/ER Draft Date of Exam:05/29/22 CT HEAD WO PROCEDURE: CT head without contrast. TECHNIQUE: Multiple contiguous axial images were obtained through the brain without the use of intravenous contrast. Auto Exposure Controls were utilized during the CT exam to meet ALARA standards for radiation dose reduction. INDICATION: Increasing paranoid behavior and hallucinations. EXAMINATION: CT brain without contrast 05/29/2022 COMPARISON: 12/29/2020. FINDINGS: Chronic ischemic changes noted in a periventricular and deep white matter distribution. No superimposed acute hemorrhage or infarct is seen. There is no mass, mass effect or midline shift with no hydrocephalus. Atrophy appears age appropriate. There is mucosal thickening within the sinuses with a retention polyp or cyst in the right ethmoid air cells. No air-fluid levels appreciated. Mastoid air cells clear. IMPRESSION: 1. Chronic changes with no superimposed acute intracranial process. Dictated on workstation # [id number] Dict: 05/29/22 1336 Trans: 05/29/22 1347 [id number] Interpreted by: NAPOLEON GOODE MD Electronically signed by: Reviewed: Reviewed by Me (DUDLEY MONTALVO CRM SOLUTION ARCHITECT) Departure Communication (Admissions) 0406--RECEIVED CALL FROM [facility], SPOKE WITH DR. BARNES, ACCEPTS PT FOR ADMIT. UNABLE TO ARRANGE FOR TRANSPORTATION AT THIS TIME OF DAY. WILL ATTEMPT TO ARRANGE FOR TRANSPORT AT 0700 0540--[facility], DR. BARNES CALLED BACK, WANTING PT'S CODE STATUS. THERE IS ONLY DURABLE POWER OF [facility] PAPERS ON FILE HERE. NO ADVANCE DIRECTIVES. 0550--ATTEMPTING TO CONTACT , NO ANSWER ON PHONE AND UNABLE TO LEAVE MESSAGE 0600--[facility] CALLED, REGARDING POSSIBLE TRANSPORT OF PT. THEY WILL CALL BACK 0610--[facility] CALLED BACK, THEY WILL NOT BE ABLE TO TRANSPORT PT, THEY DO NOT HAVE A WHEELCHAIR VAN, AND PT IS NOT THEIR PATIENT AND WAS NOT SCREENED BY THEM. 0614-- CALLED BACK. SHE STATES PT IS DNR/DNI, AND SHE HAS DISCUSSED THIS WITH [facility] AND WITH AN [facility] AND ARE IN PROCESS OF HAVING FORMAL DNR/DNI PAPERS DONE. SHE VERIFIES THAT HE IS ESSENTIALLY WHEELCHAIR BOUND, AND SHE HAS A WHEELCHAIR-ACCESSIBLE VAN THAT SHE TRANSPORTS HIM IN. 0620--CALLED [facility], REGARDING THE POSSIBILITY OF TRANSPORTING HIM. THEY WILL CALL BACK. 0625--[facility] CALLED BACK, AND THE ADVISE THAT THEY WOULD BE OK WITH TRANSPORTING HIM, HE IS NOT A 96 HOUR HOLD, AND THE DIFFICULTY PROCURING TRANSPORT FOR THE PATIENT. 0638--CALLED , NO ANSWER, UNABLE TO LEAVE MESSAGE 0657--CALLED , NO ANSWER, UNABLE TO LEAVE MESSAGE 0700-- IS HERE AND IS READY TO TRANSPORT HIM. (ASPEN MAYNARD DO) Impression Primary Impression: Paranoid delusion Additional Impression: Parkinsons disease Disposition: 03 XFER SNF Condition: Stable Transfer Transfer Reason: Exceeds level of care (NEEDS INPATIENT GERIATRIC PSYCHIATRIC CARE) Transfer Facility: [facility] Method of Transfer: Private Vehicle (ASPEN MAYNARD DO) Departure-Patient Inst. Referrals: EDDY ESPINO DO (PCP/Family) Primary Care Physician DUDLEY MONTALVO CRM SOLUTION ARCHITECT May 29, 2022 13:18 ASPEN MAYNARD DO May 30, 2022 05:22
--- NOTE | 2022-05-29 13:48 | Diagnostic Imaging Report ---
PROCEDURE: CT head without contrast. TECHNIQUE: Multiple contiguous axial images were obtained through the brain without the use of intravenous contrast. Auto Exposure Controls were utilized during the CT exam to meet ALARA standards for radiation dose reduction. INDICATION: Increasing paranoid behavior and hallucinations. EXAMINATION: CT brain without contrast 05/29/2022 COMPARISON: 12/29/2020. FINDINGS: Chronic ischemic changes noted in a periventricular and deep white matter distribution. No superimposed acute hemorrhage or infarct is seen. There is no mass, mass effect or midline shift with no hydrocephalus. Atrophy appears age appropriate. There is mucosal thickening within the sinuses with a retention polyp or cyst in the right ethmoid air cells. No air-fluid levels appreciated. Mastoid air cells clear. IMPRESSION: 1. Chronic changes with no superimposed acute intracranial process. Dictated by: Dictated on workstation # [id number]
[2022-05-29] MEDS ORDERED: ACETAMINOPHEN 500 MG TAB (TYLENOL) PO ONE (14:30)
[2022-05-29] MEDS ORDERED: APIXABAN 5 MG (ELIQUIS) TABLET PO ONE (19:00)
[2022-05-29] MEDS ORDERED: SINEMET 25/100 (CARBIDOPA/LEVODOPA) TAB PO ONE (19:00)
[2022-05-29] MEDS ORDERED: LORazepam 1 MG (ATIVAN) TAB PO ONE (19:00)
[2022-05-30 04:08] LABS: BILIRUBIN,URINE NEGATIVE (NEGATIVE); CLARITY,URINE CLEAR; COLOR,URINE YELLOW; GLUCOSE, URINE (UA) NEGATIVE (NEGATIVE); KETONES,URINE NEGATIVE (NEGATIVE); LEUKOCYTE ESTERASE ,URINE TRACE (NEGATIVE); NITRITE,URINE NEGATIVE (NEGATIVE); PROTEIN,URINE NEGATIVE (NEGATIVE)
[2022-05-30 04:14] LABS: BACTERIA,URINE NEGATIVE /HPF; SQUAMOUS EPITHELIAL CELL,UR RARE /HPF
[2022-05-30 04:22] LABS: AMPHETAMINE SCREEN, URINE NEGATIVE (NEGATIVE); BARBITURATE SCREEN URINE NEGATIVE (NEGATIVE); BENZODIAZEPINES SCREEN URINE POSITIVE (NEGATIVE); CANNABINOID SCREEN, URINE NEGATIVE (NEGATIVE); COCAINE SCREEN URINE NEGATIVE (NEGATIVE); METHADONE STAT NEGATIVE (NEGATIVE); OPIATE SCREEN URINE NEGATIVE (NEGATIVE); OXYCODONE STAT NEGATIVE (NEGATIVE); PROPOXYPHENE STAT NEGATIVE (NEGATIVE); TRICYCLIC ANTIDEPRESSANTS SCRE POSITIVE (NEGATIVE)
[2022-05-30 07:18] VITALS: BP 141/75
== END 2022-05-30 07:21 ==
LOC: ER 11:25
DX: F22 Delusional disorders (principal); G20 Parkinson's disease; F02.80 Dementia in other diseases classified elsewhere, unspecified severity, without behavioral disturbance, psychotic disturbance, mood disturbance, and anxiety; I48.91 Unspecified atrial fibrillation; G47.30 Sleep apnea, unspecified; Z99.89 Dependence on other enabling machines and devices; Z20.822 Contact with and (suspected) exposure to COVID-19; Z28.310 Unvaccinated for COVID-19; Z79.01 Long term (current) use of anticoagulants
CPT/HCPCS: 70450; 80053; 80306; 81000; 82607; 82746; 84439; 84443; 85025; 86141; 86780; 87636; 93005; 99284; G0480; 36415; 80320

== ENCOUNTER 2022-09-20 01:06 | Emergency (ER) | payer MEDICARE, OTHER ==
[~2022-09-20 01:06] MED LIST changes: -CARB1TAB19 PO; +CARB1TAB32 PO
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
[2022-09-20 01:42] LABS: BASOPHILS % (AUTO) 1 % (0-10); LYMPHOCYTES # (AUTO) 1.4 10^3/uL (1.0-4.0); MEAN CORPUSCULAR VOLUME 93 fL (80-99); MONOCYTES # (AUTO) 0.3 10^3/uL (0.0-1.0)
[2022-09-20 01:44] LABS: EOSINOPHILS # (AUTO) 0.1 10^3/uL (0.0-0.3); EOSINOPHILS % (AUTO) 2 % (0-10); HEMATOCRIT 39 % (40-54); HEMOGLOBIN 13.5 g/dL (13.3-17.7); LYMPHOCYTES % (AUTO) 32 % (12-44); MEAN CORPUSCULAR HEMOGLOBIN 33 pg (25-34); MEAN CORPUSCULAR HGB CONC 35 g/dL (32-36); MEAN PLATELET VOLUME 11.2 fL (9.0-12.2); MONOCYTES % (AUTO) 7 % (0-12); NEUTROPHILS # (AUTO) 2.6 10^3/uL (1.8-7.8); NEUTROPHILS % (AUTO) 58 % (42-75); PLATELET COUNT 126 10^3/uL (130-400); WHITE BLOOD COUNT 4.6 10^3/uL (4.3-11.0)
[2022-09-20 01:54] LABS: ALBUMIN 3.8 GM/DL (3.2-4.5); POTASSIUM 3.5 MMOL/L (3.6-5.0)
[2022-09-20 01:55] LABS: CALCIUM 9.1 MG/DL (8.5-10.1)
[2022-09-20 01:57] LABS: TOTAL PROTEIN 6.9 GM/DL (6.4-8.2)
[2022-09-20 01:58] LABS: BILIRUBIN,TOTAL 0.5 MG/DL (0.1-1.0)
[2022-09-20 02:00] LABS: CREATININE SERUM 1.01 MG/DL (0.60-1.30)
[2022-09-20 02:06] LABS: BILIRUBIN,URINE NEGATIVE (NEGATIVE); CLARITY,URINE CLEAR; COLOR,URINE YELLOW; GLUCOSE, URINE (UA) NEGATIVE (NEGATIVE); KETONES,URINE NEGATIVE (NEGATIVE); LEUKOCYTE ESTERASE ,URINE NEGATIVE (NEGATIVE); NITRITE,URINE NEGATIVE (NEGATIVE); PROTEIN,URINE NEGATIVE (NEGATIVE)
[2022-09-20 02:15] LABS: SALICYLATE < 5.0 MG/DL (5.0-20.0)
[2022-09-20 02:19] LABS: ACETAMINOPHEN < 10 UG/ML (10-30)
[2022-09-20 02:20] LABS: AMPHETAMINE SCREEN, URINE NEGATIVE (NEGATIVE); BACTERIA,URINE TRACE /HPF; BARBITURATE SCREEN URINE NEGATIVE (NEGATIVE); BENZODIAZEPINES SCREEN URINE NEGATIVE (NEGATIVE); CANNABINOID SCREEN, URINE NEGATIVE (NEGATIVE); COCAINE SCREEN URINE NEGATIVE (NEGATIVE); METHADONE STAT NEGATIVE (NEGATIVE); OPIATE SCREEN URINE NEGATIVE (NEGATIVE); OXYCODONE STAT NEGATIVE (NEGATIVE); PROPOXYPHENE STAT NEGATIVE (NEGATIVE); RBC,URINE 25-50 /HPF; SQUAMOUS EPITHELIAL CELL,UR 0-2 /HPF; TRICYCLIC ANTIDEPRESSANTS SCRE POSITIVE (NEGATIVE); WBC,URINE RARE /HPF
[2022-09-20 02:35] LABS: FREE T4 (FREE THYROXINE) 1.15 NG/DL (0.70-1.48)
[2022-09-20 13:30] VITALS: BP 136/75
== END 2022-09-20 13:30 | disposition short-term general hospital (02) ==
LOC: EDUNIT# 01:06 → ER 01:07
DX: G20 Parkinson's disease (principal); R44.3 Hallucinations, unspecified; R45.1 Restlessness and agitation; G47.30 Sleep apnea, unspecified; Z20.822 Contact with and (suspected) exposure to COVID-19; Z99.89 Dependence on other enabling machines and devices
CPT/HCPCS: 80053; 80306; 81000; 84439; 84443; 85025; 87636; 99285; G0480 ×3; 36415; 80320; 80329

== ENCOUNTER 2022-11-12 09:38 | Emergency (ER) | payer MEDICARE, OTHER ==
[~2022-11-12] VITALS: Ht 185.5 cm; Wt 104.3 kg
[2022-11-12 10:01] LABS: MEAN PLATELET VOLUME 11.3 fL (9.0-12.2)
--- NOTE | 2022-11-12 10:01 | ED General ---
General Chief Complaint: Dizziness/Syncope Stated Complaint: WEAKNESS | SYNCOPE Source of Information: Patient Exam Limitations: No Limitations History of Present Illness Date Seen by Provider: Nov 12, 2022 Time Seen by Provider: 09:45 Initial Comments Patient is a 77-year-old male who presents to the emergency department with a chief complaint of weakness and a brief period of being "unresponsive" while in the shower at home. He has a history according to his of "end-stage" Parkinson's. He lives at home and has a caregiver come in in the mornings to help him shower. Patient states that he was standing in the shower and felt weak like he might pass out. He sat down in the shower chair. The caregiver al erted the that he was not responding. She came into the bathroom and after she said his name as second time he opened his eyes and talk to her. He states that he does not currently have any complaints. No headache, chest pain, shortness of breath. No abdominal pain, nausea or vomiting. He did have some peanut butter crackers this morning. His states that she gave him to him when his blood pressure was noted to be a little low this morning. She states frequently it is lower in the mornings when he first gets out of bed. He is not very mobile due to his instability with his Parkinson's. He did have a fall a few days ago. Scraped his right knee according to his . He is chronically anticoagulated on Eliquis for A-fib but has a pacer defi brillator. No recent illnesses, flu or COVID concerns according to the . His appetite has been good. Normal urination, normal bowel movements. Timing/Duration: 1/2 Hour Severity: Moderate Associated Systoms: Malaise Allergies and Home Medications Allergies Coded Allergies: No Known Drug Allergies (Unverified , 05/12/17) Patient Home Medication List Home Medication List Reviewed: Yes Acetaminophen (Tylenol Extra Strength) 500 Mg Tablet, 1,000 MG PO HS PRN for PAIN-MILD (1-4), (Reported) Entered as Reported by: BOLIVAR OBRIEN on 12/31/20 1428 Allopurinol (Allopurinol) 300 Mg Tablet, 300 MG PO 1700, (Reported) Entered as Reported by: ANKUSH MADRIGAL on 12/30/20 1312 Apixaban (Eliquis) 5 Mg Tablet, 5 MG PO BID, (Reported) Entered as Reported by: GABI JIMENEZ on 04/13/18 1145 Carbidopa/Levodopa (Carbidopa-Levodopa 25-100 Tab) 1 Each Tablet, 1.5 TAB PO QIDACHS, (Reported) Entered as Reported by: BOLIVAR OBRIEN on 12/31/20 1428 Dutasteride (Dutasteride) 0.5 Mg Capsule, 0.5 MG PO HS, (Reported) Entered as Reported by: KIP DUNBAR on 07/31/16 0756 Furosemide (Furosemide) 40 Mg Tablet, 40 MG PO DAILY Prescribed by: ERIBERTO BOWMAN on 01/15/212002 Gemfibrozil (Gemfibrozil) 600 Mg Tablet, 600 MG PO BID, (Reported) Entered as Reported by: KIP DUNBAR on 07/31/16 0759 Hydralazine HCl (Hydralazine HCl) 25 Mg Tablet, 25 MG PO TID Prescribed by: ERIBERTO BOWMAN on 01/15/212002 Lactulose (Constulose) 10 Gm/15 Ml Solution, 15 ML PO Q48H, (Reported) Entered as Reported by: ANKUSH MADRIGAL on 12/30/20 1300 Levothyroxine Sodium (Levothyroxine Sodium) 175 Mcg Tablet, 175 MCG PO DAILY, (Reported) Entered as Reported by: BOLIVAR OBRIEN on 12/31/20 1428 Lorazepam (Ativan) 1 Mg Tablet, 1 MG SL HS PRN for ANXIETY, (Reported) Entered as Reported by: LEVI LEON on 05/24/22 1553 Multivitamin (Multivitamin) 1 Each Tablet, 1 EACH PO DAILY, (Reported) Entered as Reported by: BOLIVAR OBRIEN on 12/31/20 1428 Pantoprazole Sodium (Pantoprazole Sodium) 40 Mg Tablet.dr, 40 MG PO 1200, (Reported) Entered as Reported by: GABI JIMENEZ on 04/13/18 1145 Potassium Chloride (Klor-Con 10) 10 Meq Tablet.er, 10 MEQ PO DAILY@0900 Prescribed by: ERIBERTO BOWMAN on 01/15/212002 Quetiapine Fumarate (Quetiapine Fumarate) 25 Mg Tablet, 25 MG PO 1400, (Reported) Entered as Reported by: ANKUSH MADRIGAL on 12/30/20 1312 Quetiapine Fumarate (Quetiapine Fumarate) 25 Mg Tablet, 50 MG PO 2029, (Reported) Entered as Reported by: BOLIVAR OBRIEN on 12/31/201427 Venlafaxine HCl (Venlafaxine HCl ER) 75 Mg Cap.er.24h, 75 MG PO DAILY, (Reported) Entered as Reported by: ANKUSH MADRIGAL on 12/30/20 1312 [Theraworx] , 1 APPLIC TOP DAILY PRN for CRAMPS, (Reported) Entered as Reported by: BOLIVAR OBRIEN on 12/31/201427 Review of Systems Review of Systems Constitutional: see HPI, weakness EENTM: other ("bump" in his mouth, right buccal mucosa) Respiratory: no symptoms reported Cardiovascular: no symptoms reported Gastrointestinal: no symptoms reported Genitourinary: no symptoms reported Musculoskeletal: no symptoms reported Skin: no symptoms reported ROS obtained mostly from due to "end stage" Parkinsons All Other Systems Reviewed Negative Unless Noted: Yes Past Sudqfpq-Heppjt-Dyovva Hx Immunizations Up To Date First/Initial COVID19 Vaccinat: 10/25/20 Second COVID19 Vaccination Vivek: 11/15/20 Third COVID19 Vaccination Date: 10/25/20 Seasonal Allergies Seasonal Allergies: No Past Medical History Surgery/Hospitalization HX: PARKINSONS, A FIB, CHF, NEUROPATHY, PACEMAKER/DEFIBRILLATOR Surgeries: Yes (SCHRAPNEL REMOVED FROM LEFT ARM; LEFT LEG I&D CHILD FOR OSTEOMYELITIS; ) Appendectomy, Gallbladder, Orthopedic, Tonsillectomy Respiratory: Yes Sleep Apnea Currently Using CPAP: Yes Currently Using BIPAP: No Cardiac: Yes Atrial Fibrillation, Hypertension Neurological: Yes Dementia, Parkinson's Disease Reproductive Disorders: No Sexually Transmitted Disease: No HIV/AIDS: No Genitourinary: Yes (HORSESHOE KIDNEY; KIDNEY STONES NOTED ON CT SCAN 09/27/18) Benign Prostatic Hyperpl, Prostate Problems, Kidney Stones Gastrointestinal: Yes Gastroesophageal Reflux, Chronic Constipation Musculoskeletal: Yes Arthritis, Chronic Back Pain Endocrine: Yes Hypothyroidsim HEENT: No Loss of Vision: Denies Hearing Impairment: Denies Cancer: Yes (SQUAMOUS CELL-EAR) Skin Did You Recieve Any Treatments: Yes What Type of Treatment Did You: Surgical Intervention Psychosocial: Yes PTSD Integumentary: No Blood Disorders: No Adverse Reaction/Blood Tranf: No (N/A) Family Medical History Alcoholism G8 BROTHER Cervical cancer G8 SISTER Diabetes mellitus 19 FATHER 19 MOTHER G8 BROTHER FH: COPD (chronic obstructive pulmonary disease) 19 MOTHER FH: stroke 19 FATHER No Pertinent Family Hx Physical Exam Vital Signs Vital Signs - First Documented 11/12/22 09:42 Temp 35.9 Pulse 80 Resp 16 B/P (MAP) 163/90 (114) Pulse Ox 97 O2 Delivery Room Air Capillary Refill : Height, Weight, BMI Height: 6'0.00" Weight: 260lbs. 0.0oz. 117.478800oi; 30.00 BMI Method:Stated General Appearance: No Apparent Distress, WD/WN, Other (flat/ "mask-like" facies (due to Parkinson's)) HEENT: PERRL/EOMI, Pharynx Normal, Moist Mucous Membranes, Other (no obvious lesions to oral mucosa (richard on the right)) Respiratory: Lungs Clear, Normal Breath Sounds, No Accessory Muscle Use, No Respiratory Distress Cardiovascular: Regular Rate, Rhythm, Normal Peripheral Pulses Gastrointestinal: Non Tender, Soft Extremity: Normal Inspection, Other (1+ bilat DP pulses) Neurologic/Psychiatric: Alert, Other (flat affect; staring but responisve; ) Skin: Normal Color, Warm/Dry, Other (bluish/purple discoloration to left foot ( states this is intermittent and normal) ) Progress/Results/Core Measures Suspected Sepsis SIRS Temperature: Pulse: Respiratory Rate: Laboratory Tests 11/12/22 09:48: White Blood Count 3.9L Blood Pressure / Mean: Laboratory Tests 11/12/22 09:48: Creatinine 0.92, Platelet Count 130 Results/Orders Lab Results Laboratory Tests Test 11/12/22 09:48 11/12/22 11:55 Range/Units White Blood Count 3.9 L 4.3-11.0 10^3/uL Red Blood Count 4.30 4.30-5.52 10^6/uL Hemoglobin 13.5 13.3-17.7 g/dL Hematocrit 40 40-54 % Mean Corpuscular Volume 94 80-99 fL Mean Corpuscular Hemoglobin 31 25-34 pg Mean Corpuscular Hemoglobin Concent 34 32-36 g/dL Red Cell Distribution Width 13.7 10.0-14.5 % Platelet Count 130 130-400 10^3/uL Mean Platelet Volume 11.3 9.0-12.2 fL Immature Granulocyte % (Auto) 0 % Neutrophils (%) (Auto) 52 42-75 % Lymphocytes (%) (Auto) 34 12-44 % Monocytes (%) (Auto) 10 0-12 % Eosinophils (%) (Auto) 3 0-10 % Basophils (%) (Auto) 1 0-10 % Neutrophils # (Auto) 2.0 1.8-7.8 10^3/uL Lymphocytes # (Auto) 1.3 1.0-4.0 10^3/uL Monocytes # (Auto) 0.4 0.0-1.0 10^3/uL Eosinophils # (Auto) 0.1 0.0-0.3 10^3/uL Basophils # (Auto) 0.0 0.0-0.1 10^3/uL Immature Granulocyte # (Auto) 0.0 0.0-0.1 10^3/uL Percent Immature Platelet Fraction 6.3 0.0-7.6 % Sodium Level 142 135-145 MMOL/L Potassium Level 3.5 L 3.6-5.0 MMOL/L Chloride Level 105 98-107 MMOL/L Carbon Dioxide Level 25 21-32 MMOL/L Anion Gap 12 5-14 MMOL/L Blood Urea Nitrogen 12 7-18 MG/DL Creatinine 0.92 0.60-1.30 MG/DL Estimat Glomerular Filtration Rate 86 BUN/Creatinine Ratio 13 Glucose Level 145 H 70-105 MG/DL Calcium Level 9.1 8.5-10.1 MG/DL Urine Color YELLOW Urine Clarity CLEAR Urine pH 6.5 5-9 Urine Specific Bob White 1.020 1.016-1.022 Urine Protein NEGATIVE NEGATIVE Urine Glucose (UA) NEGATIVE NEGATIVE Urine Ketones NEGATIVE NEGATIVE Urine Nitrite NEGATIVE NEGATIVE Urine Bilirubin NEGATIVE NEGATIVE Urine Urobilinogen 1.0 < = 1.0 MG/DL Urine Leukocyte Esterase NEGATIVE NEGATIVE Urine RBC (Auto) NEGATIVE NEGATIVE Urine RBC RARE /HPF Urine WBC RARE /HPF Urine Squamous Epithelial Cells 0-2 /HPF Urine Crystals NONE /LPF Urine Bacteria NEGATIVE /HPF Urine Casts NONE /LPF Urine Mucus NEGATIVE /LPF Urine Culture Indicated NO My Orders Orders - MADYSON MONTANO MD Cbc With Automated Diff (11/12/22 09:55) Basic Metabolic Panel (11/12/22 09:55) Ua Culture If Indicated (11/12/22 09:55) Vital Signs/I&O 11/12/22 09:42 Temp 35.9 Pulse 80 Resp 16 B/P (MAP) 163/90 (114) Pulse Ox 97 O2 Delivery Room Air Capillary Refill : Progress Note : Time: 12:50 Progress Note Patient seen and evaluated by me, 77-year-old with "end-stage" Parkinson's. Evaluation today includes physical exam, CBC, basic metabolic panel and urinalysis. His labs are reviewed and are all within normal limits. His vital signs have been stable. He is awake and alert. At his neurologic baseline per his . Differential diagnosis based on history and physical includes infection/arrhythmia/weakness due to end-stage Parkinson's. Throughout his ED visit his vital signs have been stable. He has no concerning findings on physical examination. Heart rate is in the 70s ventricular paced. He has no complaints of chest pain or shortness of breath. He is not vomiting. Urinalysis was clear/negative. is comfortable taking him home. I encouraged follow-up with his primary care physician. Return precautions were provided. Patient's verbalized understanding. All questions are sought and answered. ECG Initial ECG Impression Date: Nov 12, 2022 Initial ECG Impression Time: 09:48 Initial ECG Rate: 79 Comment Ventricular Paced Rhythm Departure Impression Primary Impression: Generalized weakness Additional Impression: Parkinson's disease dementia Qualified Codes: G20 - Parkinson's disease; F02.80 - Dementia in other diseases classified elsewhere, unspecified severity, without behavioral disturbance, psychotic disturbance, mood disturbance, and anxiety Disposition: 01 HOME, SELF-CARE Condition: Stable Departure-Patient Inst. Decision time for Depature: 12:52 Referrals: EDDY ESPINO DO (PCP/Family) Primary Care Physician Patient Instructions: Weakness ED Add. Discharge Instructions: Continue his daily medications as prescribed. Try and encourage fluids so that he stays well-hydrated. I will send a copy of his laboratory studies to Dr. Espino's office today. Return to the emergency department for any new, concerning or emergent complain ts. Copy Copies To 1: EDDY ESPINO KATHRYN M MD Nov 12, 2022 10:01
[2022-11-12 10:03] LABS: BASOPHILS % (AUTO) 1 % (0-10); EOSINOPHILS # (AUTO) 0.1 10^3/uL (0.0-0.3); EOSINOPHILS % (AUTO) 3 % (0-10); HEMATOCRIT 40 % (40-54); HEMOGLOBIN 13.5 g/dL (13.3-17.7); LYMPHOCYTES # (AUTO) 1.3 10^3/uL (1.0-4.0); LYMPHOCYTES % (AUTO) 34 % (12-44); MEAN CORPUSCULAR HEMOGLOBIN 31 pg (25-34); MEAN CORPUSCULAR HGB CONC 34 g/dL (32-36); MEAN CORPUSCULAR VOLUME 94 fL (80-99); MONOCYTES # (AUTO) 0.4 10^3/uL (0.0-1.0); MONOCYTES % (AUTO) 10 % (0-12); NEUTROPHILS % (AUTO) 52 % (42-75); PLATELET COUNT 130 10^3/uL (130-400); WHITE BLOOD COUNT 3.9 10^3/uL (4.3-11.0)
[2022-11-12 10:15] LABS: POTASSIUM 3.5 MMOL/L (3.6-5.0)
[2022-11-12 10:17] LABS: CALCIUM 9.1 MG/DL (8.5-10.1)
[2022-11-12 10:21] LABS: CREATININE SERUM 0.92 MG/DL (0.60-1.30)
[2022-11-12 12:01] LABS: BILIRUBIN,URINE NEGATIVE (NEGATIVE); CLARITY,URINE CLEAR; COLOR,URINE YELLOW; GLUCOSE, URINE (UA) NEGATIVE (NEGATIVE); KETONES,URINE NEGATIVE (NEGATIVE); LEUKOCYTE ESTERASE ,URINE NEGATIVE (NEGATIVE); NITRITE,URINE NEGATIVE (NEGATIVE); PH,URINE 6.5 (5-9); PROTEIN,URINE NEGATIVE (NEGATIVE)
[2022-11-12 12:20] LABS: BACTERIA,URINE NEGATIVE /HPF; RBC,URINE RARE /HPF; SQUAMOUS EPITHELIAL CELL,UR 0-2 /HPF; WBC,URINE RARE /HPF
[2022-11-12 13:02] VITALS: BP 154/98
== END 2022-11-12 13:02 | disposition home or self-care (01) ==
LOC: EDUNIT# 09:38 → ER 09:40
DX: R53.1 Weakness (principal); G20 Parkinson's disease; F02.80 Dementia in other diseases classified elsewhere, unspecified severity, without behavioral disturbance, psychotic disturbance, mood disturbance, and anxiety; I48.91 Unspecified atrial fibrillation; G47.30 Sleep apnea, unspecified; Z79.01 Long term (current) use of anticoagulants; Z99.89 Dependence on other enabling machines and devices
CPT/HCPCS: 36415; 51702; 80048; 81000; 85025; 93005

== ENCOUNTER 2023-02-05 19:37 | Emergency (ER) | payer MEDICARE, OTHER ==
[~2023-02-05] VITALS: Ht 185.4 cm; Wt 106.5 kg
--- NOTE | 2023-02-05 19:53 | ED General ---
General Stated Complaint: HIGHBLOOD PRESSURE Source of Information: Patient, Family () Exam Limitations: No Limitations History of Present Illness Date Seen by Provider: February 05, 2023 Time Seen by Provider: 19:52 Initial Comments Patient is a 77-year-old male who lives at home with his history of Parkinson's disease presents to the emergency department with complaints of increased blood pressure. states that he is on as needed amlodipine. Her instructions are to give him 2.5 mg if his systolic blood pressures greater than 130. She has to give it to him at least 2-3 times weekly. She checked it at 430 this afternoon and it was high. She gave him 1 then checked it about an hour and 1/2 to 2 hours later and it had gone up. Highest she saw at home was 190 systolic. The patient initially did not want to come to the hospital. He is felt a little generalized malaise today and some decreased appetite but he had no shortness of breath, chest pain. He denied abdominal pain, nausea, diarrhea or urinary complaints. He really felt pretty good. He did have a mild to moderate headache earlier in the day but that has completely resolved. No vision changes, unilateral weakness numbness or tingling. The patient is chronically wheelchair-bound due to his Parkinson's disease. Patient's called their daughter this evening and she insisted that he come to the emergency room for evaluation, patient's also contacted their home health agency and the nurse recommended a visit to the ED as well. Patient is noted to be quite hypertensive on arrival a little bit flushed. Patient has had some dental issues with the right upper molar in recent weeks. He believes it is draining but also states it may be his Parkinson's making him think that he is having issues. He is under the care of a dentist. Timing/Duration: 4-6 Hours Severity: Moderate Associated Systoms: Headaches, Loss of Appetite, Malaise Allergies and Home Medications Allergies Coded Allergies: No Known Drug Allergies (Unverified , 05/12/17) Patient Home Medication List Home Medication List Reviewed: Yes Acetaminophen (Tylenol Extra Strength) 500 Mg Tablet, 1,000 MG PO HS PRN for PAIN-MILD (1-4), (Reported) Entered as Reported by: BOLIVAR OBRIEN on 12/31/20 1428 Allopurinol (Allopurinol) 300 Mg Tablet, 300 MG PO 1700, (Reported) Entered as Reported by: ANKUSH MADRIGAL on 12/30/20 1312 Apixaban (Eliquis) 5 Mg Tablet, 5 MG PO BID, (Reported) Entered as Reported by: GABI JIMENEZ on 04/13/18 1145 Carbidopa/Levodopa (Carbidopa-Levodopa 25-100 Tab) 1 Each Tablet, 1.5 TAB PO QIDACHS, (Reported) Entered as Reported by: BOLIVAR OBRIEN on 12/31/20 1428 Dutasteride (Dutasteride) 0.5 Mg Capsule, 0.5 MG PO HS, (Reported) Entered as Reported by: KIP DUNBAR on 07/31/16 0756 Furosemide (Furosemide) 40 Mg Tablet, 40 MG PO DAILY Prescribed by: ERIBERTO BOWMAN on 01/15/212002 Gemfibrozil (Gemfibrozil) 600 Mg Tablet, 600 MG PO BID, (Reported) Entered as Reported by: KIP DUNBAR on 07/31/16 0759 Hydralazine HCl (Hydralazine HCl) 25 Mg Tablet, 25 MG PO TID Prescribed by: ERIBERTO BOWMAN on 01/15/212002 Lactulose (Constulose) 10 Gm/15 Ml Solution, 15 ML PO Q48H, (Reported) Entered as Reported by: ANKUSH MADRIGAL on 12/30/20 1300 Levothyroxine Sodium (Levothyroxine Sodium) 175 Mcg Tablet, 175 MCG PO DAILY, (Reported) Entered as Reported by: BOLIVAR OBRIEN on 12/31/20 142 Lorazepam (Ativan) 1 Mg Tablet, 1 MG SL HS PRN for ANXIETY, (Reported) Entered as Reported by: LEVI LEON on 05/24/22 1553 Multivitamin (Multivitamin) 1 Each Tablet, 1 EACH PO DAILY, (Reported) Entered as Reported by: BOLIVAR OBRIEN on 12/31/20 1428 Pantoprazole Sodium (Pantoprazole Sodium) 40 Mg Tablet.dr, 40 MG PO 1200, (Reported) Entered as Reported by: GABI JIMENEZ on 04/13/18 1145 Potassium Chloride (Klor-Con 10) 10 Meq Tablet.er, 10 MEQ PO DAILY@0900 Prescribed by: ERIBERTO BOWMAN on 01/15/212002 Quetiapine Fumarate (Quetiapine Fumarate) 25 Mg Tablet, 25 MG PO 1400, (Reported) Entered as Reported by: ANKUSH MADRIGAL on 12/30/20 1312 Quetiapine Fumarate (Quetiapine Fumarate) 25 Mg Tablet, 50 MG PO 2030, (Reported) Entered as Reported by: BOLIVAR OBRIEN on 12/31/20 1428 Venlafaxine HCl (Venlafaxine HCl ER) 75 Mg Cap.er.24h, 75 MG PO DAILY, (Reported) Entered as Reported by: ANKUSH MADRIGAL on 12/30/20 1312 [Theraworx] , 1 APPLIC TOP DAILY PRN for CRAMPS, (Reported) Entered as Reported by: BOLIVAR OBRIEN on 12/31/20 142 Review of Systems Review of Systems Constitutional: malaise EENTM: no symptoms reported Respiratory: no symptoms reported Cardiovascular: no symptoms reported Gastrointestinal: no symptoms reported Genitourinary: no symptoms reported Musculoskeletal: no symptoms reported Skin: no symptoms reported Psychiatric/Neurological: Headache All Other Systems Reviewed Negative Unless Noted: Yes Past Wldspim-Tdsrfw-Gjdjvw Hx Immunizations Up To Date First/Initial COVID19 Vaccinat: 10/25/20 Second COVID19 Vaccination Vivek: 11/15/20 Third COVID19 Vaccination Date: 10/25/20 Seasonal Allergies Seasonal Allergies: No Past Medical History Surgery/Hospitalization HX: PARKINSONS, A FIB, CHF, NEUROPATHY, PACEMAKER/DEFIBRILLATOR Surgeries: Yes (SCHRAPNEL REMOVED FROM LEFT ARM; LEFT LEG I&D CHILD FOR OSTEOMYELITIS; ) Appendectomy, Gallbladder, Orthopedic, Tonsillectomy Respiratory: Yes Sleep Apnea Currently Using CPAP: Yes Currently Using BIPAP: No Cardiac: Yes Atrial Fibrillation, Hypertension Neurological: Yes Dementia, Parkinson's Disease Reproductive Disorders: No Sexually Transmitted Disease: No HIV/AIDS: No Genitourinary: Yes (HORSESHOE KIDNEY; KIDNEY STONES NOTED ON CT SCAN 09/27/18) Benign Prostatic Hyperpl, Prostate Problems, Kidney Stones Gastrointestinal: Yes Gastroesophageal Reflux, Chronic Constipation Musculoskeletal: Yes Arthritis, Chronic Back Pain Endocrine: Yes Hypothyroidsim HEENT: No Loss of Vision: Denies Hearing Impairment: Denies Cancer: Yes (SQUAMOUS CELL-EAR) Skin Did You Recieve Any Treatments: Yes What Type of Treatment Did You: Surgical Intervention Psychosocial: Yes PTSD Integumentary: No Blood Disorders: No Adverse Reaction/Blood Tranf: No (N/A) Family Medical History Alcoholism G8 BROTHER Cervical cancer G8 SISTER Diabetes mellitus 19 FATHER 19 MOTHER G8 BROTHER FH: COPD (chronic obstructive pulmonary disease) 19 MOTHER FH: stroke 19 FATHER No Pertinent Family Hx Physical Exam Vital Signs Vital Signs - First Documented 02/05/23 19:50 Temp 37.0 Pulse 65 B/P (MAP) 171/104 (126) Pulse Ox 97 O2 Delivery Room Air Capillary Refill : Height, Weight, BMI Height: 6'0.00" Weight: 260lbs. 0.0oz. 117.130591iz; 30.00 BMI Method:Stated General Appearance: No Apparent Distress, WD/WN Eyes: Bilateral Eye Normal Inspection, Bilateral Eye PERRL, Bilateral Eye EOMI HEENT: PERRL/EOMI, Moist Mucous Membranes, Other (Right upper molar without gingival swelling, fluctuance. No drainage is noted. Tooth is nontender) Neck: Normal Inspection Respiratory: Lungs Clear, Normal Breath Sounds, No Accessory Muscle Use, No Respiratory Distress Cardiovascular: Regular Rate, Rhythm, Normal Peripheral Pulses Gastrointestinal: Non Tender, Soft Extremity: Normal Capillary Refill, Normal Inspection, Non Tender, Pedal Edema (Trace to 1+) Neurologic/Psychiatric: Alert, Oriented x3, Normal Mood/Affect Skin: Normal Color, Warm/Dry Progress/Results/Core Measures Suspected Sepsis SIRS Temperature: Pulse: Respiratory Rate: Laboratory Tests 02/05/23 20:08: White Blood Count 4.2L Blood Pressure / Mean: Laboratory Tests 02/05/23 20:08: Creatinine 0.98, Platelet Count 123L Results/Orders Lab Results Laboratory Tests Test 02/05/23 20:08 02/05/23 20:20 Range/Units White Blood Count 4.2 L 4.3-11.0 10^3/uL Red Blood Count 4.47 4.30-5.52 10^6/uL Hemoglobin 14.3 13.3-17.7 g/dL Hematocrit 41 40-54 % Mean Corpuscular Volume 92 80-99 fL Mean Corpuscular Hemoglobin 32 25-34 pg Mean Corpuscular Hemoglobin Concent 35 32-36 g/dL Red Cell Distribution Width 14.5 10.0-14.5 % Platelet Count 123 L 130-400 10^3/uL Mean Platelet Volume 11.4 9.0-12.2 fL Immature Granulocyte % (Auto) 1 % Neutrophils (%) (Auto) 53 42-75 % Lymphocytes (%) (Auto) 34 12-44 % Monocytes (%) (Auto) 8 0-12 % Eosinophils (%) (Auto) 4 0-10 % Basophils (%) (Auto) 1 0-10 % Neutrophils # (Auto) 2.2 1.8-7.8 10^3/uL Lymphocytes # (Auto) 1.4 1.0-4.0 10^3/uL Monocytes # (Auto) 0.3 0.0-1.0 10^3/uL Eosinophils # (Auto) 0.2 0.0-0.3 10^3/uL Basophils # (Auto) 0.0 0.0-0.1 10^3/uL Immature Granulocyte # (Auto) 0.0 0.0-0.1 10^3/uL Percent Immature Platelet Fraction 6.3 0.0-7.6 % Sodium Level 140 135-145 MMOL/L Potassium Level 3.9 3.6-5.0 MMOL/L Chloride Level 106 98-107 MMOL/L Carbon Dioxide Level 25 21-32 MMOL/L Anion Gap 9 5-14 MMOL/L Blood Urea Nitrogen 15 7-18 MG/DL Creatinine 0.98 0.60-1.30 MG/DL Estimat Glomerular Filtration Rate 80 BUN/Creatinine Ratio 15 Glucose Level 138 H 70-105 MG/DL Calcium Level 8.9 8.5-10.1 MG/DL Smear Scan YES Urine Color YELLOW Urine Clarity CLEAR Urine pH 6.0 5-9 Urine Specific [place] 1.015 L 1.016-1.022 Urine Protein TRACE H NEGATIVE Urine Glucose (UA) NEGATIVE NEGATIVE Urine Ketones NEGATIVE NEGATIVE Urine Nitrite NEGATIVE NEGATIVE Urine Bilirubin NEGATIVE NEGATIVE Urine Urobilinogen 2.0 < = 1.0 MG/DL Urine Leukocyte Esterase NEGATIVE NEGATIVE Urine RBC (Auto) NEGATIVE NEGATIVE Urine RBC NONE /HPF Urine WBC 0-2 /HPF Urine Squamous Epithelial Cells 2-5 /HPF Urine Crystals PRESENT H /LPF Urine Amorphous Sediment RARE IVAN URATES H /LPF Urine Bacteria TRACE /HPF Urine Casts NONE /LPF Urine Mucus NEGATIVE /LPF Urine Culture Indicated NO My Orders Orders - MADYSON MONTANO MD Cbc With Automated Diff (02/05/23 20:09) Basic Metabolic Panel (02/05/23 20:09) Ua Culture If Indicated (02/05/23 20:09) Amlodipine Tablet (Norvasc Tablet) (02/05/23 21:30) Amlodipine Tablet (Norvasc Tablet) (02/05/23 21:23) Vital Signs/I&O 02/05/23 19:50 Temp 37.0 Pulse 65 B/P (MAP) 171/104 (126) Pulse Ox 97 O2 Delivery Room Air Capillary Refill : Progress Note : Time: 21:22 Progress Note Patient seen and evaluated by me. Evaluation today includes physical exam, CBC, chemistry, urinalysis. Pertinent physical exam findings, well-developed well- nourished elderly male in no acute distress. History of parkinsonism, not very mobile. Wheelchair-bound. Trace edema in his lower extremities. Heart is r egular, lungs are clear. Abdomen is soft. HEENT exam is unremarkable. Persistent tremor consistent with Parkinson's, masklike facies consistent with Parkinson's. Blood pressure is quite elevated systolic 190. Not tachycardic, noted to be paced on telemetry. Differential diagnosis includes hypertensive urgency, electrolyte derangement, volume overload. Labs independently evaluated by me, CBC is reviewed and normal, chemistry is unremarkable, urinalysis shows no evidence of infection. Discussed findings and plan of care with his . Recommended continued monitoring of his blood pressure. We will add another dose of 2.5 mg of amlodipine. Patient is pleasant, smiling in no acute distress. Continues to state that he is not having any symptoms. Is very happy with discharge to home. No clinical or objective findings to warrant further testing from the emergency department. All questions are sought and answered. Patient is stable for discharge. Departure Impression Primary Impression: Asymptomatic hypertensive urgency Disposition: 01 HOME, SELF-CARE Condition: Improved Departure-Patient Inst. Decision time for Depature: 21:27 Referrals: EDDY ESPINO DO (PCP/Family) Primary Care Physician Patient Instructions: High Blood Pressure Emergencies Add. Discharge Instructions: Continue your daily medications as prescribed. You have been given an extra dose of your amlodipine, 2.5 mg this evening. Continue to monitor your blood pressure daily. If you develop symptoms of severe headache, chest pain, shortness of breath, one-sided weakness please retu rn to the emergency department for reevaluation. I have sent a copy of your lab work to your physician's office, Dr. Espion. Please call for a follow-up appointment in 1 week. Copy Copies To 1: EDDY ESPINO KATHRYN M MD February 05, 2023 19:53
[2023-02-05 20:18] LABS: EOSINOPHILS # (AUTO) 0.2 10^3/uL (0.0-0.3); EOSINOPHILS % (AUTO) 4 % (0-10); HEMOGLOBIN 14.3 g/dL (13.3-17.7); LYMPHOCYTES # (AUTO) 1.4 10^3/uL (1.0-4.0); MONOCYTES # (AUTO) 0.3 10^3/uL (0.0-1.0); MONOCYTES % (AUTO) 8 % (0-12)
[2023-02-05 20:19] LABS: BASOPHILS % (AUTO) 1 % (0-10); HEMATOCRIT 41 % (40-54); LYMPHOCYTES % (AUTO) 34 % (12-44); MEAN CORPUSCULAR HEMOGLOBIN 32 pg (25-34); MEAN CORPUSCULAR HGB CONC 35 g/dL (32-36); MEAN CORPUSCULAR VOLUME 92 fL (80-99); MEAN PLATELET VOLUME 11.4 fL (9.0-12.2); NEUTROPHILS # (AUTO) 2.2 10^3/uL (1.8-7.8); NEUTROPHILS % (AUTO) 53 % (42-75); PLATELET COUNT 123 10^3/uL (130-400); WHITE BLOOD COUNT 4.2 10^3/uL (4.3-11.0)
[2023-02-05 20:23] LABS: SMEAR SCAN COMMENT YES
[2023-02-05 20:28] LABS: BILIRUBIN,URINE NEGATIVE (NEGATIVE); CLARITY,URINE CLEAR; COLOR,URINE YELLOW; GLUCOSE, URINE (UA) NEGATIVE (NEGATIVE); KETONES,URINE NEGATIVE (NEGATIVE); LEUKOCYTE ESTERASE ,URINE NEGATIVE (NEGATIVE); NITRITE,URINE NEGATIVE (NEGATIVE); PROTEIN,URINE TRACE (NEGATIVE)
[2023-02-05 20:34] LABS: CALCIUM 8.9 MG/DL (8.5-10.1); CREATININE SERUM 0.98 MG/DL (0.60-1.30); POTASSIUM 3.9 MMOL/L (3.6-5.0)
[2023-02-05 20:43] LABS: AMORPHOUS SEDIMENT,UR RARE AMOR URATES /LPF; BACTERIA,URINE TRACE /HPF; WBC,URINE 0-2 /HPF
[2023-02-05] MEDS ORDERED: amLODIPine 5 MG (NORVASC) TAB PO STA (21:23)
[2023-02-05] MEDS ORDERED: amLODIPine 2.5MG (NORVASC) TAB PO ONE (21:30)
[2023-02-05 21:40] VITALS: BP 144/97
== END 2023-02-05 21:40 | disposition home or self-care (01) ==
LOC: EDUNIT# 19:37 → ER 19:39
DX: I16.0 Hypertensive urgency (principal); I11.0 Hypertensive heart disease with heart failure; I50.9 Heart failure, unspecified; G47.30 Sleep apnea, unspecified; G20 Parkinson's disease; F02.80 Dementia in other diseases classified elsewhere, unspecified severity, without behavioral disturbance, psychotic disturbance, mood disturbance, and anxiety; Z79.899 Other long term (current) drug therapy; Z99.3 Dependence on wheelchair; Z99.89 Dependence on other enabling machines and devices
CPT/HCPCS: 36415; 80048; 81000; 85025

== ENCOUNTER 2023-05-08 06:39 | Emergency (ER) | payer MEDICARE, OTHER ==
[~2023-05-08] VITALS: Ht 185 cm; Wt 111.0 kg
[~2023-05-08 06:39] MED LIST changes: -ORPH100T PO; +ORPH100T3 PO
--- NOTE | 2023-05-08 06:47 | ED Chest Pain ---
General Chief Complaint: Chest Pain Stated Complaint: CP Source: patient Exam Limitations: no limitations History of Present Illness Date Seen by Provider: May 08, 2023 Time Seen by Provider: 06:34 Initial Comments 77-year-old male arrives via EMS for chest pain. Pain started this morning when he woke up about an hour prior to arrival is located in his left anterior chest wall around his pacemaker. He states he has had this pain several times in the past but is never been "that sharp." He has no history of coronary artery disease. He does have Parkinson's disease. He denies any fevers or chills, cough, shortness of breath, diaphoresis nausea or vomiting. He has been dealing with a painful tooth and has seen the dentist and this has seemingly improved. He also states he has had diarrhea, about 8 bouts of loose watery stools yesterd ay. He denies any abdominal pain. All other systems reviewed and negative except documented per HPI. Voice recognition software was used to help create this chart Allergies and Home Medications Allergies Coded Allergies: No Known Drug Allergies (Unverified , 05/12/17) Patient Home Medication List Home Medication List Reviewed: Yes Acetaminophen (Tylenol Extra Strength) 500 Mg Tablet, 1,000 MG PO HS PRN for PAIN-MILD (1-4), (Reported) Entered as Reported by: BOLIVAR OBRIEN on 12/31/20 1428 Allopurinol (Allopurinol) 300 Mg Tablet, 300 MG PO 1700, (Reported) Entered as Reported by: ANKUSH MADRIGAL on 12/30/20 1312 Apixaban (Eliquis) 5 Mg Tablet, 5 MG PO BID, (Reported) Entered as Reported by: GABI JIMENEZ on 04/13/18 1145 Carbidopa/Levodopa (Carbidopa-Levodopa 25-100 Tab) 1 Each Tablet, 1.5 TAB PO QIDACHS, (Reported) Entered as Reported by: BOLIVAR OBRIEN on 12/31/20 1428 Dutasteride (Dutasteride) 0.5 Mg Capsule, 0.5 MG PO HS, (Reported) Entered as Reported by: KIP DUNBAR on 07/31/16 0756 Furosemide (Furosemide) 40 Mg Tablet, 40 MG PO DAILY Prescribed by: ERIBERTO BOWMAN on 01/15/212002 Gemfibrozil (Gemfibrozil) 600 Mg Tablet, 600 MG PO BID, (Reported) Entered as Reported by: KIP DUNBAR on 07/31/16 0759 Hydralazine HCl (Hydralazine HCl) 25 Mg Tablet, 25 MG PO TID Prescribed by: ERIBERTO BOWMAN on 01/15/212002 Lactulose (Constulose) 10 Gm/15 Ml Solution, 15 ML PO Q48H, (Reported) Entered as Reported by: ANKUSH MADRIGAL on 12/30/20 1300 Levothyroxine Sodium (Levothyroxine Sodium) 175 Mcg Tablet, 175 MCG PO DAILY, (Reported) Entered as Reported by: BOLIVAR OBRIEN on 12/31/20 142 Lorazepam (Ativan) 1 Mg Tablet, 1 MG SL HS PRN for ANXIETY, (Reported) Entered as Reported by: LEVI LEON on 05/24/22 1553 Multivitamin (Multivitamin) 1 Each Tablet, 1 EACH PO DAILY, (Reported) Entered as Reported by: BOLIVAR OBRIEN on 12/31/20 142 Pantoprazole Sodium (Pantoprazole Sodium) 40 Mg Tablet.dr, 40 MG PO 1200, (Reported) Entered as Reported by: GABI JIMENEZ on 04/13/18 1145 Potassium Chloride (Klor-Con 10) 10 Meq Tablet.er, 10 MEQ PO DAILY@0900 Prescribed by: ERIBERTO BOWMAN on 01/15/212002 Quetiapine Fumarate (Quetiapine Fumarate) 25 Mg Tablet, 25 MG PO 1400, (Reported) Entered as Reported by: ANKUSH MADRIGAL on 12/30/20 1312 Quetiapine Fumarate (Quetiapine Fumarate) 25 Mg Tablet, 50 MG PO 2030, (Reported) Entered as Reported by: BOLIVAR OBRIEN on 12/31/20 142 Venlafaxine HCl (Venlafaxine HCl ER) 75 Mg Cap.er.24h, 75 MG PO DAILY, (Reported) Entered as Reported by: ANKUSH MADRIGAL on 12/30/20 1312 [Theraworx] , 1 APPLIC TOP DAILY PRN for CRAMPS, (Reported) Entered as Reported by: BOLIVAR OBRIEN on 12/31/20 142 Review of Systems Review of Systems Constitutional: see HPI Past Ztghlmp-Xbfypg-Kmfsbu Hx Patient Social History Tobacco Use?: No Use of E-Cig and/or Vaping dev: No Substance use?: No Alcohol Use?: No Immunizations Up To Date First/Initial COVID19 Vaccinat: 10/25/20 Second COVID19 Vaccination Vivek: 11/15/20 Third COVID19 Vaccination Date: 10/25/20 Seasonal Allergies Seasonal Allergies: No Past Medical History Surgery/Hospitalization HX: PARKINSONS, A FIB, CHF, NEUROPATHY, PACEMAKER/DEFIBRILLATOR Surgeries: Yes (SCHRAPNEL REMOVED FROM LEFT ARM; LEFT LEG I&D CHILD FOR OSTEOMYELITIS; ) Appendectomy, Gallbladder, Orthopedic, Tonsillectomy Respiratory: Yes Sleep Apnea Currently Using CPAP: Yes Currently Using BIPAP: No Cardiac: Yes Atrial Fibrillation, Hypertension Neurological: Yes Dementia, Parkinson's Disease Reproductive Disorders: No Sexually Transmitted Disease: No HIV/AIDS: No Genitourinary: Yes (HORSESHOE KIDNEY; KIDNEY STONES NOTED ON CT SCAN 09/27/18) Benign Prostatic Hyperpl, Prostate Problems, Kidney Stones Gastrointestinal: Yes Gastroesophageal Reflux, Chronic Constipation Musculoskeletal: Yes Arthritis, Chronic Back Pain Endocrine: Yes Hypothyroidsim HEENT: No Loss of Vision: Denies Hearing Impairment: Denies Cancer: Yes (SQUAMOUS CELL-EAR) Skin Did You Recieve Any Treatments: Yes What Type of Treatment Did You: Surgical Intervention Psychosocial: Yes PTSD Integumentary: No Blood Disorders: No Adverse Reaction/Blood Tranf: No (N/A) Family Medical History Alcoholism G8 BROTHER Cervical cancer G8 SISTER Diabetes mellitus 19 FATHER 19 MOTHER G8 BROTHER FH: COPD (chronic obstructive pulmonary disease) 19 MOTHER FH: stroke 19 FATHER No Pertinent Family Hx Physical Exam Vital Signs Vital Signs - First Documented 05/08/23 06:39 Temp 37.4 Pulse 69 Resp 12 B/P (MAP) 148/91 (110) Pulse Ox 97 O2 Delivery Room Air Capillary Refill : Height, Weight, BMI Height: 6'0.00" Weight: 260lbs. 0.0oz. 117.980495ct; 30.00 BMI Method:Stated General Appearance: No Apparent Distress, WD/WN HEENT: Normal ENT Inspection, Pharynx Normal Neck: Full Range of Motion, Normal Inspection, Non Tender, Supple Respiratory: Lungs Clear, Normal Breath Sounds, No Accessory Muscle Use, No Respiratory Distress, Other (Mild tenderness palpation of the left anterior chest wall around his pacemaker.) Cardiovascular: Regular Rate, Rhythm, No Murmur, Other (Paced rhythm) Gastrointestinal: No Organomegaly, Non Tender, Soft Extremity: Normal Capillary Refill, Normal Inspection, Normal Range of Motion, Non Tender, No Calf Tenderness Neurologic/Psychiatric: Alert, Oriented x3, No Motor/Sensory Deficits, Normal Mood/Affect Skin: Normal Color, Warm/Dry Progress/Results/Core Measures Results/Orders Lab Results Laboratory Tests Test 05/08/23 06:47 05/08/23 08:45 Range/Units White Blood Count 5.9 4.3-11.0 10^3/uL Red Blood Count 4.38 4.30-5.52 10^6/uL Hemoglobin 13.9 13.3-17.7 g/dL Hematocrit 42 40-54 % Mean Corpuscular Volume 96 80-99 fL Mean Corpuscular Hemoglobin 32 25-34 pg Mean Corpuscular Hemoglobin Concent 33 32-36 g/dL Red Cell Distribution Width 14.8 H 10.0-14.5 % Platelet Count 114 L 130-400 10^3/uL Mean Platelet Volume 12.0 9.0-12.2 fL Immature Granulocyte % (Auto) 0 % Neutrophils (%) (Auto) 71 42-75 % Lymphocytes (%) (Auto) 21 12-44 % Monocytes (%) (Auto) 6 0-12 % Eosinophils (%) (Auto) 2 0-10 % Basophils (%) (Auto) 0 0-10 % Neutrophils # (Auto) 4.1 1.8-7.8 10^3/uL Lymphocytes # (Auto) 1.2 1.0-4.0 10^3/uL Monocytes # (Auto) 0.4 0.0-1.0 10^3/uL Eosinophils # (Auto) 0.1 0.0-0.3 10^3/uL Basophils # (Auto) 0.0 0.0-0.1 10^3/uL Immature Granulocyte # (Auto) 0.0 0.0-0.1 10^3/uL Percent Immature Platelet Fraction 7.2 0.0-7.6 % Sodium Level 143 135-145 MMOL/L Potassium Level 4.4 3.6-5.0 MMOL/L Chloride Level 109 H 98-107 MMOL/L Carbon Dioxide Level 21 21-32 MMOL/L Anion Gap 13 5-14 MMOL/L Blood Urea Nitrogen 16 7-18 MG/DL Creatinine 0.87 0.60-1.30 MG/DL Estimat Glomerular Filtration Rate 89 BUN/Creatinine Ratio 18 Glucose Level 125 H 70-105 MG/DL Calcium Level 9.3 8.5-10.1 MG/DL Corrected Calcium 9.5 8.5-10.1 MG/DL Total Bilirubin 0.5 0.1-1.0 MG/DL Aspartate Amino Transf (AST/SGOT) 37 H 5-34 U/L Alanine Aminotransferase (ALT/SGPT) 12 0-55 U/L Alkaline Phosphatase 93 40-136 U/L Troponin I < 0.028 < 0.028 <0.028 NG/ML Total Protein 7.6 6.4-8.2 GM/DL Albumin 3.8 3.2-4.5 GM/DL Smear Scan YES My Orders Orders - RODYSARITA DO Ekg Tracing (05/08/23 06:42) Cbc With Automated Diff (05/08/23 06:43) Chest 1 View, Ap/Pa Only (05/08/23 06:43) Comprehensive Metabolic Panel (05/08/23 06:43) Ed Iv/Invasive Line Start (05/08/23 06:43) Troponin I [place] (05/08/23 06:43) Troponin I [place] (05/08/23 08:45) Vital Signs/I&O 05/08/23 06:39 Temp 37.4 Pulse 69 Resp 12 B/P (MAP) 148/91 (110) Pulse Ox 97 O2 Delivery Room Air Comment Ventricular paced rhythm at 73 bpm. Normal intervals. Departure Communication (Admissions) Patient is hemodynamically stable. He has pain specifically around his pacemaker site which she has had in the past. He was more sharp in nature this time which was his main concern. EKG initially is a paced rhythm, negative Sgarbossa criteria. He has had 2 negative sets of cardiac enzymes. His pain has completely resolved at this time. Chest x-ray shows no acute cardiopulmonary abnormality and the pacemaker itself appears normal position with normal leads. His chemistry is grossly unremarkable as is his CBC. I did independently review his chest x-ray imaging and I agree with radiology findjohn zuñiga. He is discharged in stable condition with close follow-up. Impression Primary Impression: Chest wall pain Disposition: 01 HOME, SELF-CARE Condition: Stable Departure-Patient Inst. Referrals: EDDY ESPINO DO (PCP/Family) Primary Care Physician Patient Instructions: Chest Pain That Is Not Caused by the Heart (DC) Add. Discharge Instructions: Follow-up with your primary doctor or major account manager should your symptoms persist. Return to the emergency department for any severe concerns. All discharge instructions reviewed with patient and/or family. Voiced understanding. SARITA FINE DO May 08, 2023 06:47
[2023-05-08 06:53] LABS: BASOPHILS % (AUTO) 0 % (0-10); HEMOGLOBIN 13.9 g/dL (13.3-17.7); MEAN CORPUSCULAR VOLUME 96 fL (80-99); MONOCYTES # (AUTO) 0.4 10^3/uL (0.0-1.0); MONOCYTES % (AUTO) 6 % (0-12)
[2023-05-08 06:54] LABS: EOSINOPHILS # (AUTO) 0.1 10^3/uL (0.0-0.3); EOSINOPHILS % (AUTO) 2 % (0-10); HEMATOCRIT 42 % (40-54); LYMPHOCYTES # (AUTO) 1.2 10^3/uL (1.0-4.0); LYMPHOCYTES % (AUTO) 21 % (12-44); MEAN CORPUSCULAR HEMOGLOBIN 32 pg (25-34); MEAN CORPUSCULAR HGB CONC 33 g/dL (32-36); NEUTROPHILS # (AUTO) 4.1 10^3/uL (1.8-7.8); NEUTROPHILS % (AUTO) 71 % (42-75); PLATELET COUNT 114 10^3/uL (130-400); WHITE BLOOD COUNT 5.9 10^3/uL (4.3-11.0)
[2023-05-08 07:02] LABS: SMEAR SCAN COMMENT YES
[2023-05-08 07:07] LABS: ALBUMIN 3.8 GM/DL (3.2-4.5); CHLORIDE 109 MMOL/L (98-107); POTASSIUM 4.4 MMOL/L (3.6-5.0); SODIUM 143 MMOL/L (135-145)
[2023-05-08 07:08] LABS: CALCIUM 9.3 MG/DL (8.5-10.1)
--- NOTE | 2023-05-08 07:08 | Diagnostic Imaging Report ---
INDICATION: Chest pain TECHNIQUE: Single view chest 6:50 AM CORRELATION STUDY: 01/01/2021 FINDINGS: Heart size and mediastinum are enlarged and prominent. Vascular slightly increased. Left-sided unipolar pacemaker. Previous electronic device over left heart border has been removed. No definitive infiltrate. However, slight faint opacities may reflect mild edema. IMPRESSION: 1. Findings suggesting at least mild severity edema. Dictated by: Dictated on workstation # [id number]
[2023-05-08 07:09] LABS: GLUCOSE 125 MG/DL (70-105)
[2023-05-08 07:10] LABS: TOTAL PROTEIN 7.6 GM/DL (6.4-8.2)
[2023-05-08 07:11] LABS: CARBON DIOXIDE 21 MMOL/L (21-32)
[2023-05-08 07:12] LABS: BILIRUBIN,TOTAL 0.5 MG/DL (0.1-1.0)
[2023-05-08 07:13] LABS: ALKALINE PHOSPHATASE 93 U/L (40-136); CREATININE SERUM 0.87 MG/DL (0.60-1.30); GFR ESTIMATED 89
[2023-05-08 07:14] LABS: BUN/CREATININE RATIO 18
[2023-05-08 07:16] LABS: ALANINE AMINOTRANSFERASE 12 U/L (0-55)
[2023-05-08 09:56] VITALS: BP 128/66
== END 2023-05-08 10:16 | disposition home or self-care (01) ==
LOC: EDUNIT# 06:39 → ER 06:40
DX: R07.89 Other chest pain (principal); G47.30 Sleep apnea, unspecified; Z99.89 Dependence on other enabling machines and devices; Z95.0 Presence of cardiac pacemaker
CPT/HCPCS: 36415; 71045; 80053; 84484; 85025; 93005

== ENCOUNTER 2023-09-05 17:02 | Emergency (ER) | payer MEDICARE, OTHER ==
[~2023-09-05] VITALS: Ht 182.8 cm; Wt 117.9 kg
[~2023-09-05 17:02] MED LIST changes: -MECL-149 PO; +MECL-291 PO; +ROPI0.5T37 PO; -ROPI0.5T4 PO
--- NOTE | 2023-09-05 17:36 | ED Cough/URI ---
General Chief Complaint: Cough/Cold/Flu Symptoms Stated Complaint: COUGH Nursing Triage Note: PT TO RM 3 BY WC WITH COMPLAINT OF COUGH. STATES HAS HAD A COUGH FOR A LAST FEW WEEKS AND HAS BEEN RUNNING A FEVER. Source: patient, family () Exam Limitations: no limitations History of Present Illness Date Seen by Provider: Sep 05, 2023 Time Seen by Provider: 17:20 Initial Comments Patient is a 77-year-old male who presents to the emergency department today with a chief complaint of cough "all day" per his today and yesterday. He states it is a little productive, a little "yellow". His states that he did have some chills earlier today. She gave him 2 extra strength Tylenol arou nd 11:30 AM. She states his temp climbed to about 100.5 today. He complains of a little bit of sore right ear as well as bilateral calves. He has been drinking a lot. He denies pain anywhere. He has a history of chronic A-fib anticoagulated on Eliquis. The cough is been going on for a week or so. Worse in the last 48 hours. is also concerned as his blood pressure was little higher than she is comfortable with earlier in the day. Timing/Duration: week, getting worse Severity/Quality: moderate, productive cough Associated Symptoms: cough, earache, fever/chills, muscle aches Allergies and Home Medications Allergies Coded Allergies: No Known Drug Allergies (Unverified , 05/12/17) Patient Home Medication List Home Medication List Reviewed: Yes Acetaminophen (Tylenol Extra Strength) 500 Mg Tablet, 1,000 MG PO HS PRN for PAIN-MILD (1-4), (Reported) Entered as Reported by: BOLIVAR OBRIEN on 12/31/20 1428 Allopurinol (Allopurinol) 300 Mg Tablet, 300 MG PO 1700, (Reported) Entered as Reported by: ANKUSH MADRIGAL on 12/30/20 1312 Apixaban (Eliquis) 5 Mg Tablet, 5 MG PO BID, (Reported) Entered as Reported by: GABI JIMENEZ on 04/13/18 1145 Carbidopa/Levodopa (Carbidopa-Levodopa 25-100 Tab) 1 Each Tablet, 1.5 TAB PO QIDACHS, (Reported) Entered as Reported by: BOLIVAR OBRIEN on 12/31/20 1428 Cefdinir (Cefdinir) 300 Mg Capsule, 300 MG PO BID Prescribed by: MADYSON MONTANO on 09/05/23 1841 Dutasteride (Dutasteride) 0.5 Mg Capsule, 0.5 MG PO HS, (Reported) Entered as Reported by: KIP DUNBAR on 07/31/16 0756 Furosemide (Furosemide) 40 Mg Tablet, 40 MG PO DAILY Prescribed by: ERIBERTO BOWMAN on 01/15/212002 Gemfibrozil (Gemfibrozil) 600 Mg Tablet, 600 MG PO BID, (Reported) Entered as Reported by: KIP DUNBAR on 07/31/16 0759 Hydralazine HCl (Hydralazine HCl) 25 Mg Tablet, 25 MG PO TID Prescribed by: ERIBERTO BOWMAN on 01/15/212002 Lactulose (Constulose) 10 Gm/15 Ml Solution, 15 ML PO Q48H, (Reported) Entered as Reported by: ANKUSH MADRIGAL on 12/30/20 1300 Levothyroxine Sodium (Levothyroxine Sodium) 175 Mcg Tablet, 175 MCG PO DAILY, (Reported) Entered as Reported by: BOLIVAR OBRIEN on 12/31/20 1428 Lorazepam (Ativan) 1 Mg Tablet, 1 MG SL HS PRN for ANXIETY, (Reported) Entered as Reported by: LEVI LEON on 05/24/22 1553 Multivitamin (Multivitamin) 1 Each Tablet, 1 EACH PO DAILY, (Reported) Entered as Reported by: BOLIVAR OBRIEN on 12/31/20 1428 Pantoprazole Sodium (Pantoprazole Sodium) 40 Mg Tablet.dr, 40 MG PO 1200, (Reported) Entered as Reported by: GABI JIMENEZ on 04/13/18 1145 Potassium Chloride (Klor-Con 10) 10 Meq Tablet.er, 10 MEQ PO DAILY@0900 Prescribed by: ERIBERTO BOWMAN on 01/15/212002 Quetiapine Fumarate (Quetiapine Fumarate) 25 Mg Tablet, 25 MG PO 1400, (Reported) Entered as Reported by: ANKUSH MADRIGAL on 12/30/20 1312 Quetiapine Fumarate (Quetiapine Fumarate) 25 Mg Tablet, 50 MG PO 2030, (Reported) Entered as Reported by: BOLIVAR OBRIEN on 12/31/20 1428 Venlafaxine HCl (Venlafaxine HCl ER) 75 Mg Cap.er.24h, 75 MG PO DAILY, (Reported) Entered as Reported by: ANKUSH MADRIGAL on 12/30/20 1312 [Theraworx] , 1 APPLIC TOP DAILY PRN for CRAMPS, (Reported) Entered as Reported by: BOLIVAR OBRIEN on 12/31/20 1428 Review of Systems Review of Systems Constitutional: see HPI, malaise EENTM: ear pain Respiratory: cough Cardiovascular: no symptoms reported Gastrointestinal: no symptoms reported Genitourinary: no symptoms reported Musculoskeletal: muscle cramps Skin: no symptoms reported Past Doefnpf-Knpcfr-Ovqbnv Hx Patient Social History Tobacco Use?: No Use of E-Cig and/or Vaping dev: No Substance use?: No Alcohol Use?: No Pt feels they are or have been: No Immunizations Up To Date First/Initial COVID19 Vaccinat: 10/25/20 Second COVID19 Vaccination Vivek: 11/15/20 Third COVID19 Vaccination Date: 10/25/20 Seasonal Allergies Seasonal Allergies: No Past Medical History Surgery/Hospitalization HX: PARKINSONS, A FIB, CHF, NEUROPATHY, PACEMAKER/DEFIBRILLATOR Surgeries: Yes (SCHRAPNEL REMOVED FROM LEFT ARM; LEFT LEG I&D CHILD FOR OSTEOMYELITIS; ) Appendectomy, Gallbladder, Orthopedic, Tonsillectomy Respiratory: Yes Sleep Apnea Currently Using CPAP: Yes Currently Using BIPAP: No Cardiac: Yes Atrial Fibrillation, Hypertension Neurological: Yes Dementia, Parkinson's Disease Reproductive Disorders: No Sexually Transmitted Disease: No HIV/AIDS: No Genitourinary: Yes (HORSESHOE KIDNEY; KIDNEY STONES NOTED ON CT SCAN 09/27/18) Benign Prostatic Hyperpl, Prostate Problems, Kidney Stones Gastrointestinal: Yes Gastroesophageal Reflux, Chronic Constipation Musculoskeletal: Yes Arthritis, Chronic Back Pain Endocrine: Yes Hypothyroidsim HEENT: No Loss of Vision: Denies Hearing Impairment: Denies Cancer: Yes (SQUAMOUS CELL-EAR) Skin Did You Recieve Any Treatments: Yes What Type of Treatment Did You: Surgical Intervention Psychosocial: Yes PTSD Integumentary: No Blood Disorders: No Adverse Reaction/Blood Tranf: No (N/A) Family Medical History Alcoholism G8 BROTHER Cervical cancer G8 SISTER Diabetes mellitus 19 FATHER 19 MOTHER G8 BROTHER FH: COPD (chronic obstructive pulmonary disease) 19 MOTHER FH: stroke 19 FATHER No Pertinent Family Hx Physical Exam Vital Signs - First Documented 09/05/23 17:12 Temp 37.8 Pulse 80 Resp 24 B/P (MAP) 139/84 (102) Pulse Ox 97 O2 Delivery Room Air Capillary Refill : Height: 6'0.00" Weight: 260lbs. 0.0oz. 117.194317fr; 35.00 BMI Method:Stated General Appearance: WD/WN, no apparent distress Eyes: Bilateral Eye Normal Inspection HEENT: TMs normal, pharynx normal, other (Mask like facies consistent with Parkinson's) Respiratory: lungs clear, normal breath sounds, no respiratory distress, no accessory muscle use Cardiovascular: irregularly irregular Gastrointestinal: non tender, soft Extremities: normal inspection, no pedal edema Neurologic/Psychiatric: alert Skin: normal color, warm/dry Progress/Results/Core Measures Suspected Sepsis SIRS Temperature: Pulse: 80 Respiratory Rate: 24 Blood Pressure 139 /84 Mean: 102 Results/Orders Lab Results Laboratory Tests Test 09/05/23 17:22 Range/Units Influenza Type A (RT-PCR) Not Detected Not Detecte Influenza Type B (RT-PCR) Not Detected Not Detecte SARS-CoV-2 RNA (RT-PCR) Not Detected Not Detecte My Orders Orders - MADYSON MONTANO MD Ekg Tracing (09/05/23 17:24) Covid 19 Inhouse Test (09/05/23 17:31) Chest 1 View, Ap/Pa Only (09/05/23 17:31) Influenza A And B By Pcr (09/05/23 17:31) Cefdinir Capsule (Cefdinir Capsule) (09/05/23 18:41) Vital Signs/I&O 09/05/23 17:12 Temp 37.8 Pulse 80 Resp 24 B/P (MAP) 139/84 (102) Pulse Ox 97 O2 Delivery Room Air Capillary Refill : Blood Pressure Mean: 102 Progress Note : Time: 18:39 Progress Note Patient seen and evaluated by me. Evaluation today includes history and physical exam, COVID, flu test as well as single view chest x-ray. Pertinent physical exam findings well-developed well-nourished 77-year-old male in no acute distress. Masklike facies consistent with Parkinson's disease. HEENT exam is unremarkable. He appears well-hydrated. Breath sounds are clear bilaterally without wheezes or rhonchi. He does demonstrate a coarse wet cough. Heart is irregularly irregular, rate controlled in the 60s. Blood pressure is good. He is afebrile. No significant lower extremity edema or tenderness to p alpation in the calves. Differential diagnosis includes influenza, COVID, acute bronchitis, pneumonia. Patient's COVID and flu test are reported as negative today. His chest x-ray shows a little congestion in the right base, possible early pneumonia. I discussed findings with his who was at the bedside and his primary associate counsel due to his Parkinson's. Recommended we go ahead and put him on antibiotics due to his immobility/comorbidities. He would be at high likelihood for developing a definitive consolidated pneumonia. Recommended Mucinex [id number]-[id number]. He received a dose of cefdinir here in the ED. Will send home a weeks worth to his pharmacy. No concerning findings for sepsis at this time as he is not tachycardic, febrile, hypotensive. Consideration for labs due to his age and comorbidities however history and physical exam do not support the need. Return precautions provided in both verbal and written format. The is comfortable with plan of care. All questions were sought and answered. Diagnostic Imaging Diagonstic Imaging: Xray Plain Films/CT/US/NM/MRI: chest Comments [facility] [place], [place] NAME: ALLIE SILVA [facility] REC#: [id number] PT STATUS: REG ER : 1945 PHYSICIAN: MADYSON MONTANO MD ADMIT DATE: 09/05/23/ER Draft Date of Exam:09/05/23 CHEST 1 VIEW, AP/PA ONLY INDICATION: Cough and fever. EXAMINATION: Chest, 09/05/2023. COMPARISON: 05/08/2023. FINDINGS: Heart stable. Pulmonary vasculature congested. There is mild atelectasis versus early infiltrate at right lung base. No effusion or pneumothorax. There is a pacemaker, unremarkable IMPRESSION: 1. Pulmonary vascular congestion. 2. Atelectasis versus early infiltrate at right lung base. Dictated on workstation # [id number] Dict: 09/05/23 1804 Trans: 09/05/23 1819 [facility] [id number] Interpreted by: NAPOLEON GOODE MD Electronically signed by: Departure Impression Primary Impression: Pneumonia Qualified Codes: J18.9 - Pneumonia, unspecified organism Disposition: 01 HOME, SELF-CARE Condition: Stable Departure-Patient Inst. Decision time for Depature: 18:39 Referrals: EDDY ESPINO DO (PCP/Family) Primary Care Physician Patient Instructions: Community-acquired pneumonia in adults Add. Discharge Instructions: Encourage fluids so that he stays well-hydrated. He can have extra strength Tylenol 2 tablets every 6 hours as needed for low- grade fever. He needs the cefdinir antibiotic 1 tablet twice a day for 1 week. If he has worsening cough with developing shortness of breath or high fever not responding to Tylenol please return to the emergency room for reevaluation. Pniy-nlv-hosmneu Mucinex for congestion/to thin secretions with this cough. Please follow packaging instructions. Scripts Cefdinir (Cefdinir) 300 Mg Capsule 300 MG PO BID for 7 Days, #14 CAP Prov: MADYSON MONTANO MD 09/05/23 Copy Copies To 1: EDDY ESPINO KATHRYN M MD Sep 05, 2023 17:36
--- NOTE | 2023-09-05 18:20 | Diagnostic Imaging Report ---
INDICATION: Cough and fever. EXAMINATION: Chest, 09/05/2023. COMPARISON: 05/08/2023. FINDINGS: Heart stable. Pulmonary vasculature congested. There is mild atelectasis versus early infiltrate at right lung base. No effusion or pneumothorax. There is a pacemaker, unremarkable IMPRESSION: 1. Pulmonary vascular congestion. 2. Atelectasis versus early infiltrate at right lung base. Dictated by: Dictated on workstation # [id number]
[2023-09-05] MEDS ORDERED: CEFD300C3 PO (18:41)
[2023-09-05] MEDS ORDERED: CEFDINIR 300 MG CAPSULE PO STA (18:41)
[2023-09-05 18:52] VITALS: BP 133/70
== END 2023-09-05 18:52 | disposition home or self-care (01) ==
LOC: EDUNIT# 17:02 → ER 17:04
DX: J18.9 Pneumonia, unspecified organism (principal); I48.20 Chronic atrial fibrillation, unspecified; G47.30 Sleep apnea, unspecified; Z79.01 Long term (current) use of anticoagulants
CPT/HCPCS: 71045; 87636

== ENCOUNTER 2023-09-08 03:14 | Emergency (ER) | payer MEDICARE, OTHER ==
[~2023-09-08] VITALS: Ht 185 cm; Wt 127.0 kg
[2023-09-08] MEDS ORDERED: LIDOCAINE UROJET 2% GEL 10 ML PKG ONE (03:22)
[2023-09-08] MEDS ORDERED: LIDOCAINE UROJET 2% GEL 10 ML PKG TOP ONE (03:30)
--- NOTE | 2023-09-08 03:55 | ED General ---
General Chief Complaint: - Reproductive Stated Complaint: URINARY RETENSION Nursing Triage Note: PATIENT UNABLE TO URINATE. STATES ONLY SMALL AMOUNT OF URINE TODAY. LOWER ABD PAIN Source of Information: Patient, Family () History of Present Illness Date Seen by Provider: Sep 08, 2023 Time Seen by Provider: 03:14 Initial Comments Patient is a 77-year-old male who lives at home with his history of Parkinson's disease presents to the emergency room with inability to urinate over the last 24 hours he states. I saw him 2 nights ago in the emergency department for upper respiratory symptoms. Started him on some cefdinir antibiotics. He normally voids on his own and has no problems. He complains of lower abdominal discomfort and the urge to have a bowel movement. His states that he was scheduled yesterday to have a visit with his primary care physician but was too weak all day to really get up and go to the visit. He denies chest pain, shortness of breath. He is not nauseated. No reported fever. Has dribbled a little urine in the last 24 hours but not been able to empty his bladder. Bedside bladder scan shows approximately 980 mils in the bladder Timing/Duration: 24 Hours Severity: Moderate Associated Systoms: Weakness (Generalized weakness) Allergies and Home Medications Allergies Coded Allergies: No Known Drug Allergies (Unverified , 05/12/17) Patient Home Medication List Home Medication List Reviewed: Yes Acetaminophen (Tylenol Extra Strength) 500 Mg Tablet, 1,000 MG PO HS PRN for PAIN-MILD (1-4), (Reported) Entered as Reported by: BOLIVAR OBRIEN on 12/31/20 1428 Allopurinol (Allopurinol) 300 Mg Tablet, 300 MG PO 1700, (Reported) Entered as Reported by: ANKUSH MADRIGAL on 12/30/20 1312 Apixaban (Eliquis) 5 Mg Tablet, 5 MG PO BID, (Reported) Entered as Reported by: GABI JIMENEZ on 04/13/18 1145 Carbidopa/Levodopa (Carbidopa-Levodopa 25-100 Tab) 1 Each Tablet, 1.5 TAB PO QIDACHS, (Reported) Entered as Reported by: BOLIVAR OBRIEN on 12/31/20 1428 Cefdinir (Cefdinir) 300 Mg Capsule, 300 MG PO BID Prescribed by: MADYSON MONTANO on 09/05/23 1841 Dutasteride (Dutasteride) 0.5 Mg Capsule, 0.5 MG PO HS, (Reported) Entered as Reported by: KIP DUNBAR on 07/31/16 0756 Furosemide (Furosemide) 40 Mg Tablet, 40 MG PO DAILY Prescribed by: ERIBERTO BOWMAN on 01/15/212002 Gemfibrozil (Gemfibrozil) 600 Mg Tablet, 600 MG PO BID, (Reported) Entered as Reported by: KIP DUNBAR on 07/31/16 0759 Hydralazine HCl (Hydralazine HCl) 25 Mg Tablet, 25 MG PO TID Prescribed by: ERIBERTO BOWMAN on 01/15/212002 Lactulose (Constulose) 10 Gm/15 Ml Solution, 15 ML PO Q48H, (Reported) Entered as Reported by: ANKUSH MADRIGAL on 12/30/20 1300 Levothyroxine Sodium (Levothyroxine Sodium) 175 Mcg Tablet, 175 MCG PO DAILY, (Reported) Entered as Reported by: BOLIVAR OBRIEN on 12/31/20 142 Lorazepam (Ativan) 1 Mg Tablet, 1 MG SL HS PRN for ANXIETY, (Reported) Entered as Reported by: LEVI LEON on 05/24/22 1553 Multivitamin (Multivitamin) 1 Each Tablet, 1 EACH PO DAILY, (Reported) Entered as Reported by: BOLIVAR OBRIEN on 12/31/20 1428 Pantoprazole Sodium (Pantoprazole Sodium) 40 Mg Tablet.dr, 40 MG PO 1200, (Reported) Entered as Reported by: GABI JIMENEZ on 04/13/18 1145 Potassium Chloride (Klor-Con 10) 10 Meq Tablet.er, 10 MEQ PO DAILY@0900 Prescribed by: ERIBERTO BOWMAN on 01/15/212002 Quetiapine Fumarate (Quetiapine Fumarate) 25 Mg Tablet, 25 MG PO 1400, (Reported) Entered as Reported by: ANKUSH MADRIGAL on 12/30/20 1312 Quetiapine Fumarate (Quetiapine Fumarate) 25 Mg Tablet, 50 MG PO 2030, (Reported) Entered as Reported by: BOLIVAR OBRIEN on 12/31/20 1428 Venlafaxine HCl (Venlafaxine HCl ER) 75 Mg Cap.er.24h, 75 MG PO DAILY, (Reported) Entered as Reported by: ANKUSH MADRIGAL on 12/30/20 1312 [Theraworx] , 1 APPLIC TOP DAILY PRN for CRAMPS, (Reported) Entered as Reported by: BOLIVAR OBRIEN on 12/31/20 1428 Review of Systems Review of Systems Constitutional: see HPI EENTM: no symptoms reported Respiratory: no symptoms reported Cardiovascular: no symptoms reported Gastrointestinal: abdominal pain Genitourinary: decreased output Musculoskeletal: no symptoms reported Skin: no symptoms reported Past Utjhjwu-Whuwqr-Zlbsdi Hx Immunizations Up To Date First/Initial COVID19 Vaccinat: 10/25/20 Second COVID19 Vaccination Vivek: 11/15/20 Third COVID19 Vaccination Date: 10/25/20 Seasonal Allergies Seasonal Allergies: No Past Medical History Surgery/Hospitalization HX: PARKINSONS, A FIB, CHF, NEUROPATHY, PACEMAKER/DEFIBRILLATOR Surgeries: Yes (SCHRAPNEL REMOVED FROM LEFT ARM; LEFT LEG I&D CHILD FOR OSTEOMYELITIS; ) Appendectomy, Gallbladder, Orthopedic, Tonsillectomy Respiratory: Yes Sleep Apnea Currently Using CPAP: Yes Currently Using BIPAP: No Cardiac: Yes Atrial Fibrillation, Hypertension Neurological: Yes Dementia, Parkinson's Disease Reproductive Disorders: No Sexually Transmitted Disease: No HIV/AIDS: No Genitourinary: Yes (HORSESHOE KIDNEY; KIDNEY STONES NOTED ON CT SCAN 09/27/18) Benign Prostatic Hyperpl, Prostate Problems, Kidney Stones Gastrointestinal: Yes Gastroesophageal Reflux, Chronic Constipation Musculoskeletal: Yes Arthritis, Chronic Back Pain Endocrine: Yes Hypothyroidsim HEENT: No Loss of Vision: Denies Hearing Impairment: Denies Cancer: Yes (SQUAMOUS CELL-EAR) Skin Did You Recieve Any Treatments: Yes What Type of Treatment Did You: Surgical Intervention Psychosocial: Yes PTSD Integumentary: No Blood Disorders: No Adverse Reaction/Blood Tranf: No (N/A) Family Medical History Alcoholism G8 BROTHER Cervical cancer G8 SISTER Diabetes mellitus 19 FATHER 19 MOTHER G8 BROTHER FH: COPD (chronic obstructive pulmonary disease) 19 MOTHER FH: stroke 19 FATHER No Pertinent Family Hx Physical Exam Vital Signs Vital Signs - First Documented 09/08/23 03:17 Temp 36.0 Pulse 79 Resp 20 B/P (MAP) 172/107 (128) Pulse Ox 98 O2 Delivery Room Air Capillary Refill : Less Than 3 Seconds Height, Weight, BMI Height: 6'0.00" Weight: 260lbs. 0.0oz. 117.971140yz; 37.00 BMI Method:Stated General Appearance: No Apparent Distress, WD/WN Eyes: Bilateral Eye Normal Inspection Neck: Normal Inspection Respiratory: Lungs Clear, Normal Breath Sounds, No Accessory Muscle Use, No Respiratory Distress Cardiovascular: Regular Rate, Rhythm Gastrointestinal: Distended, Tenderness (Lower abdominal tenderness, distention) Genital/Rectal: Normal Genital Exam Extremity: Normal Inspection Neurologic/Psychiatric: Alert, Normal Mood/Affect Skin: Normal Color, Warm/Dry Progress/Results/Core Measures Suspected Sepsis SIRS Temperature: Pulse: 79 Respiratory Rate: 20 Blood Pressure 172 /107 Mean: 128 Results/Orders Lab Results Laboratory Tests Test 09/08/23 03:21 Range/Units Urine Color YELLOW Urine Clarity CLEAR Urine pH 6.0 5-9 Urine Specific [place] 1.010 L 1.016-1.022 Urine Protein NEGATIVE NEGATIVE Urine Glucose (UA) NEGATIVE NEGATIVE Urine Ketones NEGATIVE NEGATIVE Urine Nitrite NEGATIVE NEGATIVE Urine Bilirubin NEGATIVE NEGATIVE Urine Urobilinogen 1.0 < = 1.0 MG/DL Urine Leukocyte Esterase 1+ H NEGATIVE Urine RBC (Auto) 3+ H NEGATIVE Urine RBC 5-10 H /HPF Urine WBC 2-5 /HPF Urine Crystals PRESENT H /LPF Urine Amorphous Sediment RARE IVAN URATES H /LPF Urine Bacteria TRACE /HPF Urine Casts NONE /LPF Urine Mucus NEGATIVE /LPF Urine Culture Indicated NO My Orders Orders - MADYSON MONTANO MD Lidocaine 2% (Urojet) (Lidocaine 2% (Uro (09/08/23 03:22) Catheter(Urinary) Insert & Ass 03,15 (09/08/23 03:23) Ua Culture If Indicated (09/08/23 03:23) Lidocaine 2% (Urojet) (Lidocaine 2% (Uro (09/08/23 03:30) Medications Given in ED Current Medications Medications Dose Ordered Sig/Mariah Route Start Time Stop Time Status Last Admin Dose Admin Lidocaine HCl 10 ml STK-MED ONCE .ROUTE 09/08/23 03:22 09/08/23 03:24 DC 09/08/23 03:25 10 ML Vital Signs/I&O 09/08/23 03:17 Temp 36.0 Pulse 79 Resp 20 B/P (MAP) 172/107 (128) Pulse Ox 98 O2 Delivery Room Air Capillary Refill : Less Than 3 Seconds Blood Pressure Mean: 128 Progress Note : Time: 04:46 Progress Note Patient seen and evaluated by me. Evaluation today includes history and physical exam, urinalysis. Pertinent physical exam findings well-developed well-nourished 77-year-old male in no acute distress. Mask-like facies consistent with Parkinson's. Appears adequately hydrated with moist mucous membranes. Heart is regular, lungs are clear. Abdomen is distended in the lower portion, tender to palpation. Normoactive bowel sounds. Differential diagnosis includes acute urinary retention, urinary tract infection Patient had Garcia catheter placed after bedside bladder scan showed greater than 900 cc of urine in the bladder. Immediate return of orange-colored urine. Patient had almost immediate relief of lower abdominal discomfort. Urinalysis independently reviewed and interpreted by me. No signs of infection in the urine. I discussed findings with his who is at the bedside. We will leave the catheter in place and he can follow-up with Dr. Espino or with Dr. Fernandez. Return precautions provided in both verbal and written format. Patient will be placed at [facility] for respite care while his has knee replacement tomorrow. All questions are sought and answered. Departure Impression Primary Impression: Acute urinary retention Disposition: 01 HOME, SELF-CARE Condition: Improved Departure-Patient Inst. Decision time for Depature: 04:46 Referrals: EDDY ESPINO DO (PCP/Family) Primary Care Physician Patient Instructions: Urinary Retention Add. Discharge Instructions: Keep the Garcia catheter in place until follow-up with Dr. Espino. No signs of infection of the urine. Continue current medications. Return to the emergency department for any new, concerning or emergent complaints. Copy Copies To 1: EDDY ESPINO KATHRYN M MD Sep 08, 2023 03:55
[2023-09-08 03:57] LABS: BACTERIA,URINE TRACE /HPF; BILIRUBIN,URINE NEGATIVE (NEGATIVE); CLARITY,URINE CLEAR; COLOR,URINE YELLOW; GLUCOSE, URINE (UA) NEGATIVE (NEGATIVE); KETONES,URINE NEGATIVE (NEGATIVE); LEUKOCYTE ESTERASE ,URINE 1+ (NEGATIVE); NITRITE,URINE NEGATIVE (NEGATIVE); PROTEIN,URINE NEGATIVE (NEGATIVE)
[2023-09-08 03:58] LABS: AMORPHOUS SEDIMENT,UR RARE AMOR URATES /LPF
[2023-09-08 08:45] VITALS: BP 151/97
== END 2023-09-08 08:45 | disposition home or self-care (01) ==
LOC: EDUNIT# 03:14 → ER 03:16
DX: N40.1 Benign prostatic hyperplasia with lower urinary tract symptoms (principal); R33.8 Other retention of urine; R14.0 Abdominal distension (gaseous); R10.30 Lower abdominal pain, unspecified; G47.30 Sleep apnea, unspecified
CPT/HCPCS: 51702; 81000